=== PATIENT | male | born 1980 | race Caucasian/White ===

== ENCOUNTER → 2020-04-26 09:52 | Outpatient (CLI) | payer OTHER, SELFPAY ==
--- NOTE | 2020-04-26 | DI.CT.S_ITS ---
PROCEDURE: CT ABDOMEN W CON INDICATIONS: ABDOMINAL PAIN,GERD,DYSPEPSIA,NAUSEA TECHNIQUE: After the administration of oral and intravenous contrast, 5 mm thick sections acquired from the diaphragms to the iliac crests. 5 mm thick coronal and sagittal reformats were acquired. For radiation dose reduction, the following was used: automated exposure control, adjustment of mA and/or kV according to patient size. COMPARISON: None. FINDINGS: Image quality: Excellent. Lung bases: Lung bases are clear. Heart size is normal. Solid organs: Liver is normal in size and enhancement. Gallbladder appears partially contracted. Biliary system is non dilated. Pancreas enhances normally. Spleen is normal in size and enhancement. No adrenal nodules. Kidneys are normal in size, without hydronephrosis. Peritoneum and bowel: Contrast enhanced bowel loops appear normal in caliber. No free fluid or air. The transverse colon is relatively poorly seen and there is apposition of multiple small bowel loops and the transverse colon in the upper epigastrium. Nodes and vessels: No retroperitoneal or mesenteric adenopathy by size criteria. Aorta and inferior vena cava are normal in size. Bones: No suspicious bony lesions. No vertebral body compression fractures. Miscellaneous: No ventral hernias. IMPRESSION: The study is limited to the abdomen, without inclusion of the pelvis, and no definite source of current pain is identified. As discussed, the colon is poorly visualized through the area of the transverse colon, due to the apposition of small bowel structures immediately adjacent. Dictated by: Andrey Arndt M.D. on 04/26/2020 at 11:40 Approved by: Andrey Arndt M.D. on 04/26/2020 at 11:43
== END ==
PROVIDERS: PCP Nurse Practitioner; Referring Provider Internal Medicine Gastroenterology; Visit Provider Internal Medicine Gastroenterology
DX: K21.9 Gastro-esophageal reflux disease without esophagitis (principal); R10.13 Epigastric pain; R10.9 Unspecified abdominal pain; R11.0 Nausea
CPT/HCPCS: 74160; Q9967

== ENCOUNTER → 2021-04-02 08:27 | Outpatient (CLI) | payer OTHER, SELFPAY ==
[2021-04-02 10:19] LABS: Follicle Stimulating Hormone 2.48 mIU/mL
[2021-04-06 10:30] LABS: Percent Free Testosterone 2.88 % (1.50-4.20); Testosterone Free 18.67 ng/dL (5.00-21.00); Testosterone Total 648.4 ng/dL (264.0-916.0)
== END ==
PROVIDERS: PCP Family Medicine; Referring Provider Urology; Visit Provider Urology
DX: E29.1 Testicular hypofunction (principal)
CPT/HCPCS: 36415; 83001; 84402; 84403

== ENCOUNTER 2022-02-28 09:45 | Outpatient (RCR) | payer OTHER, SELFPAY ==
--- NOTE | 2022-01-01 14:25 | PT.OIE ---
Current Diagnoses Stiffness of right ankle, not elsewhere classified (01/01/22) Stiffness of left ankle, not elsewhere classified (01/01/22) Achilles tendinitis, right leg (01/01/22) Achilles tendinitis, left leg (01/01/22) Strain of other muscle(s) and tendon(s) of posterior muscle group at lower leg level, right leg, subsequent encounter (01/01/22) Strain of other muscle(s) and tendon(s) of posterior muscle group at lower leg level, left leg, subsequent encounter (01/01/22) Visit Care Team Role Provider Type Beth Lennon MD Attending Provider Non-Staff Family Provider Primary Care Provider Referring Provider Specialty: Family Practice Address: [address] [place] [address], [facility] Email: Physical Therapy Initial Evaluation PT-OP-A Visit Information Start: 01/01/22 13:46 Freq: Status: Active Protocol: Document 01/01/22 09:45 DCW (Rec: 01/01/22 14:13 DCW [id number]) Out-Patient Physical Therapy Visit Information Visit Information Visit Type Initial Evaluation Visit Start Time 09:45 Visit Stop Time 10:30 Total Visit Minutes 45 Visit Number 1 Number of SECOND HAND PAPER MACHINE Visits 0 Evaluation Information Evaluation Date 01/01/22 PT-OP-B Current Condition Start: 01/01/22 13:46 Freq: Status: Active Protocol: Document 01/01/22 09:45 DCW (Rec: 01/01/22 14:13 DCW [id number]) Current Condition History of Current Condition Onset Date s/p three months Current Complaints bilateral calf pain History of Current Condition Pt is a 41 year old male presenting to skilled therapy with a three month history of bilateral calf pain. Pt reports that in September, he completed his first marathon. Notes that following the race, he tried to run a few times, and had to stop due to mid- calf pain. Pt took a four week break from running, and then tried to get back into it. By his second run, he was experiencing fairly severe calf pain again, and has now not run in five weeks. Notes is doesn't hurt constantly, but when it does, there is nothing that he has found to help it. Did try to give himself a hard massage through his calfs, but was too sore the following day, so he stopped. Feels that his right leg is probably twice as bad as the left. 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 Treatment Goals Patient/Caregiver Goals Return to running PT-OP-C Subjective Start: 01/01/22 13:46 Freq: Status: Active Protocol: Document 01/01/22 09:45 DCW (Rec: 01/01/22 14:13 DCW [id number]) OP-PT Subjective Patient Comments Patient Comments I will sometimes still go out [place] for 1-2 miles, but even that seems like it is too much. Patient Questionnaires Foot & Ankle Ability Measure- ADL and Sports FAAM-ADL Score 43/84 = 51.91% FAAM-ADL Impairment 40 to 59% Impaired (Score 33- 49) FAAM-Sport Score 8/28 = 28.57 Lower Extremity Functional Scale LEFS Score 60/80 = 75% LEFS Impairment 20 to 39% Impaired (Score 48- 62) OP-PT Pain Assessment Pain Assessment Grid Paper Pain Assessment Grid Completed Yes Location Bilateral Calf Intensity 6 Scale Used Numeric (0 - 10) PT-OP-D Balance Start: 01/01/22 14:14 Freq: Status: Active Protocol: Document 01/01/22 09:45 DCW (Rec: 01/01/22 14:25 DCW [id number]) Balance Tests Single Limb Standing Single Limb- Right 30+ Single Limb- Left 30+ PT-OP-G Mobility & Gait Start: 01/01/22 13:46 Freq: Status: Active Protocol: Document 01/01/22 09:45 DCW (Rec: 01/01/22 14:13 DCW [id number]) OP Gait Assessment Comments Gait Comments Gait appears to be relatively unaffected. Pt does note his usual wear pattern on his running shoes are much more severely worn on his medial heel, but pt does not have any old shoes at this time, recently bought newer shoes, do not yet have any wear pattern, PT-OP-K Range of Motion Start: 01/01/22 13:46 Freq: Status: Active Protocol: Document 01/01/22 09:45 DCW (Rec: 01/01/22 14:13 DCW [id number]) Ankle and Foot Goniometric Range of Motion Ankle and Foot Right Active Testing Position Sitting Dorsiflexion with Knee Flexed 10 Dorsiflexion with Knee Extended 5 Plantarflexion 30 Inversion 35 Eversion 10 Left Active Testing Position Sitting Dorsiflexion with Knee Flexed 15 Dorsiflexion with Knee Extended 10 Plantarflexion 40 Inversion 40 Eversion 20 Ankle and Foot ROM Limitations ROM Limitations Soft Tissue Tightness PT-OP-L Special Tests Start: 01/01/22 13:46 Freq: Status: Active Protocol: Document 01/01/22 09:45 DCW (Rec: 01/01/22 14:13 DCW [id number]) Special Tests Foot/Ankle Special Tests Talor Tilt Test Results Negative Anterior Draw Test Results Negative PT-OP-M Strength Start: 01/01/22 13:46 Freq: Status: Active Protocol: Document 01/01/22 09:45 DCW (Rec: 01/01/22 14:13 DCW [id number]) Ankle/Foot Strength Ankle and Foot Manual Muscle Testing Bilateral Comments Dorsiflexion, Inversion, and Eversion all test 5/5. Plantar flexion tested with single leg heel raises. Pt able to perform 10 on L and 4 on R before stopping due to pain. PT-OP-T Assessment and Plan Start: 01/01/22 13:46 Freq: Status: Active Protocol: Document 01/01/22 09:45 DCW (Rec: 01/01/22 14:25 DCW [id number]) Physical Therapy Assessment Rehab Potential Rehabilitation Potential Good Evaluation Complexity Number of Personal Factors/Comorbidities 3 or More Number of Body Systems Impaired 3 Clinical Presentation at Evaluation Unstable Impairments Impairments Gait,Pain,Posture,ROM,Soft Tissue Mobility,Strength Other Concerns Barriers to Rehabilitation Long Covid creates multiple barriers, including congnitive confusion and decreased activity tolerance Goals Two Impairment Pt unable to perform normal running activities due to calf pain Certified Endoscopy Technician Goal (LTG) Pt to report ability to run 5K without increased calf pain LTG Duration 03/01/22 One Impairment Pt does not have an appropriate home exercise program Short Term Goal (STG) Pt to be independent and compliant with an appropriate HEP STG Duration 01/29/22 Assessment Summary Assessment Pt presents to skilled therapy with signs and symptoms consistent with bilateral calf strains, likely secondary to running a marathon. Pt's pain appears to be entirely located in his mid-calf muscles bilaterally, does not seem to have any complaints of pain in plantar fascia or Achilles tendon. Pt does appear to have increased pain with stretch into dorsiflexion with knee extension, which suggests possible involvement of his gastroc bilaterally. No notable signs that are suggestive of muscle tears. Pt should benefit from skilled therapy focusing on STM, flexibility, and strengthening in order to improve joint mobility and reduce calf tone, as well as further assessment of running technique to identify any potential deficits and introduce some gait training to limit negative effects. If pt does not progress with therapy, pt may benefit from further imaging. Physical Therapy Plan Frequency and Duration Frequency of Treatment 2x/Week Duration of Treatment Two months Plan of Care Start Date 01/01/22 Plan of Care End Date 03/01/22 Therapeutic Interventions Therapeutic Interventions Aquatic Therapy,Gait Training, Home Exercise Program,Joint Mobilizations,Manual Therapy, Patient/Caregiver Education, Self-Care/Home Management,Soft Tissue Mobilization, Therapeutic Activities, Therapeutic Exercises Modalities Cold Pack/Ice Massage,Electric Stimulation,Hot Packs, Ultrasound Next Visit Focus/Plan Next Note Type Treatment Note Next Visit Plan STM, Flexibility, strengthening of bilateral calf/ankles.
--- NOTE | 2022-01-01 14:26 | PT.OPPOC ---
Physical, Occupational & Speech Therapy At [facility] Current Diagnoses Stiffness of right ankle, not elsewhere classified (01/01/22) Stiffness of left ankle, not elsewhere classified (01/01/22) Achilles tendinitis, right leg (01/01/22) Achilles tendinitis, left leg (01/01/22) Strain of other muscle(s) and tendon(s) of posterior muscle group at lower leg level, right leg, subsequent encounter (01/01/22) Strain of other muscle(s) and tendon(s) of posterior muscle group at lower leg level, left leg, subsequent encounter (01/01/22) Visit Care Team Role Provider Type eBth Lennon MD Attending Provider Non-Staff Family Provider Primary Care Provider Referring Provider Specialty: Family Practice Address: [address] [place] [address], [id number] Email: Plan Of Care PT-OP-T Assessment and Plan Start: 01/01/22 13:46 Freq: Status: Active Protocol: Document 01/01/22 09:45 DCW (Rec: 01/01/22 14:25 DCW [id number]) Physical Therapy Assessment Rehab Potential Rehabilitation Potential Good Evaluation Complexity Number of Personal Factors/Comorbidities 3 or More Number of Body Systems Impaired 3 Clinical Presentation at Evaluation Unstable Impairments Impairments Gait,Pain,Posture,ROM,Soft Tissue Mobility,Strength Other Concerns Barriers to Rehabilitation Long Covid creates multiple barriers, including cognitive confusion and decreased activity tolerance Goals Two Impairment Pt unable to perform normal running activities due to calf pain Intermediate Goal (LTG) Pt to report ability to run 5K without increased calf pain LTG Duration 03/01/22 One Impairment Pt does not have an appropriate home exercise program Short Term Goal (STG) Pt to be independent and compliant with an appropriate HEP STG Duration 01/29/22 Assessment Summary Assessment Pt presents to skilled therapy with signs and symptoms consistent with bilateral calf strains, likely secondary to running a marathon. Pt's pain appears to be entirely located in his mid-calf muscles bilaterally, does not seem to have any complaints of pain in plantar fascia or Achilles tendon. Pt does appear to have increased pain with stretch into dorsiflexion with knee extension, which suggests possible involvement of his gastroc bilaterally. No notable signs that are suggestive of muscle tears. Pt should benefit from skilled therapy focusing on STM, flexibility, and strengthening in order to improve joint mobility and reduce calf tone, as well as further assessment of running technique to identify any potential deficits and introduce some gait training to limit negative effects. If pt does not progress with therapy, pt may benefit from further imaging. Physical Therapy Plan Frequency and Duration Frequency of Treatment 2x/Week Duration of Treatment Two months Plan of Care Start Date 01/01/22 Plan of Care End Date 03/01/22 Therapeutic Interventions Therapeutic Interventions Aquatic Therapy,Gait Training, Home Exercise Program,Joint Mobilizations,Manual Therapy, Patient/Caregiver Education, Self-Care/Home Management,Soft Tissue Mobilization, Therapeutic Activities, Therapeutic Exercises Modalities Cold Pack/Ice Massage,Electric Stimulation,Hot Packs, Ultrasound Next Visit Focus/Plan Next Note Type Treatment Note Next Visit Plan STM, Flexibility, strengthening of bilateral calf/ankles. Plan of Care Dates Plan of Care Start Date 01/01/22 Plan of Care End Date 03/01/22 Electronically Signed by: Des Rosenthal, PT 01/01/22 0180 Please Sign and Return: I have reviewed this Plan of Care and certify that the skilled therapy services above are required to meet the patient?s needs. Physician Signature Date Printed Name and Credentials Clinical Instructor Signature Printed Name and Credentials
--- NOTE | 2022-01-04 12:01 | PT.OTN ---
Current Diagnoses Stiffness of right ankle, not elsewhere classified (01/04/22) Stiffness of left ankle, not elsewhere classified (01/04/22) Achilles tendinitis, right leg (01/04/22) Achilles tendinitis, left leg (01/04/22) Strain of other muscle(s) and tendon(s) of posterior muscle group at lower leg level, right leg, subsequent encounter (01/04/22) Strain of other muscle(s) and tendon(s) of posterior muscle group at lower leg level, left leg, subsequent encounter (01/04/22) Physical Therapy Treatment Note PT-OP-A Visit Information Start: 01/01/22 13:46 Freq: Status: Active Protocol: Document 01/04/22 11:15 DCW (Rec: 01/04/22 12:01 DCW [id number]) Out-Patient Physical Therapy Visit Information Visit Information Visit Type Treatment Note Visit Start Time 11:15 Visit Stop Time 12:00 Total Visit Minutes 45 Visit Number 2 Number of ONCOLOGY RN Visits 0 Evaluation Information Evaluation Date 01/01/22 PT-OP-B Current Condition Start: 01/01/22 13:46 Freq: Status: Active Protocol: Document 01/01/22 09:45 DCW (Rec: 01/01/22 14:13 DCW [id number]) Current Condition History of Current Condition Onset Date s/p three months Current Complaints bilateral calf pain History of Current Condition Pt is a 41 year old male presenting to skilled therapy with a three month history of bilateral calf pain. Pt reports that in September, he completed his first marathon. Notes that following the race, he tried to run a few times, and had to stop due to mid- calf pain. Pt took a four week break from running, and then tried to get back into it. By his second run, he was experiencing fairly severe calf pain again, and has now not run in five weeks. Notes is doesn't hurt constantly, but when it does, there is nothing that he has found to help it. Did try to give himself a hard massage through his calfs, but was too sore the following day, so he stopped. Feels that his right leg is probably twice as bad as the left. 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 Treatment Goals Patient/Caregiver Goals Return to running PT-OP-C Subjective Start: 01/01/22 13:46 Freq: Status: Active Protocol: Document 01/04/22 11:15 DCW (Rec: 01/04/22 12:01 DCW [id number]) OP-PT Subjective Patient Comments Patient Comments Yesterday my right leg was really sore, I was kind of limping around all day, I wasn 't able to do much. It's doing better today. PT-OP-D Balance Start: 01/01/22 14:14 Freq: Status: Active Protocol: Document 01/01/22 09:45 DCW (Rec: 01/01/22 14:25 DCW [id number]) Balance Tests Single Limb Standing Single Limb- Right 30+ Single Limb- Left 30+ PT-OP-G Mobility & Gait Start: 01/01/22 13:46 Freq: Status: Active Protocol: Document 01/01/22 09:45 DCW (Rec: 01/01/22 14:13 DCW [id number]) OP Gait Assessment Comments Gait Comments Gait appears to be relatively unaffected. Pt does note his usual wear pattern on his running shoes are much more severely worn on his medial heel, but pt does not have any old shoes at this time, recently bought newer shoes, do not yet have any wear pattern, PT-OP-K Range of Motion Start: 01/01/22 13:46 Freq: Status: Active Protocol: Document 01/01/22 09:45 DCW (Rec: 01/01/22 14:13 DCW [id number]) Ankle and Foot Goniometric Range of Motion Ankle and Foot Right Active Testing Position Sitting Dorsiflexion with Knee Flexed 10 Dorsiflexion with Knee Extended 5 Plantarflexion 30 Inversion 35 Eversion 10 Left Active Testing Position Sitting Dorsiflexion with Knee Flexed 15 Dorsiflexion with Knee Extended 10 Plantarflexion 40 Inversion 40 Eversion 20 Ankle and Foot ROM Limitations ROM Limitations Soft Tissue Tightness PT-OP-L Special Tests Start: 01/01/22 13:46 Freq: Status: Active Protocol: Document 01/01/22 09:45 DCW (Rec: 01/01/22 14:13 DCW [id number]) Special Tests Foot/Ankle Special Tests Talor Tilt Test Results Negative Anterior Draw Test Results Negative PT-OP-M Strength Start: 01/01/22 13:46 Freq: Status: Active Protocol: Document 01/01/22 09:45 DCW (Rec: 01/01/22 14:13 DCW [id number]) Ankle/Foot Strength Ankle and Foot Manual Muscle Testing Bilateral Comments Dorsiflexion, Inversion, and Eversion all test 5/5. Plantar flexion tested with single leg heel raises. Pt able to perform 10 on L and 4 on R before stopping due to pain. PT-OP-Q Treatments Start: 01/01/22 13:46 Freq: Status: Active Protocol: Document 01/04/22 11:15 DCW (Rec: 01/04/22 12:01 DCW [id number]) Therapeutic Exercises Supine Exercises 1 Supine Exercise Name Calf stretch /c strap Side bilateral Prone Exercises 1 Prone Exercise Name Calf stretch Side bilateral Comments Manual Standing Exercises 1 Standing Exercise Name Single leg eccentric heel raises Side bilateral Manual Therapy Treatment Soft Tissue Mobilization 1 Body Location B Post Tib Mobilization Type Strumming,Sustained Pressure Intensity/Depth Deep Body Position Prone PT-OP-R Modalities Start: 01/01/22 13:46 Freq: Status: Active Protocol: Document 01/04/22 11:15 DCW (Rec: 01/04/22 12:01 DCW [id number]) Ultrasound Therapy Treatment Lower Medial Leg Treatment Duration (minutes) 10 Patient Position Prone Coupling Medium Ultrasound Gel Applicator Size (cm2) 5 Frequency Setting (mHz) 1 Mode Setting Continuous Duty Cycle 100% Intensity Setting (w/cm2) 1.2 PT-OP-T Assessment and Plan Start: 01/01/22 13:46 Freq: Status: Active Protocol: Document 01/04/22 11:15 DCW (Rec: 01/04/22 12:01 DCW [id number]) Physical Therapy Assessment Impairments Impairments Gait,Pain,Posture,ROM,Soft Tissue Mobility,Strength Goals Two Impairment Pt unable to perform normal running activities due to calf pain Mcfp Goal (LTG) Pt to report ability to run 5K without increased calf pain LTG Duration 03/01/22 One Impairment Pt does not have an appropriate home exercise program Short Term Goal (STG) Pt to be independent and compliant with an appropriate HEP STG Duration 01/29/22 Assessment Summary Assessment Noted increased tenderness today along bilateral post tib tendons, trial of US to decrease tone, worked on stretching and strengthening of ankles. Physical Therapy Plan Frequency and Duration Frequency of Treatment 2x/Week Duration of Treatment Two months Plan of Care Start Date 01/01/22 Plan of Care End Date 03/01/22 Therapeutic Interventions Therapeutic Interventions Aquatic Therapy,Gait Training, Home Exercise Program,Joint Mobilizations,Manual Therapy, Patient/Caregiver Education, Self-Care/Home Management,Soft Tissue Mobilization, Therapeutic Activities, Therapeutic Exercises Modalities Cold Pack/Ice Massage,Electric Stimulation,Hot Packs, Ultrasound Next Visit Focus/Plan Next Note Type Treatment Note Next Visit Plan STM, Flexibility, strengthening of bilateral calf/ankles.
--- NOTE | 2022-01-08 10:30 | PT.OTN ---
Current Diagnoses Stiffness of right ankle, not elsewhere classified (01/08/22) Stiffness of left ankle, not elsewhere classified (01/08/22) Achilles tendinitis, right leg (01/08/22) Achilles tendinitis, left leg (01/08/22) Strain of other muscle(s) and tendon(s) of posterior muscle group at lower leg level, right leg, subsequent encounter (01/08/22) Strain of other muscle(s) and tendon(s) of posterior muscle group at lower leg level, left leg, subsequent encounter (01/08/22) Physical Therapy Treatment Note PT-OP-A Visit Information Start: 01/01/22 13:46 Freq: Status: Active Protocol: Document 01/08/22 09:50 SP (Rec: 01/08/22 10:32 SP [id number]) Out-Patient Physical Therapy Visit Information Visit Information Visit Type Treatment Note Visit Start Time 09:50 Visit Stop Time 10:30 Total Visit Minutes 40 Visit Number 3 Number of ASSOCIATE PROFESSOR OF LITERATURE Visits 1 Evaluation Information Evaluation Date 01/01/22 PT-OP-B Current Condition Start: 01/01/22 13:46 Freq: Status: Active Protocol: Document 01/01/22 09:45 DCW (Rec: 01/01/22 14:13 DCW [id number]) Current Condition History of Current Condition Onset Date s/p three months Current Complaints bilateral calf pain History of Current Condition Pt is a 41 year old male presenting to skilled therapy with a three month history of bilateral calf pain. Pt reports that in September, he completed his first marathon. Notes that following the race, he tried to run a few times, and had to stop due to mid- calf pain. Pt took a four week break from running, and then tried to get back into it. By his second run, he was experiencing fairly severe calf pain again, and has now not run in five weeks. Notes is doesn't hurt constantly, but when it does, there is nothing that he has found to help it. Did try to give himself a hard massage through his calfs, but was too sore the following day, so he stopped. Feels that his right leg is probably twice as bad as the left. 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 Treatment Goals Patient/Caregiver Goals Return to running PT-OP-C Subjective Start: 01/01/22 13:46 Freq: Status: Active Protocol: Document 01/08/22 09:50 SP (Rec: 01/08/22 10:32 SP [id number]) OP-PT Subjective Patient Comments Patient Comments Pt states Sat performed eccentric calf raises 1.5 min/ 2min instructed and really painful to walk about 5 hrs spasming LLE, last 2 hrs then RLE started spasming had to stop and ice with good response. PT-OP-D Balance Start: 01/01/22 14:14 Freq: Status: Active Protocol: Document 01/01/22 09:45 DCW (Rec: 01/01/22 14:25 DCW [id number]) Balance Tests Single Limb Standing Single Limb- Right 30+ Single Limb- Left 30+ PT-OP-G Mobility & Gait Start: 01/01/22 13:46 Freq: Status: Active Protocol: Document 01/01/22 09:45 DCW (Rec: 01/01/22 14:13 DCW [id number]) OP Gait Assessment Comments Gait Comments Gait appears to be relatively unaffected. Pt does note his usual wear pattern on his running shoes are much more severely worn on his medial heel, but pt does not have any old shoes at this time, recently bought newer shoes, do not yet have any wear pattern, PT-OP-K Range of Motion Start: 01/01/22 13:46 Freq: Status: Active Protocol: Document 01/01/22 09:45 DCW (Rec: 01/01/22 14:13 DCW [id number]) Ankle and Foot Goniometric Range of Motion Ankle and Foot Right Active Testing Position Sitting Dorsiflexion with Knee Flexed 10 Dorsiflexion with Knee Extended 5 Plantarflexion 30 Inversion 35 Eversion 10 Left Active Testing Position Sitting Dorsiflexion with Knee Flexed 15 Dorsiflexion with Knee Extended 10 Plantarflexion 40 Inversion 40 Eversion 20 Ankle and Foot ROM Limitations ROM Limitations Soft Tissue Tightness PT-OP-L Special Tests Start: 01/01/22 13:46 Freq: Status: Active Protocol: Document 01/01/22 09:45 DCW (Rec: 01/01/22 14:13 DCW [id number]) Special Tests Foot/Ankle Special Tests Talor Tilt Test Results Negative Anterior Draw Test Results Negative PT-OP-M Strength Start: 01/01/22 13:46 Freq: Status: Active Protocol: Document 01/01/22 09:45 DCW (Rec: 01/01/22 14:13 DCW [id number]) Ankle/Foot Strength Ankle and Foot Manual Muscle Testing Bilateral Comments Dorsiflexion, Inversion, and Eversion all test 5/5. Plantar flexion tested with single leg heel raises. Pt able to perform 10 on L and 4 on R before stopping due to pain. PT-OP-Q Treatments Start: 01/01/22 13:46 Freq: Status: Active Protocol: Document 01/08/22 09:50 SP (Rec: 01/08/22 10:32 SP [id number]) Therapeutic Exercises Supine Exercises eccentric DF w/ TB Supine Exercise Name added to HEP Side bilateral Resistance TB #1 Reps/Minutes x10 Comments cued slow eccentric DF- painfree response 1 Supine Exercise Name Calf stretch /c strap Side bilateral Reps/Minutes 30 x2 Comments states little sore but ok to do Sitting Exercises foot instrinsic Sitting Exercise Name added to HEP: arch lift and marble waste picker (towel scrunch at home) Side bilateral Resistance AROM Equipment Used towel vs marble Reps/Minutes 2 min total Comments cued slow movement, tiring but not painful response ankle strengthening Sitting Exercise Name added to HEP- EV, IV Side bilateral Resistance TB #1 Reps/Minutes x10 each direction Comments cued set up/direct/ form, keep knee stable- painfree response self STMs Sitting Exercise Name Reviewed doing self at home vs massage with hands Side bilateral Equipment Used rolling pin (roll/ rock), racquetball vs manual Reps/Minutes 3 min total Comments little tender calf over ball sustain press/ vs AP MWM- sore but ok as sena. Standing Exercises 1 Standing Exercise Name Single leg eccentric heel raises Side bilateral Comments pt request discontinue due to pain experience over weekend. PT-OP-R Modalities Start: 01/01/22 13:46 Freq: Status: Active Protocol: Document 01/04/22 11:15 DCW (Rec: 01/04/22 12:01 DCW [id number]) Ultrasound Therapy Treatment Lower Medial Leg Treatment Duration (minutes) 10 Patient Position Prone Coupling Medium Ultrasound Gel Applicator Size (cm2) 5 Frequency Setting (mHz) 1 Mode Setting Continuous Duty Cycle 100% Intensity Setting (w/cm2) 1.2 PT-OP-T Assessment and Plan Start: 01/01/22 13:46 Freq: Status: Active Protocol: Document 01/08/22 09:50 SP (Rec: 01/08/22 10:32 SP [id number]) Physical Therapy Assessment Goals Two Impairment Pt unable to perform normal running activities due to calf pain Snf Goal (LTG) Pt to report ability to run 5K without increased calf pain LTG Duration 03/01/22 One Impairment Pt does not have an appropriate home exercise program Short Term Goal (STG) Pt to be independent and compliant with an appropriate HEP STG Duration 01/29/22 Assessment Summary Assessment Pt responded well to self manual, stretching review and initiated ankle strengthening including eccentric DF with no adverse affects, muscle tiring. Discussed if having pain at home or easy modify reps more/ less with good understanding. Provided hand outs for recall set up/form, baseline rep. Physical Therapy Plan Frequency and Duration Frequency of Treatment 2x/Week Duration of Treatment Two months Plan of Care Start Date 01/01/22 Plan of Care End Date 03/01/22 Therapeutic Interventions Therapeutic Interventions Aquatic Therapy,Gait Training, Home Exercise Program,Joint Mobilizations,Manual Therapy, Patient/Caregiver Education, Self-Care/Home Management,Soft Tissue Mobilization, Therapeutic Activities, Therapeutic Exercises Modalities Cold Pack/Ice Massage,Electric Stimulation,Hot Packs, Ultrasound Next Visit Focus/Plan Next Note Type Treatment Note Next Visit Plan Recheck ankle TB, foot intrinsic. Next tx: assess add SLS stationary/ dynamic star taps. POC: STM, Flexibility, strengthening of bilateral calf/ankles.
--- NOTE | 2022-01-10 11:16 | PT.OTN ---
Current Diagnoses Stiffness of right ankle, not elsewhere classified (01/10/22) Stiffness of left ankle, not elsewhere classified (01/10/22) Achilles tendinitis, right leg (01/10/22) Achilles tendinitis, left leg (01/10/22) Strain of other muscle(s) and tendon(s) of posterior muscle group at lower leg level, right leg, subsequent encounter (01/10/22) Strain of other muscle(s) and tendon(s) of posterior muscle group at lower leg level, left leg, subsequent encounter (01/10/22) Physical Therapy Treatment Note PT-OP-A Visit Information Start: 01/01/22 13:46 Freq: Status: Active Protocol: Document 01/10/22 10:30 DCW (Rec: 01/10/22 11:16 DCW [id number]) Out-Patient Physical Therapy Visit Information Visit Information Visit Type Treatment Note Visit Start Time 10:30 Visit Stop Time 11:15 Total Visit Minutes 45 Visit Number 4 Number of CHIEF LIFESTYLE OFFICER Visits 0 Evaluation Information Evaluation Date 01/01/22 PT-OP-B Current Condition Start: 01/01/22 13:46 Freq: Status: Active Protocol: Document 01/01/22 09:45 DCW (Rec: 01/01/22 14:13 DCW [id number]) Current Condition History of Current Condition Onset Date s/p three months Current Complaints bilateral calf pain History of Current Condition Pt is a 41 year old male presenting to skilled therapy with a three month history of bilateral calf pain. Pt reports that in September, he completed his first marathon. Notes that following the race, he tried to run a few times, and had to stop due to mid- calf pain. Pt took a four week break from running, and then tried to get back into it. By his second run, he was experiencing fairly severe calf pain again, and has now not run in five weeks. Notes is doesn't hurt constantly, but when it does, there is nothing that he has found to help it. Did try to give himself a hard massage through his calfs, but was too sore the following day, so he stopped. Feels that his right leg is probably twice as bad as the left. 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 Treatment Goals Patient/Caregiver Goals Return to running PT-OP-C Subjective Start: 01/01/22 13:46 Freq: Status: Active Protocol: Document 01/10/22 10:30 DCW (Rec: 01/10/22 11:16 DCW [id number]) OP-PT Subjective Patient Comments Patient Comments Pt notes his legs were pretty sore yesterday just from walking around. PT-OP-D Balance Start: 01/01/22 14:14 Freq: Status: Active Protocol: Document 01/01/22 09:45 DCW (Rec: 01/01/22 14:25 DCW [id number]) Balance Tests Single Limb Standing Single Limb- Right 30+ Single Limb- Left 30+ PT-OP-G Mobility & Gait Start: 01/01/22 13:46 Freq: Status: Active Protocol: Document 01/01/22 09:45 DCW (Rec: 01/01/22 14:13 DCW [id number]) OP Gait Assessment Comments Gait Comments Gait appears to be relatively unaffected. Pt does note his usual wear pattern on his running shoes are much more severely worn on his medial heel, but pt does not have any old shoes at this time, recently bought newer shoes, do not yet have any wear pattern, PT-OP-K Range of Motion Start: 01/01/22 13:46 Freq: Status: Active Protocol: Document 01/01/22 09:45 DCW (Rec: 01/01/22 14:13 DCW [id number]) Ankle and Foot Goniometric Range of Motion Ankle and Foot Right Active Testing Position Sitting Dorsiflexion with Knee Flexed 10 Dorsiflexion with Knee Extended 5 Plantarflexion 30 Inversion 35 Eversion 10 Left Active Testing Position Sitting Dorsiflexion with Knee Flexed 15 Dorsiflexion with Knee Extended 10 Plantarflexion 40 Inversion 40 Eversion 20 Ankle and Foot ROM Limitations ROM Limitations Soft Tissue Tightness PT-OP-L Special Tests Start: 01/01/22 13:46 Freq: Status: Active Protocol: Document 01/01/22 09:45 DCW (Rec: 01/01/22 14:13 DCW [id number]) Special Tests Foot/Ankle Special Tests Talor Tilt Test Results Negative Anterior Draw Test Results Negative PT-OP-M Strength Start: 02/15/22 13:46 Freq: Status: Active Protocol: Document 01/01/22 09:45 DCW (Rec: 01/01/22 14:13 DCW [id number]) Ankle/Foot Strength Ankle and Foot Manual Muscle Testing Bilateral Comments Dorsiflexion, Inversion, and Eversion all test 5/5. Plantar flexion tested with single leg heel raises. Pt able to perform 10 on L and 4 on R before stopping due to pain. PT-OP-Q Treatments Start: 01/01/22 13:46 Freq: Status: Active Protocol: Document 01/10/22 10:30 DCW (Rec: 01/10/22 11:16 DCW [id number]) Manual Therapy Treatment Soft Tissue Mobilization 1 Body Location B Post Tib Mobilization Type Strumming,Sustained Pressure Intensity/Depth Deep Body Position Prone PT-OP-R Modalities Start: 01/01/22 13:46 Freq: Status: Active Protocol: Document 01/10/22 10:30 DCW (Rec: 01/10/22 11:16 DCW [id number]) Ultrasound Therapy Treatment Lower Medial Leg Treatment Duration (minutes) 10 Patient Position Prone Coupling Medium Ultrasound Gel Applicator Size (cm2) 5 Frequency Setting (mHz) 1 Mode Setting Continuous Duty Cycle 100% Intensity Setting (w/cm2) 1.2 Comments 5' each leg PT-OP-T Assessment and Plan Start: 01/01/22 13:46 Freq: Status: Active Protocol: Document 01/10/22 10:30 DCW (Rec: 01/10/22 11:16 DCW [id number]) Physical Therapy Assessment Impairments Impairments Gait,Pain,Posture,ROM,Soft Tissue Mobility,Strength Goals Two Impairment Pt unable to perform normal running activities due to calf pain Usp Goal (LTG) Pt to report ability to run 5K without increased calf pain LTG Duration 03/01/22 One Impairment Pt does not have an appropriate home exercise program Short Term Goal (STG) Pt to be independent and compliant with an appropriate HEP STG Duration 01/29/22 Assessment Summary Assessment Pt performing gentle strengthening at home independently. Focused more today on STM and US, still trying to take it easy to limit flair-ups. If pt continues to show limited progress, may be beneficial to return to PCP. Physical Therapy Plan Frequency and Duration Frequency of Treatment 2x/Week Duration of Treatment Two months Plan of Care Start Date 01/01/22 Plan of Care End Date 03/01/22 Therapeutic Interventions Therapeutic Interventions Aquatic Therapy,Gait Training, Home Exercise Program,Joint Mobilizations,Manual Therapy, Patient/Caregiver Education, Self-Care/Home Management,Soft Tissue Mobilization, Therapeutic Activities, Therapeutic Exercises Modalities Cold Pack/Ice Massage,Electric Stimulation,Hot Packs, Ultrasound Next Visit Focus/Plan Next Note Type Treatment Note Next Visit Plan Next tx: assess add SLS stationary/ dynamic star taps. POC: STM, Flexibility, strengthening of bilateral calf/ankles.
--- NOTE | 2022-01-15 13:48 | PT.OTN ---
Current Diagnoses Stiffness of right ankle, not elsewhere classified (01/15/22) Stiffness of left ankle, not elsewhere classified (01/15/22) Achilles tendinitis, right leg (01/15/22) Achilles tendinitis, left leg (01/15/22) Strain of other muscle(s) and tendon(s) of posterior muscle group at lower leg level, right leg, subsequent encounter (01/15/22) Strain of other muscle(s) and tendon(s) of posterior muscle group at lower leg level, left leg, subsequent encounter (01/15/22) Physical Therapy Treatment Note PT-OP-A Visit Information Start: 01/01/22 13:46 Freq: Status: Active Protocol: Document 01/15/22 13:04 SP (Rec: 01/15/22 13:52 SP [id number]) Out-Patient Physical Therapy Visit Information Visit Information Visit Type Treatment Note Visit Start Time 13:04 Visit Stop Time 13:48 Total Visit Minutes 44 Visit Number 5 Number of JOURNEYMAN TOOL AND DIE MAKER Visits 1 Evaluation Information Evaluation Date 01/01/22 PT-OP-B Current Condition Start: 01/01/22 13:46 Freq: Status: Active Protocol: Document 01/01/22 09:45 DCW (Rec: 01/01/22 14:13 DCW [id number]) Current Condition History of Current Condition Onset Date s/p three months Current Complaints bilateral calf pain History of Current Condition Pt is a 41 year old male presenting to skilled therapy with a three month history of bilateral calf pain. Pt reports that in September, he completed his first marathon. Notes that following the race, he tried to run a few times, and had to stop due to mid- calf pain. Pt took a four week break from running, and then tried to get back into it. By his second run, he was experiencing fairly severe calf pain again, and has now not run in five weeks. Notes is doesn't hurt constantly, but when it does, there is nothing that he has found to help it. Did try to give himself a hard massage through his calfs, but was too sore the following day, so he stopped. Feels that his right leg is probably twice as bad as the left. 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 Treatment Goals Patient/Caregiver Goals Return to running PT-OP-C Subjective Start: 01/01/22 13:46 Freq: Status: Active Protocol: Document 01/15/22 13:04 SP (Rec: 01/15/22 13:52 SP [id number]) OP-PT Subjective Patient Comments Patient Comments Pt stated felt fine after last appt, was able to walk on flat surface outdoors about 30 min approx 1.5 mile and rested after with little stiffness but doing better overall. Pt stated is noticing calves achiness when wakes up and end fo the day. Was able to hike/ walk some [place] trails but not extremely elevated, about 1 hr with just water and lead his dog with friends, no adverse affects. Uses rice warm packs and ice bath for comfort. Noted pt had small bruising over both calves from hard knobbed rolling pin purchased brought in with firm pressure but isn't painful. PT-OP-D Balance Start: 01/01/22 14:14 Freq: Status: Active Protocol: Document 01/01/22 09:45 DCW (Rec: 01/01/22 14:25 DCW [id number]) Balance Tests Single Limb Standing Single Limb- Right 30+ Single Limb- Left 30+ PT-OP-G Mobility & Gait Start: 01/01/22 13:46 Freq: Status: Active Protocol: Document 01/01/22 09:45 DCW (Rec: 01/01/22 14:13 DCW [id number]) OP Gait Assessment Comments Gait Comments Gait appears to be relatively unaffected. Pt does note his usual wear pattern on his running shoes are much more severely worn on his medial heel, but pt does not have any old shoes at this time, recently bought newer shoes, do not yet have any wear pattern, PT-OP-K Range of Motion Start: 01/01/22 13:46 Freq: Status: Active Protocol: Document 01/01/22 09:45 DCW (Rec: 01/01/22 14:13 DCW [id number]) Ankle and Foot Goniometric Range of Motion Ankle and Foot Right Active Testing Position Sitting Dorsiflexion with Knee Flexed 10 Dorsiflexion with Knee Extended 5 Plantarflexion 30 Inversion 35 Eversion 10 Left Active Testing Position Sitting Dorsiflexion with Knee Flexed 15 Dorsiflexion with Knee Extended 10 Plantarflexion 40 Inversion 40 Eversion 20 Ankle and Foot ROM Limitations ROM Limitations Soft Tissue Tightness PT-OP-L Special Tests Start: 01/01/22 13:46 Freq: Status: Active Protocol: Document 01/01/22 09:45 DCW (Rec: 01/01/22 14:13 DCW [id number]) Special Tests Foot/Ankle Special Tests Talor Tilt Test Results Negative Anterior Draw Test Results Negative PT-OP-M Strength Start: 01/01/22 13:46 Freq: Status: Active Protocol: Document 01/01/22 09:45 DCW (Rec: 01/01/22 14:13 DCW [id number]) Ankle/Foot Strength Ankle and Foot Manual Muscle Testing Bilateral Comments Dorsiflexion, Inversion, and Eversion all test 5/5. Plantar flexion tested with single leg heel raises. Pt able to perform 10 on L and 4 on R before stopping due to pain. PT-OP-Q Treatments Start: 01/01/22 13:46 Freq: Status: Active Protocol: Document 01/15/22 13:04 SP (Rec: 01/15/22 13:52 SP [id number]) Therapeutic Exercises Sitting Exercises foot instrinsic Sitting Exercise Name discussed is still performing in sitting arch lifts at home Side bilateral Resistance AROM Equipment Used towel vs marble Reps/Minutes 2 min total Comments cued slow movement, tiring but not painful response ankle strengthening Sitting Exercise Name EV, IV- discussed but not performed is doing at home Side bilateral Resistance TB #1 Reps/Minutes x10 each direction Comments cued set up/direct/ form, keep knee stable- painfree response self STMs Sitting Exercise Name Discussed performed with ne w small knobbed rolling pin. Side bilateral Equipment Used rolling pin (roll/ rock), racquetball vs manual Reps/Minutes 3 min total Comments little tender calf over ball sustain press/ vs AP MWM- sore but ok as sena. Standing Exercises calf stretch Standing Exercise Name self HEP Side bilateral Reps/Minutes 30 x2 Comments good feedback stretch step ups BOSU Standing Exercise Name added to HEP- dome side up Side right Resistance AROM Equipment Used bosu, contact for balance supprt Reps/Minutes 2x5 Comments cued awareness SLS star glides Standing Exercise Name added to HEP (RLE stationary, LLE 12, 10, 8, 6 o'clock) Side right Resistance AROM Equipment Used cones, mirror Reps/Minutes 4 cones x5 reps Comments cued knee with and behind toes , hip hinge Self-Care/Home Management Treatment Education Patient Education Body Mechanics,Pain Management ,Safety Other Education Discussed safety pressure using rolling pin, recommended use of regular rolling pin and hands if needed for tightness, feel over did using new knobbed roller. PT-OP-R Modalities Start: 01/01/22 13:46 Freq: Status: Active Protocol: Document 01/15/22 13:04 SP (Rec: 01/15/22 13:52 SP [id number]) Ultrasound Therapy Treatment Lower Medial Leg Treatment Duration (minutes) 10 Patient Position Prone Coupling Medium Ultrasound Gel Applicator Size (cm2) 5 Frequency Setting (mHz) 1 Mode Setting Continuous Duty Cycle 100% Intensity Setting (w/cm2) 1.2 Comments 5' each leg achilles PT-OP-T Assessment and Plan Start: 01/01/22 13:46 Freq: Status: Active Protocol: Document 01/15/22 13:04 SP (Rec: 01/15/22 13:52 SP [id number]) Physical Therapy Assessment Goals Two Impairment Pt unable to perform normal running activities due to calf pain Half-Way Goal (LTG) Pt to report ability to run 5K without increased calf pain LTG Duration 03/01/22 One Impairment Pt does not have an appropriate home exercise program Short Term Goal (STG) Pt to be independent and compliant with an appropriate HEP STG Duration 01/29/22 Assessment Summary Assessment Pt had good response to last tx. Stated performed some uneven trail walks since last tx, no adverse affects. Initiated SLS star glide and dome BOSU step ups (has one at home) with cues for knee and ankle alignment for stability strengthening with good response and corrections alignment post education. Pt reported no pain, R lower leg feeling weak and noted shakiness but stable. Physical Therapy Plan Frequency and Duration Frequency of Treatment 2x/Week Duration of Treatment Two months Plan of Care Start Date 01/01/22 Plan of Care End Date 03/01/22 Therapeutic Interventions Therapeutic Interventions Aquatic Therapy,Gait Training, Home Exercise Program,Joint Mobilizations,Manual Therapy, Patient/Caregiver Education, Self-Care/Home Management,Soft Tissue Mobilization, Therapeutic Activities, Therapeutic Exercises Modalities Cold Pack/Ice Massage,Electric Stimulation,Hot Packs, Ultrasound Next Visit Focus/Plan Next Note Type Treatment Note Next Visit Plan Next tx: assess new bosu step ups and dynamic star glides. If ok progress dynamic stepping/ ladder stepping next tx. POC: STM, Flexibility, strengthening of bilateral calf/ankles.
--- NOTE | 2022-01-17 11:15 | PT.OTN ---
Current Diagnoses Stiffness of right ankle, not elsewhere classified (01/17/22) Stiffness of left ankle, not elsewhere classified (01/17/22) Achilles tendinitis, right leg (01/17/22) Achilles tendinitis, left leg (01/17/22) Strain of other muscle(s) and tendon(s) of posterior muscle group at lower leg level, right leg, subsequent encounter (01/17/22) Strain of other muscle(s) and tendon(s) of posterior muscle group at lower leg level, left leg, subsequent encounter (01/17/22) Physical Therapy Treatment Note PT-OP-A Visit Information Start: 01/01/22 13:46 Freq: Status: Active Protocol: Document 01/17/22 10:30 DCW (Rec: 01/17/22 11:15 DCW [id number]) Out-Patient Physical Therapy Visit Information Visit Information Visit Type Treatment Note Visit Start Time 10:30 Visit Stop Time 11:15 Total Visit Minutes 45 Visit Number 6 Number of THREAD ROLLER Visits 0 Evaluation Information Evaluation Date 01/01/22 PT-OP-B Current Condition Start: 01/01/22 13:46 Freq: Status: Active Protocol: Document 01/01/22 09:45 DCW (Rec: 01/01/22 14:13 DCW [id number]) Current Condition History of Current Condition Onset Date s/p three months Current Complaints bilateral calf pain History of Current Condition Pt is a 41 year old male presenting to skilled therapy with a three month history of bilateral calf pain. Pt reports that in September, he completed his first marathon. Notes that following the race, he tried to run a few times, and had to stop due to mid- calf pain. Pt took a four week break from running, and then tried to get back into it. By his second run, he was experiencing fairly severe calf pain again, and has now not run in five weeks. Notes is doesn't hurt constantly, but when it does, there is nothing that he has found to help it. Did try to give himself a hard massage through his calfs, but was too sore the following day, so he stopped. Feels that his right leg is probably twice as bad as the left. 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 Treatment Goals Patient/Caregiver Goals Return to running PT-OP-C Subjective Start: 01/01/22 13:46 Freq: Status: Active Protocol: Document 01/17/22 10:30 DCW (Rec: 01/17/22 11:15 DCW [id number]) OP-PT Subjective Patient Comments Patient Comments I had some sciatica, so I took it easy yesterday. PT-OP-D Balance Start: 01/01/22 14:14 Freq: Status: Active Protocol: Document 01/01/22 09:45 DCW (Rec: 01/01/22 14:25 DCW [id number]) Balance Tests Single Limb Standing Single Limb- Right 30+ Single Limb- Left 30+ PT-OP-G Mobility & Gait Start: 01/01/22 13:46 Freq: Status: Active Protocol: Document 01/01/22 09:45 DCW (Rec: 01/01/22 14:13 DCW [id number]) OP Gait Assessment Comments Gait Comments Gait appears to be relatively unaffected. Pt does note his usual wear pattern on his running shoes are much more severely worn on his medial heel, but pt does not have any old shoes at this time, recently bought newer shoes, do not yet have any wear pattern, PT-OP-K Range of Motion Start: 01/01/22 13:46 Freq: Status: Active Protocol: Document 01/01/22 09:45 DCW (Rec: 01/01/22 14:13 DCW [id number]) Ankle and Foot Goniometric Range of Motion Ankle and Foot Right Active Testing Position Sitting Dorsiflexion with Knee Flexed 10 Dorsiflexion with Knee Extended 5 Plantarflexion 30 Inversion 35 Eversion 10 Left Active Testing Position Sitting Dorsiflexion with Knee Flexed 15 Dorsiflexion with Knee Extended 10 Plantarflexion 40 Inversion 40 Eversion 20 Ankle and Foot ROM Limitations ROM Limitations Soft Tissue Tightness PT-OP-L Special Tests Start: 01/01/22 13:46 Freq: Status: Active Protocol: Document 01/01/22 09:45 DCW (Rec: 01/01/22 14:13 DCW [id number]) Special Tests Foot/Ankle Special Tests Talor Tilt Test Results Negative Anterior Draw Test Results Negative PT-OP-M Strength Start: 01/01/22 13:46 Freq: Status: Active Protocol: Document 01/01/22 09:45 DCW (Rec: 01/01/22 14:13 DCW [id number]) Ankle/Foot Strength Ankle and Foot Manual Muscle Testing Bilateral Comments Dorsiflexion, Inversion, and Eversion all test 5/5. Plantar flexion tested with single leg heel raises. Pt able to perform 10 on L and 4 on R before stopping due to pain. PT-OP-Q Treatments Start: 01/01/22 13:46 Freq: Status: Active Protocol: Document 01/17/22 10:30 DCW (Rec: 01/17/22 11:15 DCW [id number]) Therapeutic Exercises Supine Exercises 2 Supine Exercise Name Piriformis stretching Side bilateral Comments Figure-4 Standing Exercises Air pad Stance Standing Exercise Name DL Equipment Used Large blue air pad SLS BOSU Standing Exercise Name SLS Side bilateral Reps/Minutes Blue BOSU step ups BOSU Standing Exercise Name dome side up Side right Resistance AROM Equipment Used bosu, contact for balance supprt Reps/Minutes 2x5 Comments cued awareness Manual Therapy Treatment Soft Tissue Mobilization 1 Body Location B Post Tib Mobilization Type Strumming,Sustained Pressure Intensity/Depth Deep Body Position Prone PT-OP-R Modalities Start: 01/01/22 13:46 Freq: Status: Active Protocol: Document 01/15/22 13:04 SP (Rec: 01/15/22 13:52 SP [id number]) Ultrasound Therapy Treatment Lower Medial Leg Treatment Duration (minutes) 10 Patient Position Prone Coupling Medium Ultrasound Gel Applicator Size (cm2) 5 Frequency Setting (mHz) 1 Mode Setting Continuous Duty Cycle 100% Intensity Setting (w/cm2) 1.2 Comments 5' each leg achilles PT-OP-T Assessment and Plan Start: 01/01/22 13:46 Freq: Status: Active Protocol: Document 01/17/22 10:30 DCW (Rec: 01/17/22 11:15 DCW [id number]) Physical Therapy Assessment Impairments Impairments Gait,Pain,Posture,ROM,Soft Tissue Mobility,Strength Goals Two Impairment Pt unable to perform normal running activities due to calf pain Pack Out Operator Goal (LTG) Pt to report ability to run 5K without increased calf pain LTG Duration 03/01/22 One Impairment Pt does not have an appropriate home exercise program Short Term Goal (STG) Pt to be independent and compliant with an appropriate HEP STG Duration 01/29/22 Assessment Summary Assessment Pt seemed to tolerate balance exercises fairly well with no calf pain, was somewhat limited today by lingering sciatic pain after a flair-up yesterday. Physical Therapy Plan Frequency and Duration Frequency of Treatment 2x/Week Duration of Treatment Two months Plan of Care Start Date 01/01/22 Plan of Care End Date 03/01/22 Therapeutic Interventions Therapeutic Interventions Aquatic Therapy,Gait Training, Home Exercise Program,Joint Mobilizations,Manual Therapy, Patient/Caregiver Education, Self-Care/Home Management,Soft Tissue Mobilization, Therapeutic Activities, Therapeutic Exercises Modalities Cold Pack/Ice Massage,Electric Stimulation,Hot Packs, Ultrasound Next Visit Focus/Plan Next Note Type Treatment Note Next Visit Plan Next tx: assess new bosu step ups and dynamic star glides. If ok progress dynamic stepping/ ladder stepping next tx. POC: STM, Flexibility, strengthening of bilateral calf/ankles.
--- NOTE | 2022-01-21 12:44 | PT.OTN ---
Current Diagnoses Stiffness of right ankle, not elsewhere classified (01/21/22) Stiffness of left ankle, not elsewhere classified (01/21/22) Achilles tendinitis, right leg (01/21/22) Achilles tendinitis, left leg (01/21/22) Strain of other muscle(s) and tendon(s) of posterior muscle group at lower leg level, right leg, subsequent encounter (01/21/22) Strain of other muscle(s) and tendon(s) of posterior muscle group at lower leg level, left leg, subsequent encounter (01/21/22) Physical Therapy Treatment Note PT-OP-A Visit Information Start: 01/01/22 13:46 Freq: Status: Active Protocol: Document 01/21/22 12:00 DCW (Rec: 01/21/22 12:44 DCW [id number]) Out-Patient Physical Therapy Visit Information Visit Information Visit Type Treatment Note Visit Start Time 12:00 Visit Stop Time 12:45 Total Visit Minutes 45 Visit Number 7 Number of PEDIATRICIAN MANAGING PARTNER Visits 0 Evaluation Information Evaluation Date 01/01/22 PT-OP-B Current Condition Start: 01/01/22 13:46 Freq: Status: Active Protocol: Document 01/01/22 09:45 DCW (Rec: 01/01/22 14:13 DCW [id number]) Current Condition History of Current Condition Onset Date s/p three months Current Complaints bilateral calf pain History of Current Condition Pt is a 41 year old male presenting to skilled therapy with a three month history of bilateral calf pain. Pt reports that in September, he completed his first marathon. Notes that following the race, he tried to run a few times, and had to stop due to mid- calf pain. Pt took a four week break from running, and then tried to get back into it. By his second run, he was experiencing fairly severe calf pain again, and has now not run in five weeks. Notes is doesn't hurt constantly, but when it does, there is nothing that he has found to help it. Did try to give himself a hard massage through his calfs, but was too sore the following day, so he stopped. Feels that his right leg is probably twice as bad as the left. 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 Treatment Goals Patient/Caregiver Goals Return to running PT-OP-C Subjective Start: 01/01/22 13:46 Freq: Status: Active Protocol: Document 01/21/22 12:00 DCW (Rec: 01/21/22 12:44 DCW [id number]) OP-PT Subjective Patient Comments Patient Comments I took a 2.8 mile walk on flat ground yesterday, and felt pretty good. Pt does note he spent some time bent over playing with a 2 year old , while flaired up his low back again, but it's probably 80% recovered today. PT-OP-D Balance Start: 01/01/22 14:14 Freq: Status: Active Protocol: Document 01/01/22 09:45 DCW (Rec: 01/01/22 14:25 DCW [id number]) Balance Tests Single Limb Standing Single Limb- Right 30+ Single Limb- Left 30+ PT-OP-G Mobility & Gait Start: 01/01/22 13:46 Freq: Status: Active Protocol: Document 01/01/22 09:45 DCW (Rec: 01/01/22 14:13 DCW [id number]) OP Gait Assessment Comments Gait Comments Gait appears to be relatively unaffected. Pt does note his usual wear pattern on his running shoes are much more severely worn on his medial heel, but pt does not have any old shoes at this time, recently bought newer shoes, do not yet have any wear pattern, PT-OP-K Range of Motion Start: 01/01/22 13:46 Freq: Status: Active Protocol: Document 01/01/22 09:45 DCW (Rec: 01/01/22 14:13 DCW [id number]) Ankle and Foot Goniometric Range of Motion Ankle and Foot Right Active Testing Position Sitting Dorsiflexion with Knee Flexed 10 Dorsiflexion with Knee Extended 5 Plantarflexion 30 Inversion 35 Eversion 10 Left Active Testing Position Sitting Dorsiflexion with Knee Flexed 15 Dorsiflexion with Knee Extended 10 Plantarflexion 40 Inversion 40 Eversion 20 Ankle and Foot ROM Limitations ROM Limitations Soft Tissue Tightness PT-OP-L Special Tests Start: 01/01/22 13:46 Freq: Status: Active Protocol: Document 01/01/22 09:45 DCW (Rec: 01/01/22 14:13 DCW [id number]) Special Tests Foot/Ankle Special Tests Talor Tilt Test Results Negative Anterior Draw Test Results Negative PT-OP-M Strength Start: 01/01/22 13:46 Freq: Status: Active Protocol: Document 01/01/22 09:45 DCW (Rec: 01/01/22 14:13 DCW [id number]) Ankle/Foot Strength Ankle and Foot Manual Muscle Testing Bilateral Comments Dorsiflexion, Inversion, and Eversion all test 5/5. Plantar flexion tested with single leg heel raises. Pt able to perform 10 on L and 4 on R before stopping due to pain. PT-OP-Q Treatments Start: 01/01/22 13:46 Freq: Status: Active Protocol: Document 01/21/22 12:00 DCW (Rec: 01/21/22 12:44 DCW [id number]) Therapeutic Exercises Standing Exercises Air pad Stance Standing Exercise Name DL Equipment Used Large blue air pad SLS BOSU Standing Exercise Name SLS Side bilateral Reps/Minutes Blue BOSU calf stretch Standing Exercise Name RASHEEDA Side bilateral Reps/Minutes 30 x2 step ups BOSU Standing Exercise Name dome side up Side bilateral Equipment Used bosu, contact for balance supprt Reps/Minutes x10 eacg Comments /c opposite leg january 15 Standing Exercise Name PF on RASHEEDA Side bilateral Manual Therapy Treatment Soft Tissue Mobilization 1 Body Location B Post Tib Mobilization Type Strumming,Sustained Pressure Intensity/Depth Deep Body Position Prone Taping 1 Body Location B Calf Type of Tape Kinesio Tape Comments Y-strip Heel->Calf PT-OP-R Modalities Start: 01/01/22 13:46 Freq: Status: Active Protocol: Document 01/15/22 13:04 SP (Rec: 01/15/22 13:52 SP [id number]) Ultrasound Therapy Treatment Lower Medial Leg Treatment Duration (minutes) 10 Patient Position Prone Coupling Medium Ultrasound Gel Applicator Size (cm2) 5 Frequency Setting (mHz) 1 Mode Setting Continuous Duty Cycle 100% Intensity Setting (w/cm2) 1.2 Comments 5' each leg achilles PT-OP-T Assessment and Plan Start: 01/01/22 13:46 Freq: Status: Active Protocol: Document 01/21/22 12:00 DCW (Rec: 01/21/22 12:44 DCW [id number]) Physical Therapy Assessment Impairments Impairments Gait,Pain,Posture,ROM,Soft Tissue Mobility,Strength Goals Two Impairment Pt unable to perform normal running activities due to calf pain Kerfer Machine Operator Goal (LTG) Pt to report ability to run 5K without increased calf pain LTG Duration 03/01/22 One Impairment Pt does not have an appropriate home exercise program Short Term Goal (STG) Pt to be independent and compliant with an appropriate HEP STG Duration 01/29/22 Assessment Summary Assessment After feeling largely unchanged since eval, pt's calves today showing significant improvement. Much less tone throughout gastroc and post tib. Tolerating balance exercises with minimal pain. Trial of K-tape today to assist some with support. Pt participation in PT was still limited today by recent low back flair-up. Physical Therapy Plan Frequency and Duration Frequency of Treatment 2x/Week Duration of Treatment Two months Plan of Care Start Date 01/01/22 Plan of Care End Date 03/01/22 Therapeutic Interventions Therapeutic Interventions Aquatic Therapy,Gait Training, Home Exercise Program,Joint Mobilizations,Manual Therapy, Patient/Caregiver Education, Self-Care/Home Management,Soft Tissue Mobilization, Therapeutic Activities, Therapeutic Exercises Modalities Cold Pack/Ice Massage,Electric Stimulation,Hot Packs, Ultrasound Next Visit Focus/Plan Next Note Type Treatment Note Next Visit Plan Next tx: Progress dynamic stepping/ ladder stepping next tx, if low back pain has subsided. POC: STM, Flexibility, strengthening of bilateral calf/ankles.
--- NOTE | 2022-01-24 10:30 | PT.OTN ---
Current Diagnoses Stiffness of right ankle, not elsewhere classified (01/24/22) Stiffness of left ankle, not elsewhere classified (01/24/22) Achilles tendinitis, right leg (01/24/22) Achilles tendinitis, left leg (01/24/22) Strain of other muscle(s) and tendon(s) of posterior muscle group at lower leg level, right leg, subsequent encounter (01/24/22) Strain of other muscle(s) and tendon(s) of posterior muscle group at lower leg level, left leg, subsequent encounter (01/24/22) Physical Therapy Treatment Note PT-OP-A Visit Information Start: 01/01/22 13:46 Freq: Status: Active Protocol: Document 01/24/22 09:52 SP (Rec: 01/24/22 10:34 SP [id number]) Out-Patient Physical Therapy Visit Information Visit Information Visit Type Treatment Note Visit Start Time 09:52 Visit Stop Time 10:30 Total Visit Minutes 38 Visit Number 8 Number of DOOR INSTALLER Visits 1 Evaluation Information Evaluation Date 01/01/22 PT-OP-B Current Condition Start: 01/01/22 13:46 Freq: Status: Active Protocol: Document 01/01/22 09:45 DCW (Rec: 01/01/22 14:13 DCW [id number]) Current Condition History of Current Condition Onset Date s/p three months Current Complaints bilateral calf pain History of Current Condition Pt is a 41 year old male presenting to skilled therapy with a three month history of bilateral calf pain. Pt reports that in September, he completed his first marathon. Notes that following the race, he tried to run a few times, and had to stop due to mid- calf pain. Pt took a four week break from running, and then tried to get back into it. By his second run, he was experiencing fairly severe calf pain again, and has now not run in five weeks. Notes is doesn't hurt constantly, but when it does, there is nothing that he has found to help it. Did try to give himself a hard massage through his calfs, but was too sore the following day, so he stopped. Feels that his right leg is probably twice as bad as the left. 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 Treatment Goals Patient/Caregiver Goals Return to running PT-OP-C Subjective Start: 01/01/22 13:46 Freq: Status: Active Protocol: Document 01/24/22 09:52 SP (Rec: 01/24/22 10:34 SP [id number]) OP-PT Subjective Patient Comments Patient Comments Pt stated saw Dr Lennon and cleared to return to activity as PT progresses. Pt stated doing ok today. Was ableto walk 4 miles on Tues did fine, Wed 2.5 miles and started to feel B but R>L pain med/ lateral posteroinferior med/ lateral malleolus so stopped, seated rest then did ok. Litte discomfort but better short distance back to home. Woke up little achiness B. Pt stated K taping think helped, wants to retape. PT-OP-D Balance Start: 01/01/22 14:14 Freq: Status: Active Protocol: Document 01/01/22 09:45 DCW (Rec: 01/01/22 14:25 DCW [id number]) Balance Tests Single Limb Standing Single Limb- Right 30+ Single Limb- Left 30+ PT-OP-G Mobility & Gait Start: 01/01/22 13:46 Freq: Status: Active Protocol: Document 01/01/22 09:45 DCW (Rec: 01/01/22 14:13 DCW [id number]) OP Gait Assessment Comments Gait Comments Gait appears to be relatively unaffected. Pt does note his usual wear pattern on his running shoes are much more severely worn on his medial heel, but pt does not have any old shoes at this time, recently bought newer shoes, do not yet have any wear pattern, PT-OP-K Range of Motion Start: 01/01/22 13:46 Freq: Status: Active Protocol: Document 01/01/22 09:45 DCW (Rec: 01/01/22 14:13 DCW [id number]) Ankle and Foot Goniometric Range of Motion Ankle and Foot Right Active Testing Position Sitting Dorsiflexion with Knee Flexed 10 Dorsiflexion with Knee Extended 5 Plantarflexion 30 Inversion 35 Eversion 10 Left Active Testing Position Sitting Dorsiflexion with Knee Flexed 15 Dorsiflexion with Knee Extended 10 Plantarflexion 40 Inversion 40 Eversion 20 Ankle and Foot ROM Limitations ROM Limitations Soft Tissue Tightness PT-OP-L Special Tests Start: 02/15/22 13:46 Freq: Status: Active Protocol: Document 01/01/22 09:45 DCW (Rec: 01/01/22 14:13 DCW [id number]) Special Tests Foot/Ankle Special Tests Talor Tilt Test Results Negative Anterior Draw Test Results Negative PT-OP-M Strength Start: 01/01/22 13:46 Freq: Status: Active Protocol: Document 01/01/22 09:45 DCW (Rec: 01/01/22 14:13 DCW [id number]) Ankle/Foot Strength Ankle and Foot Manual Muscle Testing Bilateral Comments Dorsiflexion, Inversion, and Eversion all test 5/5. Plantar flexion tested with single leg heel raises. Pt able to perform 10 on L and 4 on R before stopping due to pain. PT-OP-Q Treatments Start: 01/01/22 13:46 Freq: Status: Active Protocol: Document 01/24/22 09:52 SP (Rec: 01/24/22 10:34 SP [id number]) Therapeutic Exercises Standing Exercises Air pad Stance Standing Exercise Name DL- last activity. BLE tired more unsteady. Equipment Used Large 10 s and small 4-6 sec blue air pad EC 10s Reps/Minutes //bars PRN contact (w/GB donned), CG- Min A Comments cued alignment, core/ glut fac , ankle alignment SLS BOSU Standing Exercise Name SLS Side bilateral Equipment Used RLE: 30s, 6 s, 17 s; LLE: 16s, didn't write down rest performed Reps/Minutes Blue BOSU dome side up. Comments contact rail as needed: cued trunk alignment, core/ hip fac & ankle align step ups BOSU Standing Exercise Name dome side up Side bilateral Equipment Used bosu, contact for balance supprt Reps/Minutes x25 Comments /c opposite leg january SLS star glides Standing Exercise Name discussed can use folded towel at home for challenge- not performed Side right Resistance AROM Equipment Used cones, mirror Comments cued knee with and behind toes , hip hinge Manual Therapy Treatment Soft Tissue Mobilization 1 Body Location B Post Tib Mobilization Type Strumming,Sustained Pressure Intensity/Depth Deep Body Position Prone Comments manual and sustained pressure MWM ankle pump Taping 1 Body Location B Calf Type of Tape Kinesio Tape Comments Y-strip Heel->Calf: 50% tension PT-OP-R Modalities Start: 01/01/22 13:46 Freq: Status: Active Protocol: Document 01/15/22 13:04 SP (Rec: 01/15/22 13:52 SP [id number]) Ultrasound Therapy Treatment Lower Medial Leg Treatment Duration (minutes) 10 Patient Position Prone Coupling Medium Ultrasound Gel Applicator Size (cm2) 5 Frequency Setting (mHz) 1 Mode Setting Continuous Duty Cycle 100% Intensity Setting (w/cm2) 1.2 Comments 5' each leg achilles PT-OP-T Assessment and Plan Start: 01/01/22 13:46 Freq: Status: Active Protocol: Document 01/24/22 09:52 SP (Rec: 01/24/22 10:34 SP [id number]) Physical Therapy Assessment Goals Two Impairment Pt unable to perform normal running activities due to calf pain Prison Goal (LTG) Pt to report ability to run 5K without increased calf pain LTG Duration 03/01/22 One Impairment Pt does not have an appropriate home exercise program Short Term Goal (STG) Pt to be independent and compliant with an appropriate HEP STG Duration 01/29/22 Assessment Summary Assessment Pt no pain during or post ther ex, improved with cues for trunk alignment, core/ hip abd facilitation and better understandin of COG over B foot alignment LUNA or self over wt shift recoveries. Pt improved ankle stability during SL step up BOSU and increase SLS time. Pt BLe tired, shaky end of tx post air pad activity required increased support for safety EC. No pain reported. Physical Therapy Plan Frequency and Duration Frequency of Treatment 2x/Week Duration of Treatment Two months Plan of Care Start Date 01/01/22 Plan of Care End Date 03/01/22 Therapeutic Interventions Therapeutic Interventions Aquatic Therapy,Gait Training, Home Exercise Program,Joint Mobilizations,Manual Therapy, Patient/Caregiver Education, Self-Care/Home Management,Soft Tissue Mobilization, Therapeutic Activities, Therapeutic Exercises Modalities Cold Pack/Ice Massage,Electric Stimulation,Hot Packs, Ultrasound Next Visit Focus/Plan Next Note Type Treatment Note Next Visit Plan Next tx: Progress dynamic stepping/ ladder stepping next tx, if low back pain has subsided. POC: STM, Flexibility, strengthening of bilateral calf/ankles.
--- NOTE | 2022-01-28 12:46 | PT.OTN ---
Current Diagnoses Stiffness of right ankle, not elsewhere classified (01/28/22) Stiffness of left ankle, not elsewhere classified (01/28/22) Achilles tendinitis, right leg (01/28/22) Achilles tendinitis, left leg (01/28/22) Strain of other muscle(s) and tendon(s) of posterior muscle group at lower leg level, right leg, subsequent encounter (01/28/22) Strain of other muscle(s) and tendon(s) of posterior muscle group at lower leg level, left leg, subsequent encounter (01/28/22) Physical Therapy Treatment Note PT-OP-A Visit Information Start: 01/01/22 13:46 Freq: Status: Active Protocol: Document 01/28/22 12:00 DCW (Rec: 01/28/22 12:46 DCW [id number]) Out-Patient Physical Therapy Visit Information Visit Information Visit Type Treatment Note Visit Start Time 12:00 Visit Stop Time 12:45 Total Visit Minutes 45 Visit Number 9 Number of INSECTICIDE MIXER Visits 0 Evaluation Information Evaluation Date 01/01/22 PT-OP-B Current Condition Start: 01/01/22 13:46 Freq: Status: Active Protocol: Document 01/01/22 09:45 DCW (Rec: 01/01/22 14:13 DCW [id number]) Current Condition History of Current Condition Onset Date s/p three months Current Complaints bilateral calf pain History of Current Condition Pt is a 41 year old male presenting to skilled therapy with a three month history of bilateral calf pain. Pt reports that in September, he completed his first marathon. Notes that following the race, he tried to run a few times, and had to stop due to mid- calf pain. Pt took a four week break from running, and then tried to get back into it. By his second run, he was experiencing fairly severe calf pain again, and has now not run in five weeks. Notes is doesn't hurt constantly, but when it does, there is nothing that he has found to help it. Did try to give himself a hard massage through his calfs, but was too sore the following day, so he stopped. Feels that his right leg is probably twice as bad as the left. 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 Treatment Goals Patient/Caregiver Goals Return to running PT-OP-C Subjective Start: 01/01/22 13:46 Freq: Status: Active Protocol: Document 01/28/22 12:00 DCW (Rec: 01/28/22 12:46 DCW [id number]) OP-PT Subjective Patient Comments Patient Comments A little bit of soreness in my right leg, I was getting more with walking over the weekend, more in the front of my orozco. PT-OP-D Balance Start: 01/01/22 14:14 Freq: Status: Active Protocol: Document 01/01/22 09:45 DCW (Rec: 01/01/22 14:25 DCW [id number]) Balance Tests Single Limb Standing Single Limb- Right 30+ Single Limb- Left 30+ PT-OP-G Mobility & Gait Start: 01/01/22 13:46 Freq: Status: Active Protocol: Document 01/01/22 09:45 DCW (Rec: 01/01/22 14:13 DCW [id number]) OP Gait Assessment Comments Gait Comments Gait appears to be relatively unaffected. Pt does note his usual wear pattern on his running shoes are much more severely worn on his medial heel, but pt does not have any old shoes at this time, recently bought newer shoes, do not yet have any wear pattern, PT-OP-K Range of Motion Start: 01/01/22 13:46 Freq: Status: Active Protocol: Document 01/01/22 09:45 DCW (Rec: 01/01/22 14:13 DCW [id number]) Ankle and Foot Goniometric Range of Motion Ankle and Foot Right Active Testing Position Sitting Dorsiflexion with Knee Flexed 10 Dorsiflexion with Knee Extended 5 Plantarflexion 30 Inversion 35 Eversion 10 Left Active Testing Position Sitting Dorsiflexion with Knee Flexed 15 Dorsiflexion with Knee Extended 10 Plantarflexion 40 Inversion 40 Eversion 20 Ankle and Foot ROM Limitations ROM Limitations Soft Tissue Tightness PT-OP-L Special Tests Start: 01/01/22 13:46 Freq: Status: Active Protocol: Document 01/01/22 09:45 DCW (Rec: 01/01/22 14:13 DCW [id number]) Special Tests Foot/Ankle Special Tests Talor Tilt Test Results Negative Anterior Draw Test Results Negative PT-OP-M Strength Start: 01/01/22 13:46 Freq: Status: Active Protocol: Document 01/01/22 09:45 DCW (Rec: 01/01/22 14:13 DCW [id number]) Ankle/Foot Strength Ankle and Foot Manual Muscle Testing Bilateral Comments Dorsiflexion, Inversion, and Eversion all test 5/5. Plantar flexion tested with single leg heel raises. Pt able to perform 10 on L and 4 on R before stopping due to pain. PT-OP-Q Treatments Start: 01/01/22 13:46 Freq: Status: Active Protocol: Document 01/28/22 12:00 DCW (Rec: 01/28/22 12:46 DCW [id number]) Cardio Equipment Elliptical Duration (Minutes) 2 Resistance 3->5 Treadmill Duration (Minutes) 3 Speed 2.0->4.0 Gym Equipment Shuttle Balance Red Details WBOS, Staggered, Lateral weight-shift Manual Therapy Treatment Soft Tissue Mobilization 1 Body Location B Post Tib Mobilization Type Strumming,Sustained Pressure Intensity/Depth Deep Body Position Sitting Comments manual and sustained pressure MWM ankle pump Taping 1 Body Location B Calf Type of Tape Kinesio Tape Comments Y-strip Heel->Calf: 50% tension PT-OP-R Modalities Start: 01/01/22 13:46 Freq: Status: Active Protocol: Document 01/15/22 13:04 SP (Rec: 01/15/22 13:52 SP [id number]) Ultrasound Therapy Treatment Lower Medial Leg Treatment Duration (minutes) 10 Patient Position Prone Coupling Medium Ultrasound Gel Applicator Size (cm2) 5 Frequency Setting (mHz) 1 Mode Setting Continuous Duty Cycle 100% Intensity Setting (w/cm2) 1.2 Comments 5' each leg achilles PT-OP-T Assessment and Plan Start: 01/01/22 13:46 Freq: Status: Active Protocol: Document 01/28/22 12:00 DCW (Rec: 01/28/22 12:46 DCW [id number]) Physical Therapy Assessment Impairments Impairments Gait,Pain,Posture,ROM,Soft Tissue Mobility,Strength Goals Two Impairment Pt unable to perform normal running activities due to calf pain Recreation Leader Goal (LTG) Pt to report ability to run 5K without increased calf pain LTG Duration 03/01/22 One Impairment Pt does not have an appropriate home exercise program Short Term Goal (STG) Pt to be independent and compliant with an appropriate HEP STG Duration 01/29/22 Assessment Summary Assessment Pt continues recent trend of showing some progress, able to tolerate all activities today without complaints of pain, continues to report generally calf tightness, but notes it is more that they need stretched, not actual pain or spasm. Physical Therapy Plan Frequency and Duration Frequency of Treatment 2x/Week Duration of Treatment Two months Plan of Care Start Date 01/01/22 Plan of Care End Date 03/01/22 Therapeutic Interventions Therapeutic Interventions Aquatic Therapy,Gait Training, Home Exercise Program,Joint Mobilizations,Manual Therapy, Patient/Caregiver Education, Self-Care/Home Management,Soft Tissue Mobilization, Therapeutic Activities, Therapeutic Exercises Modalities Cold Pack/Ice Massage,Electric Stimulation,Hot Packs, Ultrasound Next Visit Focus/Plan Next Note Type Treatment Note Next Visit Plan Next tx: Progress dynamic stepping/ ladder stepping next tx, if low back pain has subsided. POC: STM, Flexibility, strengthening of bilateral calf/ankles.
--- NOTE | 2022-01-31 15:16 | PT.OTN ---
Current Diagnoses Stiffness of right ankle, not elsewhere classified (01/31/22) Stiffness of left ankle, not elsewhere classified (01/31/22) Achilles tendinitis, right leg (01/31/22) Achilles tendinitis, left leg (01/31/22) Strain of other muscle(s) and tendon(s) of posterior muscle group at lower leg level, right leg, subsequent encounter (01/31/22) Strain of other muscle(s) and tendon(s) of posterior muscle group at lower leg level, left leg, subsequent encounter (01/31/22) Physical Therapy Treatment Note PT-OP-A Visit Information Start: 01/01/22 13:46 Freq: Status: Active Protocol: Document 01/31/22 14:33 SP (Rec: 01/31/22 15:41 SP [id number]) Out-Patient Physical Therapy Visit Information Visit Information Visit Type Treatment Note Visit Start Time 14:33 Visit Stop Time 15:16 Total Visit Minutes 43 Visit Number 10 Number of BACTERIOLOGIST DAIRY Visits 1 Evaluation Information Evaluation Date 01/01/22 PT-OP-B Current Condition Start: 01/01/22 13:46 Freq: Status: Active Protocol: Document 01/01/22 09:45 DCW (Rec: 01/01/22 14:13 DCW [id number]) Current Condition History of Current Condition Onset Date s/p three months Current Complaints bilateral calf pain History of Current Condition Pt is a 41 year old male presenting to skilled therapy with a three month history of bilateral calf pain. Pt reports that in September, he completed his first marathon. Notes that following the race, he tried to run a few times, and had to stop due to mid- calf pain. Pt took a four week break from running, and then tried to get back into it. By his second run, he was experiencing fairly severe calf pain again, and has now not run in five weeks. Notes is doesn't hurt constantly, but when it does, there is nothing that he has found to help it. Did try to give himself a hard massage through his calfs, but was too sore the following day, so he stopped. Feels that his right leg is probably twice as bad as the left. 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 Treatment Goals Patient/Caregiver Goals Return to running PT-OP-C Subjective Start: 01/01/22 13:46 Freq: Status: Active Protocol: Document 01/31/22 14:33 SP (Rec: 01/31/22 15:41 SP [id number]) OP-PT Subjective Patient Comments Patient Comments Pt reported went for walk approx 1.5 miles and midposterior R calf started hurting. PT-OP-D Balance Start: 01/01/22 14:14 Freq: Status: Active Protocol: Document 01/01/22 09:45 DCW (Rec: 01/01/22 14:25 DCW [id number]) Balance Tests Single Limb Standing Single Limb- Right 30+ Single Limb- Left 30+ PT-OP-G Mobility & Gait Start: 01/01/22 13:46 Freq: Status: Active Protocol: Document 01/01/22 09:45 DCW (Rec: 01/01/22 14:13 DCW [id number]) OP Gait Assessment Comments Gait Comments Gait appears to be relatively unaffected. Pt does note his usual wear pattern on his running shoes are much more severely worn on his medial heel, but pt does not have any old shoes at this time, recently bought newer shoes, do not yet have any wear pattern, PT-OP-K Range of Motion Start: 01/01/22 13:46 Freq: Status: Active Protocol: Document 01/01/22 09:45 DCW (Rec: 01/01/22 14:13 DCW [id number]) Ankle and Foot Goniometric Range of Motion Ankle and Foot Right Active Testing Position Sitting Dorsiflexion with Knee Flexed 10 Dorsiflexion with Knee Extended 5 Plantarflexion 30 Inversion 35 Eversion 10 Left Active Testing Position Sitting Dorsiflexion with Knee Flexed 15 Dorsiflexion with Knee Extended 10 Plantarflexion 40 Inversion 40 Eversion 20 Ankle and Foot ROM Limitations ROM Limitations Soft Tissue Tightness PT-OP-L Special Tests Start: 01/01/22 13:46 Freq: Status: Active Protocol: Document 01/01/22 09:45 DCW (Rec: 01/01/22 14:13 DCW [id number]) Special Tests Foot/Ankle Special Tests Talor Tilt Test Results Negative Anterior Draw Test Results Negative PT-OP-M Strength Start: 01/01/22 13:46 Freq: Status: Active Protocol: Document 01/01/22 09:45 DCW (Rec: 01/01/22 14:13 DCW [id number]) Ankle/Foot Strength Ankle and Foot Manual Muscle Testing Bilateral Comments Dorsiflexion, Inversion, and Eversion all test 5/5. Plantar flexion tested with single leg heel raises. Pt able to perform 10 on L and 4 on R before stopping due to pain. PT-OP-Q Treatments Start: 01/01/22 13:46 Freq: Status: Active Protocol: Document 01/31/22 14:33 SP (Rec: 01/31/22 15:41 SP [id number]) Cardio Equipment Elliptical Resistance 4> Other 20 sec then sharp pain medial R calf so stopped Gym Equipment Shuttle Balance Red Details WBOS, NBOS, Staggered, Lateral Reps/Duration 8 min ( w/ gait belt) Comments 1. stationary 2. Head turns 3. EC only WBOS up to 7 sec Cued core/ hip abd fac and COG over LUNA, tall chest lift posture. Manual Therapy Treatment Soft Tissue Mobilization 1 Body Location B Post Tib R>L Mobilization Type Strumming,Sustained Pressure Intensity/Depth Deep Body Position Sitting Comments manual and sustained pressure MWM ankle pump Taping 1 Body Location B Calf Treatment Focus assist PF and support eccentric DF Type of Tape Kinesio Tape Skin Inspection still healing bruise mid calf on R w/ scab Comments Y-strip Heel->Calf: 50% tension PT-OP-R Modalities Start: 01/01/22 13:46 Freq: Status: Active Protocol: Document 01/31/22 14:33 SP (Rec: 01/31/22 15:41 SP [id number]) Ultrasound Therapy Treatment Lower Medial Leg Treatment Duration (minutes) 8 Patient Position Prone Coupling Medium Ultrasound Gel Applicator Size (cm2) 5 Frequency Setting (mHz) 1 Mode Setting Continuous Duty Cycle 100% Intensity Setting (w/cm2) 1.2 Comments 4' each leg achilles PT-OP-T Assessment and Plan Start: 01/01/22 13:46 Freq: Status: Active Protocol: Document 01/31/22 14:33 SP (Rec: 01/31/22 15:41 SP [id number]) Physical Therapy Assessment Goals Two Impairment Pt unable to perform normal running activities due to calf pain Care Home Goal (LTG) Pt to report ability to run 5K without increased calf pain LTG Duration 03/01/22 One Impairment Pt does not have an appropriate home exercise program Short Term Goal (STG) Pt to be independent and compliant with an appropriate HEP STG Duration 01/29/22 Assessment Summary Assessment Pt experienced sharp pain in medial R calf within 20sec needed to get off elliptical. Pt stated finds if does stationary activities seems to feel worse. Decreased tightness post manual and US. Provided K taping with good response PF/ eccentric DF support. Pt no reports of pain just remained deeper tightness post shuttle balance with demonstrated shakiness in BLE, cuec core and hip abd fac to improve stability, lateral > forward stance. Physical Therapy Plan Frequency and Duration Frequency of Treatment 2x/Week Duration of Treatment Two months Plan of Care Start Date 01/01/22 Plan of Care End Date 03/01/22 Therapeutic Interventions Therapeutic Interventions Aquatic Therapy,Gait Training, Home Exercise Program,Joint Mobilizations,Manual Therapy, Patient/Caregiver Education, Self-Care/Home Management,Soft Tissue Mobilization, Therapeutic Activities, Therapeutic Exercises Modalities Cold Pack/Ice Massage,Electric Stimulation,Hot Packs, Ultrasound Next Visit Focus/Plan Next Note Type Treatment Note Next Visit Plan Next tx: Progress dynamic stepping/ ladder stepping next tx, if low back pain has subsided. POC: STM, Flexibility, strengthening of bilateral calf/ankles.
--- NOTE | 2022-02-05 10:36 | PT.OTN ---
Current Diagnoses Stiffness of right ankle, not elsewhere classified (02/05/22) Stiffness of left ankle, not elsewhere classified (02/05/22) Achilles tendinitis, right leg (02/05/22) Achilles tendinitis, left leg (02/05/22) Strain of other muscle(s) and tendon(s) of posterior muscle group at lower leg level, right leg, subsequent encounter (02/05/22) Strain of other muscle(s) and tendon(s) of posterior muscle group at lower leg level, left leg, subsequent encounter (02/05/22) Physical Therapy Treatment Note PT-OP-A Visit Information Start: 01/01/22 13:46 Freq: Status: Active Protocol: Document 02/05/22 09:45 DCW (Rec: 02/05/22 10:36 DCW [id number]) Out-Patient Physical Therapy Visit Information Visit Information Visit Type Treatment Note Visit Start Time 09:45 Visit Stop Time 10:30 Total Visit Minutes 45 Visit Number 11 Number of PIPE SMOKER MACHINE OPERATOR Visits 0 Evaluation Information Evaluation Date 01/01/22 PT-OP-B Current Condition Start: 01/01/22 13:46 Freq: Status: Active Protocol: Document 01/01/22 09:45 DCW (Rec: 01/01/22 14:13 DCW [id number]) Current Condition History of Current Condition Onset Date s/p three months Current Complaints bilateral calf pain History of Current Condition Pt is a 41 year old male presenting to skilled therapy with a three month history of bilateral calf pain. Pt reports that in September, he completed his first marathon. Notes that following the race, he tried to run a few times, and had to stop due to mid- calf pain. Pt took a four week break from running, and then tried to get back into it. By his second run, he was experiencing fairly severe calf pain again, and has now not run in five weeks. Notes is doesn't hurt constantly, but when it does, there is nothing that he has found to help it. Did try to give himself a hard massage through his calfs, but was too sore the following day, so he stopped. Feels that his right leg is probably twice as bad as the left. 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 Treatment Goals Patient/Caregiver Goals Return to running PT-OP-C Subjective Start: 01/01/22 13:46 Freq: Status: Active Protocol: Document 02/05/22 09:45 DCW (Rec: 02/05/22 10:36 DCW [id number]) OP-PT Subjective Patient Comments Patient Comments Pt did a two mile walk Friday, but then had sharp pain in his legs when trying to do his exercises yesterday. PT-OP-D Balance Start: 01/01/22 14:14 Freq: Status: Active Protocol: Document 01/01/22 09:45 DCW (Rec: 01/01/22 14:25 DCW [id number]) Balance Tests Single Limb Standing Single Limb- Right 30+ Single Limb- Left 30+ PT-OP-G Mobility & Gait Start: 01/01/22 13:46 Freq: Status: Active Protocol: Document 01/01/22 09:45 DCW (Rec: 01/01/22 14:13 DCW [id number]) OP Gait Assessment Comments Gait Comments Gait appears to be relatively unaffected. Pt does note his usual wear pattern on his running shoes are much more severely worn on his medial heel, but pt does not have any old shoes at this time, recently bought newer shoes, do not yet have any wear pattern, PT-OP-K Range of Motion Start: 01/01/22 13:46 Freq: Status: Active Protocol: Document 01/01/22 09:45 DCW (Rec: 01/01/22 14:13 DCW [id number]) Ankle and Foot Goniometric Range of Motion Ankle and Foot Right Active Testing Position Sitting Dorsiflexion with Knee Flexed 10 Dorsiflexion with Knee Extended 5 Plantarflexion 30 Inversion 35 Eversion 10 Left Active Testing Position Sitting Dorsiflexion with Knee Flexed 15 Dorsiflexion with Knee Extended 10 Plantarflexion 40 Inversion 40 Eversion 20 Ankle and Foot ROM Limitations ROM Limitations Soft Tissue Tightness PT-OP-L Special Tests Start: 01/01/22 13:46 Freq: Status: Active Protocol: Document 01/01/22 09:45 DCW (Rec: 01/01/22 14:13 DCW [id number]) Special Tests Foot/Ankle Special Tests Talor Tilt Test Results Negative Anterior Draw Test Results Negative PT-OP-M Strength Start: 01/01/22 13:46 Freq: Status: Active Protocol: Document 01/01/22 09:45 DCW (Rec: 01/01/22 14:13 DCW [id number]) Ankle/Foot Strength Ankle and Foot Manual Muscle Testing Bilateral Comments Dorsiflexion, Inversion, and Eversion all test 5/5. Plantar flexion tested with single leg heel raises. Pt able to perform 10 on L and 4 on R before stopping due to pain. PT-OP-Q Treatments Start: 01/01/22 13:46 Freq: Status: Active Protocol: Document 02/05/22 09:45 DCW (Rec: 02/05/22 10:36 [facility] [id number]) Manual Therapy Treatment Soft Tissue Mobilization 1 Body Location B Post Tib R>L Mobilization Type Strumming,Sustained Pressure Intensity/Depth Deep Body Position Sitting Comments manual and sustained pressure MWM ankle pump Taping 1 Body Location B Calf Treatment Focus assist PF and support eccentric DF Type of Tape Kinesio Tape Skin Inspection still healing bruise mid calf on R w/ scab Comments Y-strip Heel->Calf: 50% tension PT-OP-R Modalities Start: 01/01/22 13:46 Freq: Status: Active Protocol: Document 02/05/22 09:45 DCW (Rec: 02/05/22 10:36 [facility] [id number]) Ultrasound Therapy Treatment Lower Medial Leg Treatment Duration (minutes) 10 Patient Position Prone Coupling Medium Ultrasound Gel Applicator Size (cm2) 5 Frequency Setting (mHz) 1 Mode Setting Continuous Duty Cycle 100% Intensity Setting (w/cm2) 1.2 Comments 5' each leg PT-OP-T Assessment and Plan Start: 01/01/22 13:46 Freq: Status: Active Protocol: Document 02/05/22 09:45 DCW (Rec: 02/05/22 10:36 [facility] [id number]) Physical Therapy Assessment Assessment Summary Assessment Pt continues to experience random sharp pains in calf after exercise or activity, appears to be making minimal progress with skilled intervention Physical Therapy Plan Next Visit Focus/Plan Next Note Type Treatment Note Next Visit Plan Next tx: Progress dynamic stepping/ ladder stepping next tx, if low back pain has subsided. POC: STM, Flexibility, strengthening of bilateral calf/ankles.
--- NOTE | 2022-02-07 13:01 | PT.OTN ---
Current Diagnoses Stiffness of right ankle, not elsewhere classified (02/07/22) Stiffness of left ankle, not elsewhere classified (02/07/22) Achilles tendinitis, right leg (02/07/22) Achilles tendinitis, left leg (02/07/22) Strain of other muscle(s) and tendon(s) of posterior muscle group at lower leg level, right leg, subsequent encounter (02/07/22) Strain of other muscle(s) and tendon(s) of posterior muscle group at lower leg level, left leg, subsequent encounter (02/07/22) Physical Therapy Treatment Note PT-OP-A Visit Information Start: 01/01/22 13:46 Freq: Status: Active Protocol: Document 02/07/22 12:19 SP (Rec: 02/07/22 13:02 SP [id number]) Out-Patient Physical Therapy Visit Information Visit Information Visit Type Treatment Note Visit Start Time 12:19 Visit Stop Time 13:00 Total Visit Minutes 41 Visit Number 12 Number of REPAIRER WELDING EQUIPMENT Visits 1 Evaluation Information Evaluation Date 01/01/22 PT-OP-B Current Condition Start: 01/01/22 13:46 Freq: Status: Active Protocol: Document 01/01/22 09:45 DCW (Rec: 01/01/22 14:13 DCW [id number]) Current Condition History of Current Condition Onset Date s/p three months Current Complaints bilateral calf pain History of Current Condition Pt is a 41 year old male presenting to skilled therapy with a three month history of bilateral calf pain. Pt reports that in September, he completed his first marathon. Notes that following the race, he tried to run a few times, and had to stop due to mid- calf pain. Pt took a four week break from running, and then tried to get back into it. By his second run, he was experiencing fairly severe calf pain again, and has now not run in five weeks. Notes is doesn't hurt constantly, but when it does, there is nothing that he has found to help it. Did try to give himself a hard massage through his calfs, but was too sore the following day, so he stopped. Feels that his right leg is probably twice as bad as the left. 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 Treatment Goals Patient/Caregiver Goals Return to running PT-OP-C Subjective Start: 01/01/22 13:46 Freq: Status: Active Protocol: Document 02/07/22 12:19 SP (Rec: 02/07/22 13:02 SP [id number]) OP-PT Subjective Patient Comments Patient Comments Pt stated took a 2 mile walk on Friday and achilles hurt so didn't walk on Fri. Upon arrival, stated achilles are ok right now. Pt stated hasn't woken up with pain in past 2 weeks. PT-OP-D Balance Start: 01/01/22 14:14 Freq: Status: Active Protocol: Document 01/01/22 09:45 DCW (Rec: 01/01/22 14:25 DCW [id number]) Balance Tests Single Limb Standing Single Limb- Right 30+ Single Limb- Left 30+ PT-OP-G Mobility & Gait Start: 01/01/22 13:46 Freq: Status: Active Protocol: Document 01/01/22 09:45 DCW (Rec: 01/01/22 14:13 DCW [id number]) OP Gait Assessment Comments Gait Comments Gait appears to be relatively unaffected. Pt does note his usual wear pattern on his running shoes are much more severely worn on his medial heel, but pt does not have any old shoes at this time, recently bought newer shoes, do not yet have any wear pattern, PT-OP-K Range of Motion Start: 01/01/22 13:46 Freq: Status: Active Protocol: Document 01/01/22 09:45 DCW (Rec: 01/01/22 14:13 DCW [id number]) Ankle and Foot Goniometric Range of Motion Ankle and Foot Right Active Testing Position Sitting Dorsiflexion with Knee Flexed 10 Dorsiflexion with Knee Extended 5 Plantarflexion 30 Inversion 35 Eversion 10 Left Active Testing Position Sitting Dorsiflexion with Knee Flexed 15 Dorsiflexion with Knee Extended 10 Plantarflexion 40 Inversion 40 Eversion 20 Ankle and Foot ROM Limitations ROM Limitations Soft Tissue Tightness PT-OP-L Special Tests Start: 01/01/22 13:46 Freq: Status: Active Protocol: Document 01/01/22 09:45 DCW (Rec: 01/01/22 14:13 DCW [id number]) Special Tests Foot/Ankle Special Tests Talor Tilt Test Results Negative Anterior Draw Test Results Negative PT-OP-M Strength Start: 01/01/22 13:46 Freq: Status: Active Protocol: Document 01/01/22 09:45 DCW (Rec: 01/01/22 14:13 DCW [id number]) Ankle/Foot Strength Ankle and Foot Manual Muscle Testing Bilateral Comments Dorsiflexion, Inversion, and Eversion all test 5/5. Plantar flexion tested with single leg heel raises. Pt able to perform 10 on L and 4 on R before stopping due to pain. PT-OP-Q Treatments Start: 01/01/22 13:46 Freq: Status: Active Protocol: Document 02/07/22 12:19 SP (Rec: 02/07/22 13:02 SP [id number]) Cardio Equipment Treadmill Duration (Minutes) 7 Speed 2.0-2.5, 4-4.6mph jog Incline 0-2- painfree walk 6 min,0% jog 1 min before R achilles ache-stopped Other no pain, states is quicker than normal pace outside and past TM walk desk. Gym Equipment Shuttle Recovery dynamic push of jump/ eccentric land Details cued eccentric land. Resistance 25# Shuttle Recovery Platform Stable Reps/Time x10 SL squat Details hip abd/VMO facil, knee w/ behind toes Resistance 50# Shuttle Recovery Platform Stable Reps/Time 2x10, last 2 reps R achilles strain 1st set, soft knee ext cues Shuttle Balance Red Details WBOS, NBOS, Staggered, Lateral Reps/Duration 8 min ( w/ gait belt) Comments 1. stationary 2. Head turns 3. EC only WBOS up to 8s 4. NBOS: head turns held 20s 5. stagger: stationary, added 2 head turns held 10 s Cued core/ hip abd fac and COG over LUNA, tall chest lift posture. Therapeutic Exercises Standing Exercises SLS BOSU Standing Exercise Name SLS Side bilateral Equipment Used BLE: 20s, LLE more challenged Reps/Minutes Blue BOSU dome side up. Comments contact rail as needed: cued trunk alignment, core/ hip fac & ankle align calf stretch Standing Exercise Name angled bottom step Side bilateral Reps/Minutes 30 x2 step ups BOSU Standing Exercise Name dome side up Side bilateral Equipment Used bosu, contact for balance supprt Reps/Minutes x25 Comments /c opposite leg january SLS star glides Standing Exercise Name review HEP Side bilateral Resistance AROM Equipment Used stance LE on folded towel, near rail for safety PRN Reps/Minutes 4 positions x3 reps Comments cued knee with and behind toes , hip hinge PT-OP-R Modalities Start: 01/01/22 13:46 Freq: Status: Active Protocol: Document 02/05/22 09:45 DCW (Rec: 02/05/22 10:36 DCW [id number]) Ultrasound Therapy Treatment Lower Medial Leg Treatment Duration (minutes) 10 Patient Position Prone Coupling Medium Ultrasound Gel Applicator Size (cm2) 5 Frequency Setting (mHz) 1 Mode Setting Continuous Duty Cycle 100% Intensity Setting (w/cm2) 1.2 Comments 5' each leg PT-OP-T Assessment and Plan Start: 01/01/22 13:46 Freq: Status: Active Protocol: Document 02/07/22 12:19 SP (Rec: 02/07/22 13:02 SP [id number]) Physical Therapy Assessment Goals Two Impairment Pt unable to perform normal running activities due to calf pain Senior Living Goal (LTG) Pt to report ability to run 5K without increased calf pain LTG Duration 03/01/22 One Impairment Pt does not have an appropriate home exercise program Short Term Goal (STG) Pt to be independent and compliant with an appropriate HEP STG Duration 01/29/22 Assessment Summary Assessment Pt reported little increased R achilles tightness after 1 min jog 4.6mph so stopped, tolerated with no pain/ tightnesswalking 2.5 mph, faster than used to reported without UE support needed. Pt improved SLS stability with bosu today and at home able do EC w/ counter safe contact when needed as demonstrated in PT. Able to initiated shuttle recovery SL squat for hip abd strengthening assist B hip/ knee with cues for alignment then able to start gentle jump squats with cues and good form eccentric landing, noted little shakiness on B toe off into ankle PF and knee extension but good understanding and performance absorbtion landing into squat. Pt stated had no pain end tx and felt like did some things that are like running to get back to. Physical Therapy Plan Frequency and Duration Frequency of Treatment 2x/Week Duration of Treatment Two months Plan of Care Start Date 01/01/22 Plan of Care End Date 03/01/22 Therapeutic Interventions Therapeutic Interventions Aquatic Therapy,Gait Training, Home Exercise Program,Joint Mobilizations,Manual Therapy, Patient/Caregiver Education, Self-Care/Home Management,Soft Tissue Mobilization, Therapeutic Activities, Therapeutic Exercises Modalities Cold Pack/Ice Massage,Electric Stimulation,Hot Packs, Ultrasound Next Visit Focus/Plan Next Note Type Treatment Note Next Visit Plan Next tx: Progress dynamic stepping/ ladder stepping next tx and continue shuttle recovery, balance. Continue BOSU challenges, has at home. POC: STM, Flexibility, strengthening of bilateral calf/ankles.
--- NOTE | 2022-02-12 10:31 | PT.OTN ---
Current Diagnoses Stiffness of right ankle, not elsewhere classified (02/12/22) Stiffness of left ankle, not elsewhere classified (02/12/22) Achilles tendinitis, right leg (02/12/22) Achilles tendinitis, left leg (02/12/22) Strain of other muscle(s) and tendon(s) of posterior muscle group at lower leg level, right leg, subsequent encounter (02/12/22) Strain of other muscle(s) and tendon(s) of posterior muscle group at lower leg level, left leg, subsequent encounter (02/12/22) Physical Therapy Treatment Note PT-OP-A Visit Information Start: 01/01/22 13:46 Freq: Status: Active Protocol: Document 02/12/22 09:45 DCW (Rec: 02/12/22 10:31 DCW [id number]) Out-Patient Physical Therapy Visit Information Visit Information Visit Type Treatment Note Visit Start Time 09:45 Visit Stop Time 10:30 Total Visit Minutes 45 Visit Number 13 Number of CODING SUPPORT SPECIALIST Visits 0 Evaluation Information Evaluation Date 01/01/22 PT-OP-B Current Condition Start: 01/01/22 13:46 Freq: Status: Active Protocol: Document 01/01/22 09:45 DCW (Rec: 01/01/22 14:13 DCW [id number]) Current Condition History of Current Condition Onset Date s/p three months Current Complaints bilateral calf pain History of Current Condition Pt is a 41 year old male presenting to skilled therapy with a three month history of bilateral calf pain. Pt reports that in September, he completed his first marathon. Notes that following the race, he tried to run a few times, and had to stop due to mid- calf pain. Pt took a four week break from running, and then tried to get back into it. By his second run, he was experiencing fairly severe calf pain again, and has now not run in five weeks. Notes is doesn't hurt constantly, but when it does, there is nothing that he has found to help it. Did try to give himself a hard massage through his calfs, but was too sore the following day, so he stopped. Feels that his right leg is probably twice as bad as the left. 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 Treatment Goals Patient/Caregiver Goals Return to running PT-OP-C Subjective Start: 01/01/22 13:46 Freq: Status: Active Protocol: Document 02/12/22 09:45 DCW (Rec: 02/12/22 10:31 DCW [id number]) OP-PT Subjective Patient Comments Patient Comments Pt notes he has pretty good recently. Able to walk 1.8 miles over the weekend with no pain. PT-OP-D Balance Start: 01/01/22 14:14 Freq: Status: Active Protocol: Document 01/01/22 09:45 DCW (Rec: 01/01/22 14:25 DCW [id number]) Balance Tests Single Limb Standing Single Limb- Right 30+ Single Limb- Left 30+ PT-OP-G Mobility & Gait Start: 01/01/22 13:46 Freq: Status: Active Protocol: Document 01/01/22 09:45 DCW (Rec: 01/01/22 14:13 DCW [id number]) OP Gait Assessment Comments Gait Comments Gait appears to be relatively unaffected. Pt does note his usual wear pattern on his running shoes are much more severely worn on his medial heel, but pt does not have any old shoes at this time, recently bought newer shoes, do not yet have any wear pattern, PT-OP-K Range of Motion Start: 01/01/22 13:46 Freq: Status: Active Protocol: Document 01/01/22 09:45 DCW (Rec: 01/01/22 14:13 DCW [id number]) Ankle and Foot Goniometric Range of Motion Ankle and Foot Right Active Testing Position Sitting Dorsiflexion with Knee Flexed 10 Dorsiflexion with Knee Extended 5 Plantarflexion 30 Inversion 35 Eversion 10 Left Active Testing Position Sitting Dorsiflexion with Knee Flexed 15 Dorsiflexion with Knee Extended 10 Plantarflexion 40 Inversion 40 Eversion 20 Ankle and Foot ROM Limitations ROM Limitations Soft Tissue Tightness PT-OP-L Special Tests Start: 01/01/22 13:46 Freq: Status: Active Protocol: Document 01/01/22 09:45 DCW (Rec: 01/01/22 14:13 DCW [id number]) Special Tests Foot/Ankle Special Tests Talor Tilt Test Results Negative Anterior Draw Test Results Negative PT-OP-M Strength Start: 01/01/22 13:46 Freq: Status: Active Protocol: Document 01/01/22 09:45 DCW (Rec: 01/01/22 14:13 DCW [id number]) Ankle/Foot Strength Ankle and Foot Manual Muscle Testing Bilateral Comments Dorsiflexion, Inversion, and Eversion all test 5/5. Plantar flexion tested with single leg heel raises. Pt able to perform 10 on L and 4 on R before stopping due to pain. PT-OP-Q Treatments Start: 01/01/22 13:46 Freq: Status: Active Protocol: Document 02/12/22 09:45 DCW (Rec: 02/12/22 10:31 DCW [id number]) Cardio Equipment Treadmill Duration (Minutes) 5 Speed 2.5->4.5 Incline 3.0 Gym Equipment Shuttle Balance Red Details WBOS, NBOS, Staggered, Lateral Reps/Duration 8 min ( w/ gait belt) Comments 1. stationary 2. Head turns 3. EC only WBOS up to 8s 4. NBOS: head turns held 20s 5. stagger: stationary, Manual Therapy Treatment Soft Tissue Mobilization 1 Body Location B Post Tib R>L Mobilization Type Strumming,Sustained Pressure Intensity/Depth Deep Body Position Sitting Comments manual and sustained pressure MWM ankle pump Taping 1 Body Location B Calf Treatment Focus assist PF and support eccentric DF Type of Tape Kinesio Tape Comments Y-strip Heel->Calf: 50% tension PT-OP-R Modalities Start: 01/01/22 13:46 Freq: Status: Active Protocol: Document 02/05/22 09:45 DCW (Rec: 02/05/22 10:36 DCW [id number]) Ultrasound Therapy Treatment Lower Medial Leg Treatment Duration (minutes) 10 Patient Position Prone Coupling Medium Ultrasound Gel Applicator Size (cm2) 5 Frequency Setting (mHz) 1 Mode Setting Continuous Duty Cycle 100% Intensity Setting (w/cm2) 1.2 Comments 5' each leg PT-OP-T Assessment and Plan Start: 01/01/22 13:46 Freq: Status: Active Protocol: Document 02/12/22 09:45 DCW (Rec: 02/12/22 10:31 DCW [id number]) Physical Therapy Assessment Goals Two Impairment Pt unable to perform normal running activities due to calf pain Garbage Worker Goal (LTG) Pt to report ability to run 5K without increased calf pain LTG Duration 03/01/22 One Impairment Pt does not have an appropriate home exercise program Short Term Goal (STG) Pt to be independent and compliant with an appropriate HEP STG Duration 01/29/22 Assessment Summary Assessment Pt noted mild feeling of tightness after increasing treadmill speed, however overall appears to be making some good progress recently. Has been out walking more, noted he would try to increase his walks to 3-4 miles, see if pain remained lower. Physical Therapy Plan Frequency and Duration Frequency of Treatment 2x/Week Duration of Treatment Two months Plan of Care Start Date 01/01/22 Plan of Care End Date 03/01/22 Therapeutic Interventions Therapeutic Interventions Aquatic Therapy,Gait Training, Home Exercise Program,Joint Mobilizations,Manual Therapy, Patient/Caregiver Education, Self-Care/Home Management,Soft Tissue Mobilization, Therapeutic Activities, Therapeutic Exercises Modalities Cold Pack/Ice Massage,Electric Stimulation,Hot Packs, Ultrasound Next Visit Focus/Plan Next Note Type Treatment Note Next Visit Plan Next tx: Progress dynamic stepping/ ladder stepping next tx and continue shuttle recovery, balance. Continue BOSU challenges, has at home. POC: STM, Flexibility, strengthening of bilateral calf/ankles.
--- NOTE | 2022-02-18 09:00 | PT.OTN ---
Current Diagnoses Stiffness of right ankle, not elsewhere classified (02/18/22) Stiffness of left ankle, not elsewhere classified (02/18/22) Achilles tendinitis, right leg (02/18/22) Achilles tendinitis, left leg (02/18/22) Strain of other muscle(s) and tendon(s) of posterior muscle group at lower leg level, right leg, subsequent encounter (02/18/22) Strain of other muscle(s) and tendon(s) of posterior muscle group at lower leg level, left leg, subsequent encounter (02/18/22) Physical Therapy Treatment Note PT-OP-A Visit Information Start: 01/01/22 13:46 Freq: Status: Active Protocol: Document 02/18/22 08:17 SP (Rec: 02/18/22 09:10 SP [id number]) Out-Patient Physical Therapy Visit Information Visit Information Visit Type Treatment Note Visit Start Time 08:17 Visit Stop Time 09:00 Total Visit Minutes 43 Visit Number 14 Number of WHOLESALE PARTS SALESPERSON Visits 1 Evaluation Information Evaluation Date 01/01/22 PT-OP-B Current Condition Start: 01/01/22 13:46 Freq: Status: Active Protocol: Document 01/01/22 09:45 DCW (Rec: 01/01/22 14:13 DCW [id number]) Current Condition History of Current Condition Onset Date s/p three months Current Complaints bilateral calf pain History of Current Condition Pt is a 41 year old male presenting to skilled therapy with a three month history of bilateral calf pain. Pt reports that in September, he completed his first marathon. Notes that following the race, he tried to run a few times, and had to stop due to mid- calf pain. Pt took a four week break from running, and then tried to get back into it. By his second run, he was experiencing fairly severe calf pain again, and has now not run in five weeks. Notes is doesn't hurt constantly, but when it does, there is nothing that he has found to help it. Did try to give himself a hard massage through his calfs, but was too sore the following day, so he stopped. Feels that his right leg is probably twice as bad as the left. 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 Treatment Goals Patient/Caregiver Goals Return to running PT-OP-C Subjective Start: 01/01/22 13:46 Freq: Status: Active Protocol: Document 02/18/22 08:17 SP (Rec: 02/18/22 09:10 SP [id number]) OP-PT Subjective Patient Comments Patient Comments Pt reported walked over the weekend 2.5 miles and did fine . Last week walked 2.5 and longer walk 4.5 and only little ache B inferior and posterior medial/ lateral malleolus, not pain. He states does some stretching and feels better. All walks were level and 0% incline surfaces. Took off Ktaping yesterday and does feel helps with stability. Patient Reported Progress Improving PT-OP-D Balance Start: 01/01/22 14:14 Freq: Status: Active Protocol: Document 01/01/22 09:45 DCW (Rec: 01/01/22 14:25 DCW [id number]) Balance Tests Single Limb Standing Single Limb- Right 30+ Single Limb- Left 30+ PT-OP-G Mobility & Gait Start: 01/01/22 13:46 Freq: Status: Active Protocol: Document 01/01/22 09:45 DCW (Rec: 01/01/22 14:13 DCW [id number]) OP Gait Assessment Comments Gait Comments Gait appears to be relatively unaffected. Pt does note his usual wear pattern on his running shoes are much more severely worn on his medial heel, but pt does not have any old shoes at this time, recently bought newer shoes, do not yet have any wear pattern, PT-OP-K Range of Motion Start: 01/01/22 13:46 Freq: Status: Active Protocol: Document 01/01/22 09:45 DCW (Rec: 01/01/22 14:13 DCW [id number]) Ankle and Foot Goniometric Range of Motion Ankle and Foot Right Active Testing Position Sitting Dorsiflexion with Knee Flexed 10 Dorsiflexion with Knee Extended 5 Plantarflexion 30 Inversion 35 Eversion 10 Left Active Testing Position Sitting Dorsiflexion with Knee Flexed 15 Dorsiflexion with Knee Extended 10 Plantarflexion 40 Inversion 40 Eversion 20 Ankle and Foot ROM Limitations ROM Limitations Soft Tissue Tightness PT-OP-L Special Tests Start: 01/01/22 13:46 Freq: Status: Active Protocol: Document 01/01/22 09:45 DCW (Rec: 01/01/22 14:13 DCW [id number]) Special Tests Foot/Ankle Special Tests Talor Tilt Test Results Negative Anterior Draw Test Results Negative PT-OP-M Strength Start: 01/01/22 13:46 Freq: Status: Active Protocol: Document 01/01/22 09:45 DCW (Rec: 01/01/22 14:13 DCW [id number]) Ankle/Foot Strength Ankle and Foot Manual Muscle Testing Bilateral Comments Dorsiflexion, Inversion, and Eversion all test 5/5. Plantar flexion tested with single leg heel raises. Pt able to perform 10 on L and 4 on R before stopping due to pain. PT-OP-Q Treatments Start: 01/01/22 13:46 Freq: Status: Active Protocol: Document 02/18/22 08:17 SP (Rec: 02/18/22 09:10 SP [id number]) Cardio Equipment Treadmill Duration (Minutes) 12 Speed 2.6 walk 0% incline, 4.2-4.6 light jog Incline 0 Other walked 8 min, jogged 4 min- pain/tightness free Gym Equipment Shuttle Recovery dynamic push of jump/ eccentric land Details good eccentric squat landing Resistance 25# Shuttle Recovery Platform Stable Reps/Time x36 SL squat Details hip abd/VMO facil, knee w/ behind toes- improved Resistance 50# Shuttle Recovery Platform Stable Reps/Time 3x12- painfree feels good Therapeutic Exercises Standing Exercises 4 way hip for ankle stability Standing Exercise Name hip add, abd, ext, hip/knee flexion (runner motion) Side bilateral Resistance theratube orange Equipment Used added to HEP (has tubes at home) Reps/Minutes x10 Comments good eccentric control and stability for ankle, occaisional cues dynamic warm up Standing Exercise Name receiprocal hip flexion w/ heel lift (toy soldier), walk lunges, reach hops Reps/Minutes 10 ft x3 laps each Comments good form, pain free calf stretch Standing Exercise Name angled bottom step Side bilateral Reps/Minutes 30 x2 Neuro Re-Education Treatment Balance Activities ladder hops Details DL forward: single block, double block, diagonal every other block Surface firm Reps/Duration 2 laps each, 10 blocks Comments painfree, good ecccentric landing. square hops Details DL/ SL Comments F/B/STS DL x10 SL x5 each painfree but reports RLE doesn 't feel as strong but no pain. PT-OP-R Modalities Start: 01/01/22 13:46 Freq: Status: Active Protocol: Document 02/05/22 09:45 DCW (Rec: 02/05/22 10:36 DCW [id number]) Ultrasound Therapy Treatment Lower Medial Leg Treatment Duration (minutes) 10 Patient Position Prone Coupling Medium Ultrasound Gel Applicator Size (cm2) 5 Frequency Setting (mHz) 1 Mode Setting Continuous Duty Cycle 100% Intensity Setting (w/cm2) 1.2 Comments 5' each leg PT-OP-T Assessment and Plan Start: 01/01/22 13:46 Freq: Status: Active Protocol: Document 02/18/22 08:17 SP (Rec: 02/18/22 09:10 SP [id number]) Physical Therapy Assessment Goals Two Impairment Pt unable to perform normal running activities due to calf pain Special Effects Specialist Goal (LTG) Pt to report ability to run 5K without increased calf pain LTG Duration 03/01/22 One Impairment Pt does not have an appropriate home exercise program Short Term Goal (STG) Pt to be independent and compliant with an appropriate HEP STG Duration 01/29/22 Assessment Summary Assessment Recommended at home: ROM warm up, brisk walk dynamic warm up , jog 4-5 min then walk not over do milage but painfree and response next tx. Pt responded well to dynamic stability strengthening this tx pain free with good eccentric corrections with verbalized understanding to continue to incorporate at home. Physical Therapy Plan Frequency and Duration Frequency of Treatment 2x/Week Duration of Treatment Two months Plan of Care Start Date 01/01/22 Plan of Care End Date 03/01/22 Therapeutic Interventions Therapeutic Interventions Aquatic Therapy,Gait Training, Home Exercise Program,Joint Mobilizations,Manual Therapy, Patient/Caregiver Education, Self-Care/Home Management,Soft Tissue Mobilization, Therapeutic Activities, Therapeutic Exercises Modalities Cold Pack/Ice Massage,Electric Stimulation,Hot Packs, Ultrasound Next Visit Focus/Plan Next Note Type Treatment Note Next Visit Plan Response to last tx dynamic warm up/ hops. Continue dynamic balance, hops. Add BOSU squats flat side. POC: STM, Flexibility, strengthening of bilateral calf/ankles.
--- NOTE | 2022-02-21 10:30 | PT.OTN ---
Current Diagnoses Stiffness of right ankle, not elsewhere classified (02/21/22) Stiffness of left ankle, not elsewhere classified (02/21/22) Achilles tendinitis, right leg (02/21/22) Achilles tendinitis, left leg (02/21/22) Strain of other muscle(s) and tendon(s) of posterior muscle group at lower leg level, right leg, subsequent encounter (02/21/22) Strain of other muscle(s) and tendon(s) of posterior muscle group at lower leg level, left leg, subsequent encounter (02/21/22) Physical Therapy Treatment Note PT-OP-A Visit Information Start: 01/01/22 13:46 Freq: Status: Active Protocol: Document 02/21/22 09:49 SP (Rec: 02/21/22 10:33 SP [id number]) Out-Patient Physical Therapy Visit Information Visit Information Visit Type Treatment Note Visit Note PN due in 2 tx's. Visit Start Time 09:49 Visit Stop Time 10:30 Total Visit Minutes 41 Visit Number 15 Number of UNIT CONTROL CLERK Visits 2 Evaluation Information Evaluation Date 01/01/22 PT-OP-B Current Condition Start: 01/01/22 13:46 Freq: Status: Active Protocol: Document 01/01/22 09:45 DCW (Rec: 01/01/22 14:13 DCW [id number]) Current Condition History of Current Condition Onset Date s/p three months Current Complaints bilateral calf pain History of Current Condition Pt is a 41 year old male presenting to skilled therapy with a three month history of bilateral calf pain. Pt reports that in September, he completed his first marathon. Notes that following the race, he tried to run a few times, and had to stop due to mid- calf pain. Pt took a four week break from running, and then tried to get back into it. By his second run, he was experiencing fairly severe calf pain again, and has now not run in five weeks. Notes is doesn't hurt constantly, but when it does, there is nothing that he has found to help it. Did try to give himself a hard massage through his calfs, but was too sore the following day, so he stopped. Feels that his right leg is probably twice as bad as the left. 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 Treatment Goals Patient/Caregiver Goals Return to running PT-OP-C Subjective Start: 01/01/22 13:46 Freq: Status: Active Protocol: Document 02/21/22 09:49 SP (Rec: 02/21/22 10:33 SP [id number]) OP-PT Subjective Patient Comments Patient Comments Pt reported later in day after last tx felt fine but next day had increase pain and R>L calf tightness, limted DF on R and still recovering. Stated couldn't do any walking since last tx due to pain. Pt stated not seeing significant improvement to getting back to jogging/ running and maybe need to aske for further physician assessment. PT-OP-D Balance Start: 01/01/22 14:14 Freq: Status: Active Protocol: Document 01/01/22 09:45 DCW (Rec: 01/01/22 14:25 DCW [id number]) Balance Tests Single Limb Standing Single Limb- Right 30+ Single Limb- Left 30+ PT-OP-G Mobility & Gait Start: 01/01/22 13:46 Freq: Status: Active Protocol: Document 01/01/22 09:45 DCW (Rec: 01/01/22 14:13 DCW [id number]) OP Gait Assessment Comments Gait Comments Gait appears to be relatively unaffected. Pt does note his usual wear pattern on his running shoes are much more severely worn on his medial heel, but pt does not have any old shoes at this time, recently bought newer shoes, do not yet have any wear pattern, PT-OP-K Range of Motion Start: 01/01/22 13:46 Freq: Status: Active Protocol: Document 01/01/22 09:45 DCW (Rec: 01/01/22 14:13 DCW [id number]) Ankle and Foot Goniometric Range of Motion Ankle and Foot Right Active Testing Position Sitting Dorsiflexion with Knee Flexed 10 Dorsiflexion with Knee Extended 5 Plantarflexion 30 Inversion 35 Eversion 10 Left Active Testing Position Sitting Dorsiflexion with Knee Flexed 15 Dorsiflexion with Knee Extended 10 Plantarflexion 40 Inversion 40 Eversion 20 Ankle and Foot ROM Limitations ROM Limitations Soft Tissue Tightness PT-OP-L Special Tests Start: 01/01/22 13:46 Freq: Status: Active Protocol: Document 01/01/22 09:45 DCW (Rec: 01/01/22 14:13 DCW [id number]) Special Tests Foot/Ankle Special Tests Talor Tilt Test Results Negative Anterior Draw Test Results Negative PT-OP-M Strength Start: 01/01/22 13:46 Freq: Status: Active Protocol: Document 01/01/22 09:45 DCW (Rec: 01/01/22 14:13 DCW [id number]) Ankle/Foot Strength Ankle and Foot Manual Muscle Testing Bilateral Comments Dorsiflexion, Inversion, and Eversion all test 5/5. Plantar flexion tested with single leg heel raises. Pt able to perform 10 on L and 4 on R before stopping due to pain. PT-OP-Q Treatments Start: 01/01/22 13:46 Freq: Status: Active Protocol: Document 02/21/22 09:49 SP (Rec: 02/21/22 10:33 SP [id number]) Gym Equipment Shuttle Recovery dynamic push of jump/ eccentric land Details good eccentric squat landing Resistance 25# Shuttle Recovery Platform Stable Reps/Time x20- painfree SL squat Details hip abd/VMO facil, knee w/ behind toes- improved Resistance 50# unable > 37# R, 50# L Shuttle Recovery Platform Stable Reps/Time 3x12- painfree feels good Shuttle Balance Red Details WBOS, NBOS, Staggered, Lateral Reps/Duration 10 min ( w/ gait belt) Comments -WBOS EO head turns good bal, EC up to 27s -NBOS: head turns good, EC 15s -stagger: stationary, EO CG- 5 %A little shaky able head turns -balloon volley CG- Min A w/ PT Aide, cued wt shift posteriorly to neutral level platform. Therapeutic Exercises Standing Exercises bosu squat Standing Exercise Name dome side down- deeper squat Equipment Used //bars Air pad Stance Standing Exercise Name DL- last activity. BLE tired more unsteady. Equipment Used large disc head turns Reps/Minutes //bars PRN contact (w/GB donned), CG- Min A Comments cued alignment, core/ glut fac , ankle alignment calf stretch Standing Exercise Name Lunge calf stretch Side bilateral Reps/Minutes 30 x2 Comments good feedback response Manual Therapy Treatment Soft Tissue Mobilization 1 Body Location B Post Tib R>L Mobilization Type Strumming,Sustained Pressure Intensity/Depth Deep Body Position Sitting Comments manual and sustained pressure MWM ankle pump PT-OP-R Modalities Start: 01/01/22 13:46 Freq: Status: Active Protocol: Document 02/05/22 09:45 DCW (Rec: 02/05/22 10:36 DCW [id number]) Ultrasound Therapy Treatment Lower Medial Leg Treatment Duration (minutes) 10 Patient Position Prone Coupling Medium Ultrasound Gel Applicator Size (cm2) 5 Frequency Setting (mHz) 1 Mode Setting Continuous Duty Cycle 100% Intensity Setting (w/cm2) 1.2 Comments 5' each leg PT-OP-T Assessment and Plan Start: 01/01/22 13:46 Freq: Status: Active Protocol: Document 02/21/22 09:49 SP (Rec: 02/21/22 10:33 SP [id number]) Physical Therapy Assessment Goals Two Impairment Pt unable to perform normal running activities due to calf pain Group Home Goal (LTG) Pt to report ability to run 5K without increased calf pain 02/21/22: able to complete jogging on TM last tx painfree and cotninued no pain into rest of day but pain and tightess returned next day that still recoverying from. LTG Duration 03/01/22 One Impairment Pt does not have an appropriate home exercise program Short Term Goal (STG) Pt to be independent and compliant with an appropriate HEP STG Duration 01/29/22 Assessment Summary Assessment Pt reported no pain post manual, and ther ex. States less DF ROM on R compared to L today but improved flexibility stretch. Pt no pain during tx but states still R deep calf tightness and not making progress as had hoped of going away. Thinks would like to requrest further assessment, will discuss with PT when sees him next and ask give feedback PN to physician . Physical Therapy Plan Frequency and Duration Frequency of Treatment 2x/Week Duration of Treatment Two months Plan of Care Start Date 01/01/22 Plan of Care End Date 03/01/22 Therapeutic Interventions Therapeutic Interventions Aquatic Therapy,Gait Training, Home Exercise Program,Joint Mobilizations,Manual Therapy, Patient/Caregiver Education, Self-Care/Home Management,Soft Tissue Mobilization, Therapeutic Activities, Therapeutic Exercises Modalities Cold Pack/Ice Massage,Electric Stimulation,Hot Packs, Ultrasound Next Visit Focus/Plan Next Note Type Treatment Note Next Visit Plan Response to manual, stretching , shuttle recovery. Ask if any walking/jogging since last tx . Continue dynamic balance, hops if no pain. POC: STM, Flexibility, strengthening of bilateral calf/ankles.
--- NOTE | 2022-02-25 09:00 | PT.OTN ---
Current Diagnoses Stiffness of right ankle, not elsewhere classified (02/25/22) Stiffness of left ankle, not elsewhere classified (02/25/22) Achilles tendinitis, right leg (02/25/22) Achilles tendinitis, left leg (02/25/22) Strain of other muscle(s) and tendon(s) of posterior muscle group at lower leg level, right leg, subsequent encounter (02/25/22) Strain of other muscle(s) and tendon(s) of posterior muscle group at lower leg level, left leg, subsequent encounter (02/25/22) Physical Therapy Treatment Note PT-OP-A Visit Information Start: 01/01/22 13:46 Freq: Status: Active Protocol: Document 02/25/22 08:17 SP (Rec: 02/25/22 09:04 SP [id number]) Out-Patient Physical Therapy Visit Information Visit Information Visit Type Treatment Note Visit Note PN due next tx. Visit Start Time 08:18 Visit Stop Time 09:00 Total Visit Minutes 42 Visit Number 16 Number of LEARNING PROGRAM MANAGER Visits 3 Evaluation Information Evaluation Date 01/01/22 PT-OP-B Current Condition Start: 01/01/22 13:46 Freq: Status: Active Protocol: Document 01/01/22 09:45 DCW (Rec: 01/01/22 14:13 DCW [id number]) Current Condition History of Current Condition Onset Date s/p three months Current Complaints bilateral calf pain History of Current Condition Pt is a 41 year old male presenting to skilled therapy with a three month history of bilateral calf pain. Pt reports that in September, he completed his first marathon. Notes that following the race, he tried to run a few times, and had to stop due to mid- calf pain. Pt took a four week break from running, and then tried to get back into it. By his second run, he was experiencing fairly severe calf pain again, and has now not run in five weeks. Notes is doesn't hurt constantly, but when it does, there is nothing that he has found to help it. Did try to give himself a hard massage through his calfs, but was too sore the following day, so he stopped. Feels that his right leg is probably twice as bad as the left. 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 Treatment Goals Patient/Caregiver Goals Return to running PT-OP-C Subjective Start: 01/01/22 13:46 Freq: Status: Active Protocol: Document 02/25/22 08:17 SP (Rec: 02/25/22 09:04 SP [id number]) OP-PT Subjective Patient Comments Patient Comments Pt stated felt fine after last tx. He stated has been taking it easy after 2 tx ago ( jogging/box hop) due to was in alot pain and took days to recovery after. Pt reported walked [place] [address] over the weekend about 1.5 no pain/soreness I was fine. Pt stated hasn't needed to K tape his calves. PT-OP-D Balance Start: 01/01/22 14:14 Freq: Status: Active Protocol: Document 01/01/22 09:45 DCW (Rec: 01/01/22 14:25 DCW [id number]) Balance Tests Single Limb Standing Single Limb- Right 30+ Single Limb- Left 30+ PT-OP-G Mobility & Gait Start: 01/01/22 13:46 Freq: Status: Active Protocol: Document 01/01/22 09:45 DCW (Rec: 01/01/22 14:13 DCW [id number]) OP Gait Assessment Comments Gait Comments Gait appears to be relatively unaffected. Pt does note his usual wear pattern on his running shoes are much more severely worn on his medial heel, but pt does not have any old shoes at this time, recently bought newer shoes, do not yet have any wear pattern, PT-OP-K Range of Motion Start: 01/01/22 13:46 Freq: Status: Active Protocol: Document 01/01/22 09:45 DCW (Rec: 01/01/22 14:13 DCW [id number]) Ankle and Foot Goniometric Range of Motion Ankle and Foot Right Active Testing Position Sitting Dorsiflexion with Knee Flexed 10 Dorsiflexion with Knee Extended 5 Plantarflexion 30 Inversion 35 Eversion 10 Left Active Testing Position Sitting Dorsiflexion with Knee Flexed 15 Dorsiflexion with Knee Extended 10 Plantarflexion 40 Inversion 40 Eversion 20 Ankle and Foot ROM Limitations ROM Limitations Soft Tissue Tightness PT-OP-L Special Tests Start: 01/01/22 13:46 Freq: Status: Active Protocol: Document 01/01/22 09:45 DCW (Rec: 01/01/22 14:13 DCW [id number]) Special Tests Foot/Ankle Special Tests Talor Tilt Test Results Negative Anterior Draw Test Results Negative PT-OP-M Strength Start: 01/01/22 13:46 Freq: Status: Active Protocol: Document 01/01/22 09:45 DCW (Rec: 01/01/22 14:13 DCW [id number]) Ankle/Foot Strength Ankle and Foot Manual Muscle Testing Bilateral Comments Dorsiflexion, Inversion, and Eversion all test 5/5. Plantar flexion tested with single leg heel raises. Pt able to perform 10 on L and 4 on R before stopping due to pain. PT-OP-Q Treatments Start: 01/01/22 13:46 Freq: Status: Active Protocol: Document 02/25/22 08:17 SP (Rec: 02/25/22 09:04 SP [id number]) Cardio Equipment Treadmill Duration (Minutes) 8 Speed 2.3mph willing to perform Incline 0<>3% Other walking only Gym Equipment Shuttle Recovery dynamic push of jump/ eccentric land Details good eccentric squat landing Resistance 25#> 37# Shuttle Recovery Platform Stable Reps/Time x10 reps each resistance- painfree SL squat Details hip abd/VMO facil, knee w/ behind toes- improved Resistance 37#>50# Bilateral Shuttle Recovery Platform Stable Reps/Time 3x15- painfree feels fine, good challenge Shuttle Balance Red Details WBOS, NBOS, Staggered, Lateral Reps/Duration 10 min ( w/ gait belt) Comments -NBOS: head turns good and slow -WBOS: lateral wt shift not touch floor then balloon volley 2 min painfree -stagger: stationary, EO CG-A very little shaky able head turns- stagger EC 2 s -balloon volley CG-5%A w/ PT Aide- pain free Sport Cord red Exercise Details f/side step/ up and overs on/ off 6> 8 step> forward only BOSU Reps/Duration 2x10 each direction BLE each surface. Comments good form cued slow pacing control States can add at home to HEP, against sport cord also has at home. Therapeutic Exercises Standing Exercises jump squat Standing Exercise Name added to HEP Resistance AROM Equipment Used front mirror for self feedback Reps/Minutes x10 Comments cued knees with toes and eccentric land BLE = SLS star glides Standing Exercise Name review HEP (neuro) Side bilateral Resistance AROM Equipment Used red pod Reps/Minutes 4 positions x3 reps Comments cued knee with and behind toes , hip hinge PT-OP-R Modalities Start: 01/01/22 13:46 Freq: Status: Active Protocol: Document 02/05/22 09:45 DCW (Rec: 02/05/22 10:36 DCW [id number]) Ultrasound Therapy Treatment Lower Medial Leg Treatment Duration (minutes) 10 Patient Position Prone Coupling Medium Ultrasound Gel Applicator Size (cm2) 5 Frequency Setting (mHz) 1 Mode Setting Continuous Duty Cycle 100% Intensity Setting (w/cm2) 1.2 Comments 5' each leg PT-OP-T Assessment and Plan Start: 01/01/22 13:46 Freq: Status: Active Protocol: Document 02/25/22 08:17 SP (Rec: 02/25/22 09:04 SP [id number]) Physical Therapy Assessment Goals Two Impairment Pt unable to perform normal running activities due to calf pain Jail Goal (LTG) Pt to report ability to run 5K without increased calf pain 02/21/22: able to complete jogging on TM last tx painfree and cotninued no pain into rest of day but pain and tightess returned next day that still recoverying from. 02/25/22: pt reports hasn't been able nor tried to jog since 2 treatments ago after had pain for few days. Was able to walk inclined during tx no adverse affects. LTG Duration 03/01/22 One Impairment Pt does not have an appropriate home exercise program Short Term Goal (STG) Pt to be independent and compliant with an appropriate HEP 02/25/22: HEP: stretch, step up bosu, 2 foot bosu balance, body wt squats. STG Duration 01/29/22 progressing Assessment Summary Assessment Pt reports no pain just muscle tiring during tx. Pt was able to tolerate increased dynamic bosu and step overs with min- mod pacing against resistance with no adverse affects. LEARNING PROGRAM MANAGER suggested try light jog level surface for 1/2 block to start , maybe short time 1 min then walk and progress as tolerated and progress HEP including activities did during tx today before next tx. Pt verbalized understanding and will, didn' t hurt during tx. Physical Therapy Plan Frequency and Duration Frequency of Treatment 2x/Week Duration of Treatment Two months Plan of Care Start Date 01/01/22 Plan of Care End Date 03/01/22 Therapeutic Interventions Therapeutic Interventions Aquatic Therapy,Gait Training, Home Exercise Program,Joint Mobilizations,Manual Therapy, Patient/Caregiver Education, Self-Care/Home Management,Soft Tissue Mobilization, Therapeutic Activities, Therapeutic Exercises Modalities Cold Pack/Ice Massage,Electric Stimulation,Hot Packs, Ultrasound Next Visit Focus/Plan Next Note Type Treatment Note Next Visit Plan PN due next tx, POC expires . *Ask if any walking/jogging or dynamic bosu activities against resistance since last tx. Continue dynamic balance activities, hops if no pain. POC: STM, Flexibility, strengthening of bilateral calf/ankles.
--- NOTE | 2022-02-28 10:19 | PT.OTN ---
Current Diagnoses Stiffness of right ankle, not elsewhere classified (02/28/22) Stiffness of left ankle, not elsewhere classified (02/28/22) Achilles tendinitis, right leg (02/28/22) Achilles tendinitis, left leg (02/28/22) Strain of other muscle(s) and tendon(s) of posterior muscle group at lower leg level, right leg, subsequent encounter (02/28/22) Strain of other muscle(s) and tendon(s) of posterior muscle group at lower leg level, left leg, subsequent encounter (02/28/22) Physical Therapy Treatment Note PT-OP-A Visit Information Start: 01/01/22 13:46 Freq: Status: Active Protocol: Document 02/28/22 09:45 DCW (Rec: 02/28/22 10:19 DCW [id number]) Out-Patient Physical Therapy Visit Information Visit Information Visit Type Discharge Summary Visit Start Time 09:45 Visit Stop Time 10:15 Total Visit Minutes 30 Visit Number 17 Number of SOFTWARE PACKAGER Visits 0 Evaluation Information Evaluation Date 01/01/22 PT-OP-B Current Condition Start: 01/01/22 13:46 Freq: Status: Active Protocol: Document 01/01/22 09:45 DCW (Rec: 01/01/22 14:13 DCW [id number]) Current Condition History of Current Condition Onset Date s/p three months Current Complaints bilateral calf pain History of Current Condition Pt is a 41 year old male presenting to skilled therapy with a three month history of bilateral calf pain. Pt reports that in September, he completed his first marathon. Notes that following the race, he tried to run a few times, and had to stop due to mid- calf pain. Pt took a four week break from running, and then tried to get back into it. By his second run, he was experiencing fairly severe calf pain again, and has now not run in five weeks. Notes is doesn't hurt constantly, but when it does, there is nothing that he has found to help it. Did try to give himself a hard massage through his calfs, but was too sore the following day, so he stopped. Feels that his right leg is probably twice as bad as the left. 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 Treatment Goals Patient/Caregiver Goals Return to running PT-OP-C Subjective Start: 01/01/22 13:46 Freq: Status: Active Protocol: Document 02/28/22 09:45 DCW (Rec: 02/28/22 10:19 DCW [id number]) OP-PT Subjective Patient Comments Patient Comments Pt notes that on Friday, he tried jogging for one minute, and his legs were pretty sore the next day. PT-OP-D Balance Start: 01/01/22 14:14 Freq: Status: Active Protocol: Document 01/01/22 09:45 DCW (Rec: 01/01/22 14:25 DCW [id number]) Balance Tests Single Limb Standing Single Limb- Right 30+ Single Limb- Left 30+ PT-OP-G Mobility & Gait Start: 01/01/22 13:46 Freq: Status: Active Protocol: Document 01/01/22 09:45 DCW (Rec: 01/01/22 14:13 DCW [id number]) OP Gait Assessment Comments Gait Comments Gait appears to be relatively unaffected. Pt does note his usual wear pattern on his running shoes are much more severely worn on his medial heel, but pt does not have any old shoes at this time, recently bought newer shoes, do not yet have any wear pattern, PT-OP-K Range of Motion Start: 01/01/22 13:46 Freq: Status: Active Protocol: Document 02/28/22 09:45 DCW (Rec: 02/28/22 09:55 DCW [id number]) Ankle and Foot Goniometric Range of Motion Ankle and Foot Right Active Testing Position Sitting Dorsiflexion with Knee Flexed 10 Dorsiflexion with Knee Extended 10 Plantarflexion 50 Inversion 30 Eversion 10 Left Active Testing Position Sitting Dorsiflexion with Knee Flexed 15 Dorsiflexion with Knee Extended 10 Plantarflexion 55 Inversion 40 Eversion 23 PT-OP-L Special Tests Start: 01/01/22 13:46 Freq: Status: Active Protocol: Document 01/01/22 09:45 DCW (Rec: 01/01/22 14:13 DCW [id number]) Special Tests Foot/Ankle Special Tests Talor Tilt Test Results Negative Anterior Draw Test Results Negative PT-OP-M Strength Start: 01/01/22 13:46 Freq: Status: Active Protocol: Document 02/28/22 09:45 DCW (Rec: 02/28/22 09:55 DCW [id number]) Ankle/Foot Strength Ankle and Foot Manual Muscle Testing Bilateral Dorsiflexion (L4) 5 Normal Plantarflexion (S1) 5 Normal Inversion 5 Normal Eversion (S1) 5 Normal PT-OP-Q Treatments Start: 01/01/22 13:46 Freq: Status: Active Protocol: Document 02/28/22 09:45 DCW (Rec: 02/28/22 10:19 DCW [id number]) Manual Therapy Treatment Soft Tissue Mobilization 1 Body Location B Post Tib R>L Mobilization Type Strumming,Sustained Pressure Intensity/Depth Deep Body Position Sitting Comments manual and sustained pressure MWM ankle pump Other Other Manual Treatments ROM, MMT PT-OP-R Modalities Start: 01/01/22 13:46 Freq: Status: Active Protocol: Document 02/05/22 09:45 DCW (Rec: 02/05/22 10:36 DCW [id number]) Ultrasound Therapy Treatment Lower Medial Leg Treatment Duration (minutes) 10 Patient Position Prone Coupling Medium Ultrasound Gel Applicator Size (cm2) 5 Frequency Setting (mHz) 1 Mode Setting Continuous Duty Cycle 100% Intensity Setting (w/cm2) 1.2 Comments 5' each leg PT-OP-T Assessment and Plan Start: 01/01/22 13:46 Freq: Status: Active Protocol: Document 02/28/22 09:45 DCW (Rec: 02/28/22 10:19 DCW [id number]) Physical Therapy Assessment Goals Two Impairment Pt unable to perform normal running activities due to calf pain Retirement Goal (LTG) Pt to report ability to run 5K without increased calf pain 02/21/22: able to complete jogging on TM last tx painfree and continued no pain into rest of day but pain and tightness returned next day that still recovering from. 02/25/22: pt reports hasn't been able nor tried to jog since 2 treatments ago after had pain for few days. Was able to walk inclined during tx no adverse affects. LTG Duration 03/01/22 One Impairment Pt does not have an appropriate home exercise program Short Term Goal (STG) Pt to be independent and compliant with an appropriate HEP 02/25/22: HEP: stretch, step up bosu, 2 foot bosu balance, body wt squats. STG Duration 01/29/22 progressing Progress Towards Goals Progress Towards Goals Slow Progress - Other Assessment Summary Assessment Pt shows fairly good progress with both strength and ankle ROM, however has made no real progress toward tolerating increased activity. Pt does not appear to be benefitting from skilled therapy at this time. Pt may benefit from referral to medical laboratory specialist or perhaps further advanced imaging. Pt discharging from skilled PT at this time, will require a new referral in order to return. Physical Therapy Plan Frequency and Duration Frequency of Treatment 2x/Week Duration of Treatment Two months Plan of Care Start Date 01/01/22 Plan of Care End Date 03/01/22 Therapeutic Interventions Therapeutic Interventions Aquatic Therapy,Gait Training, Home Exercise Program,Joint Mobilizations,Manual Therapy, Patient/Caregiver Education, Self-Care/Home Management,Soft Tissue Mobilization, Therapeutic Activities, Therapeutic Exercises Modalities Cold Pack/Ice Massage,Electric Stimulation,Hot Packs, Ultrasound Discharge Physical Therapy Discharge Reasons Plateau in Progress Next Visit Focus/Plan Next Note Type Discharge Summary
== END 2022-03-01 12:38 ==
LOC: PHYS 09:45
PROVIDERS: Family Provider Family Medicine; PCP Family Medicine; Referring Provider Family Medicine; Visit Provider Family Medicine
DX: S86.111D Strain of other muscle(s) and tendon(s) of posterior muscle group at lower leg level, right leg, subsequent encounter (principal); S86.112D Strain of other muscle(s) and tendon(s) of posterior muscle group at lower leg level, left leg, subsequent encounter; M25.671 Stiffness of right ankle, not elsewhere classified; M25.672 Stiffness of left ankle, not elsewhere classified; M76.61 Achilles tendinitis, right leg; M76.62 Achilles tendinitis, left leg
CPT/HCPCS: 97035; 97110; 97112; 97140; 97162

== ENCOUNTER → 2022-06-12 08:02 | Outpatient (CLI) | payer OTHER, SELFPAY ==
[2022-06-12 08:59] LABS: C-Reactive Protein Quant < 0.5 mg/dL (<1.0)
[2022-06-12 09:28] LABS: Cortisol AM (Before 10AM) 10.6 ug/dL (4.46-22.7)
[2022-06-12 10:04] LABS: Folate 19.5 ng/mL (2.76-20.0); Vitamin B12 369 pg/mL (239-931)
== END ==
PROVIDERS: Family Provider Family Medicine; PCP Family Medicine
DX: U09.9 Post COVID-19 condition, unspecified (principal)
CPT/HCPCS: 36415; 82533; 82607; 82746; 84443; 86140

== ENCOUNTER → 2022-06-13 11:46 | Outpatient (CLI) | payer OTHER, SELFPAY ==
[2022-06-17 17:36] LABS: Creatinine, 24 Urine 1189 mg/24 hr (1000-2000); Creatinine,Urine 62.6 mg/dL (Not Estab.); Dopamine, Ur 24hr 247 ug/24 hr (0-510); Epinephrine, U 24hr 10 ug/24 hr (0-20); Norepinephrine Ur 24hr 74 ug/24 hr (0-135)
== END ==
PROVIDERS: Family Provider Family Medicine; PCP Family Medicine; Referring Provider Physical Medicine & Rehabilitation; Visit Provider Physical Medicine & Rehabilitation
DX: U09.9 Post COVID-19 condition, unspecified (principal)
CPT/HCPCS: 82384

== ENCOUNTER 2023-02-28 09:30 | Outpatient (RCR) | payer OTHER, SELFPAY ==
--- NOTE | 2023-02-18 16:04 | PT.OIE ---
Current Diagnoses Pain in right elbow (02/18/23) Low back pain, unspecified (02/18/23) Muscle weakness (generalized) (02/18/23) Pain in unspecified lower leg (02/18/23) Other chest pain (02/18/23) Other abnormalities of gait and mobility (02/18/23) Abnormal posture (02/18/23) Post COVID-19 condition, unspecified (02/18/23) Visit Care Team Role Provider Type Beth Lennon MD Family Provider Non-Staff Primary Care Provider Referring Provider Specialty: Family Practice Address: [address] [place] [address], [id number] Email: Fam Lennon MD Attending Provider Non-Staff Specialty: General Surgery Address: [address] [place] [address], [phone] Fax: Email: Physical Therapy Initial Evaluation PT-OP-A Visit Information Start: 02/17/23 18:03 Freq: Status: Active Protocol: Document 02/18/23 12:59 [facility] (Rec: 02/18/23 13:47 [facility] [id number]) Out-Patient Physical Therapy Visit Information Visit Information Visit Type Initial Evaluation Visit Start Time 13:02 Visit Stop Time 13:48 Total Visit Minutes 46 Visit Number 1 Number of SENIOR NETWORK ENGINEER Visits 0 PT-OP-B Current Condition Start: 02/17/23 18:03 Freq: Status: Active Protocol: Document 02/18/23 12:59 [facility] (Rec: 02/18/23 13:47 [facility] [id number]) Current Condition History of Current Condition History of Current Condition Pt has done PT here for 14 weeks here then 17 weeks at another PT clinic. He was able to work up to 2.5 miles but ends up getting pain in lower calf B and is unable to inc more. He has seen Dr. Trevino . MRI and Vascular flow normal . Awaiting test for compartment syndrome. Back pain started in 2016 and it went down R leg lat and into foot and done lots of PT for that. He has done lots of core exercises. He gets occ back spasms and that happens every 4-5 months. Pt has nausea and chest pain since getting COVID in late Dec 2019 and got a test year late and was tested antibodies. Has been seeing long COVID MD at and has been diagnosed him. He is on pergabalin for leg and back painf ro 1.5 weeks. Is seeing pain doctor at [facility] and another at [facility] and is transfering more to [facility]. DId a stellate gangia n block on L and R last few months but it didn't help symptoms. Has doen lymphatic massage, mult NDs and couple acupuncturists. Nausea and chest pain from 1- 8/10 throughout the day ( making decisions even small decisions makes it worse) and avoids situations that he has to make the decisions. He is managing that by just not doing a lot. 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 Some things like painting a room as long as he doens't have to make decisions is okay but it does make it worse for longer periods of time upright. SOmetimes bending over makes it worse. He has seen mult GI docs and has done lots of tests and tried a lot of meds. DOes not have acid reflux and upper abdomen CT. Has changed his diet. Has had brain MRI, endoscopy, colonoscopy and every thing is clear. MRI on legs WNL. MRI of LB w/small bulge at L4-5. Pt was possibly going to see someone in [facility] for possible steroid shots in neck. Pt reports R elbow pain and that has been for 2 months that when he uses his arm too much then it aches after. It mostly hurts when pushing up/down window. Has been wearing it a pad for a while. Nausea and cehst pain is typically around nipple level mostly centered. Running is the only thing and occ laying down that dec the cehst and nausea pain. Walking doesn't help chest/nausea but doesn't hurt legs. Pt did all sorts of box jumps etc at last PT w/o inc pain. He had no problems w/walking 26 miles in one week. Wears green super feet and changes out shoes as needed. Aug 2021 ran a marathon. Sep 2021 pain in lower calf started. He stasrted that month, doing interval training. He stopped for a month to rest and it started back as soon as starting running. Pt has also seen neurologist and cleared w /nothing found. Since sep 2021 , pt has felt liek all tendons are sore all the time. The most notable is post tib tendon. Resting hR is mid to high 60s. He doens't think it changed after COVID. Treatment Goals Patient/Caregiver Goals Not be nauseaus all the time/ chest pain, be able to run w/o leg pain, be able to go through an entire day w/o laying down; play soccer PT-OP-D Balance Start: 02/17/23 18:03 Freq: Status: Active Protocol: Document 02/18/23 12:59 [facility] (Rec: 02/18/23 13:47 [id number] Balance Tests Single Limb Standing Single Limb- Right >30 sec w/R lat trunk lean; EC >30 sec w/lots deviations Single Limb- Left >30 sec L rot of pelvis; EC > 30 sec w/lots deviations PT-OP-J Posture/Palpation/Skin Start: 02/17/23 18:03 Freq: Status: Active Protocol: Document 02/18/23 12:59 [facility] (Rec: 02/18/23 13:47 [id number]) Posture Evaluation [facility] Postural Classification System [facility] Postural Classifications Posterior/Posterior Vertebral Compression Test 1 Elbow Flexion Test 1 Lumbar Protective Mechanism Left AP 0 Lumbar Protective Mechanism Right AP 0 Lumbar Protective Mechanism Left PA 1 Lumbar Protective Mechanism Right PA 1 Comments Posture Comments L pelvic shear, R SB; greater trochanters equal ; iliac crest R higher PT-OP-K Range of Motion Start: 02/17/23 18:03 Freq: Status: Active Protocol: Document 02/18/23 12:59 [facility] (Rec: 02/18/23 13:47 [id number]) Ankle and Foot Goniometric Range of Motion Ankle and Foot Left Active Comments not measured d/t time Right Active Comments not measured d/t time PT-OP-L Special Tests Start: 02/17/23 18:03 Freq: Status: Active Protocol: Document 02/18/23 12:59 [facility] (Rec: 02/18/23 13:47 [id number]) Special Tests Lumbar Spine Special Tests Ext sit Test Results B dural tensio w/significant limit Straight Leg Raise Test Results B tightness but neural tension R Slump Test Results R dural tension: B mild neural tension Louis Test Results B hip flexor tightness PT-OP-Q Treatments Start: 02/17/23 18:03 Freq: Status: Active Protocol: Document 02/18/23 12:59 [facility] (Rec: 02/18/23 13:47 [facility] [id number]) Self-Care/Home Management Treatment Education Other Education 10 min: neural and dural tension edu- discussed anatomy of dura and results of slump and ext sit indicating these tensions. Edu how this may be affecting his lower leg pain. edu of anatomy and common anchors (cranium, coccyx) , vagus n education and discussed working on pathway and visceral mobilizations to try to dec chest and abdomenal pain PT-OP-T Assessment and Plan Start: 02/17/23 18:03 Freq: Status: Active Protocol: Document 02/18/23 12:59 [facility] (Rec: 02/18/23 13:47 [facility] [id number]) Physical Therapy Assessment Rehab Potential Rehabilitation Potential Good Evaluation Complexity Number of Personal Factors/Comorbidities 3 or More Number of Body Systems Impaired 4 or More Clinical Presentation at Evaluation Evolving Impairments Impairments Activity Tolerance,Balance, Functional Activities, Functional Mobility,Gait,Pain, Posture,ROM,Soft Tissue Mobility,Strength Goals chest pain/nausea Short Term Goal (STG) Pt will report dec chest pain and nausea that does not inc past 4/10 throughout the day. STG Duration 04/08 Residential Goal (LTG) P will report no chest pain or nausea during the day. LTG Duration 05/13 activity Short Term Goal (STG) Pt will report a reduction in how much he requires rest d/t brain fog, nausea and chest pain in the day STG Duration 04/07 Instructor Physical Goal (LTG) Pt will be able to go an entire day w/o having to lay down to rest. LTG Duration 05/13 pain Instructor Physical Goal (LTG) Pt will report no elbow pain in daily life and being able to do all activities including open/closing of windows LTG Duration 05/06/23 running Short Term Goal (STG) Pt will be able to do run/ walks w/o inc calf pressure 5 days a week. STG Duration 03/31/23 Residential Goal (LTG) Pt will be able to run at least 3 miles a day w/o inc calf pain. LTG Duration 05/13 Assessment Summary Assessment Pt presents w/main c/o long COVID symptoms of chest pain and nausea that worsens w/ decision making along w/inc time up and pt has to take mult rest breaks laying down per day mariann thas been a problem since Dec 2019. Pt was finding running to be the only activity that dec his nausea/chest pain, but in Sep, started having lower calf pain that would improve w /rest until he started running again. He has tried PT 2 other times for this w/o any result. He has seen mult different specialists including: NDs, acupuncturists , Massage THerapists, knit goods mender, neurlolgist, clinical trial head and GI MD without any findings even after mult tests and no improvement w/ treatments. He has seen a brewer helper who found nothing on B MRIs, but may do compression syndrome testing. He is unable to run for chest/ nausea relief d/t this calf pain when he resumes running. He is also having R elbow pain recently mariann tlimits UE function. He demonstrates neural and espeically dural tension which may be related to his calf pain based on ext sit, slump and SLR testing. Based on all other medical issues ruled out, it is likely that pt's symptoms w/chest pain and nausea may be related to visceral restrictions and vagal n tension. Pt would bneefit from PT to work on these deficits and improve his ability to function w/daily activities. Physical Therapy Plan Frequency and Duration Frequency of Treatment 2x/Week Duration of treatment (weeks) 12 Plan of Care Start Date 02/18/23 Plan of Care End Date 05/14/23 Therapeutic Interventions Therapeutic Interventions Balance Training,Coordination Training,Gait Training,Home Exercise Program,Joint Mobilizations,Manual Therapy, Neuromuscular Re-education, Patient/Caregiver Education, Self-Care/Home Management,Soft Tissue Mobilization,Taping, Therapeutic Activities, Therapeutic Exercises Modalities Cold Pack/Ice Massage,Electric Stimulation,Hot Packs, Infrared Therapy,Iontophoresis ,Ultrasound Next Visit Focus/Plan Next Note Type Treatment Note Next Visit Plan LE strength & ankle ROM measurements; HEP: wall posture, foam roll exercises, diaphragmatic breathing; manual -cranial and coccyx mobs for dec dural tension
--- NOTE | 2023-02-18 16:04 | PT.OPPOC ---
Physical, Occupational & Speech Therapy At [facility] Current Diagnoses Pain in right elbow (02/18/23) Low back pain, unspecified (02/18/23) Muscle weakness (generalized) (02/18/23) Pain in unspecified lower leg (02/18/23) Other chest pain (02/18/23) Other abnormalities of gait and mobility (02/18/23) Abnormal posture (02/18/23) Post COVID-19 condition, unspecified (02/18/23) Visit Care Team Role Provider Type Beth Lennon MD Family Provider Non-Staff Primary Care Provider Referring Provider Specialty: Family Practice Address: [address] [place] [address], [phone] Email: Fam Lennon MD Attending Provider Non-Staff Specialty: General Surgery Address: [address] [place] [address], [address] Fax: Email: Plan Of Care PT-OP-T Assessment and Plan Start: 02/17/23 18:03 Freq: Status: Active Protocol: Document 02/18/23 12:59 [facility] (Rec: 02/18/23 13:47 [facility] [id number]) Physical Therapy Assessment Rehab Potential Rehabilitation Potential Good Evaluation Complexity Number of Personal Factors/Comorbidities 3 or More Number of Body Systems Impaired 4 or More Clinical Presentation at Evaluation Evolving Impairments Impairments Activity Tolerance,Balance, Functional Activities, Functional Mobility,Gait,Pain, Posture,ROM,Soft Tissue Mobility,Strength Goals chest pain/nausea Short Term Goal (STG) Pt will report dec chest pain and nausea that does not inc past 4/10 throughout the day. STG Duration 04/08 Correction Goal (LTG) P will report no chest pain or nausea during the day. LTG Duration 05/13 activity Short Term Goal (STG) Pt will report a reduction in how much he requires rest d/t brain fog, nausea and chest pain in the day STG Duration 04/07 Teasel Gig Operator Goal (LTG) Pt will be able to go an entire day w/o having to lay down to rest. LTG Duration 05/13 pain Correction Goal (LTG) Pt will report no elbow pain in daily life and being able to do all activities including open/closing of windows LTG Duration 05/06/23 running Short Term Goal (STG) Pt will be able to do run/ walks w/o inc calf pressure 5 days a week. STG Duration 03/31/23 Correction Goal (LTG) Pt will be able to run at least 3 miles a day w/o inc calf pain. LTG Duration 05/13 Assessment Summary Assessment Pt presents w/main c/o long COVID symptoms of chest pain and nausea that worsens w/ decision making along w/inc time up and pt has to take mult rest breaks laying down per day mariann thas been a problem since Dec 2019. Pt was finding running to be the only activity that dec his nausea/chest pain, but in Sep, started having lower calf pain that would improve w /rest until he started running again. He has tried PT 2 other times for this w/o any result. He has seen mult different specialists including: NDs, acupuncturists , Massage THerapists, cutter in, neurlolgist, manager inspection and GI MD without any findings even after mult tests and no improvement w/ treatments. He has seen a bean picker who found nothing on B MRIs, but may do compression syndrome testing. He is unable to run for chest/ nausea relief d/t this calf pain when he resumes running. He is also having R elbow pain recently mariann tlimits UE function. He demonstrates neural and espeically dural tension which may be related to his calf pain based on ext sit, slump and SLR testing. Based on all other medical issues ruled out, it is likely that pt's symptoms w/chest pain and nausea may be related to visceral restrictions and vagal n tension. Pt would bneefit from PT to work on these deficits and improve his ability to function w/daily activities. Physical Therapy Plan Frequency and Duration Frequency of Treatment 2x/Week Duration of treatment (weeks) 12 Plan of Care Start Date 02/18/23 Plan of Care End Date 05/14/23 Therapeutic Interventions Therapeutic Interventions Balance Training,Coordination Training,Gait Training,Home Exercise Program,Joint Mobilizations,Manual Therapy, Neuromuscular Re-education, Patient/Caregiver Education, Self-Care/Home Management,Soft Tissue Mobilization,Taping, Therapeutic Activities, Therapeutic Exercises Modalities Cold Pack/Ice Massage,Electric Stimulation,Hot Packs, Infrared Therapy,Iontophoresis ,Ultrasound Next Visit Focus/Plan Next Note Type Treatment Note Next Visit Plan LE strength & ankle ROM measurements; HEP: wall posture, foam roll exercises, diaphragmatic breathing; manual -cranial and coccyx mobs for dec dural tension Plan of Care Dates Plan of Care Start Date 02/18/23 Plan of Care End Date 05/14/23 Electronically Signed by: Carie Doe, PT 02/19/23 [id number] If you are in agreement with this Plan of Care, please return a signed and dated copy. I have reviewed this Plan of Care and certify that the skilled therapy services above are required to meet the patient?s needs. Physician Signature Date Printed Name and Credentials Clinical Instructor Signature Printed Name and Credentials
--- NOTE | 2023-02-25 14:37 | PT.OTN ---
Current Diagnoses Pain in right elbow (02/25/23) Low back pain, unspecified (02/25/23) Muscle weakness (generalized) (02/25/23) Pain in unspecified lower leg (02/25/23) Other chest pain (02/25/23) Other abnormalities of gait and mobility (02/25/23) Abnormal posture (02/25/23) Post COVID-19 condition, unspecified (02/25/23) Physical Therapy Treatment Note PT-OP-A Visit Information Start: 02/17/23 18:03 Freq: Status: Active Protocol: Document 02/25/23 11:56 [facility] (Rec: 02/25/23 14:37 [facility] [id number]) Out-Patient Physical Therapy Visit Information Visit Information Visit Type Treatment Note Visit Start Time 13:00 Visit Stop Time 13:47 Total Visit Minutes 47 Visit Number 2 Number of BODY PRESS OPERATOR Visits 0 PT-OP-B Current Condition Start: 02/17/23 18:03 Freq: Status: Active Protocol: Document 02/18/23 12:59 [facility] (Rec: 02/18/23 13:47 [facility] [id number]) Current Condition History of Current Condition History of Current Condition Pt has done PT here for 14 weeks here then 17 weeks at another PT clinic. He was able to work up to 2.5 miles but ends up getting pain in lower calf B and is unable to inc more. He has seen Dr. Trevino . MRI and Vascular flow normal . Awaiting test for compartment syndrome. Back pain started in 2016 and it went down R leg lat and into foot and done lots of PT for that. He has done lots of core exercises. He gets occ back spasms and that happens every 4-5 months. Pt has nausea and chest pain since getting COVID in late Dec 2019 and got a test year late and was tested antibodies. Has been seeing heber FRANCOIS MD at and has been diagnosed him. He is on pergabalin for leg and back painf ro 1.5 weeks. Is seeing pain doctor at [facility] and another at [facility] and is transfering more to [facility]. DId a stellate gangia n block on L and R last few months but it didn't help symptoms. Has doen lymphatic massage, mult NDs and couple acupuncturists. Nausea and chest pain from 1- 8/10 throughout the day ( making decisions even small decisions makes it worse) and avoids situations that he has to make the decisions. He is managing that by just not doing a lot. 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 Some things like painting a room as long as he doens't have to make decisions is okay but it does make it worse for longer periods of time upright. SOmetimes bending over makes it worse. He has seen [facility] and has done lots of tests and tried a lot of meds. DOes not have acid reflux and upper abdomen CT. Has changed his diet. Has had brain MRI, endoscopy, colonoscopy and every thing is clear. MRI on legs WNL. MRI of LB w/small bulge at L4-5. Pt was possibly going to see someone in [facility] for possible steroid shots in neck. Pt reports R elbow pain and that has been for 2 months that when he uses his arm too much then it aches after. It mostly hurts when pushing up/down window. Has been wearing it a pad for a while. Nausea and cehst pain is typically around nipple level mostly centered. Running is the only thing and occ laying down that dec the cehst and nausea pain. Walking doesn't help chest/nausea but doesn't hurt legs. Pt did all sorts of box jumps etc at last PT w/o inc pain. He had no problems w/walking 26 miles in one week. Wears green super feet and changes out shoes as needed. Aug 2021 ran a marathon. Sep 2021 pain in lower calf started. He stasrted that month, doing interval training. He stopped for a month to rest and it started back as soon as starting running. Pt has also seen neurologist and cleared w /nothing found. Since sep 2021 , pt has felt liek all tendons are sore all the time. The most notable is post tib tendon. Resting hR is mid to high 60s. He doens't think it changed after COVID. Treatment Goals Patient/Caregiver Goals Not be nauseaus all the time/ chest pain, be able to run w/o leg pain, be able to go through an entire day w/o laying down; play soccer PT-OP-C Subjective Start: 02/17/23 18:03 Freq: Status: Active Protocol: Document 02/25/23 11:56 [facility] (Rec: 02/25/23 14:37 [facility] [id number]) OP-PT Subjective Patient Comments Patient Comments Pt reports he did a lot of ankle strengthening in past PT PT-OP-D Balance Start: 02/17/23 18:03 Freq: Status: Active Protocol: Document 02/18/23 12:59 [facility] (Rec: 02/18/23 13:47 [facility] [id number]) Balance Tests Single Limb Standing Single Limb- Right >30 sec w/R lat trunk lean; EC >30 sec w/lots deviations Single Limb- Left >30 sec L rot of pelvis; EC > 30 sec w/lots deviations PT-OP-J Posture/Palpation/Skin Start: 02/17/23 18:03 Freq: Status: Active Protocol: Document 02/18/23 12:59 [facility] (Rec: 02/18/23 13:47 [facility] [id number]) Posture Evaluation [facility] Postural Classification System [facility] Postural Classifications Posterior/Posterior Vertebral Compression Test 1 Elbow Flexion Test 1 Lumbar Protective Mechanism Left AP 0 Lumbar Protective Mechanism Right AP 0 Lumbar Protective Mechanism Left PA 1 Lumbar Protective Mechanism Right PA 1 Comments Posture Comments L pelvic shear, R SB; greater trochanters equal ; iliac crest R higher PT-OP-K Range of Motion Start: 02/17/23 18:03 Freq: Status: Active Protocol: Document 02/25/23 11:56 [facility] (Rec: 02/25/23 14:37 [facility] [id number]) Ankle and Foot Goniometric Range of Motion Ankle and Foot Left Active Dorsiflexion with Knee Flexed 15 Right Active Dorsiflexion with Knee Flexed 8 Dorsiflexion with Knee Extended 4 PT-OP-L Special Tests Start: 02/17/23 18:03 Freq: Status: Active Protocol: Document 02/18/23 12:59 [facility] (Rec: 02/18/23 13:47 [facility] [id number]) Special Tests Lumbar Spine Special Tests Ext sit Test Results B dural tensio w/significant limit Straight Leg Raise Test Results B tightness but neural tension R Slump Test Results R dural tension: B mild neural tension Louis Test Results B hip flexor tightness PT-OP-M Strength Start: 02/17/23 18:03 Freq: Status: Active Protocol: Document 02/25/23 11:56 [facility] (Rec: 02/25/23 14:37 [facility] [id number]) Hip Strength Hip Manual Muscle Testing Right Flexion (L2) 5 Normal Extension (S1) 5 Normal Abduction 5 Normal Adduction 5 Normal External Rotation 5 Normal Internal Rotation 5 Normal Left Flexion (L2) 5 Normal Extension (S1) 5 Normal Abduction 5 Normal Adduction 5 Normal External Rotation 5 Normal Internal Rotation 5 Normal Knee Strength Knee Manual Muscle Testing Right Flexion (S2) 5 Normal Extension (L3) 5 Normal Left Flexion (S2) 5 Normal Extension (L3) 5 Normal Ankle/Foot Strength Ankle and Foot Manual Muscle Testing Right Dorsiflexion (L4) 5 Normal Plantarflexion (S1) 4- Good- Comments 8 heel raises an dpain lower calf Left Dorsiflexion (L4) 5 Normal Plantarflexion (S1) 5 Normal Comments 20 heel raises PT-OP-Q Treatments Start: 02/17/23 18:03 Freq: Status: Active Protocol: Document 02/25/23 11:56 [facility] (Rec: 02/25/23 14:37 [facility] [id number]) Therapeutic Exercises Supine Exercises breathing Supine Exercise Name focus on R ribcage expansion & abdomenal Reps/Minutes 10 foam roll Supine Exercise Name flex, abd, Habd Side bilateral Reps/Minutes 5 ea Standing Exercises wall posture Standing Exercise Name 90/90 Habd Side bilateral Reps/Minutes 10 Manual Therapy Treatment Soft Tissue Mobilization SO Body Location R>L Mobilization Type Sustained Pressure Intensity/Depth Moderate Body Position Hooklying Joint Mobilizations cranium Reps/Duration FM using LTR, sciatic n glide, RUE abd Comments 1. decompression of occipital bone and zygomatic archR>L 2. pos mob of occipital bone to decompress from sphenoid R> L 3. lmboidoid sutur caudal R>L 4. coronal suture PA FM 5. temporoparietal inf/cuadl R >L 6. madtoid R>L AP 7. sgittal suture lat 8. zygomatic R inf FM 9. sphenoid R to L FM PT-OP-T Assessment and Plan Start: 02/17/23 18:03 Freq: Status: Active Protocol: Document 02/25/23 11:56 [facility] (Rec: 02/25/23 14:37 [facility] [id number]) Physical Therapy Assessment Goals chest pain/nausea Short Term Goal (STG) Pt will report dec chest pain and nausea that does not inc past 4/10 throughout the day. STG Duration 04/08 Intermediate Goal (LTG) P will report no chest pain or nausea during the day. LTG Duration 05/13 activity Short Term Goal (STG) Pt will report a reduction in how much he requires rest d/t brain fog, nausea and chest pain in the day STG Duration 04/07 Intermediate Goal (LTG) Pt will be able to go an entire day w/o having to lay down to rest. LTG Duration 05/13 pain Intermediate Goal (LTG) Pt will report no elbow pain in daily life and being able to do all activities including open/closing of windows LTG Duration 05/06/23 running Short Term Goal (STG) Pt will be able to do run/ walks w/o inc calf pressure 5 days a week. 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 LTG Duration 05/13 Assessment Summary Assessment Pt required max ceus for knee ext during heel raises and was limite din R d/t pain. he significant R>L sided cranial restrictions. Physical Therapy Plan Frequency and Duration Frequency of Treatment 2x/Week Duration of treatment (weeks) 12 Plan of Care Start Date 02/18/23 Plan of Care End Date 05/14/23 Next Visit Focus/Plan Next Note Type Treatment Note Next Visit Plan review HEP: wall posture, foam roll exercises, diaphragmatic breathing; manual -cranial and coccyx mobs for dec dural tension (craniosacral treatment, Soft tissue to diaphram, circumfrential to lower calf)
--- NOTE | 2023-02-28 10:17 | PT.OTN ---
Current Diagnoses Pain in right elbow (02/28/23) Low back pain, unspecified (02/28/23) Muscle weakness (generalized) (02/28/23) Pain in unspecified lower leg (02/28/23) Other chest pain (02/28/23) Other abnormalities of gait and mobility (02/28/23) Abnormal posture (02/28/23) Post COVID-19 condition, unspecified (02/28/23) Physical Therapy Treatment Note PT-OP-A Visit Information Start: 02/17/23 18:03 Freq: Status: Active Protocol: Document 02/28/23 09:34 [facility] (Rec: 02/28/23 10:18 [facility] [id number]) Out-Patient Physical Therapy Visit Information Visit Information Visit Type Treatment Note Visit Start Time 09:34 Visit Stop Time 10:17 Total Visit Minutes 43 Visit Number 3 Number of COLOR RECEIVER Visits 1 PT-OP-B Current Condition Start: 02/17/23 18:03 Freq: Status: Active Protocol: Document 02/18/23 12:59 [facility] (Rec: 02/18/23 13:47 [facility] [id number]) Current Condition History of Current Condition History of Current Condition Pt has done PT here for 14 weeks here then 17 weeks at another PT clinic. He was able to work up to 2.5 miles but ends up getting pain in lower calf B and is unable to inc more. He has seen Dr. Trevino . MRI and Vascular flow normal . Awaiting test for compartment syndrome. Back pain started in 2016 and it went down R leg lat and into foot and done lots of PT for that. He has done lots of core exercises. He gets occ back spasms and that happens every 4-5 months. Pt has nausea and chest pain since getting COVID in late Dec 2019 and got a test year late and was tested antibodies. Has been seeing heber FRANCOIS MD at and has been diagnosed him. He is on pergabalin for leg and back painf ro 1.5 weeks. Is seeing pain doctor at [facility] and another at [facility] and is transfering more to [facility]. DId a stellate gangia n block on L and R last few months but it didn't help symptoms. Has doen lymphatic massage, mult NDs and couple acupuncturists. Nausea and chest pain from 1- 8/10 throughout the day ( making decisions even small decisions makes it worse) and avoids situations that he has to make the decisions. He is managing that by just not doing a lot. 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 Some things like painting a room as long as he doens't have to make decisions is okay but it does make it worse for longer periods of time upright. SOmetimes bending over makes it worse. He has seen [facility] and has done lots of tests and tried a lot of meds. DOes not have acid reflux and upper abdomen CT. Has changed his diet. Has had brain MRI, endoscopy, colonoscopy and every thing is clear. MRI on legs WNL. MRI of LB w/small bulge at L4-5. Pt was possibly going to see someone in [facility] for possible steroid shots in neck. Pt reports R elbow pain and that has been for 2 months that when he uses his arm too much then it aches after. It mostly hurts when pushing up/down window. Has been wearing it a pad for a while. Nausea and cehst pain is typically around nipple level mostly centered. Running is the only thing and occ laying down that dec the cehst and nausea pain. Walking doesn't help chest/nausea but doesn't hurt legs. Pt did all sorts of box jumps etc at last PT w/o inc pain. He had no problems w/walking 26 miles in one week. Wears green super feet and changes out shoes as needed. Aug 2021 ran a marathon. Sep 2021 pain in lower calf started. He stasrted that month, doing interval training. He stopped for a month to rest and it started back as soon as starting running. Pt has also seen neurologist and cleared w /nothing found. Since sep 2021 , pt has felt liek all tendons are sore all the time. The most notable is post tib tendon. Resting hR is mid to high 60s. He doens't think it changed after COVID. Treatment Goals Patient/Caregiver Goals Not be nauseaus all the time/ chest pain, be able to run w/o leg pain, be able to go through an entire day w/o laying down; play soccer PT-OP-C Subjective Start: 02/17/23 18:03 Freq: Status: Active Protocol: Document 02/28/23 09:34 [facility] (Rec: 02/28/23 10:18 SP [id number]) OP-PT Subjective Patient Comments Patient Comments Pt reports no adverse affects, didn't really notice a difference after last tx. PT-OP-D Balance Start: 02/17/23 18:03 Freq: Status: Active Protocol: Document 02/18/23 12:59 [facility] (Rec: 02/18/23 13:47 [facility] [id number]) Balance Tests Single Limb Standing Single Limb- Right >30 sec w/R lat trunk lean; EC >30 sec w/lots deviations Single Limb- Left >30 sec L rot of pelvis; EC > 30 sec w/lots deviations PT-OP-J Posture/Palpation/Skin Start: 02/17/23 18:03 Freq: Status: Active Protocol: Document 02/18/23 12:59 [facility] (Rec: 02/18/23 13:47 [facility] [id number]) Posture Evaluation [facility] Postural Classification System [facility] Postural Classifications Posterior/Posterior Vertebral Compression Test 1 Elbow Flexion Test 1 Lumbar Protective Mechanism Left AP 0 Lumbar Protective Mechanism Right AP 0 Lumbar Protective Mechanism Left PA 1 Lumbar Protective Mechanism Right PA 1 Comments Posture Comments L pelvic shear, R SB; greater trochanters equal ; iliac crest R higher PT-OP-K Range of Motion Start: 02/17/23 18:03 Freq: Status: Active Protocol: Document 02/25/23 11:56 [facility] (Rec: 02/25/23 14:37 [facility] [id number]) Ankle and Foot Goniometric Range of Motion Ankle and Foot Left Active Dorsiflexion with Knee Flexed 15 Right Active Dorsiflexion with Knee Flexed 8 Dorsiflexion with Knee Extended 4 PT-OP-L Special Tests Start: 02/17/23 18:03 Freq: Status: Active Protocol: Document 02/18/23 12:59 [facility] (Rec: 02/18/23 13:47 [facility] [id number]) Special Tests Lumbar Spine Special Tests Ext sit Test Results B dural tensio w/significant limit Straight Leg Raise Test Results B tightness but neural tension R Slump Test Results R dural tension: B mild neural tension Louis Test Results B hip flexor tightness PT-OP-M Strength Start: 02/17/23 18:03 Freq: Status: Active Protocol: Document 02/25/23 11:56 [facility] (Rec: 02/25/23 14:37 [facility] [id number]) Hip Strength Hip Manual Muscle Testing Right Flexion (L2) 5 Normal Extension (S1) 5 Normal Abduction 5 Normal Adduction 5 Normal External Rotation 5 Normal Internal Rotation 5 Normal Left Flexion (L2) 5 Normal Extension (S1) 5 Normal Abduction 5 Normal Adduction 5 Normal External Rotation 5 Normal Internal Rotation 5 Normal Knee Strength Knee Manual Muscle Testing Right Flexion (S2) 5 Normal Extension (L3) 5 Normal Left Flexion (S2) 5 Normal Extension (L3) 5 Normal Ankle/Foot Strength Ankle and Foot Manual Muscle Testing Right Dorsiflexion (L4) 5 Normal Plantarflexion (S1) 4- Good- Comments 8 heel raises an dpain lower calf Left Dorsiflexion (L4) 5 Normal Plantarflexion (S1) 5 Normal Comments 20 heel raises PT-OP-Q Treatments Start: 02/17/23 18:03 Freq: Status: Active Protocol: Document 02/28/23 09:34 [facility] (Rec: 02/28/23 10:18 SP [id number]) Manual Therapy Treatment Soft Tissue Mobilization calf circumferential Body Location B SO Body Location R>L Mobilization Type Sustained Pressure Intensity/Depth Moderate Body Position Hooklying Joint Mobilizations SI Joint B Direction gentle medial compression B iliums, inferior glide sacrum Grade II Body Position Hooklying Comments R more restricted than L cranium Reps/Duration FM using LTR, sciatic n glide, RUE abd Comments 1. decompression of occipital bone and zygomatic archR>L 2. pos mob of occipital bone to decompress from sphenoid R> L 3. lmboidoid sutur caudal R>L- not peformed 02/28 4. coronal suture PA FM 5. temporoparietal inf/cuadl R >L 6. mastoid R>L AP 7. sagittal suture lat 8. zygomatic R inf FM 9. sphenoid R to L FM Manual Techniques unwinding Type BLE Body Position Hooklying Comments -RLE hip/knee flexion/ER -LLE knee flexion/hip IR and extension off table- noted slight SI discomfort end range moved to. PT-OP-T Assessment and Plan Start: 02/17/23 18:03 Freq: Status: Active Protocol: Document 02/28/23 09:34 [facility] (Rec: 02/28/23 10:18 SP [id number]) Physical Therapy Assessment Goals chest pain/nausea Short Term Goal (STG) Pt will report dec chest pain and nausea that does not inc past 4/10 throughout the day. 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 LTG Duration 05/13 activity Short Term Goal (STG) Pt will report a reduction in how much he requires rest d/t brain fog, nausea and chest pain in the day STG Duration 04/07 Electrical Construction Project Manager Goal (LTG) Pt will be able to go an entire day w/o having to lay down to rest. LTG Duration 05/13 pain Electrical Construction Project Manager Goal (LTG) Pt will report no elbow pain in daily life and being able to do all activities including open/closing of windows LTG Duration 05/06/23 running Short Term Goal (STG) Pt will be able to do run/ walks w/o inc calf pressure 5 days a week. STG Duration 03/31/23 Electrical Construction Project Manager Goal (LTG) Pt will be able to run at least 3 miles a day w/o inc calf pain. LTG Duration 05/13 Assessment Summary Assessment Pt no adverse affects to manual tx. R sacrum more resistance to inferior glide. Continue R >L side cranial retrictions. Physical Therapy Plan Frequency and Duration Frequency of Treatment 2x/Week Duration of treatment (weeks) 12 Plan of Care Start Date 02/18/23 Plan of Care End Date 05/14/23 Therapeutic Interventions Therapeutic Interventions Balance Training,Coordination Training,Gait Training,Home Exercise Program,Joint Mobilizations,Manual Therapy, Neuromuscular Re-education, Patient/Caregiver Education, Self-Care/Home Management,Soft Tissue Mobilization,Taping, Therapeutic Activities, Therapeutic Exercises Modalities Cold Pack/Ice Massage,Electric Stimulation,Hot Packs, Infrared Therapy,Iontophoresis ,Ultrasound Next Visit Focus/Plan Next Note Type Treatment Note Next Visit Plan review HEP: wall posture, foam roll exercises, diaphragmatic breathing; manual -cranial and coccyx mobs for dec dural tension (craniosacral treatment, Soft tissue to diaphram, circumfrential to lower calf)
--- NOTE | 2023-03-04 13:06 | PT-OP ANOTE ---
Pt had to cancel today's appt less than 24 hrs due to family emergency.
--- NOTE | 2023-03-11 08:39 | PT.OPDS ---
Current Diagnoses Pain in right elbow (02/28/23) Low back pain, unspecified (02/28/23) Muscle weakness (generalized) (02/28/23) Pain in unspecified lower leg (02/28/23) Other chest pain (02/28/23) Other abnormalities of gait and mobility (02/28/23) Abnormal posture (02/28/23) Post COVID-19 condition, unspecified (02/28/23) Visit Care Team Role Provider Type Beth Lennon MD Attending Provider Non-Staff Family Provider Primary Care Provider Referring Provider Specialty: Family Practice Address: [address] [place] [address], [phone] Email: Visit Number Visit Number 3 Discharge Summary PT-OP-B Current Condition Start: 02/17/23 18:03 Freq: Status: Active Protocol: Document 02/18/23 12:59 [facility] (Rec: 02/18/23 13:47 [facility] [id number]) Current Condition History of Current Condition History of Current Condition Pt has done PT here for 14 weeks here then 17 weeks at another PT clinic. He was able to work up to 2.5 miles but ends up getting pain in lower calf B and is unable to inc more. He has seen Dr. Trevino . MRI and Vascular flow normal . Awaiting test for compartment syndrome. Back pain started in 2016 and it went down R leg lat and into foot and done lots of PT for that. He has done lots of core exercises. He gets occ back spasms and that happens every 4-5 months. Pt has nausea and chest pain since getting COVID in late Dec 2019 and got a test year late and was tested antibodies. Has been seeing heber FRANCOIS MD at and has been diagnosed him. He is on pergabalin for leg and back painf ro 1.5 weeks. Is seeing pain doctor at [facility] and another at [facility] and is transfering more to [facility]. DId a stellate gangia n block on L and R last few months but it didn't help symptoms. Has doen lymphatic massage, mult NDs and couple acupuncturists. Nausea and chest pain from 1- 8/10 throughout the day ( making decisions even small decisions makes it worse) and avoids situations that he has to make the decisions. He is managing that by just not doing a lot. 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 Some things like painting a room as long as he doens't have to make decisions is okay but it does make it worse for longer periods of time upright. SOmetimes bending over makes it worse. He has seen [facility] and has done lots of tests and tried a lot of meds. DOes not have acid reflux and upper abdomen CT. Has changed his diet. Has had brain MRI, endoscopy, colonoscopy and every thing is clear. MRI on legs WNL. MRI of LB w/small bulge at L4-5. Pt was possibly going to see someone in [facility] for possible steroid shots in neck. Pt reports R elbow pain and that has been for 2 months that when he uses his arm too much then it aches after. It mostly hurts when pushing up/down window. Has been wearing it a pad for a while. Nausea and cehst pain is typically around nipple level mostly centered. Running is the only thing and occ laying down that dec the cehst and nausea pain. Walking doesn't help chest/nausea but doesn't hurt legs. Pt did all sorts of box jumps etc at last PT w/o inc pain. He had no problems w/walking 26 miles in one week. Wears green super feet and changes out shoes as needed. Aug 2021 ran a marathon. Sep 2021 pain in lower calf started. He stasrted that month, doing interval training. He stopped for a month to rest and it started back as soon as starting running. Pt has also seen neurologist and cleared w /nothing found. Since sep 2021 , pt has felt liek all tendons are sore all the time. The most notable is post tib tendon. Resting hR is mid to high 60s. He doens't think it changed after COVID. Treatment Goals Patient/Caregiver Goals Not be nauseaus all the time/ chest pain, be able to run w/o leg pain, be able to go through an entire day w/o laying down; play soccer PT-OP-C Subjective Start: 02/17/23 18:03 Freq: Status: Active Protocol: Document 02/28/23 09:34 [facility] (Rec: 02/28/23 10:18 SP [id number]) OP-PT Subjective Patient Comments Patient Comments Pt reports no adverse affects, didn't really notice a difference after last tx. PT-OP-D Balance Start: 02/17/23 18:03 Freq: Status: Active Protocol: Document 02/18/23 12:59 [facility] (Rec: 02/18/23 13:47 [facility] [id number]) Balance Tests Single Limb Standing Single Limb- Right >30 sec w/R lat trunk lean; EC >30 sec w/lots deviations Single Limb- Left >30 sec L rot of pelvis; EC > 30 sec w/lots deviations PT-OP-J Posture/Palpation/Skin Start: 02/17/23 18:03 Freq: Status: Active Protocol: Document 02/18/23 12:59 [facility] (Rec: 02/18/23 13:47 [id number] Posture Evaluation [facility] Postural Classification System [facility] Postural Classifications Posterior/Posterior Vertebral Compression Test 1 Elbow Flexion Test 1 Lumbar Protective Mechanism Left AP 0 Lumbar Protective Mechanism Right AP 0 Lumbar Protective Mechanism Left PA 1 Lumbar Protective Mechanism Right PA 1 Comments Posture Comments L pelvic shear, R SB; greater trochanters equal ; iliac crest R higher PT-OP-K Range of Motion Start: 02/17/23 18:03 Freq: Status: Active Protocol: Document 02/25/23 11:56 [facility] (Rec: 02/25/23 14:37 [facility] [id number]) Ankle and Foot Goniometric Range of Motion Ankle and Foot Left Active Dorsiflexion with Knee Flexed 15 Right Active Dorsiflexion with Knee Flexed 8 Dorsiflexion with Knee Extended 4 PT-OP-L Special Tests Start: 02/17/23 18:03 Freq: Status: Active Protocol: Document 02/18/23 12:59 [facility] (Rec: 02/18/23 13:47 [facility] [id number]) Special Tests Lumbar Spine Special Tests Ext sit Test Results B dural tensio w/significant limit Straight Leg Raise Test Results B tightness but neural tension R Slump Test Results R dural tension: B mild neural tension Louis Test Results B hip flexor tightness PT-OP-M Strength Start: 02/17/23 18:03 Freq: Status: Active Protocol: Document 02/25/23 11:56 [facility] (Rec: 02/25/23 14:37 [facility] [id number]) Hip Strength Hip Manual Muscle Testing Right Flexion (L2) 5 Normal Extension (S1) 5 Normal Abduction 5 Normal Adduction 5 Normal External Rotation 5 Normal Internal Rotation 5 Normal Left Flexion (L2) 5 Normal Extension (S1) 5 Normal Abduction 5 Normal Adduction 5 Normal External Rotation 5 Normal Internal Rotation 5 Normal Knee Strength Knee Manual Muscle Testing Right Flexion (S2) 5 Normal Extension (L3) 5 Normal Left Flexion (S2) 5 Normal Extension (L3) 5 Normal Ankle/Foot Strength Ankle and Foot Manual Muscle Testing Right Dorsiflexion (L4) 5 Normal Plantarflexion (S1) 4- Good- Comments 8 heel raises an dpain lower calf Left Dorsiflexion (L4) 5 Normal Plantarflexion (S1) 5 Normal Comments 20 heel raises PT-OP-T Assessment and Plan Start: 02/17/23 18:03 Freq: Status: Active Protocol: Document 03/11/23 08:37 [facility] (Rec: 03/11/23 08:39 [facility] [id number]) Physical Therapy Assessment Assessment Summary Assessment Pt cancelled appt 1 week ago d /t being rushed to [facility] and called back cancelling allr emaining visits saying he will be unable to attend. he will plan to get a new referral in Jun/ jul when he is available again. Physical Therapy Plan Discharge Physical Therapy Discharge Reasons Patient Request
== END 2023-03-11 15:09 | disposition home or self-care (01) ==
LOC: PHYS 09:30
PROVIDERS: Family Provider Family Medicine; PCP Family Medicine; Referring Provider Family Medicine; Visit Provider Family Medicine
DX: U09.9 Post COVID-19 condition, unspecified (principal); M79.669 Pain in unspecified lower leg; M54.50 Low back pain, unspecified; M25.521 Pain in right elbow; M62.81 Muscle weakness (generalized); R26.89 Other abnormalities of gait and mobility; R29.3 Abnormal posture; R07.89 Other chest pain
CPT/HCPCS: 97110; 97140; 97162; 97535

== ENCOUNTER 2023-09-10 13:07 | Emergency (ER) | payer OTHER, SELFPAY ==
[2023-09-10 13:12] VITALS: BMI 21.2
--- NOTE | 2023-09-10 13:45 | ED_ITS ---
HPI - Epistaxis General Chief complaint: Nasal Problem Stated complaint: Bloody nose for 3 hours Time Seen by Provider: 09/10/23 13:25 Source: patient Mode of arrival: Ambulatory History of Present Illness HPI Narrative: 42yoM presents for epistaxis. Blew his nose this morning and there was a large amount of blood that came from his right nostril. He initially went to the walk-in clinic, but he was referred to the ER. Denies history of nosebleeds, no trauma or other injury to the nose. Denies use of blood thinners. Related Data Allergies Allergy/AdvReac Type Severity Reaction Status Date / Time Penicillins [PENICILLINS] Allergy Unknown Verified 09/10/23 13:16 Review of Systems Review of Systems Narrative: Negative except as noted above Patient History Social History Smoking Status: Never smoker Smoking Status: Never smoker alcohol intake frequency: holidays/special occasions only Substance Use Type: marijuana Exam Initial Vital Signs Initial Vital Signs: Vital Signs Pulse Rate 79 09/10/23 16:20 Respiratory Rate 16 09/10/23 16:20 Blood Pressure 128/87 09/10/23 16:20 Pulse Oximetry 99 09/10/23 16:20 Oxygen Delivery Method Room Air 09/10/23 16:20 Const: Awake, alert, no acute distress, nontoxic appearing Eyes: PERRL, EOMI, conjunctiva normal ENT: Atraumatic, dentition normal, bleeding from R nare Cardiac: regular rate, regular rhythm RESP: unlabored, clear bilaterally, no wheezing GI: Atraumatic, soft, nontender, nondistended, no rebound, no guarding MSK: Atraumatic, full range of motion, pulses equal Skin: Warm, Dry, intact, no rashes Neuro: AO x3, CN II-XII grossly intact, moves all extremities Psych: affect normal, mood normal, not suicidal, not homicidal Procedures Epistaxis Control Nostril: right Nose Prepped With: oxymetazoline Direct Inspection: yes and unable to visualize Clots Removed by: blowing nose Cautery Used: silver nitrate Device Inserted: nasal tampon Device Size: 5 Patient Tolerated Procedure: well and no complications Course Course Course Narrative: Epistaxis. Attempted to control epistaxis conservatively with silver nitrate and oxymetazoline, however despite these measures as well as prolonged compression unable to control epistaxis. Patient agreed to nasal tampon placement. 5.5 rhino rocket with TXA inserted into right nose with cessation of bleeding. Case discussed with Dr. Dennis of ENT, who agreed to see patient in clinic later this week. Recommended against use of antibiotics since the nasal packing would only be in place for a short time. ED return precautions discussed at bedside. Patient expressed understanding of the plan and is in agreement at this time. All questions answered at the time of discharge. Orders Ordered: Discontinued Medications Acetaminophen (Acetaminophen 325 Mg Tablet) 975 mg PO NOW ONE Stop: 09/10/23 16:23 Last Admin: 09/10/23 16:29 Dose: 975 mg Documented By: BS Oxymetazoline HCl (Oxymetazoline Nasal [place] 30 Ml) 2 sprays NASAL NOW ONE Stop: 09/10/23 13:46 Last Admin: 09/10/23 14:38 Dose: 2 sprays Documented By: BS Silver Nitrate/Potassium Nitrate (Silver Nitrate Stick) 2 each TOP NOW ONE Stop: 09/10/23 14:59 Last Admin: 09/10/23 15:05 Dose: 2 each Documented By: BS Tranexamic Acid (Tranexamic Acid 1,000 Mg Vial) 1,000 mg TOP NOW ONE Stop: 09/10/23 13:46 Last Admin: 09/10/23 15:19 Dose: 1,000 mg Documented By: BS Vital Signs Vital signs: Vital Signs - 8 hr 09/10/23 16:20 09/10/23 16:39 Pulse Rate 79 87 Respiratory Rate 16 16 Blood Pressure 128/87 134/92 H Pulse Oximetry 99 100 Oxygen Delivery Method Room Air Room Air MDM - Epistaxis Differential Diagnosis Differential diagnosis: Likely nasal bone fracture, anterior epistaxis and posterior epistaxis Discharge Plan Departure Patient Disposition: Home Clinical Impression: Epistaxis Instructions: DI for Nosebleed Referrals: Juan Ramon Dennis MD [Physician] - Beth Lennon MD [Primary Care Provider] - Stand Alone Forms: Patient Portal/API
[2023-09-10] MEDS: OXYMETAZOLINE NASAL SPRAY 30 ML 2 SPRAYS NASAL (14:38)
[2023-09-10] MEDS: SILVER NITRATE STICK 2 EACH TOP (15:05)
[2023-09-10] MEDS: TRANEXAMIC ACID 1,000 MG VIAL 1000 MG TOP (15:19)
[2023-09-10 16:20] VITALS: BP 128/87; PULSE 79; RESP 16; O2SAT 99
[2023-09-10] MEDS: ACETAMINOPHEN 325 MG TABLET 975 MG PO (16:29)
[2023-09-10 16:39] VITALS: BP 134/92; PULSE 87; RESP 16; O2SAT 100
== END 2023-09-10 16:40 | disposition home or self-care (01) ==
PROVIDERS: Emergency Provider Emergency Medicine; Family Provider Family Medicine; PCP Family Medicine
DX: R04.0 Epistaxis (principal)
CPT/HCPCS: 17250; 99283

== ENCOUNTER → 2024-11-13 14:19 | Outpatient (CLI) | payer OTHER, SELFPAY ==
[2024-11-13 15:27] LABS: Influenza A - CEPHEID Flu A NEGATIVE (NEGATIVE); Influenza B - CEPHEID Flu B NEGATIVE (NEGATIVE); Respiratory Syncytial Virus Negative (Negative)
[2024-11-13 16:06] LABS: COVID-19 CEPHEID 4-PLEX PCR Negative (Negative)
== END ==
PROVIDERS: Family Provider Family Medicine; PCP Family Medicine; Visit Provider Physician Assistant Medical
DX: Z20.828 Contact with and (suspected) exposure to other viral communicable diseases (principal)
CPT/HCPCS: 0241U

== ENCOUNTER → 2024-11-13 14:39 | Outpatient (CLI) | payer OTHER, SELFPAY ==
--- NOTE | 2024-11-13 14:41 | DI.RAD.S_ITS ---
PROCEDURE: XR CHEST 2V INDICATIONS: Cough and shortness of breath TECHNIQUE: 2 views of the chest were acquired. COMPARISON: None. FINDINGS: Surgical changes and devices: None. Lungs and pleura: No dense consolidation or pleural effusions. Mediastinum: Normal heart size Bones and chest wall: Unremarkable IMPRESSION: No acute radiographic abnormality. Dictated by: Vinny Arreola M.D. on 11/13/2024 at 14:31 Approved by: Vinny Arreola M.D. on 11/13/2024 at 14:31
== END ==
PROVIDERS: Family Provider Family Medicine; PCP Family Medicine; Referring Provider Physician Assistant Medical; Visit Provider Physician Assistant Medical
DX: R05.9 Cough, unspecified (principal); Z20.828 Contact with and (suspected) exposure to other viral communicable diseases
CPT/HCPCS: 0241U; 71046

== ENCOUNTER → 2025-01-06 15:12 | Outpatient (CLI) | payer OTHER, SELFPAY ==
--- NOTE | 2025-01-06 15:14 | DI.US.S_ITS ---
PROCEDURE: US SCROTUM INDICATIONS: MASS OF RIGHT TESTICLE TECHNIQUE: Real-time scanning was performed of the scrotum and testicles, with image documentation. Color and pulse Doppler interrogation was performed of both testicles. COMPARISON: None. FINDINGS: Right: Testicle is normal in size at 4.6 x 2.0 x 3.4 cm, and homogenous in echotexture. Single testicular calcification is noted. Epididymis is normal in overall size and morphology. No hydrocele or varicoceles. There is a hypoechoic structure within the right inguinal region measuring 1.3 x 0.8 x 1.1 cm with trace vascularity. This correlates to the palpable abnormality. Overlying scrotal skin is normal in thickness. Left: Testicle is normal in size at 4.0 x 2.1 x 3.4 cm, and homogeneous in echotexture. Epididymis is normal in overall size and morphology. No hydrocele or varicoceles. Scrotal pleural measuring 7 mm is present. Overlying scrotal skin is normal in thickness. Doppler: Color and pulse Doppler demonstrate normal and symmetric arterial flow in both testicles. IMPRESSION: Hypoechoic structure within the right inguinal region measuring up to 1.3 cm with trace vascularity, correlating to the palpable abnormality. This is of uncertain etiology. Recommend correlation with physical exam and follow-up ultrasound to assess stability or resolution. Left scrotal deja measuring 7 mm. Remainder of the exam is within normal limits. Dictated by: Naveen Allen M.D. on 01/06/2025 at 16:28 Approved by: Naveen Allen M.D. on 01/06/2025 at 17:01
== END ==
PROVIDERS: Family Provider Family Medicine; PCP Family Medicine
DX: N50.89 Other specified disorders of the male genital organs (principal)
CPT/HCPCS: 76870; 93975

== ENCOUNTER 2025-01-19 09:45 | Outpatient (RCR) | payer OTHER, SELFPAY ==
--- NOTE | 2024-07-29 13:57 | PT.OIE ---
Current Diagnoses Unspecified injury of unspecified quadriceps muscle, fascia and tendon, initial encounter (07/29/24) Visit Care Team Role Provider Type Beth Lennon MD Attending Provider Non-Staff Family Provider Primary Care Provider Referring Provider Specialty: Family Practice Address: [address] [place] [address], [phone] Email: Physical Therapy Initial Evaluation PT-OP-A Visit Information Start: 07/22/24 17:31 Freq: Status: Active Protocol: Document 07/29/24 07:29 [facility] (Rec: 07/29/24 08:21 [facility] [id number]) Out-Patient Physical Therapy Visit Information Visit Information Visit Type Initial Evaluation Visit Start Time 07:32 Visit Stop Time 08:19 Visit Number 1 Number of [employer] DISPATCHER Visits 0 PT-OP-B Current Condition Start: 07/22/24 17:31 Freq: Status: Active Protocol: Document 07/29/24 07:29 [facility] (Rec: 07/29/24 08:21 [facility] [id number]) Current Condition History of Current Condition Onset Date April 28 Current Complaints R quad and R HS pain History of Current Condition Pt reports was just running one day and R quad started hurting in the middle. Ran for the first time in 4 months last week. it was more sore across more sup mid quad. Tried initally taking 2 weeks off and running and it hurt. was able to hike 4-5 miles w/ hills. Then 3 weeks into this hurting R HS hurting and was hobbling around. Was running 3x/week getting around 25 miles/week. HS has been bothering him more. Saw a sports doc and did US of quad and found no tears. Recommended PT and taking tumeric for inflamation but hasn't gotten it yet. Still having long Covid symptoms w/ nausea, chest pain and brain fog. Currently taking low dose maletrexone (3mg) and it doesn't seem to be working. Has been getting migraines pretty regularly. Currently every other day migraines. 2 brain MRI that were normal. HS tight when tried to run and little sore after. Sometimes does just hurt and feel like spasming and then go away with no specific activity. Pt reports hx of B calf issues and was scheduled for B fasciotomies but got COVID. He was able to gradually inc run and that went away w/o surgery. 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 Has a little bit of back pain but no major back pain. Mostly just when sits, can get achey. Overall back pain has been good recently Treatment Goals Patient/Caregiver Goals Be able to run and be able to work towards running ultra marathon PT-OP-D Balance Start: 07/22/24 17:31 Freq: Status: Active Protocol: Document 07/29/24 07:29 [facility] (Rec: 07/29/24 08:21 [facility] [id number]) Balance Tests Single Limb Standing Single Limb- Right >30 sec EO some deviation; 9 sec EC Single Limb- Left >30 sec EO; 25 sec EC PT-OP-F Manual Assessment Start: 07/22/24 17:31 Freq: Status: Active Protocol: Document 07/29/24 07:29 [facility] (Rec: 07/29/24 09:25 [facility] [id number]) Manual Assessments Soft Tissue Assessment Soft Tissue Mobility Assessment more tension in R add, quad and HS PT-OP-G Mobility & Gait Start: 07/22/24 17:31 Freq: Status: Active Protocol: Document 07/29/24 07:29 [facility] (Rec: 07/29/24 08:21 [facility] [id number]) OP Gait Assessment Comments Gait Comments walking: stiff trunk running: dec push off and hip ext B, IR R>L femur, stiff trunk PT-OP-J Posture/Palpation/Skin Start: 07/22/24 17:31 Freq: Status: Active Protocol: Document 07/29/24 07:29 [facility] (Rec: 07/29/24 08:21 [facility] [id number]) Posture Evaluation [facility] Postural Classification System [facility] Postural Classifications Posterior/Anterior Lumbar Protective Mechanism Left AP 0 Lumbar Protective Mechanism Right AP 0 Lumbar Protective Mechanism Left PA 0 Lumbar Protective Mechanism Right PA 1 Comments Posture Comments in running shoes: IR of femurs and tibia R>L; L Iliac crest higher, equal greater trochanter PT-OP-L Special Tests Start: 07/22/24 17:31 Freq: Status: Active Protocol: Document 07/29/24 07:29 [facility] (Rec: 07/29/24 08:21 [facility] [id number]) Special Tests Knee Special Tests femoral n test Comments more R quad tightness; L does feel some symptoms in back Obers Comments positive R SLUmp Comments R some back tightness SLR Comments L:58 feels in HS R:48 feels mostly HS but some in R hip Louis Comments L hip flexor tightness; R TFL, RF, quad, hip flexor tightness PT-OP-M Strength Start: 07/22/24 17:31 Freq: Status: Active Protocol: Document 07/29/24 07:29 [facility] (Rec: 07/29/24 08:21 [facility] [id number]) Hip Strength Hip Manual Muscle Testing Right Flexion (L2) 4 Good Extension (S1) 4 Good Abduction 4 Good Adduction 3 Fair External Rotation 4+ Good+ Internal Rotation 4 Good Comments pain R hip w/IR & abd; pain in groin w/add Left Flexion (L2) 5 Normal Extension (S1) 5 Normal Adduction 4 Good External Rotation 5 Normal Internal Rotation 5 Normal Comments pain in R groin w/add MMT Knee Strength Knee Manual Muscle Testing Right Flexion (S2) 5 Normal Extension (L3) 5 Normal Left Flexion (S2) 5 Normal Extension (L3) 5 Normal Ankle/Foot Strength Ankle and Foot Manual Muscle Testing Right Dorsiflexion (L4) 5 Normal Plantarflexion (S1) 5 Normal Comments more fatigue in R calf but able to do 20 heel raises- feels in HS Left Dorsiflexion (L4) 5 Normal Plantarflexion (S1) 5 Normal Comments 20 heel raises B PT-OP-Q Treatments Start: 07/22/24 17:31 Freq: Status: Active Protocol: Document 07/29/24 07:29 [facility] (Rec: 07/29/24 09:32 [facility] [id number]) Self-Care/Home Management Treatment Education Other Education 9 min: pt educated on pelvis position and how this can affect LE pain, discussed how add weakness and pain main be related to quad pain by obterator n. Edu some neural tension w/R sciatic also. pictures shown w/anatomy PT-OP-T Assessment and Plan Start: 07/22/24 17:31 Freq: Status: Active Protocol: Document 07/29/24 07:29 [facility] (Rec: 07/29/24 08:21 [facility] [id number]) Physical Therapy Assessment Rehab Potential Rehabilitation Potential Good Evaluation Complexity Number of Personal Factors/Comorbidities 3 or More Number of Body Systems Impaired 3 Clinical Presentation at Evaluation Evolving Impairments Impairments Activity Tolerance,Balance, Functional Activities,Gait, Pain,ROM,Soft Tissue Mobility, Strength Goals activity Intermediate Goal (LTG) Pt will be able to run w/o increased pain in RLE/back on even and uneven terrain for at least 4 miles LTG Duration 10/07 strength Short Term Goal (STG) Pt will be indep w/HEP STG Duration 08/31 Welder Experimental Goal (LTG) Pt will score 5/5 on BLE MMT and at least 3/5 in all planes LPM to show improved stability and allow inc tolerance to running LTG Duration 10/11 Assessment Summary Assessment Pt presents w/3 month ago onset of R quad pain when running w/progression to R HS pain also. He has tried to start returning to running but does feel tighter and sore in R HS and quad when running and after even very short durations. He feels okay w/ hiking and walking and doesn't have inc pain most of the day except random times. He does have IR of femur notable in standing on R>L and when running. He has significant R> L mm tension w/dec hip ext d/t hip flexor and RF tightness which is present and had signficnat pain in add region w/MMT and along lat R hip today which is likely contributing to his pain in thigh. obturator nerve may be affected w/pt having pelvis rotation notable today along w /hx of back pain. Pain appears to be neural in nature. Pt would benefit from skilled PT in order to work on running mechanics, strength, neural mobility, flexibility and balance in order to dec pain. Physical Therapy Plan Frequency and Duration Frequency of Treatment 1-2x/wk Duration of treatment (weeks) 10 Plan of Care Start Date 07/29/24 Plan of Care End Date 10/07/24 Therapeutic Interventions Therapeutic Interventions Balance Training,Gait Training ,Home Exercise Program,Joint Mobilizations,Manual Therapy, Neuromuscular Re-education, Patient/Caregiver Education, Self-Care/Home Management,Soft Tissue Mobilization,Taping, Therapeutic Activities, Therapeutic Exercises Modalities Cold Pack/Ice Massage,Electric Stimulation,Hot Packs, Infrared Therapy,Ultrasound Next Visit Focus/Plan Next Note Type Treatment Note Next Visit Plan STM to add, quad, HS & glutes, hip flexors; hip mobs, consider pelvis alignment HEP: squat, lunges, stretch hip flexors, add strength, sidesteps
--- NOTE | 2024-08-02 12:22 | PT.OTN ---
Current Diagnoses Unspecified injury of unspecified quadriceps muscle, fascia and tendon, initial encounter (08/02/24) Physical Therapy Treatment Note PT-OP-A Visit Information Start: 07/22/24 17:31 Freq: Status: Active Protocol: Document 08/02/24 11:21 [facility] (Rec: 08/02/24 12:22 [facility] [id number]) Out-Patient Physical Therapy Visit Information Visit Information Visit Type Treatment Note Visit Start Time 11:22 Visit Stop Time 12:02 Visit Number 2 Number of HUMAN RESOURCES COMPLIANCE MANAGER Visits 0 PT-OP-B Current Condition Start: 07/22/24 17:31 Freq: Status: Active Protocol: Document 07/29/24 07:29 [facility] (Rec: 07/29/24 08:21 [facility] [id number]) Current Condition History of Current Condition Onset Date April 28 Current Complaints R quad and R HS pain History of Current Condition Pt reports was just running one day and R quad started hurting in the middle. Ran for the first time in 4 months last week. it was more sore across more sup mid quad. Tried initally taking 2 weeks off and running and it hurt. was able to hike 4-5 miles w/ hills. Then 3 weeks into this hurting R HS hurting and was hobbling around. Was running 3x/week getting around 25 miles/week. HS has been bothering him more. Saw a sports doc and did US of quad and found no tears. Recommended PT and taking tumeric for inflamation but hasn't gotten it yet. Still having long Covid symptoms w/ nausea, chest pain and brain fog. Currently taking low dose maletrexone (3mg) and it doesn't seem to be working. Has been getting migraines pretty regularly. Currently every other day migraines. 2 brain MRI that were normal. HS tight when tried to run and little sore after. Sometimes does just hurt and feel like spasming and then go away with no specific activity. Pt reports hx of B calf issues and was scheduled for B fasciotomies but got COVID. He was able to gradually inc run and that went away w/o surgery. Has new shoes from running [employer] and has an insole. Has a little bit of back pain but no major back pain. Mostly just when sits, can get achey. Overall back pain has been good recently Treatment Goals Patient/Caregiver Goals Be able to run and be able to work towards running ultra [employer] PT-OP-C Subjective Start: 07/22/24 17:31 Freq: Status: Active Protocol: Document 08/02/24 11:21 [facility] (Rec: 08/02/24 12:22 [facility] [id number]) OP-PT Subjective Patient Comments Patient Comments pt rpoerts he ran 2.5 miles and felt okay after this weekend. PT-OP-D Balance Start: 07/22/24 17:31 Freq: Status: Active Protocol: Document 07/29/24 07:29 [facility] (Rec: 07/29/24 08:21 [facility] [id number]) Balance Tests Single Limb Standing Single Limb- Right >30 sec EO some deviation; 9 sec EC Single Limb- Left >30 sec EO; 25 sec EC PT-OP-F Manual Assessment Start: 07/22/24 17:31 Freq: Status: Active Protocol: Document 07/29/24 07:29 [facility] (Rec: 07/29/24 09:25 [facility] [id number]) Manual Assessments Soft Tissue Assessment Soft Tissue Mobility Assessment more tension in R add, quad and HS PT-OP-G Mobility & Gait Start: 07/22/24 17:31 Freq: Status: Active Protocol: Document 07/29/24 07:29 [facility] (Rec: 07/29/24 08:21 [facility] [id number]) OP Gait Assessment Comments Gait Comments walking: stiff trunk running: dec push off and hip ext B, IR R>L femur, stiff trunk PT-OP-J Posture/Palpation/Skin Start: 07/22/24 17:31 Freq: Status: Active Protocol: Document 07/29/24 07:29 [facility] (Rec: 07/29/24 08:21 [facility] [id number]) Posture Evaluation Yara Postural Classification System Yara Postural Classifications Posterior/Anterior Lumbar Protective Mechanism Left AP 0 Lumbar Protective Mechanism Right AP 0 Lumbar Protective Mechanism Left PA 0 Lumbar Protective Mechanism Right PA 1 Comments Posture Comments in running shoes: IR of femurs and tibia R>L; L Iliac crest higher, equal greater trochanter PT-OP-L Special Tests Start: 07/22/24 17:31 Freq: Status: Active Protocol: Document 07/29/24 07:29 [facility] (Rec: 07/29/24 08:21 [facility] [id number]) Special Tests Knee Special Tests femoral n test Comments more R quad tightness; L does feel some symptoms in back Obers Comments positive R SLUmp Comments R some back tightness SLR Comments L:58 feels in HS R:48 feels mostly HS but some in R hip Louis Comments L hip flexor tightness; R TFL, RF, quad, hip flexor tightness PT-OP-M Strength Start: 07/22/24 17:31 Freq: Status: Active Protocol: Document 07/29/24 07:29 [facility] (Rec: 07/29/24 08:21 [facility] [id number]) Hip Strength Hip Manual Muscle Testing Right Flexion (L2) 4 Good Extension (S1) 4 Good Abduction 4 Good Adduction 3 Fair External Rotation 4+ Good+ Internal Rotation 4 Good Comments pain R hip w/IR & abd; pain in groin w/add Left Flexion (L2) 5 Normal Extension (S1) 5 Normal Adduction 4 Good External Rotation 5 Normal Internal Rotation 5 Normal Comments pain in R groin w/add MMT Knee Strength Knee Manual Muscle Testing Right Flexion (S2) 5 Normal Extension (L3) 5 Normal Left Flexion (S2) 5 Normal Extension (L3) 5 Normal Ankle/Foot Strength Ankle and Foot Manual Muscle Testing Right Dorsiflexion (L4) 5 Normal Plantarflexion (S1) 5 Normal Comments more fatigue in R calf but able to do 20 heel raises- feels in HS Left Dorsiflexion (L4) 5 Normal Plantarflexion (S1) 5 Normal Comments 20 heel raises B PT-OP-Q Treatments Start: 07/22/24 17:31 Freq: Status: Active Protocol: Document 08/02/24 11:21 [facility] (Rec: 08/02/24 12:22 [facility] [id number]) Therapeutic Exercises Standing Exercises hip add Side bilateral Equipment Used L2 Reps/Minutes 15 ea Comments cues control hip flexors Side bilateral Reps/Minutes 45 sec ea squat Standing Exercise Name 1. squat 2. squat w/band in miror 3. partial range Side bilateral Reps/Minutes 10 ea Comments stopped d/t pain despite adjustments sit to stand Side bilateral Reps/Minutes 10 sidesteps Equipment Used L2 Reps/Minutes 30ft Comments cues no lat lean Manual Therapy Treatment Consent Patient gave verbal consent for manual Yes treatment Soft Tissue Mobilization HS Body Location R med borders Mobilization Type Rolling Intensity/Depth Moderate Body Position Hooklying quad Body Location R lat Mobilization Type Rolling Intensity/Depth Moderate Body Position Hooklying adductors Body Location R Mobilization Type Rolling Intensity/Depth Moderate Body Position Hooklying PT-OP-T Assessment and Plan Start: 07/22/24 17:31 Freq: Status: Active Protocol: Document 08/02/24 11:21 [facility] (Rec: 08/02/24 12:22 [facility] [id number]) Physical Therapy Assessment Goals activity Ramp Agent Goal (LTG) Pt will be able to run w/o increased pain in RLE/back on even and uneven terrain for at least 4 miles LTG Duration 10/07 strength Short Term Goal (STG) Pt will be indep w/HEP STG Duration 08/31 Retirement Goal (LTG) Pt will score 5/5 on BLE MMT and at least 3/5 in all planes LPM to show improved stability and allow inc tolerance to running LTG Duration 10/11 Assessment Summary Assessment pain in back w/mult squat variationsand reuqired a lot of cues fo rknee position and tended to extend back. D/t pt concern re: back flaring up, stopped ocmpletely w/squats today and pt worked on sit to stands which were comfortable. he does have limited soft tissue mobility w/R lat quads and med HS and significant limitation in hip ER. Physical Therapy Plan Next Visit Focus/Plan Next Note Type Treatment Note Next Visit Plan review exercises; work on hip hinging to work towards progression of squats and lunges STM to add, quad, HS, hip flexors and glutes; hip mobs, consider pelvic alignment
--- NOTE | 2024-08-05 10:26 | PT.OTN ---
Current Diagnoses Unspecified injury of unspecified quadriceps muscle, fascia and tendon, initial encounter (08/05/24) Physical Therapy Treatment Note PT-OP-A Visit Information Start: 07/22/24 17:31 Freq: Status: Active Protocol: Document 08/05/24 08:16 [facility] (Rec: 08/05/24 10:26 [facility] [id number]) Out-Patient Physical Therapy Visit Information Visit Information Visit Type Treatment Note Visit Start Time 08:17 Visit Stop Time 09:00 Visit Number 3 Number of INTERN PRODUCT MARKETING MANAGER Visits 0 PT-OP-B Current Condition Start: 07/22/24 17:31 Freq: Status: Active Protocol: Document 07/29/24 07:29 [facility] (Rec: 07/29/24 08:21 [facility] [id number]) Current Condition History of Current Condition Onset Date April 28 Current Complaints R quad and R HS pain History of Current Condition Pt reports was just running one day and R quad started hurting in the middle. Ran for the first time in 4 months last week. it was more sore across more sup mid quad. Tried initally taking 2 weeks off and running and it hurt. was able to hike 4-5 miles w/ hills. Then 3 weeks into this hurting R HS hurting and was hobbling around. Was running 3x/week getting around 25 miles/week. HS has been bothering him more. Saw a sports doc and did US of quad and found no tears. Recommended PT and taking tumeric for inflamation but hasn't gotten it yet. Still having long Covid symptoms w/ nausea, chest pain and brain fog. Currently taking low dose maletrexone (3mg) and it doesn't seem to be working. Has been getting migraines pretty regularly. Currently every other day migraines. 2 brain MRI that were normal. HS tight when tried to run and little sore after. Sometimes does just hurt and feel like spasming and then go away with no specific activity. Pt reports hx of B calf issues and was scheduled for B fasciotomies but got COVID. He was able to gradually inc run and that went away w/o surgery. Has new shoes from running [employer] and has an insole. Has a little bit of back pain but no major back pain. Mostly just when sits, can get achey. Overall back pain has been good recently Treatment Goals Patient/Caregiver Goals Be able to run and be able to work towards running ultra [employer] PT-OP-C Subjective Start: 07/22/24 17:31 Freq: Status: Active Protocol: Document 08/05/24 08:16 [facility] (Rec: 08/05/24 10:26 [facility] [id number]) OP-PT Subjective Patient Comments Patient Comments ran 2 days ago for 3.25 miles and felt fine and had some aching when driving yesterday. PT-OP-D Balance Start: 07/22/24 17:31 Freq: Status: Active Protocol: Document 07/29/24 07:29 [facility] (Rec: 07/29/24 08:21 [facility] [id number]) Balance Tests Single Limb Standing Single Limb- Right >30 sec EO some deviation; 9 sec EC Single Limb- Left >30 sec EO; 25 sec EC PT-OP-F Manual Assessment Start: 07/22/24 17:31 Freq: Status: Active Protocol: Document 07/29/24 07:29 [facility] (Rec: 07/29/24 09:25 [facility] [id number]) Manual Assessments Soft Tissue Assessment Soft Tissue Mobility Assessment more tension in R add, quad and HS PT-OP-G Mobility & Gait Start: 07/22/24 17:31 Freq: Status: Active Protocol: Document 07/29/24 07:29 [facility] (Rec: 07/29/24 08:21 [facility] [id number]) OP Gait Assessment Comments Gait Comments walking: stiff trunk running: dec push off and hip ext B, IR R>L femur, stiff trunk PT-OP-J Posture/Palpation/Skin Start: 07/22/24 17:31 Freq: Status: Active Protocol: Document 07/29/24 07:29 [facility] (Rec: 07/29/24 08:21 [facility] [id number]) Posture Evaluation Yara Postural Classification System Yara Postural Classifications Posterior/Anterior Lumbar Protective Mechanism Left AP 0 Lumbar Protective Mechanism Right AP 0 Lumbar Protective Mechanism Left PA 0 Lumbar Protective Mechanism Right PA 1 Comments Posture Comments in running shoes: IR of femurs and tibia R>L; L Iliac crest higher, equal greater trochanter PT-OP-L Special Tests Start: 07/22/24 17:31 Freq: Status: Active Protocol: Document 07/29/24 07:29 [facility] (Rec: 07/29/24 08:21 [facility] [id number]) Special Tests Knee Special Tests femoral n test Comments more R quad tightness; L does feel some symptoms in back Obers Comments positive R SLUmp Comments R some back tightness SLR Comments L:58 feels in HS R:48 feels mostly HS but some in R hip Louis Comments L hip flexor tightness; R TFL, RF, quad, hip flexor tightness PT-OP-M Strength Start: 07/22/24 17:31 Freq: Status: Active Protocol: Document 07/29/24 07:29 [facility] (Rec: 07/29/24 08:21 [facility] [id number]) Hip Strength Hip Manual Muscle Testing Right Flexion (L2) 4 Good Extension (S1) 4 Good Abduction 4 Good Adduction 3 Fair External Rotation 4+ Good+ Internal Rotation 4 Good Comments pain R hip w/IR & abd; pain in groin w/add Left Flexion (L2) 5 Normal Extension (S1) 5 Normal Adduction 4 Good External Rotation 5 Normal Internal Rotation 5 Normal Comments pain in R groin w/add MMT Knee Strength Knee Manual Muscle Testing Right Flexion (S2) 5 Normal Extension (L3) 5 Normal Left Flexion (S2) 5 Normal Extension (L3) 5 Normal Ankle/Foot Strength Ankle and Foot Manual Muscle Testing Right Dorsiflexion (L4) 5 Normal Plantarflexion (S1) 5 Normal Comments more fatigue in R calf but able to do 20 heel raises- feels in HS Left Dorsiflexion (L4) 5 Normal Plantarflexion (S1) 5 Normal Comments 20 heel raises B PT-OP-Q Treatments Start: 07/22/24 17:31 Freq: Status: Active Protocol: Document 08/05/24 08:16 [facility] (Rec: 08/05/24 10:26 [facility] [id number]) Therapeutic Exercises Sitting Exercises hip hinge Sitting Exercise Name dowel on back Side bilateral Reps/Minutes 10 Standing Exercises stretch Standing Exercise Name bottoms up Side bilateral Reps/Minutes 5 sec x5; [id number] hip hinge Standing Exercise Name dowel on back Side bilateral Reps/Minutes 10 sit to stand Side bilateral Equipment Used L2 around knee Reps/Minutes 15 Comments cues slower decent sidesteps Equipment Used L2 Reps/Minutes 20ft Comments cues no lat lean of trunk min Manual Therapy Treatment Consent Patient gave verbal consent for manual Yes treatment Soft Tissue Mobilization HS Body Location R med borders & circumfrential Mobilization Type Rolling Intensity/Depth Moderate Body Position Hooklying Comments w/active HS stretch and hip flex adductors Body Location R Mobilization Type Rolling Intensity/Depth Moderate Body Position Hooklying PT-OP-T Assessment and Plan Start: 07/22/24 17:31 Freq: Status: Active Protocol: Document 08/05/24 08:16 [facility] (Rec: 08/05/24 10:26 [facility] [id number]) Physical Therapy Assessment Goals activity Fpc Goal (LTG) Pt will be able to run w/o increased pain in RLE/back on even and uneven terrain for at least 4 miles LTG Duration 10/07 strength Short Term Goal (STG) Pt will be indep w/HEP STG Duration 08/31 Rn Radiation Goal (LTG) Pt will score 5/5 on BLE MMT and at least 3/5 in all planes LPM to show improved stability and allow inc tolerance to running LTG Duration 10/11 Assessment Summary Assessment Pt tolerated addition of band for sit to stand and hip hinge training except could not hold dowel on back w/o inc pain. Physical Therapy Plan Frequency and Duration Frequency of Treatment 1-2x/wk Duration of treatment (weeks) 10 Plan of Care Start Date 07/29/24 Plan of Care End Date 10/07/24 Next Visit Focus/Plan Next Note Type Treatment Note Next Visit Plan work on hip hinging to work towards progression of squats and lunges STM to add, quad, HS, hip flexors and glutes; hip mobs, consider pelvic alignment
--- NOTE | 2024-08-10 16:32 | PT.OTN ---
Current Diagnoses Unspecified injury of unspecified quadriceps muscle, fascia and tendon, initial encounter (08/10/24) Physical Therapy Treatment Note PT-OP-A Visit Information Start: 07/22/24 17:31 Freq: Status: Active Protocol: Document 08/10/24 12:50 [facility] (Rec: 08/10/24 13:46 [facility] [id number]) Out-Patient Physical Therapy Visit Information Visit Information Visit Type Treatment Note Visit Start Time 13:02 Visit Stop Time 13:45 Visit Number 4 Number of LINOTYPE MACHINIST APPRENTICE Visits 1 PT-OP-B Current Condition Start: 07/22/24 17:31 Freq: Status: Active Protocol: Document 07/29/24 07:29 [facility] (Rec: 07/29/24 08:21 [facility] [id number]) Current Condition History of Current Condition Onset Date April 28 Current Complaints R quad and R HS pain History of Current Condition Pt reports was just running one day and R quad started hurting in the middle. Ran for the first time in 4 months last week. it was more sore across more sup mid quad. Tried initally taking 2 weeks off and running and it hurt. was able to hike 4-5 miles w/ hills. Then 3 weeks into this hurting R HS hurting and was hobbling around. Was running 3x/week getting around 25 miles/week. HS has been bothering him more. Saw a sports doc and did US of quad and found no tears. Recommended PT and taking tumeric for inflamation but hasn't gotten it yet. Still having long Covid symptoms w/ nausea, chest pain and brain fog. Currently taking low dose maletrexone (3mg) and it doesn't seem to be working. Has been getting migraines pretty regularly. Currently every other day migraines. 2 brain MRI that were normal. HS tight when tried to run and little sore after. Sometimes does just hurt and feel like spasming and then go away with no specific activity. Pt reports hx of B calf issues and was scheduled for B fasciotomies but got COVID. He was able to gradually inc run and that went away w/o surgery. Has new shoes from running [employer] and has an insole. Has a little bit of back pain but no major back pain. Mostly just when sits, can get achey. Overall back pain has been good recently Treatment Goals Patient/Caregiver Goals Be able to run and be able to work towards running ultra [employer] PT-OP-C Subjective Start: 07/22/24 17:31 Freq: Status: Active Protocol: Document 08/10/24 12:50 [facility] (Rec: 08/10/24 13:46 [facility] [id number]) OP-PT Subjective Patient Comments Patient Comments Patient reports ran 3.5 miles yesterday with less soreness compared to previous day. PT-OP-D Balance Start: 07/22/24 17:31 Freq: Status: Active Protocol: Document 07/29/24 07:29 [facility] (Rec: 07/29/24 08:21 [facility] [id number]) Balance Tests Single Limb Standing Single Limb- Right >30 sec EO some deviation; 9 sec EC Single Limb- Left >30 sec EO; 25 sec EC PT-OP-F Manual Assessment Start: 07/22/24 17:31 Freq: Status: Active Protocol: Document 07/29/24 07:29 [facility] (Rec: 07/29/24 09:25 [facility] [id number]) Manual Assessments Soft Tissue Assessment Soft Tissue Mobility Assessment more tension in R add, quad and HS PT-OP-G Mobility & Gait Start: 07/22/24 17:31 Freq: Status: Active Protocol: Document 07/29/24 07:29 [facility] (Rec: 07/29/24 08:21 [facility] [id number]) OP Gait Assessment Comments Gait Comments walking: stiff trunk running: dec push off and hip ext B, IR R>L femur, stiff trunk PT-OP-J Posture/Palpation/Skin Start: 07/22/24 17:31 Freq: Status: Active Protocol: Document 07/29/24 07:29 [facility] (Rec: 07/29/24 08:21 [facility] [id number]) Posture Evaluation Yara Postural Classification System Yara Postural Classifications Posterior/Anterior Lumbar Protective Mechanism Left AP 0 Lumbar Protective Mechanism Right AP 0 Lumbar Protective Mechanism Left PA 0 Lumbar Protective Mechanism Right PA 1 Comments Posture Comments in running shoes: IR of femurs and tibia R>L; L Iliac crest higher, equal greater trochanter PT-OP-L Special Tests Start: 07/22/24 17:31 Freq: Status: Active Protocol: Document 07/29/24 07:29 [facility] (Rec: 07/29/24 08:21 [facility] [id number]) Special Tests Knee Special Tests femoral n test Comments more R quad tightness; L does feel some symptoms in back Obers Comments positive R SLUmp Comments R some back tightness SLR Comments L:58 feels in HS R:48 feels mostly HS but some in R hip Louis Comments L hip flexor tightness; R TFL, RF, quad, hip flexor tightness PT-OP-M Strength Start: 07/22/24 17:31 Freq: Status: Active Protocol: Document 07/29/24 07:29 [facility] (Rec: 07/29/24 08:21 [facility] [id number]) Hip Strength Hip Manual Muscle Testing Right Flexion (L2) 4 Good Extension (S1) 4 Good Abduction 4 Good Adduction 3 Fair External Rotation 4+ Good+ Internal Rotation 4 Good Comments pain R hip w/IR & abd; pain in groin w/add Left Flexion (L2) 5 Normal Extension (S1) 5 Normal Adduction 4 Good External Rotation 5 Normal Internal Rotation 5 Normal Comments pain in R groin w/add MMT Knee Strength Knee Manual Muscle Testing Right Flexion (S2) 5 Normal Extension (L3) 5 Normal Left Flexion (S2) 5 Normal Extension (L3) 5 Normal Ankle/Foot Strength Ankle and Foot Manual Muscle Testing Right Dorsiflexion (L4) 5 Normal Plantarflexion (S1) 5 Normal Comments more fatigue in R calf but able to do 20 heel raises- feels in HS Left Dorsiflexion (L4) 5 Normal Plantarflexion (S1) 5 Normal Comments 20 heel raises B PT-OP-Q Treatments Start: 07/22/24 17:31 Freq: Status: Active Protocol: Document 08/10/24 12:50 [facility] (Rec: 08/10/24 13:46 [id number]) Therapeutic Exercises Supine Exercises Modified Louis stretch Supine Exercise Name Edge of bed opp knee to chest with AROM knee flexin X 10 Reps/Minutes 60 sec each LE X 1 piriformis stretch Side bilateral Reps/Minutes 60 sec X2 each LE Sitting Exercises seated hip abduction with band Side bilateral Resistance level 3 hoh green band Reps/Minutes one one minute hold hip hinge Sitting Exercise Name self tactile cues for hip hinge Side bilateral Reps/Minutes X5 Standing Exercises stretch Standing Exercise Name bottoms up Side bilateral Reps/Minutes X15 hip add Side bilateral Equipment Used L3 Reps/Minutes 15 ea Comments cues control sit to stand Side bilateral Equipment Used L3 around knee Reps/Minutes 15 Comments cues slower decent sidesteps Equipment Used L3 Reps/Minutes 20ft Comments cues no lat lean of trunk min Manual Therapy Treatment Soft Tissue Mobilization right hip Body Location hip flexor/glute/piriformis Mobilization Type Cross-Friction,Rolling Intensity/Depth Moderate Body Position Hooklying Comments and sidelying Manual Techniques MET for right AI left PI Type also pubic shot gun Reps/Duration 6 sec 6 X each PT-OP-T Assessment and Plan Start: 07/22/24 17:31 Freq: Status: Active Protocol: Document 08/10/24 12:50 [facility] (Rec: 08/10/24 13:46 [facility] [id number]) Physical Therapy Assessment Goals activity Flight Coordinator Goal (LTG) Pt will be able to run w/o increased pain in RLE/back on even and uneven terrain for at least 4 miles LTG Duration 10/07 strength Short Term Goal (STG) Pt will be indep w/HEP STG Duration 08/31 Flight Coordinator Goal (LTG) Pt will score 5/5 on BLE MMT and at least 3/5 in all planes LPM to show improved stability and allow inc tolerance to running LTG Duration 10/11 Assessment Summary Assessment Patient reports feeling good end of session, increased tactile/verbal cues for hip hinge required. HS stiffness likely limiting ablity to hold form with squats to lower depths. Physical Therapy Plan Frequency and Duration Frequency of Treatment 1-2x/wk Duration of treatment (weeks) 10 Plan of Care Start Date 07/29/24 Plan of Care End Date 10/07/24 Next Visit Focus/Plan Next Note Type Treatment Note Next Visit Plan work on hip hinging to work towards progression of squats and lunges STM to add, quad, HS, hip flexors and glutes; hip mobs, consider pelvic alignment, possibly bottoms up to HEP.
--- NOTE | 2024-08-13 16:37 | PT.OTN ---
Current Diagnoses Unspecified injury of unspecified quadriceps muscle, fascia and tendon, initial encounter (08/13/24) Physical Therapy Treatment Note PT-OP-A Visit Information Start: 07/22/24 17:31 Freq: Status: Active Protocol: Document 08/13/24 13:01 AB (Rec: 08/13/24 13:47 AB [id number]) Out-Patient Physical Therapy Visit Information Visit Information Visit Type Treatment Note Visit Start Time 13:02 Visit Stop Time 14:46 Visit Number 5 Number of SANITATION SUPERVISOR Visits 2 PT-OP-B Current Condition Start: 07/22/24 17:31 Freq: Status: Active Protocol: Document 07/29/24 07:29 [facility] (Rec: 07/29/24 08:21 [facility] [id number]) Current Condition History of Current Condition Onset Date April 28 Current Complaints R quad and R HS pain History of Current Condition Pt reports was just running one day and R quad started hurting in the middle. Ran for the first time in 4 months last week. it was more sore across more sup mid quad. Tried initally taking 2 weeks off and running and it hurt. was able to hike 4-5 miles w/ hills. Then 3 weeks into this hurting R HS hurting and was hobbling around. Was running 3x/week getting around 25 miles/week. HS has been bothering him more. Saw a sports doc and did US of quad and found no tears. Recommended PT and taking tumeric for inflamation but hasn't gotten it yet. Still having long Covid symptoms w/ nausea, chest pain and brain fog. Currently taking low dose maletrexone (3mg) and it doesn't seem to be working. Has been getting migraines pretty regularly. Currently every other day migraines. 2 brain MRI that were normal. HS tight when tried to run and little sore after. Sometimes does just hurt and feel like spasming and then go away with no specific activity. Pt reports hx of B calf issues and was scheduled for B fasciotomies but got COVID. He was able to gradually inc run and that went away w/o surgery. Has new shoes from running [employer] and has an insole. Has a little bit of back pain but no major back pain. Mostly just when sits, can get achey. Overall back pain has been good recently Treatment Goals Patient/Caregiver Goals Be able to run and be able to work towards running ultra [employer] PT-OP-C Subjective Start: 07/22/24 17:31 Freq: Status: Active Protocol: Document 08/13/24 13:01 AB (Rec: 08/13/24 13:47 AB [id number]) OP-PT Subjective Patient Comments Patient Comments Patient reports pain left glute, right quad when running about 1.5 to to miles in, resolved within 10 minutes of stopping running. Patient reports he ran 4 miles. PT-OP-D Balance Start: 07/22/24 17:31 Freq: Status: Active Protocol: Document 07/29/24 07:29 [facility] (Rec: 07/29/24 08:21 [facility] [id number]) Balance Tests Single Limb Standing Single Limb- Right >30 sec EO some deviation; 9 sec EC Single Limb- Left >30 sec EO; 25 sec EC PT-OP-F Manual Assessment Start: 07/22/24 17:31 Freq: Status: Active Protocol: Document 07/29/24 07:29 [facility] (Rec: 07/29/24 09:25 [facility] [id number]) Manual Assessments Soft Tissue Assessment Soft Tissue Mobility Assessment more tension in R add, quad and HS PT-OP-G Mobility & Gait Start: 07/22/24 17:31 Freq: Status: Active Protocol: Document 07/29/24 07:29 [facility] (Rec: 07/29/24 08:21 [facility] [id number]) OP Gait Assessment Comments Gait Comments walking: stiff trunk running: dec push off and hip ext B, IR R>L femur, stiff trunk PT-OP-J Posture/Palpation/Skin Start: 07/22/24 17:31 Freq: Status: Active Protocol: Document 07/29/24 07:29 [facility] (Rec: 07/29/24 08:21 [facility] [id number]) Posture Evaluation Yara Postural Classification System Yara Postural Classifications Posterior/Anterior Lumbar Protective Mechanism Left AP 0 Lumbar Protective Mechanism Right AP 0 Lumbar Protective Mechanism Left PA 0 Lumbar Protective Mechanism Right PA 1 Comments Posture Comments in running shoes: IR of femurs and tibia R>L; L Iliac crest higher, equal greater trochanter PT-OP-L Special Tests Start: 07/22/24 17:31 Freq: Status: Active Protocol: Document 07/29/24 07:29 [facility] (Rec: 07/29/24 08:21 [facility] [id number]) Special Tests Knee Special Tests femoral n test Comments more R quad tightness; L does feel some symptoms in back Obers Comments positive R SLUmp Comments R some back tightness SLR Comments L:58 feels in HS R:48 feels mostly HS but some in R hip Louis Comments L hip flexor tightness; R TFL, RF, quad, hip flexor tightness PT-OP-M Strength Start: 07/22/24 17:31 Freq: Status: Active Protocol: Document 07/29/24 07:29 [facility] (Rec: 07/29/24 08:21 [facility] [id number]) Hip Strength Hip Manual Muscle Testing Right Flexion (L2) 4 Good Extension (S1) 4 Good Abduction 4 Good Adduction 3 Fair External Rotation 4+ Good+ Internal Rotation 4 Good Comments pain R hip w/IR & abd; pain in groin w/add Left Flexion (L2) 5 Normal Extension (S1) 5 Normal Adduction 4 Good External Rotation 5 Normal Internal Rotation 5 Normal Comments pain in R groin w/add MMT Knee Strength Knee Manual Muscle Testing Right Flexion (S2) 5 Normal Extension (L3) 5 Normal Left Flexion (S2) 5 Normal Extension (L3) 5 Normal Ankle/Foot Strength Ankle and Foot Manual Muscle Testing Right Dorsiflexion (L4) 5 Normal Plantarflexion (S1) 5 Normal Comments more fatigue in R calf but able to do 20 heel raises- feels in HS Left Dorsiflexion (L4) 5 Normal Plantarflexion (S1) 5 Normal Comments 20 heel raises B PT-OP-Q Treatments Start: 07/22/24 17:31 Freq: Status: Active Protocol: Document 08/13/24 13:01 AB (Rec: 08/13/24 13:47 [id number]) Gym Equipment Shuttle Recovery dynamic push of jump/ eccentric land Resistance 25# Shuttle Recovery Platform Stable Reps/Time verbal cues for alignment and to land softly, monitored for pain SL squat Resistance 50# Bilateral Shuttle Recovery Platform Stable Reps/Time X15 Therapeutic Exercises Supine Exercises Modified Louis stretch Supine Exercise Name Edge of bed opp knee to chest with AROM knee flexion X 10 Reps/Minutes 60 sec each LE X 1 Comments with AROM knee flexion piriformis stretch Side bilateral Reps/Minutes 60 sec X1 each LE Standing Exercises Glute med isometric Standing Exercise Name HEP Side bilateral Reps/Minutes one minute X 1 each LE Comments verbal and visual cues single leg squat with band Standing Exercise Name HEP Side bilateral Resistance level one light blue band Reps/Minutes X10 Comments performed facing mirror Manual Therapy Treatment Consent Patient gave verbal consent for manual Yes treatment Soft Tissue Mobilization right hip Body Location hip flexor/glute/piriformis bilateral Mobilization Type Cross-Friction,Rolling Intensity/Depth Moderate Body Position Hooklying Comments and sidelying Manual Techniques MET for right AI left PI Type also pubic shot gun Reps/Duration 6 sec 6 X each PT-OP-T Assessment and Plan Start: 07/22/24 17:31 Freq: Status: Active Protocol: Document 08/13/24 13:01 AB (Rec: 08/13/24 13:47 AB [id number]) Physical Therapy Assessment Goals activity [facility] Goal (LTG) Pt will be able to run w/o increased pain in RLE/back on even and uneven terrain for at least 4 miles LTG Duration 10/07 strength Short Term Goal (STG) Pt will be indep w/HEP STG Duration 08/31 [facility] Goal (LTG) Pt will score 5/5 on BLE MMT and at least 3/5 in all planes LPM to show improved stability and allow inc tolerance to running LTG Duration 10/11 Assessment Summary Assessment Patient reports having no pain . Dynamc valgus with SLS right knee persists. Physical Therapy Plan Frequency and Duration Frequency of Treatment 1-2x/wk Duration of treatment (weeks) 10 Plan of Care Start Date 07/29/24 Plan of Care End Date 10/07/24 Next Visit Focus/Plan Next Note Type Treatment Note Next Visit Plan work on hip hinging to work towards progression of squats and lunges STM to add, quad, HS, hip flexors and glutes; hip mobs, consider pelvic alignment, possibly bottoms up to HEP.
--- NOTE | 2024-08-13 16:38 | PT.OTN ---
Current Diagnoses Unspecified injury of unspecified quadriceps muscle, fascia and tendon, initial encounter (08/13/24) Physical Therapy Treatment Note PT-OP-A Visit Information Start: 07/22/24 17:31 Freq: Status: Active Protocol: Document 08/13/24 13:01 AB (Rec: 08/13/24 13:47 AB [id number]) Out-Patient Physical Therapy Visit Information Visit Information Visit Type Treatment Note Visit Start Time 13:02 Visit Stop Time 14:46 Visit Number 5 Number of HOME HEALTH TRAVEL PT Visits 2 PT-OP-B Current Condition Start: 07/22/24 17:31 Freq: Status: Active Protocol: Document 07/29/24 07:29 [facility] (Rec: 07/29/24 08:21 [facility] [id number]) Current Condition History of Current Condition Onset Date April 28 Current Complaints R quad and R HS pain History of Current Condition Pt reports was just running one day and R quad started hurting in the middle. Ran for the first time in 4 months last week. it was more sore across more sup mid quad. Tried initally taking 2 weeks off and running and it hurt. was able to hike 4-5 miles w/ hills. Then 3 weeks into this hurting R HS hurting and was hobbling around. Was running 3x/week getting around 25 miles/week. HS has been bothering him more. Saw a sports doc and did US of quad and found no tears. Recommended PT and taking tumeric for inflamation but hasn't gotten it yet. Still having long Covid symptoms w/ nausea, chest pain and brain fog. Currently taking low dose maletrexone (3mg) and it doesn't seem to be working. Has been getting migraines pretty regularly. Currently every other day migraines. 2 brain MRI that were normal. HS tight when tried to run and little sore after. Sometimes does just hurt and feel like spasming and then go away with no specific activity. Pt reports hx of B calf issues and was scheduled for B fasciotomies but got COVID. He was able to gradually inc run and that went away w/o surgery. Has new shoes from running [employer] and has an insole. Has a little bit of back pain but no major back pain. Mostly just when sits, can get achey. Overall back pain has been good recently Treatment Goals Patient/Caregiver Goals Be able to run and be able to work towards running ultra [employer] PT-OP-C Subjective Start: 07/22/24 17:31 Freq: Status: Active Protocol: Document 08/13/24 13:01 AB (Rec: 08/13/24 13:47 AB [id number]) OP-PT Subjective Patient Comments Patient Comments Patient reports pain left glute, right quad when running about 1.5 to to miles in, resolved within 10 minutes of stopping running. Patient reports he ran 4 miles. PT-OP-D Balance Start: 07/22/24 17:31 Freq: Status: Active Protocol: Document 07/29/24 07:29 [facility] (Rec: 07/29/24 08:21 [facility] [id number]) Balance Tests Single Limb Standing Single Limb- Right >30 sec EO some deviation; 9 sec EC Single Limb- Left >30 sec EO; 25 sec EC PT-OP-F Manual Assessment Start: 07/22/24 17:31 Freq: Status: Active Protocol: Document 07/29/24 07:29 [facility] (Rec: 07/29/24 09:25 [facility] [id number]) Manual Assessments Soft Tissue Assessment Soft Tissue Mobility Assessment more tension in R add, quad and HS PT-OP-G Mobility & Gait Start: 07/22/24 17:31 Freq: Status: Active Protocol: Document 07/29/24 07:29 [facility] (Rec: 07/29/24 08:21 [facility] [id number]) OP Gait Assessment Comments Gait Comments walking: stiff trunk running: dec push off and hip ext B, IR R>L femur, stiff trunk PT-OP-J Posture/Palpation/Skin Start: 07/22/24 17:31 Freq: Status: Active Protocol: Document 07/29/24 07:29 [facility] (Rec: 07/29/24 08:21 [facility] [id number]) Posture Evaluation Yara Postural Classification System Yara Postural Classifications Posterior/Anterior Lumbar Protective Mechanism Left AP 0 Lumbar Protective Mechanism Right AP 0 Lumbar Protective Mechanism Left PA 0 Lumbar Protective Mechanism Right PA 1 Comments Posture Comments in running shoes: IR of femurs and tibia R>L; L Iliac crest higher, equal greater trochanter PT-OP-L Special Tests Start: 07/22/24 17:31 Freq: Status: Active Protocol: Document 07/29/24 07:29 [facility] (Rec: 07/29/24 08:21 [facility] [id number]) Special Tests Knee Special Tests femoral n test Comments more R quad tightness; L does feel some symptoms in back Obers Comments positive R SLUmp Comments R some back tightness SLR Comments L:58 feels in HS R:48 feels mostly HS but some in R hip Louis Comments L hip flexor tightness; R TFL, RF, quad, hip flexor tightness PT-OP-M Strength Start: 07/22/24 17:31 Freq: Status: Active Protocol: Document 07/29/24 07:29 [facility] (Rec: 07/29/24 08:21 [facility] [id number]) Hip Strength Hip Manual Muscle Testing Right Flexion (L2) 4 Good Extension (S1) 4 Good Abduction 4 Good Adduction 3 Fair External Rotation 4+ Good+ Internal Rotation 4 Good Comments pain R hip w/IR & abd; pain in groin w/add Left Flexion (L2) 5 Normal Extension (S1) 5 Normal Adduction 4 Good External Rotation 5 Normal Internal Rotation 5 Normal Comments pain in R groin w/add MMT Knee Strength Knee Manual Muscle Testing Right Flexion (S2) 5 Normal Extension (L3) 5 Normal Left Flexion (S2) 5 Normal Extension (L3) 5 Normal Ankle/Foot Strength Ankle and Foot Manual Muscle Testing Right Dorsiflexion (L4) 5 Normal Plantarflexion (S1) 5 Normal Comments more fatigue in R calf but able to do 20 heel raises- feels in HS Left Dorsiflexion (L4) 5 Normal Plantarflexion (S1) 5 Normal Comments 20 heel raises B PT-OP-Q Treatments Start: 07/22/24 17:31 Freq: Status: Active Protocol: Document 08/13/24 13:01 AB (Rec: 08/13/24 13:47 [id number]) Gym Equipment Shuttle Recovery dynamic push of jump/ eccentric land Resistance 25# Shuttle Recovery Platform Stable Reps/Time verbal cues for alignment and to land softly, monitored for pain SL squat Resistance 50# Bilateral Shuttle Recovery Platform Stable Reps/Time X15 Therapeutic Exercises Supine Exercises Modified Louis stretch Supine Exercise Name Edge of bed opp knee to chest with AROM knee flexion X 10 Reps/Minutes 60 sec each LE X 1 Comments with AROM knee flexion piriformis stretch Side bilateral Reps/Minutes 60 sec X1 each LE Standing Exercises Glute med isometric Standing Exercise Name HEP Side bilateral Reps/Minutes one minute X 1 each LE Comments verbal and visual cues single leg squat with band Standing Exercise Name HEP Side bilateral Resistance level one light blue band Reps/Minutes X10 Comments performed facing mirror Manual Therapy Treatment Consent Patient gave verbal consent for manual Yes treatment Soft Tissue Mobilization right hip Body Location hip flexor/glute/piriformis bilateral Mobilization Type Cross-Friction,Rolling Intensity/Depth Moderate Body Position Hooklying Comments and sidelying Manual Techniques MET for right AI left PI Type also pubic shot gun Reps/Duration 6 sec 6 X each PT-OP-T Assessment and Plan Start: 07/22/24 17:31 Freq: Status: Active Protocol: Document 08/13/24 13:01 AB (Rec: 08/13/24 13:47 AB [id number]) Physical Therapy Assessment Goals activity [facility] Goal (LTG) Pt will be able to run w/o increased pain in RLE/back on even and uneven terrain for at least 4 miles LTG Duration 10/07 strength Short Term Goal (STG) Pt will be indep w/HEP STG Duration 08/31 [facility] Goal (LTG) Pt will score 5/5 on BLE MMT and at least 3/5 in all planes LPM to show improved stability and allow inc tolerance to running LTG Duration 10/11 Assessment Summary Assessment Patient reports having no pain . Dynamc valgus with SLS right knee persists. Physical Therapy Plan Frequency and Duration Frequency of Treatment 1-2x/wk Duration of treatment (weeks) 10 Plan of Care Start Date 07/29/24 Plan of Care End Date 10/07/24 Next Visit Focus/Plan Next Note Type Treatment Note Next Visit Plan work on hip hinging to work towards progression of squats and lunges STM to add, quad, HS, hip flexors and glutes; hip mobs, consider pelvic alignment, possibly bottoms up to HEP.
--- NOTE | 2024-08-17 16:11 | PT.OTN ---
Current Diagnoses Unspecified injury of unspecified quadriceps muscle, fascia and tendon, initial encounter (08/17/24) Physical Therapy Treatment Note PT-OP-A Visit Information Start: 07/22/24 17:31 Freq: Status: Active Protocol: Document 08/17/24 13:28 AB (Rec: 08/17/24 16:11 AB [id number]) Out-Patient Physical Therapy Visit Information Visit Information Visit Type Treatment Note Visit Start Time 15:17 Visit Stop Time 16:03 Visit Number 6 Number of WASTE OIL PUMPER Visits 3 PT-OP-B Current Condition Start: 07/22/24 17:31 Freq: Status: Active Protocol: Document 07/29/24 07:29 LR (Rec: 07/29/24 08:21 [facility] [id number]) Current Condition History of Current Condition Onset Date April 28 Current Complaints R quad and R HS pain History of Current Condition Pt reports was just running one day and R quad started hurting in the middle. Ran for the first time in 4 months last week. it was more sore across more sup mid quad. Tried initally taking 2 weeks off and running and it hurt. was able to hike 4-5 miles w/ hills. Then 3 weeks into this hurting R HS hurting and was hobbling around. Was running 3x/week getting around 25 miles/week. HS has been bothering him more. Saw a sports doc and did US of quad and found no tears. Recommended PT and taking tumeric for inflamation but hasn't gotten it yet. Still having long Covid symptoms w/ nausea, chest pain and brain fog. Currently taking low dose maletrexone (3mg) and it doesn't seem to be working. Has been getting migraines pretty regularly. Currently every other day migraines. 2 brain MRI that were normal. HS tight when tried to run and little sore after. Sometimes does just hurt and feel like spasming and then go away with no specific activity. Pt reports hx of B calf issues and was scheduled for B fasciotomies but got COVID. He was able to gradually inc run and that went away w/o surgery. Has new shoes from running [employer] and has an insole. Has a little bit of back pain but no major back pain. Mostly just when sits, can get achey. Overall back pain has been good recently Treatment Goals Patient/Caregiver Goals Be able to run and be able to work towards running ultra [employer] PT-OP-C Subjective Start: 07/22/24 17:31 Freq: Status: Active Protocol: Document 08/17/24 13:28 AB (Rec: 08/17/24 16:11 AB [id number]) OP-PT Subjective Patient Comments Patient Comments Patient reports he ran 5 miles Friday, reports having increased right LE morepain 2 days after running, intermittent, feels like nerve pain bilateral HS and right quad. Patient reports increased tightness, HS, quad, calves.. Patient rates HS pain 2/ start of session. PT-OP-D Balance Start: 07/22/24 17:31 Freq: Status: Active Protocol: Document 07/29/24 07:29 [facility] (Rec: 07/29/24 08:21 [facility] [id number]) Balance Tests Single Limb Standing Single Limb- Right >30 sec EO some deviation; 9 sec EC Single Limb- Left >30 sec EO; 25 sec EC PT-OP-F Manual Assessment Start: 07/22/24 17:31 Freq: Status: Active Protocol: Document 07/29/24 07:29 [facility] (Rec: 07/29/24 09:25 [facility] [id number]) Manual Assessments Soft Tissue Assessment Soft Tissue Mobility Assessment more tension in R add, quad and HS PT-OP-G Mobility & Gait Start: 07/22/24 17:31 Freq: Status: Active Protocol: Document 07/29/24 07:29 [facility] (Rec: 07/29/24 08:21 [facility] [id number]) OP Gait Assessment Comments Gait Comments walking: stiff trunk running: dec push off and hip ext B, IR R>L femur, stiff trunk PT-OP-J Posture/Palpation/Skin Start: 07/22/24 17:31 Freq: Status: Active Protocol: Document 07/29/24 07:29 [facility] (Rec: 07/29/24 08:21 [facility] [id number]) Posture Evaluation Yara Postural Classification System Yara Postural Classifications Posterior/Anterior Lumbar Protective Mechanism Left AP 0 Lumbar Protective Mechanism Right AP 0 Lumbar Protective Mechanism Left PA 0 Lumbar Protective Mechanism Right PA 1 Comments Posture Comments in running shoes: IR of femurs and tibia R>L; L Iliac crest higher, equal greater trochanter PT-OP-L Special Tests Start: 07/22/24 17:31 Freq: Status: Active Protocol: Document 07/29/24 07:29 [facility] (Rec: 07/29/24 08:21 [facility] [id number]) Special Tests Knee Special Tests femoral n test Comments more R quad tightness; L does feel some symptoms in back Obers Comments positive R SLUmp Comments R some back tightness SLR Comments L:58 feels in HS R:48 feels mostly HS but some in R hip Louis Comments L hip flexor tightness; R TFL, RF, quad, hip flexor tightness PT-OP-M Strength Start: 07/22/24 17:31 Freq: Status: Active Protocol: Document 07/29/24 07:29 [facility] (Rec: 07/29/24 08:21 [facility] [id number]) Hip Strength Hip Manual Muscle Testing Right Flexion (L2) 4 Good Extension (S1) 4 Good Abduction 4 Good Adduction 3 Fair External Rotation 4+ Good+ Internal Rotation 4 Good Comments pain R hip w/IR & abd; pain in groin w/add Left Flexion (L2) 5 Normal Extension (S1) 5 Normal Adduction 4 Good External Rotation 5 Normal Internal Rotation 5 Normal Comments pain in R groin w/add MMT Knee Strength Knee Manual Muscle Testing Right Flexion (S2) 5 Normal Extension (L3) 5 Normal Left Flexion (S2) 5 Normal Extension (L3) 5 Normal Ankle/Foot Strength Ankle and Foot Manual Muscle Testing Right Dorsiflexion (L4) 5 Normal Plantarflexion (S1) 5 Normal Comments more fatigue in R calf but able to do 20 heel raises- feels in HS Left Dorsiflexion (L4) 5 Normal Plantarflexion (S1) 5 Normal Comments 20 heel raises B PT-OP-Q Treatments Start: 07/22/24 17:31 Freq: Status: Active Protocol: Document 08/17/24 13:28 AB (Rec: 08/17/24 16:11 AB [id number]) Therapeutic Exercises Supine Exercises HS stretch Supine Exercise Name from hooklying Side right Reps/Minutes 60 seconds X 1 Comments verbal cues Modified Louis stretch Supine Exercise Name Edge of bed opp knee to chest with AROM knee flexion X 10 Side right Reps/Minutes 60 sec LE X 1 Comments with AROM knee flexion piriformis stretch Side right Reps/Minutes 60 sec X1 LE Comments Verbal cues Standing Exercises single leg lift Standing Exercise Name hands to mat at chair seat height Side bilateral Reps/Minutes 10 X each LE Comments verbal and visual cues Bottoms up Standing Exercise Name UE's resting on mat at chair height Side bilateral Reps/Minutes X15 Comments verbal cues, monitored for pain Glute med isometric Standing Exercise Name HEP Side bilateral Reps/Minutes one minute X 1 each LE Comments verbal and visual cues squat Standing Exercise Name squat to chair touch, VC to avoid pause post hip hinge Side bilateral Reps/Minutes 15 ea Comments slightly raised seat height post first X 5 Manual Therapy Treatment Soft Tissue Mobilization right hip Body Location hip flexor/glute/piriformis bilateral Mobilization Type Cross-Friction,Rolling Intensity/Depth Moderate Body Position Hooklying Comments and sidelying HS Mobilization Type Cross-Friction,Rolling Intensity/Depth Moderate Body Position Hooklying Comments w/active HS stretch and hip fle quad Body Location distal Mobilization Type Cross-Friction,Rolling Intensity/Depth Moderate Body Position Hooklying Manual Techniques MET for right AI left PI Type also pubic shot gun Reps/Duration 6 sec 6 X each PT-OP-T Assessment and Plan Start: 07/22/24 17:31 Freq: Status: Active Protocol: Document 08/17/24 13:28 AB (Rec: 08/17/24 16:11 AB [id number]) Physical Therapy Assessment Goals activity [facility] Goal (LTG) Pt will be able to run w/o increased pain in RLE/back on even and uneven terrain for at least 4 miles LTG Duration 10/07 strength Short Term Goal (STG) Pt will be indep w/HEP STG Duration 08/31 [facility] Goal (LTG) Pt will score 5/5 on BLE MMT and at least 3/5 in all planes LPM to show improved stability and allow inc tolerance to running LTG Duration 10/11 Assessment Summary Assessment Noted band of decreased muscle mobility decreased muscle density right quad, patient ed to HOLD/ ie temporarily discontinue single leg squat with band. Physical Therapy Plan Frequency and Duration Frequency of Treatment 1-2x/wk Duration of treatment (weeks) 10 Plan of Care Start Date 07/29/24 Plan of Care End Date 10/07/24 Next Visit Focus/Plan Next Note Type Treatment Note Next Visit Plan work on hip hinging to work towards progression of squats and lunges STM to add, quad, HS, hip flexors and glutes; hip mobs, consider pelvic alignment, possibly bottoms up to HEP.
--- NOTE | 2024-08-26 17:40 | PT.OTN ---
Current Diagnoses Unspecified injury of unspecified quadriceps muscle, fascia and tendon, initial encounter (08/26/24) Physical Therapy Treatment Note PT-OP-A Visit Information Start: 07/22/24 17:31 Freq: Status: Active Protocol: Document 08/26/24 14:26 [facility] (Rec: 08/26/24 17:40 [facility] [id number]) Out-Patient Physical Therapy Visit Information Visit Information Visit Type Progress Note Visit Start Time 14:30 Visit Stop Time 15:15 Visit Number 7 Number of PROCUREMENT FORESTER Visits 0 PT-OP-B Current Condition Start: 07/22/24 17:31 Freq: Status: Active Protocol: Document 07/29/24 07:29 [facility] (Rec: 07/29/24 08:21 [facility] [id number]) Current Condition History of Current Condition Onset Date April 28 Current Complaints R quad and R HS pain History of Current Condition Pt reports was just running one day and R quad started hurting in the middle. Ran for the first time in 4 months last week. it was more sore across more sup mid quad. Tried initally taking 2 weeks off and running and it hurt. was able to hike 4-5 miles w/ hills. Then 3 weeks into this hurting R HS hurting and was hobbling around. Was running 3x/week getting around 25 miles/week. HS has been bothering him more. Saw a sports doc and did US of quad and found no tears. Recommended PT and taking tumeric for inflamation but hasn't gotten it yet. Still having long Covid symptoms w/ nausea, chest pain and brain fog. Currently taking low dose maletrexone (3mg) and it doesn't seem to be working. Has been getting migraines pretty regularly. Currently every other day migraines. 2 brain MRI that were normal. HS tight when tried to run and little sore after. Sometimes does just hurt and feel like spasming and then go away with no specific activity. Pt reports hx of B calf issues and was scheduled for B fasciotomies but got COVID. He was able to gradually inc run and that went away w/o surgery. Has new shoes from running [employer] and has an insole. Has a little bit of back pain but no major back pain. Mostly just when sits, can get achey. Overall back pain has been good recently Treatment Goals Patient/Caregiver Goals Be able to run and be able to work towards running ultra [email or web address] PT-OP-C Subjective Start: 07/22/24 17:31 Freq: Status: Active Protocol: Document 08/26/24 14:26 [facility] (Rec: 08/26/24 17:40 [facility] [id number]) OP-PT Subjective Patient Comments Patient Comments Pt reports can run about 4 miles but does get quad pain at 2/10 and has to run slower PT-OP-D Balance Start: 07/22/24 17:31 Freq: Status: Active Protocol: Document 07/29/24 07:29 [facility] (Rec: 07/29/24 08:21 [facility] [id number]) Balance Tests Single Limb Standing Single Limb- Right >30 sec EO some deviation; 9 sec EC Single Limb- Left >30 sec EO; 25 sec EC PT-OP-F Manual Assessment Start: 07/22/24 17:31 Freq: Status: Active Protocol: Document 07/29/24 07:29 [facility] (Rec: 07/29/24 09:25 [facility] [id number]) Manual Assessments Soft Tissue Assessment Soft Tissue Mobility Assessment more tension in R add, quad and HS PT-OP-G Mobility & Gait Start: 07/22/24 17:31 Freq: Status: Active Protocol: Document 07/29/24 07:29 [facility] (Rec: 07/29/24 08:21 [facility] [id number]) OP Gait Assessment Comments Gait Comments walking: stiff trunk running: dec push off and hip ext B, IR R>L femur, stiff trunk PT-OP-J Posture/Palpation/Skin Start: 07/22/24 17:31 Freq: Status: Active Protocol: Document 08/26/24 14:26 [facility] (Rec: 08/26/24 17:40 [facility] [id number]) Posture Evaluation Yara Postural Classification System Yara Postural Classifications Posterior/Anterior Lumbar Protective Mechanism Left AP 0 Lumbar Protective Mechanism Right AP 1 Lumbar Protective Mechanism Left PA 4 Lumbar Protective Mechanism Right PA 1 PT-OP-L Special Tests Start: 07/22/24 17:31 Freq: Status: Active Protocol: Document 07/29/24 07:29 [facility] (Rec: 07/29/24 08:21 [facility] [id number]) Special Tests Knee Special Tests femoral n test Comments more R quad tightness; L does feel some symptoms in back Obers Comments positive R SLUmp Comments R some back tightness SLR Comments L:58 feels in HS R:48 feels mostly HS but some in R hip Louis Comments L hip flexor tightness; R TFL, RF, quad, hip flexor tightness PT-OP-M Strength Start: 07/22/24 17:31 Freq: Status: Active Protocol: Document 08/26/24 14:26 [facility] (Rec: 08/26/24 17:40 [facility] [id number]) Hip Strength Hip Manual Muscle Testing Right Flexion (L2) 4+ Good+ Extension (S1) 5 Normal Abduction 5 Normal Adduction 4+ Good+ External Rotation 5 Normal Internal Rotation 5 Normal Comments pain in R HS w/hip ext; tight in L groin w/add Left Flexion (L2) 5 Normal Extension (S1) 5 Normal Abduction 5 Normal Adduction 5 Normal External Rotation 5 Normal Internal Rotation 5 Normal Knee Strength Knee Manual Muscle Testing Right Flexion (S2) 5 Normal Extension (L3) 5 Normal Left Flexion (S2) 5 Normal Extension (L3) 5 Normal Ankle/Foot Strength Ankle and Foot Manual Muscle Testing Right Dorsiflexion (L4) 5 Normal Plantarflexion (S1) 5 Normal Comments 20 heel raises B Left Dorsiflexion (L4) 5 Normal Plantarflexion (S1) 5 Normal Comments 20 heel raises B PT-OP-Q Treatments Start: 07/22/24 17:31 Freq: Status: Active Protocol: Document 08/26/24 14:26 [facility] (Rec: 08/26/24 17:40 [facility] [id number]) Therapeutic Exercises Supine Exercises piriformis stretch Side bilateral Reps/Minutes 60 sec X1 LE Comments Verbal cues Standing Exercises gait at wall Side bilateral Reps/Minutes 5secx3 ea Comments max cues knee ext lunges Standing Exercise Name in mirror stationary Side bilateral Reps/Minutes 12 ea Comments cues for hip, knee, foot line up single leg lift Standing Exercise Name hands to mat at chair seat height Side bilateral Reps/Minutes 10 X each LE Comments min cues HEP Bottoms up Standing Exercise Name UE's resting on mat at chair height Side bilateral Reps/Minutes 5sec x6 Comments cues to hold at least 5 sec Glute med isometric Standing Exercise Name HEP squat Standing Exercise Name sit to stand w/slow control Side bilateral Equipment Used L3 at knees Reps/Minutes 2x12 ea Comments HEP sidesteps Standing Exercise Name in very mini squat Equipment Used L3 Reps/Minutes 15 ft ea Comments HEP Other Exercises isometrics Other Exercise Name B LE MMT & LPM Manual Therapy Treatment Consent Patient gave verbal consent for manual Yes treatment Soft Tissue Mobilization HS Body Location R proximal Mobilization Type Rolling Intensity/Depth Moderate Body Position Hooklying Comments w/active HS stretch and hip flex quad Body Location proximal RF Mobilization Type Rolling,Strumming Intensity/Depth Moderate Body Position Supine PT-OP-T Assessment and Plan Start: 07/22/24 17:31 Freq: Status: Active Protocol: Document 08/26/24 14:26 [facility] (Rec: 08/26/24 17:40 [facility] [id number]) Physical Therapy Assessment Goals activity Jail Goal (LTG) Pt will be able to run w/o increased pain in RLE/back on even and uneven terrain for at least 4 miles 08/26-2/10 w/slower speed running for 4 miles. Stops to stretch during, HS doing ok, back doing well LTG Duration 10/07 strength Short Term Goal (STG) Pt will be indep w/HEP STG Duration achieved advancing as able Bar Finish Operator Goal (LTG) Pt will score 5/5 on BLE MMT and at least 3/5 in all planes LPM to show improved stability and allow inc tolerance to running 08/26-improving LTG Duration 10/11 Assessment Summary Assessment pt is inc his mileage and able to run more w/less symptoms. Did inc R HS discomfort w/MMT hip ext today though. He cont to have some weakness along w/ dec motor contorl and would benefit from cont PT. Physical Therapy Plan Frequency and Duration Frequency of Treatment 1-2x/wk Duration of treatment (weeks) 10 Plan of Care Start Date 07/29/24 Plan of Care End Date 10/07/24 Therapeutic Interventions Therapeutic Interventions Balance Training,Gait Training ,Home Exercise Program,Joint Mobilizations,Manual Therapy, Neuromuscular Re-education, Patient/Caregiver Education, Self-Care/Home Management,Soft Tissue Mobilization,Taping, Therapeutic Activities, Therapeutic Exercises Modalities Cold Pack/Ice Massage,Electric Stimulation,Hot Packs, Infrared Therapy,Ultrasound Next Visit Focus/Plan Next Note Type Treatment Note Next Visit Plan cont to work on progressive strengthening for running STM to add, quad, HS, hip flexors and glutes; hip mobs, consider pelvic alignment
--- NOTE | 2024-09-02 14:49 | PT.OTN ---
Current Diagnoses Unspecified injury of unspecified quadriceps muscle, fascia and tendon, initial encounter (09/02/24) Physical Therapy Treatment Note PT-OP-A Visit Information Start: 07/22/24 17:31 Freq: Status: Active Protocol: Document 09/02/24 13:38 [facility] (Rec: 09/02/24 14:49 [facility] [id number]) Out-Patient Physical Therapy Visit Information Visit Information Visit Type Treatment Note Visit Start Time 13:46 Visit Stop Time 14:26 Visit Number 8 Number of EDDY CURRENT INSPECTOR Visits 0 PT-OP-B Current Condition Start: 07/22/24 17:31 Freq: Status: Active Protocol: Document 07/29/24 07:29 [facility] (Rec: 07/29/24 08:21 [facility] [id number]) Current Condition History of Current Condition Onset Date April 28 Current Complaints R quad and R HS pain History of Current Condition Pt reports was just running one day and R quad started hurting in the middle. Ran for the first time in 4 months last week. it was more sore across more sup mid quad. Tried initally taking 2 weeks off and running and it hurt. was able to hike 4-5 miles w/ hills. Then 3 weeks into this hurting R HS hurting and was hobbling around. Was running 3x/week getting around 25 miles/week. HS has been bothering him more. Saw a sports doc and did US of quad and found no tears. Recommended PT and taking tumeric for inflamation but hasn't gotten it yet. Still having long Covid symptoms w/ nausea, chest pain and brain fog. Currently taking low dose maletrexone (3mg) and it doesn't seem to be working. Has been getting migraines pretty regularly. Currently every other day migraines. 2 brain MRI that were normal. HS tight when tried to run and little sore after. Sometimes does just hurt and feel like spasming and then go away with no specific activity. Pt reports hx of B calf issues and was scheduled for B fasciotomies but got COVID. He was able to gradually inc run and that went away w/o surgery. Has new shoes from running [employer] and has an insole. Has a little bit of back pain but no major back pain. Mostly just when sits, can get achey. Overall back pain has been good recently Treatment Goals Patient/Caregiver Goals Be able to run and be able to work towards running ultra [employer] PT-OP-C Subjective Start: 07/22/24 17:31 Freq: Status: Active Protocol: Document 09/02/24 13:38 [facility] (Rec: 09/02/24 14:49 [facility] [id number]) OP-PT Subjective Patient Comments Patient Comments Pt reports did a little over 4 miles and R quad felt a little tired . During pain was 1/10 and went away right after. MOre at hip flexor region. Has been doing exercises. PT-OP-D Balance Start: 07/22/24 17:31 Freq: Status: Active Protocol: Document 07/29/24 07:29 [facility] (Rec: 07/29/24 08:21 [facility] [id number]) Balance Tests Single Limb Standing Single Limb- Right >30 sec EO some deviation; 9 sec EC Single Limb- Left >30 sec EO; 25 sec EC PT-OP-F Manual Assessment Start: 07/22/24 17:31 Freq: Status: Active Protocol: Document 07/29/24 07:29 [facility] (Rec: 07/29/24 09:25 [facility] [id number]) Manual Assessments Soft Tissue Assessment Soft Tissue Mobility Assessment more tension in R add, quad and HS PT-OP-G Mobility & Gait Start: 07/22/24 17:31 Freq: Status: Active Protocol: Document 07/29/24 07:29 [facility] (Rec: 07/29/24 08:21 [facility] [id number]) OP Gait Assessment Comments Gait Comments walking: stiff trunk running: dec push off and hip ext B, IR R>L femur, stiff trunk PT-OP-J Posture/Palpation/Skin Start: 07/22/24 17:31 Freq: Status: Active Protocol: Document 08/26/24 14:26 [facility] (Rec: 08/26/24 17:40 [facility] [id number]) Posture Evaluation Yara Postural Classification System Yara Postural Classifications Posterior/Anterior Lumbar Protective Mechanism Left AP 0 Lumbar Protective Mechanism Right AP 1 Lumbar Protective Mechanism Left PA 4 Lumbar Protective Mechanism Right PA 1 PT-OP-L Special Tests Start: 07/22/24 17:31 Freq: Status: Active Protocol: Document 07/29/24 07:29 [facility] (Rec: 07/29/24 08:21 [facility] [id number]) Special Tests Knee Special Tests femoral n test Comments more R quad tightness; L does feel some symptoms in back Obers Comments positive R SLUmp Comments R some back tightness SLR Comments L:58 feels in HS R:48 feels mostly HS but some in R hip Louis Comments L hip flexor tightness; R TFL, RF, quad, hip flexor tightness PT-OP-M Strength Start: 07/22/24 17:31 Freq: Status: Active Protocol: Document 08/26/24 14:26 [facility] (Rec: 08/26/24 17:40 [facility] [id number]) Hip Strength Hip Manual Muscle Testing Right Flexion (L2) 4+ Good+ Extension (S1) 5 Normal Abduction 5 Normal Adduction 4+ Good+ External Rotation 5 Normal Internal Rotation 5 Normal Comments pain in R HS w/hip ext; tight in L groin w/add Left Flexion (L2) 5 Normal Extension (S1) 5 Normal Abduction 5 Normal Adduction 5 Normal External Rotation 5 Normal Internal Rotation 5 Normal Knee Strength Knee Manual Muscle Testing Right Flexion (S2) 5 Normal Extension (L3) 5 Normal Left Flexion (S2) 5 Normal Extension (L3) 5 Normal Ankle/Foot Strength Ankle and Foot Manual Muscle Testing Right Dorsiflexion (L4) 5 Normal Plantarflexion (S1) 5 Normal Comments 20 heel raises B Left Dorsiflexion (L4) 5 Normal Plantarflexion (S1) 5 Normal Comments 20 heel raises B PT-OP-Q Treatments Start: 07/22/24 17:31 Freq: Status: Active Protocol: Document 09/02/24 13:38 [facility] (Rec: 09/02/24 14:49 [facility] [id number]) Therapeutic Exercises Standing Exercises hip hike Side bilateral Reps/Minutes 15 ea Comments mirror SL Standing Exercise Name 3 pt tap Side bilateral Reps/Minutes 15 lunges Standing Exercise Name 1.fwd 2. lat Side bilateral Reps/Minutes 10 ea Comments cues for hip, knee, foot line up Manual Therapy Treatment Consent Patient gave verbal consent for manual Yes treatment Soft Tissue Mobilization hip flexor Body Location R iliopsoas and TFL Mobilization Type Strumming,Sustained Pressure Intensity/Depth Moderate Body Position Supine Comments w/flex and ER adductors Body Location R Mobilization Type Rolling Intensity/Depth Moderate Body Position Hooklying Comments w/flex & ER Joint Mobilizations innominate Comments flex and ER hooklying c/r hip Comments R inf and med glide c/r; free the ball ER c/r PT-OP-T Assessment and Plan Start: 07/22/24 17:31 Freq: Status: Active Protocol: Document 09/02/24 13:38 [facility] (Rec: 09/02/24 14:49 [facility] [id number]) Physical Therapy Assessment Goals activity Usp Goal (LTG) Pt will be able to run w/o increased pain in RLE/back on even and uneven terrain for at least 4 miles 08/26-2/10 w/slower speed running for 4 miles. Stops to stretch during, HS doing ok, back doing well LTG Duration 10/07 strength Short Term Goal (STG) Pt will be indep w/HEP STG Duration achieved advancing as able Usp Goal (LTG) Pt will score 5/5 on BLE MMT and at least 3/5 in all planes LPM to show improved stability and allow inc tolerance to running 08/26-improving LTG Duration 10/11 Assessment Summary Assessment Elicited pt hip flexor discomfort w/fwd lunge RLE fwd when cued for alignment. Pt had lack of ER and flex ROM at hip especiallyw hen combined. Improved w/manul Physical Therapy Plan Frequency and Duration Frequency of Treatment 1-2x/wk Duration of treatment (weeks) 10 Plan of Care Start Date 07/29/24 Plan of Care End Date 10/07/24 Next Visit Focus/Plan Next Note Type Treatment Note Next Visit Plan Try to return to return to SL squat, cont to work on progressive strengthening for running work on hip flexor and R hip mobility especially for R hip flex and ER along w/abd
--- NOTE | 2024-09-08 15:40 | PT.OTN ---
Current Diagnoses Unspecified injury of unspecified quadriceps muscle, fascia and tendon, initial encounter (09/08/24) Physical Therapy Treatment Note PT-OP-A Visit Information Start: 07/22/24 17:31 Freq: Status: Active Protocol: Document 09/08/24 10:49 [facility] (Rec: 09/08/24 15:40 [facility] [id number]) Out-Patient Physical Therapy Visit Information Visit Information Visit Type Treatment Note Visit Start Time 10:49 Visit Stop Time 11:29 Visit Number 9 Number of BUSINESS STRATEGY MANAGER Visits 0 PT-OP-B Current Condition Start: 07/22/24 17:31 Freq: Status: Active Protocol: Document 07/29/24 07:29 [facility] (Rec: 07/29/24 08:21 [facility] [id number]) Current Condition History of Current Condition Onset Date April 28 Current Complaints R quad and R HS pain History of Current Condition Pt reports was just running one day and R quad started hurting in the middle. Ran for the first time in 4 months last week. it was more sore across more sup mid quad. Tried initally taking 2 weeks off and running and it hurt. was able to hike 4-5 miles w/ hills. Then 3 weeks into this hurting R HS hurting and was hobbling around. Was running 3x/week getting around 25 miles/week. HS has been bothering him more. Saw a sports doc and did US of quad and found no tears. Recommended PT and taking tumeric for inflamation but hasn't gotten it yet. Still having long Covid symptoms w/ nausea, chest pain and brain fog. Currently taking low dose maletrexone (3mg) and it doesn't seem to be working. Has been getting migraines pretty regularly. Currently every other day migraines. 2 brain MRI that were normal. HS tight when tried to run and little sore after. Sometimes does just hurt and feel like spasming and then go away with no specific activity. Pt reports hx of B calf issues and was scheduled for B fasciotomies but got COVID. He was able to gradually inc run and that went away w/o surgery. Has new shoes from running [employer] and has an insole. Has a little bit of back pain but no major back pain. Mostly just when sits, can get achey. Overall back pain has been good recently Treatment Goals Patient/Caregiver Goals Be able to run and be able to work towards running ultra [employer] PT-OP-C Subjective Start: 07/22/24 17:31 Freq: Status: Active Protocol: Document 09/08/24 10:49 [facility] (Rec: 09/08/24 15:40 [facility] [id number]) OP-PT Subjective Patient Comments Patient Comments Pt reports at about 2 miles in , notes some discomfort in R ant hip. Goes away when finished after 4.5 miles. having trouble w/hip flexor stretch PT-OP-D Balance Start: 07/22/24 17:31 Freq: Status: Active Protocol: Document 07/29/24 07:29 [facility] (Rec: 07/29/24 08:21 [facility] [id number]) Balance Tests Single Limb Standing Single Limb- Right >30 sec EO some deviation; 9 sec EC Single Limb- Left >30 sec EO; 25 sec EC PT-OP-F Manual Assessment Start: 07/22/24 17:31 Freq: Status: Active Protocol: Document 07/29/24 07:29 [facility] (Rec: 07/29/24 09:25 [facility] [id number]) Manual Assessments Soft Tissue Assessment Soft Tissue Mobility Assessment more tension in R add, quad and HS PT-OP-G Mobility & Gait Start: 07/22/24 17:31 Freq: Status: Active Protocol: Document 07/29/24 07:29 [facility] (Rec: 07/29/24 08:21 [facility] [id number]) OP Gait Assessment Comments Gait Comments walking: stiff trunk running: dec push off and hip ext B, IR R>L femur, stiff trunk PT-OP-J Posture/Palpation/Skin Start: 07/22/24 17:31 Freq: Status: Active Protocol: Document 08/26/24 14:26 [facility] (Rec: 08/26/24 17:40 [facility] [id number]) Posture Evaluation Yara Postural Classification System Yara Postural Classifications Posterior/Anterior Lumbar Protective Mechanism Left AP 0 Lumbar Protective Mechanism Right AP 1 Lumbar Protective Mechanism Left PA 4 Lumbar Protective Mechanism Right PA 1 PT-OP-L Special Tests Start: 07/22/24 17:31 Freq: Status: Active Protocol: Document 07/29/24 07:29 [facility] (Rec: 07/29/24 08:21 [facility] [id number]) Special Tests Knee Special Tests femoral n test Comments more R quad tightness; L does feel some symptoms in back Obers Comments positive R SLUmp Comments R some back tightness SLR Comments L:58 feels in HS R:48 feels mostly HS but some in R hip Louis Comments L hip flexor tightness; R TFL, RF, quad, hip flexor tightness PT-OP-M Strength Start: 07/22/24 17:31 Freq: Status: Active Protocol: Document 08/26/24 14:26 [facility] (Rec: 08/26/24 17:40 [facility] [id number]) Hip Strength Hip Manual Muscle Testing Right Flexion (L2) 4+ Good+ Extension (S1) 5 Normal Abduction 5 Normal Adduction 4+ Good+ External Rotation 5 Normal Internal Rotation 5 Normal Comments pain in R HS w/hip ext; tight in L groin w/add Left Flexion (L2) 5 Normal Extension (S1) 5 Normal Abduction 5 Normal Adduction 5 Normal External Rotation 5 Normal Internal Rotation 5 Normal Knee Strength Knee Manual Muscle Testing Right Flexion (S2) 5 Normal Extension (L3) 5 Normal Left Flexion (S2) 5 Normal Extension (L3) 5 Normal Ankle/Foot Strength Ankle and Foot Manual Muscle Testing Right Dorsiflexion (L4) 5 Normal Plantarflexion (S1) 5 Normal Comments 20 heel raises B Left Dorsiflexion (L4) 5 Normal Plantarflexion (S1) 5 Normal Comments 20 heel raises B PT-OP-Q Treatments Start: 07/22/24 17:31 Freq: Status: Active Protocol: Document 09/08/24 10:49 [facility] (Rec: 09/08/24 15:40 [facility] [id number]) Therapeutic Exercises Standing Exercises hip hike Side bilateral Reps/Minutes 10 ea Comments cues more like a crunch in abdomen to biase obliques vs QL SL Standing Exercise Name 3 pt tap Side bilateral Reps/Minutes 3 ea gait at wall Side bilateral Reps/Minutes 5secx5 ea Comments max cues knee ext single leg squat with band Standing Exercise Name sit to stand to mat Side bilateral Reps/Minutes 10 ea Comments cues control and R knee stretch Standing Exercise Name hip flexor in standingand 1/2 kneel Side right Reps/Minutes 4 min total Manual Therapy Treatment Consent Patient gave verbal consent for manual Yes treatment Soft Tissue Mobilization abdomen Comments lat paretocecal ligament w/hip ER hip flexor Body Location R iliacus and psoas and TFL & RF Mobilization Type Strumming,Sustained Pressure Intensity/Depth Moderate Body Position Supine Comments w/flex and ER PT-OP-T Assessment and Plan Start: 07/22/24 17:31 Freq: Status: Active Protocol: Document 09/08/24 10:49 [facility] (Rec: 09/08/24 15:40 [facility] [id number]) Physical Therapy Assessment Goals activity Retirement Goal (LTG) Pt will be able to run w/o increased pain in RLE/back on even and uneven terrain for at least 4 miles 08/26-2/10 w/slower speed running for 4 miles. Stops to stretch during, HS doing ok, back doing well LTG Duration 10/07 strength Short Term Goal (STG) Pt will be indep w/HEP STG Duration achieved advancing as able Retirement Goal (LTG) Pt will score 5/5 on BLE MMT and at least 3/5 in all planes LPM to show improved stability and allow inc tolerance to running 08/26-improving LTG Duration 10/11 Assessment Summary Assessment Pt had more difficulty w/SL sit to stand on R than L w/ more difficulty keeping LE neutral. Physical Therapy Plan Frequency and Duration Frequency of Treatment 1-2x/wk Duration of treatment (weeks) 10 Plan of Care Start Date 07/29/24 Plan of Care End Date 10/07/24 Next Visit Focus/Plan Next Note Type Treatment Note Next Visit Plan check in on return to return to SL squat, cont to work on progressive strengthening for running work on hip flexor and R hip mobility especially for R hip flex and ER along w/abd
--- NOTE | 2024-09-10 12:22 | PT.OTN ---
Current Diagnoses Unspecified injury of unspecified quadriceps muscle, fascia and tendon, initial encounter (09/10/24) Physical Therapy Treatment Note PT-OP-A Visit Information Start: 07/22/24 17:31 Freq: Status: Active Protocol: Document 09/10/24 09:32 AB (Rec: 09/10/24 12:22 AB [id number]) Out-Patient Physical Therapy Visit Information Visit Information Visit Type Treatment Note Visit Start Time 11:34 Visit Stop Time 12:20 Visit Number 10 Number of REVERBERATORY FURNACE SUPERVISOR Visits 1 PT-OP-B Current Condition Start: 07/22/24 17:31 Freq: Status: Active Protocol: Document 07/29/24 07:29 LR (Rec: 07/29/24 08:21 [facility] [id number]) Current Condition History of Current Condition Onset Date April 28 Current Complaints R quad and R HS pain History of Current Condition Pt reports was just running one day and R quad started hurting in the middle. Ran for the first time in 4 months last week. it was more sore across more sup mid quad. Tried initally taking 2 weeks off and running and it hurt. was able to hike 4-5 miles w/ hills. Then 3 weeks into this hurting R HS hurting and was hobbling around. Was running 3x/week getting around 25 miles/week. HS has been bothering him more. Saw a sports doc and did US of quad and found no tears. Recommended PT and taking tumeric for inflamation but hasn't gotten it yet. Still having long Covid symptoms w/ nausea, chest pain and brain fog. Currently taking low dose maletrexone (3mg) and it doesn't seem to be working. Has been getting migraines pretty regularly. Currently every other day migraines. 2 brain MRI that were normal. HS tight when tried to run and little sore after. Sometimes does just hurt and feel like spasming and then go away with no specific activity. Pt reports hx of B calf issues and was scheduled for B fasciotomies but got COVID. He was able to gradually inc run and that went away w/o surgery. Has new shoes from running [employer] and has an insole. Has a little bit of back pain but no major back pain. Mostly just when sits, can get achey. Overall back pain has been good recently Treatment Goals Patient/Caregiver Goals Be able to run and be able to work towards running ultra [employer] PT-OP-C Subjective Start: 07/22/24 17:31 Freq: Status: Active Protocol: Document 09/10/24 09:32 AB (Rec: 09/10/24 12:22 AB [id number]) OP-PT Subjective Patient Comments Patient Comments Patient reports he ran 5 miles a few days ago but has lateral groin pain that goes away after running. Patient reports it feels like muscle soreness vs pain. PT-OP-D Balance Start: 07/22/24 17:31 Freq: Status: Active Protocol: Document 07/29/24 07:29 [facility] (Rec: 07/29/24 08:21 [facility] [id number]) Balance Tests Single Limb Standing Single Limb- Right >30 sec EO some deviation; 9 sec EC Single Limb- Left >30 sec EO; 25 sec EC PT-OP-F Manual Assessment Start: 07/22/24 17:31 Freq: Status: Active Protocol: Document 07/29/24 07:29 [facility] (Rec: 07/29/24 09:25 [facility] [id number]) Manual Assessments Soft Tissue Assessment Soft Tissue Mobility Assessment more tension in R add, quad and HS PT-OP-G Mobility & Gait Start: 07/22/24 17:31 Freq: Status: Active Protocol: Document 07/29/24 07:29 [facility] (Rec: 07/29/24 08:21 [facility] [id number]) OP Gait Assessment Comments Gait Comments walking: stiff trunk running: dec push off and hip ext B, IR R>L femur, stiff trunk PT-OP-J Posture/Palpation/Skin Start: 07/22/24 17:31 Freq: Status: Active Protocol: Document 08/26/24 14:26 [facility] (Rec: 08/26/24 17:40 [facility] [id number]) Posture Evaluation Yara Postural Classification System Yara Postural Classifications Posterior/Anterior Lumbar Protective Mechanism Left AP 0 Lumbar Protective Mechanism Right AP 1 Lumbar Protective Mechanism Left PA 4 Lumbar Protective Mechanism Right PA 1 PT-OP-L Special Tests Start: 07/22/24 17:31 Freq: Status: Active Protocol: Document 07/29/24 07:29 [facility] (Rec: 07/29/24 08:21 [facility] [id number]) Special Tests Knee Special Tests femoral n test Comments more R quad tightness; L does feel some symptoms in back Obers Comments positive R SLUmp Comments R some back tightness SLR Comments L:58 feels in HS R:48 feels mostly HS but some in R hip Louis Comments L hip flexor tightness; R TFL, RF, quad, hip flexor tightness PT-OP-M Strength Start: 07/22/24 17:31 Freq: Status: Active Protocol: Document 08/26/24 14:26 [facility] (Rec: 08/26/24 17:40 [facility] [id number]) Hip Strength Hip Manual Muscle Testing Right Flexion (L2) 4+ Good+ Extension (S1) 5 Normal Abduction 5 Normal Adduction 4+ Good+ External Rotation 5 Normal Internal Rotation 5 Normal Comments pain in R HS w/hip ext; tight in L groin w/add Left Flexion (L2) 5 Normal Extension (S1) 5 Normal Abduction 5 Normal Adduction 5 Normal External Rotation 5 Normal Internal Rotation 5 Normal Knee Strength Knee Manual Muscle Testing Right Flexion (S2) 5 Normal Extension (L3) 5 Normal Left Flexion (S2) 5 Normal Extension (L3) 5 Normal Ankle/Foot Strength Ankle and Foot Manual Muscle Testing Right Dorsiflexion (L4) 5 Normal Plantarflexion (S1) 5 Normal Comments 20 heel raises B Left Dorsiflexion (L4) 5 Normal Plantarflexion (S1) 5 Normal Comments 20 heel raises B PT-OP-Q Treatments Start: 07/22/24 17:31 Freq: Status: Active Protocol: Document 09/10/24 09:32 AB (Rec: 09/10/24 12:22 AB [id number]) Therapeutic Exercises Supine Exercises HS stretch Supine Exercise Name from hooklying Side right Reps/Minutes 60 seconds X 1 Comments verbal cues Modified Louis stretch Supine Exercise Name Edge of bed opp knee to chest with AROM knee flexion X 10 Side right Reps/Minutes 60 sec LE X 1 Comments with AROM knee flexion piriformis stretch Side bilateral Reps/Minutes 60 sec X1 LE Comments Verbal cues Standing Exercises SL Standing Exercise Name 3 pt tap Side bilateral Reps/Minutes 5 ea Glute med isometric Standing Exercise Name HEP Side bilateral Reps/Minutes X10 single leg squat with band Standing Exercise Name sit to stand to mat Side bilateral Reps/Minutes 10 ea Comments cues control and R knee Manual Therapy Treatment Consent Patient gave verbal consent for manual Yes treatment Soft Tissue Mobilization right hip Body Location hip flexor/glute/piriformis bilateral Mobilization Type Cross-Friction,Rolling Intensity/Depth Moderate Body Position Hooklying Comments and sidelying Joint Mobilizations hip Grade IV Body Position Hooklying Reps/Duration 3X10 each Comments R inf and inf med glide Manual Techniques contract relax Type hip flexion Body Location right hip Reps/Duration X1 right hip PNF Type active DF resistance illiac crest, traction at quad Body Location right LE Body Position Sidelying Reps/Duration ~2 min PT-OP-T Assessment and Plan Start: 07/22/24 17:31 Freq: Status: Active Protocol: Document 09/10/24 09:32 AB (Rec: 09/10/24 12:22 AB [id number]) Physical Therapy Assessment Goals activity [employer]ges [employer] Buildings Supervisor Goal (LTG) Pt will be able to run w/o increased pain in RLE/back on even and uneven terrain for at least 4 miles 08/26-2/10 w/slower speed running for 4 miles. Stops to stretch during, HS doing ok, back doing well LTG Duration 10/07 strength Short Term Goal (STG) Pt will be indep w/HEP STG Duration achieved advancing as able Bridges And Buildings Supervisor Goal (LTG) Pt will score 5/5 on BLE MMT and at least 3/5 in all planes LPM to show improved stability and allow inc tolerance to running 08/26-improving LTG Duration 10/11 Assessment Summary Assessment Right same to slightly better with single leg squat, decreased control at greater depth on both LE's,73 deg knee flexion left and 70 deg knee flexion on right. Patient reports having no pain end of session. Physical Therapy Plan Frequency and Duration Frequency of Treatment 1-2x/wk Duration of treatment (weeks) 10 Plan of Care Start Date 07/29/24 Plan of Care End Date 10/07/24 Next Visit Focus/Plan Next Note Type Treatment Note Next Visit Plan check in on return to return to SL squat, cont to work on progressive strengthening for running work on hip flexor and R hip mobility especially for R hip flex and ER along w/abd
--- NOTE | 2024-09-15 10:47 | PT.OTN ---
Current Diagnoses Unspecified injury of unspecified quadriceps muscle, fascia and tendon, initial encounter (09/15/24) Physical Therapy Treatment Note PT-OP-A Visit Information Start: 07/22/24 17:31 Freq: Status: Active Protocol: Document 09/15/24 09:02 AB (Rec: 09/15/24 10:46 AB [id number]) Out-Patient Physical Therapy Visit Information Visit Information Visit Type Treatment Note Visit Start Time 09:04 Visit Stop Time 09:47 Visit Number 11 Number of PLASTICS SCIENTIST Visits 2 PT-OP-B Current Condition Start: 07/22/24 17:31 Freq: Status: Active Protocol: Document 07/29/24 07:29 LR (Rec: 07/29/24 08:21 [facility] [id number]) Current Condition History of Current Condition Onset Date April 28 Current Complaints R quad and R HS pain History of Current Condition Pt reports was just running one day and R quad started hurting in the middle. Ran for the first time in 4 months last week. it was more sore across more sup mid quad. Tried initally taking 2 weeks off and running and it hurt. was able to hike 4-5 miles w/ hills. Then 3 weeks into this hurting R HS hurting and was hobbling around. Was running 3x/week getting around 25 miles/week. HS has been bothering him more. Saw a sports doc and did US of quad and found no tears. Recommended PT and taking tumeric for inflamation but hasn't gotten it yet. Still having long Covid symptoms w/ nausea, chest pain and brain fog. Currently taking low dose maletrexone (3mg) and it doesn't seem to be working. Has been getting migraines pretty regularly. Currently every other day migraines. 2 brain MRI that were normal. HS tight when tried to run and little sore after. Sometimes does just hurt and feel like spasming and then go away with no specific activity. Pt reports hx of B calf issues and was scheduled for B fasciotomies but got COVID. He was able to gradually inc run and that went away w/o surgery. Has new shoes from running [employer] and has an insole. Has a little bit of back pain but no major back pain. Mostly just when sits, can get achey. Overall back pain has been good recently Treatment Goals Patient/Caregiver Goals Be able to run and be able to work towards running ultra [employer] PT-OP-C Subjective Start: 07/22/24 17:31 Freq: Status: Active Protocol: Document 09/15/24 09:02 AB (Rec: 09/15/24 10:46 AB [id number]) OP-PT Subjective Patient Comments Patient Comments Patient reports groin soreness 2 miles into run which decreases at about 4 miles yesterday, ran 5.5 miles with some inclines. Patient rates pain 0/10 start of session. PT-OP-D Balance Start: 07/22/24 17:31 Freq: Status: Active Protocol: Document 07/29/24 07:29 [facility] (Rec: 07/29/24 08:21 [facility] [id number]) Balance Tests Single Limb Standing Single Limb- Right >30 sec EO some deviation; 9 sec EC Single Limb- Left >30 sec EO; 25 sec EC PT-OP-F Manual Assessment Start: 07/22/24 17:31 Freq: Status: Active Protocol: Document 07/29/24 07:29 [facility] (Rec: 07/29/24 09:25 [facility] [id number]) Manual Assessments Soft Tissue Assessment Soft Tissue Mobility Assessment more tension in R add, quad and HS PT-OP-G Mobility & Gait Start: 07/22/24 17:31 Freq: Status: Active Protocol: Document 07/29/24 07:29 [facility] (Rec: 07/29/24 08:21 [facility] [id number]) OP Gait Assessment Comments Gait Comments walking: stiff trunk running: dec push off and hip ext B, IR R>L femur, stiff trunk PT-OP-J Posture/Palpation/Skin Start: 07/22/24 17:31 Freq: Status: Active Protocol: Document 08/26/24 14:26 [facility] (Rec: 08/26/24 17:40 [facility] [id number]) Posture Evaluation Yara Postural Classification System Yara Postural Classifications Posterior/Anterior Lumbar Protective Mechanism Left AP 0 Lumbar Protective Mechanism Right AP 1 Lumbar Protective Mechanism Left PA 4 Lumbar Protective Mechanism Right PA 1 PT-OP-L Special Tests Start: 07/22/24 17:31 Freq: Status: Active Protocol: Document 07/29/24 07:29 [facility] (Rec: 07/29/24 08:21 [facility] [id number]) Special Tests Knee Special Tests femoral n test Comments more R quad tightness; L does feel some symptoms in back Obers Comments positive R SLUmp Comments R some back tightness SLR Comments L:58 feels in HS R:48 feels mostly HS but some in R hip Louis Comments L hip flexor tightness; R TFL, RF, quad, hip flexor tightness PT-OP-M Strength Start: 07/22/24 17:31 Freq: Status: Active Protocol: Document 08/26/24 14:26 [facility] (Rec: 08/26/24 17:40 [facility] [id number]) Hip Strength Hip Manual Muscle Testing Right Flexion (L2) 4+ Good+ Extension (S1) 5 Normal Abduction 5 Normal Adduction 4+ Good+ External Rotation 5 Normal Internal Rotation 5 Normal Comments pain in R HS w/hip ext; tight in L groin w/add Left Flexion (L2) 5 Normal Extension (S1) 5 Normal Abduction 5 Normal Adduction 5 Normal External Rotation 5 Normal Internal Rotation 5 Normal Knee Strength Knee Manual Muscle Testing Right Flexion (S2) 5 Normal Extension (L3) 5 Normal Left Flexion (S2) 5 Normal Extension (L3) 5 Normal Ankle/Foot Strength Ankle and Foot Manual Muscle Testing Right Dorsiflexion (L4) 5 Normal Plantarflexion (S1) 5 Normal Comments 20 heel raises B Left Dorsiflexion (L4) 5 Normal Plantarflexion (S1) 5 Normal Comments 20 heel raises B PT-OP-Q Treatments Start: 07/22/24 17:31 Freq: Status: Active Protocol: Document 09/15/24 09:02 AB (Rec: 09/15/24 10:46 [id number]) Therapeutic Exercises Supine Exercises HS stretch Supine Exercise Name from hooklying Side bilateral Reps/Minutes 60 seconds X 1 Comments verbal cues Modified Louis stretch Supine Exercise Name Edge of bed opp knee to chest with AROM knee flexion X 10 Side bilateral Reps/Minutes 60 sec LE X 1 Comments with AROM knee flexion piriformis stretch Side bilateral Reps/Minutes 60 sec X1 LE Comments towel roll at groin on right Standing Exercises gait at wall Side bilateral Reps/Minutes 10 L 5 R pre manual X10 each post manual Comments right limited by lat groin pain Manual Therapy Treatment Soft Tissue Mobilization right hip Body Location hip flexor/glute/piriformis bilateral Mobilization Type Cross-Friction,Rolling Intensity/Depth Moderate Body Position Hooklying Comments and sidelying Joint Mobilizations hip Grade IV Body Position Hooklying Reps/Duration 3X10 each Comments R inf and inf med glide Manual Techniques MET for right AI left PI Type also pubic shot gun Reps/Duration 6 sec 6 X each PT-OP-T Assessment and Plan Start: 07/22/24 17:31 Freq: Status: Active Protocol: Document 09/15/24 09:02 AB (Rec: 09/15/24 10:46 AB [id number]) Physical Therapy Assessment Goals activity Long-Term Goal (LTG) Pt will be able to run w/o increased pain in RLE/back on even and uneven terrain for at least 4 miles 08/26-2/10 w/slower speed running for 4 miles. Stops to stretch during, HS doing ok, back doing well LTG Duration 10/07 strength Short Term Goal (STG) Pt will be indep w/HEP STG Duration achieved advancing as able Information Technology Director Goal (LTG) Pt will score 5/5 on BLE MMT and at least 3/5 in all planes LPM to show improved stability and allow inc tolerance to running 08/26-improving LTG Duration 10/11 Assessment Summary Assessment Cherise able to perform gait at wall X 10 right LE without pain post manual therapy. LE muscle stiffness and weakness continues to impact functional mobility. Physical Therapy Plan Frequency and Duration Frequency of Treatment 1-2x/wk Duration of treatment (weeks) 10 Plan of Care Start Date 07/29/24 Plan of Care End Date 10/07/24 Next Visit Focus/Plan Next Note Type Treatment Note Next Visit Plan check in on return to return to SL squat, cont to work on progressive strengthening for running work on hip flexor and R hip mobility especially for R hip flex and ER along w/abd
--- NOTE | 2024-09-17 16:27 | PT.OTN ---
Current Diagnoses Unspecified injury of unspecified quadriceps muscle, fascia and tendon, initial encounter (09/17/24) Physical Therapy Treatment Note PT-OP-A Visit Information Start: 07/22/24 17:31 Freq: Status: Active Protocol: Document 09/17/24 13:39 AB (Rec: 09/17/24 16:26 AB [id number]) Out-Patient Physical Therapy Visit Information Visit Information Visit Type Treatment Note Visit Start Time 14:33 Visit Stop Time 03:16 Visit Number 12 Number of LAB ANALYST Visits 3 PT-OP-B Current Condition Start: 07/22/24 17:31 Freq: Status: Active Protocol: Document 07/29/24 07:29 LR (Rec: 07/29/24 08:21 [facility] [id number]) Current Condition History of Current Condition Onset Date April 28 Current Complaints R quad and R HS pain History of Current Condition Pt reports was just running one day and R quad started hurting in the middle. Ran for the first time in 4 months last week. it was more sore across more sup mid quad. Tried initally taking 2 weeks off and running and it hurt. was able to hike 4-5 miles w/ hills. Then 3 weeks into this hurting R HS hurting and was hobbling around. Was running 3x/week getting around 25 miles/week. HS has been bothering him more. Saw a sports doc and did US of quad and found no tears. Recommended PT and taking tumeric for inflamation but hasn't gotten it yet. Still having long Covid symptoms w/ nausea, chest pain and brain fog. Currently taking low dose maletrexone (3mg) and it doesn't seem to be working. Has been getting migraines pretty regularly. Currently every other day migraines. 2 brain MRI that were normal. HS tight when tried to run and little sore after. Sometimes does just hurt and feel like spasming and then go away with no specific activity. Pt reports hx of B calf issues and was scheduled for B fasciotomies but got COVID. He was able to gradually inc run and that went away w/o surgery. Has new shoes from running [employer] and has an insole. Has a little bit of back pain but no major back pain. Mostly just when sits, can get achey. Overall back pain has been good recently Treatment Goals Patient/Caregiver Goals Be able to run and be able to work towards running ultra marathon PT-OP-C Subjective Start: 07/22/24 17:31 Freq: Status: Active Protocol: Document 09/17/24 13:39 AB (Rec: 09/17/24 16:26 AB [id number]) OP-PT Subjective Patient Comments Patient Comments Patient reports running 6 miles today, with quad soreness at 4 miles. Patient report groin pain with palpation 4-5/10 right 2/10 left. Patient reports ambulation into session right groin paing 2/10. great toe 6 cm from wall with knee to wall PROM right ankle DF. Start of session dynamic valgus with SLS 65 deg knee flex left 80 deg knee flex right PT-OP-D Balance Start: 07/22/24 17:31 Freq: Status: Active Protocol: Document 07/29/24 07:29 [facility] (Rec: 07/29/24 08:21 [facility] [id number]) Balance Tests Single Limb Standing Single Limb- Right >30 sec EO some deviation; 9 sec EC Single Limb- Left >30 sec EO; 25 sec EC PT-OP-F Manual Assessment Start: 07/22/24 17:31 Freq: Status: Active Protocol: Document 07/29/24 07:29 [facility] (Rec: 07/29/24 09:25 [facility] [id number]) Manual Assessments Soft Tissue Assessment Soft Tissue Mobility Assessment more tension in R add, quad and HS PT-OP-G Mobility & Gait Start: 07/22/24 17:31 Freq: Status: Active Protocol: Document 07/29/24 07:29 [facility] (Rec: 07/29/24 08:21 [facility] [id number]) OP Gait Assessment Comments Gait Comments walking: stiff trunk running: dec push off and hip ext B, IR R>L femur, stiff trunk PT-OP-J Posture/Palpation/Skin Start: 07/22/24 17:31 Freq: Status: Active Protocol: Document 08/26/24 14:26 [facility] (Rec: 08/26/24 17:40 [facility] [id number]) Posture Evaluation Yara Postural Classification System Yara Postural Classifications Posterior/Anterior Lumbar Protective Mechanism Left AP 0 Lumbar Protective Mechanism Right AP 1 Lumbar Protective Mechanism Left PA 4 Lumbar Protective Mechanism Right PA 1 PT-OP-L Special Tests Start: 07/22/24 17:31 Freq: Status: Active Protocol: Document 07/29/24 07:29 [facility] (Rec: 07/29/24 08:21 [facility] [id number]) Special Tests Knee Special Tests femoral n test Comments more R quad tightness; L does feel some symptoms in back Obers Comments positive R SLUmp Comments R some back tightness SLR Comments L:58 feels in HS R:48 feels mostly HS but some in R hip Louis Comments L hip flexor tightness; R TFL, RF, quad, hip flexor tightness PT-OP-M Strength Start: 07/22/24 17:31 Freq: Status: Active Protocol: Document 08/26/24 14:26 [facility] (Rec: 08/26/24 17:40 [facility] [id number]) Hip Strength Hip Manual Muscle Testing Right Flexion (L2) 4+ Good+ Extension (S1) 5 Normal Abduction 5 Normal Adduction 4+ Good+ External Rotation 5 Normal Internal Rotation 5 Normal Comments pain in R HS w/hip ext; tight in L groin w/add Left Flexion (L2) 5 Normal Extension (S1) 5 Normal Abduction 5 Normal Adduction 5 Normal External Rotation 5 Normal Internal Rotation 5 Normal Knee Strength Knee Manual Muscle Testing Right Flexion (S2) 5 Normal Extension (L3) 5 Normal Left Flexion (S2) 5 Normal Extension (L3) 5 Normal Ankle/Foot Strength Ankle and Foot Manual Muscle Testing Right Dorsiflexion (L4) 5 Normal Plantarflexion (S1) 5 Normal Comments 20 heel raises B Left Dorsiflexion (L4) 5 Normal Plantarflexion (S1) 5 Normal Comments 20 heel raises B PT-OP-Q Treatments Start: 07/22/24 17:31 Freq: Status: Active Protocol: Document 09/17/24 13:39 AB (Rec: 09/17/24 16:26 AB [id number]) Therapeutic Exercises Supine Exercises HS stretch Supine Exercise Name from hooklying Side bilateral Reps/Minutes 60 seconds X 1 Comments verbal cues Modified Louis stretch Supine Exercise Name Edge of bed opp knee to chest with AROM knee flexion X 10 Side bilateral Reps/Minutes 60 sec LE X 1 Comments with AROM knee flexion piriformis stretch Side bilateral Reps/Minutes 60 sec X1 LE L X2 RLE Comments towel roll at groin on right Standing Exercises Soleus stretch Side right Equipment Used HEP without hand out Reps/Minutes X20 sec X 1 Comments Verbal cues, hip hike Side bilateral Reps/Minutes 10 ea gait at wall Side bilateral Reps/Minutes X10 each LE start of session Comments reports having no increased pain single leg squat with band Standing Exercise Name without band in mirror Side bilateral Reps/Minutes 10 ea Comments intermitent UE use Manual Therapy Treatment Consent Patient gave verbal consent for manual Yes treatment Soft Tissue Mobilization right hip Body Location hip flexor/glute/piriformis bilateral Mobilization Type Cross-Friction,Rolling Intensity/Depth Moderate Body Position Hooklying Comments and sidelying Joint Mobilizations hip Grade IV Body Position Hooklying Reps/Duration 3X10 each Comments R inf and inf med glide Manual Techniques MET for right AI left PI Type also pubic shot gun Reps/Duration 6 sec 6 X each PT-OP-T Assessment and Plan Start: 07/22/24 17:31 Freq: Status: Active Protocol: Document 09/17/24 13:39 AB (Rec: 09/17/24 16:26 AB [id number]) Physical Therapy Assessment Goals activity Shelter Goal (LTG) Pt will be able to run w/o increased pain in RLE/back on even and uneven terrain for at least 4 miles 08/26-2/10 w/slower speed running for 4 miles. Stops to stretch during, HS doing ok, back doing well LTG Duration 10/07 strength Short Term Goal (STG) Pt will be indep w/HEP STG Duration achieved advancing as able Shelter Goal (LTG) Pt will score 5/5 on BLE MMT and at least 3/5 in all planes LPM to show improved stability and allow inc tolerance to running 08/26-improving LTG Duration 10/11 Assessment Summary Assessment Cherise into session with improved sena to gait at wall exercise as was able to perform on right without pain prior to manual therapy. Increased muscle stiffness and pain with running persists. Physical Therapy Plan Frequency and Duration Frequency of Treatment 1-2x/wk Duration of treatment (weeks) 10 Plan of Care Start Date 07/29/24 Plan of Care End Date 10/07/24 Next Visit Focus/Plan Next Note Type Treatment Note Next Visit Plan check in on return to return to SL squat(revisit band next session) review 3 way, cont to work on progressive strengthening for running work on hip flexor and R hip mobility especially for R hip flex and ER along w/abd( pigeon pose )
--- NOTE | 2024-09-22 09:01 | PT.OTN ---
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 Ran for the first time in 4 months last week. it was more sore across more sup mid quad. Tried initally taking 2 weeks off and running and it hurt. was able to hike 4-5 miles w/ hills. Then 3 weeks into this hurting R HS hurting and was hobbling around. Was running 3x/week getting around 25 miles/week. HS has been bothering him more. Saw a sports doc and did US of quad and found no tears. Recommended PT and taking tumeric for inflamation but hasn't gotten it yet. Still having long Covid symptoms w/ nausea, chest pain and brain fog. Currently taking low dose maletrexone (3mg) and it doesn't seem to be working. Has been getting migraines pretty regularly. Currently every other day migraines. 2 brain MRI that were normal. HS tight when tried to run and little sore after. Sometimes does just hurt and feel like spasming and then go away with no specific activity. Pt reports hx of B calf issues and was scheduled for B fasciotomies but got COVID. He was able to gradually inc run and that went away w/o surgery. Has new shoes from running [employer] and has an insole. Has a little bit of back pain but no major back pain. Mostly just when sits, can get achey. Overall back pain has been good recently Treatment Goals Patient/Caregiver Goals Be able to run and be able to work towards running ultra [employer] PT-OP-C Subjective Start: 07/22/24 17:31 Freq: Status: Active Protocol: Document 09/22/24 08:05 AB (Rec: 09/22/24 09:01 AB [id number]) OP-PT Subjective Patient Comments Patient Comments Patient reports he ran 5 miles yesterday had some stiffness right groin which went away by stretching during the run. Patient rates pain 0/10 start of session. Dyanmic vaglus right LE with SLS with UE support withing grossly 20 deg knee flexion start of session . PT-OP-D Balance Start: 07/22/24 17:31 Freq: Status: Active Protocol: Document 07/29/24 07:29 [facility] (Rec: 07/29/24 08:21 [facility] [id number]) Balance Tests Single Limb Standing Single Limb- Right >30 sec EO some deviation; 9 sec EC Single Limb- Left >30 sec EO; 25 sec EC PT-OP-F Manual Assessment Start: 07/22/24 17:31 Freq: Status: Active Protocol: Document 07/29/24 07:29 [facility] (Rec: 07/29/24 09:25 [facility] [id number]) Manual Assessments Soft Tissue Assessment Soft Tissue Mobility Assessment more tension in R add, quad and HS PT-OP-G Mobility & Gait Start: 07/22/24 17:31 Freq: Status: Active Protocol: Document 07/29/24 07:29 [facility] (Rec: 07/29/24 08:21 [facility] [id number]) OP Gait Assessment Comments Gait Comments walking: stiff trunk running: dec push off and hip ext B, IR R>L femur, stiff trunk PT-OP-J Posture/Palpation/Skin Start: 07/22/24 17:31 Freq: Status: Active Protocol: Document 08/26/24 14:26 [facility] (Rec: 08/26/24 17:40 [facility] [id number]) Posture Evaluation Yara Postural Classification System Yara Postural Classifications Posterior/Anterior Lumbar Protective Mechanism Left AP 0 Lumbar Protective Mechanism Right AP 1 Lumbar Protective Mechanism Left PA 4 Lumbar Protective Mechanism Right PA 1 PT-OP-L Special Tests Start: 07/22/24 17:31 Freq: Status: Active Protocol: Document 07/29/24 07:29 [facility] (Rec: 07/29/24 08:21 [facility] [id number]) Special Tests Knee Special Tests femoral n test Comments more R quad tightness; L does feel some symptoms in back Obers Comments positive R SLUmp Comments R some back tightness SLR Comments L:58 feels in HS R:48 feels mostly HS but some in R hip Louis Comments L hip flexor tightness; R TFL, RF, quad, hip flexor tightness PT-OP-M Strength Start: 07/22/24 17:31 Freq: Status: Active Protocol: Document 08/26/24 14:26 [facility] (Rec: 08/26/24 17:40 [facility] [id number]) Hip Strength Hip Manual Muscle Testing Right Flexion (L2) 4+ Good+ Extension (S1) 5 Normal Abduction 5 Normal Adduction 4+ Good+ External Rotation 5 Normal Internal Rotation 5 Normal Comments pain in R HS w/hip ext; tight in L groin w/add Left Flexion (L2) 5 Normal Extension (S1) 5 Normal Abduction 5 Normal Adduction 5 Normal External Rotation 5 Normal Internal Rotation 5 Normal Knee Strength Knee Manual Muscle Testing Right Flexion (S2) 5 Normal Extension (L3) 5 Normal Left Flexion (S2) 5 Normal Extension (L3) 5 Normal Ankle/Foot Strength Ankle and Foot Manual Muscle Testing Right Dorsiflexion (L4) 5 Normal Plantarflexion (S1) 5 Normal Comments 20 heel raises B Left Dorsiflexion (L4) 5 Normal Plantarflexion (S1) 5 Normal Comments 20 heel raises B PT-OP-Q Treatments Start: 07/22/24 17:31 Freq: Status: Active Protocol: Document 09/22/24 08:05 AB (Rec: 09/22/24 09:01 [id number]) Gym Equipment Shuttle Recovery dynamic push of jump/ eccentric land Details good eccentric squat landing Resistance 25# Shuttle Recovery Platform Stable Reps/Time [id number] cues to land softly, monitored for pain Therapeutic Exercises Supine Exercises HS stretch Supine Exercise Name from hooklying Side right Reps/Minutes 60 seconds X 1 Comments verbal cues Modified Louis stretch Supine Exercise Name Edge of bed opp knee to chest with AROM knee flexion X 10 Side bilateral Reps/Minutes 60 sec LE X 1 Comments with AROM knee flexion piriformis stretch Side right Reps/Minutes 60 sec Standing Exercises Soleus stretch Standing Exercise Name on step Side bilateral Reps/Minutes 60 sec followed by AROM HR X 10 Comments verbal and visual cues SL Standing Exercise Name 3 pt tap Side bilateral Reps/Minutes 5 ea gait at wall Side bilateral Reps/Minutes X10 each LE Comments reports having no increased pain Glute med isometric Standing Exercise Name HEP at wall Side bilateral Reps/Minutes one minute each LE Comments pret SLS right LE then post single leg squat with band Standing Exercise Name with UE use Side bilateral Resistance Level one band Reps/Minutes X15 Comments reports no increased pain Other Exercises pigeon pose Side bilateral Reps/Minutes 60 sec each LE Comments verbal and visual cues Manual Therapy Treatment Consent Patient gave verbal consent for manual Yes treatment Soft Tissue Mobilization right hip Body Location hip flexor/glute/piriformis bilateral Mobilization Type Cross-Friction,Rolling Intensity/Depth Moderate Body Position Hooklying Comments and sidelying Joint Mobilizations hip Grade IV Body Position Hooklying Reps/Duration 3X10 each Comments R inf and inf med glide PT-OP-T Assessment and Plan Start: 07/22/24 17:31 Freq: Status: Active Protocol: Document 09/22/24 08:05 AB (Rec: 09/22/24 09:01 AB [id number]) Physical Therapy Assessment Goals activity [facility] Goal (LTG) Pt will be able to run w/o increased pain in RLE/back on even and uneven terrain for at least 4 miles 08/26-2/10 w/slower speed running for 4 miles. Stops to stretch during, HS doing ok, back doing well LTG Duration 10/07 strength Short Term Goal (STG) Pt will be indep w/HEP STG Duration achieved advancing as able [facility] Goal (LTG) Pt will score 5/5 on BLE MMT and at least 3/5 in all planes LPM to show improved stability and allow inc tolerance to running 08/26-improving LTG Duration 10/11 Assessment Summary Assessment Dynamic valgus persists as well as LE muscles stiffness right LE, decreased dynamic valgus end of session with 3 way exercise, but not eliminated. Physical Therapy Plan Frequency and Duration Frequency of Treatment 1-2x/wk Duration of treatment (weeks) 10 Plan of Care Start Date 07/29/24 Plan of Care End Date 10/07/24 Next Visit Focus/Plan Next Note Type Treatment Note Next Visit Plan check in on return to return to SL squat(revisit band next session) review 3 way, cont to work on progressive strengthening for running work on hip flexor and R hip mobility especially for R hip flex and ER along w/abd Assess sena to pigeon pose previous session
--- NOTE | 2024-09-29 17:59 | PT.OTN ---
Current Diagnoses Unspecified injury of unspecified quadriceps muscle, fascia and tendon, initial encounter (09/29/24) Physical Therapy Treatment Note PT-OP-A Visit Information Start: 07/22/24 17:31 Freq: Status: Active Protocol: Document 09/29/24 17:04 [facility] (Rec: 09/29/24 17:59 [facility] [id number]) Out-Patient Physical Therapy Visit Information Visit Information Visit Type Progress Note Visit Start Time 17:04 Visit Stop Time 17:46 Visit Number 14 Number of DISASSEMBLER Visits 0 PT-OP-B Current Condition Start: 07/22/24 17:31 Freq: Status: Active Protocol: Document 07/29/24 07:29 [facility] (Rec: 07/29/24 08:21 [facility] [id number]) Current Condition History of Current Condition Onset Date April 28 Current Complaints R quad and R HS pain History of Current Condition Pt reports was just running one day and R quad started hurting in the middle. Ran for the first time in 4 months last week. it was more sore across more sup mid quad. Tried initally taking 2 weeks off and running and it hurt. was able to hike 4-5 miles w/ hills. Then 3 weeks into this hurting R HS hurting and was hobbling around. Was running 3x/week getting around 25 miles/week. HS has been bothering him more. Saw a sports doc and did US of quad and found no tears. Recommended PT and taking tumeric for inflamation but hasn't gotten it yet. Still having long Covid symptoms w/ nausea, chest pain and brain fog. Currently taking low dose maletrexone (3mg) and it doesn't seem to be working. Has been getting migraines pretty regularly. Currently every other day migraines. 2 brain MRI that were normal. HS tight when tried to run and little sore after. Sometimes does just hurt and feel like spasming and then go away with no specific activity. Pt reports hx of B calf issues and was scheduled for B fasciotomies but got COVID. He was able to gradually inc run and that went away w/o surgery. Has new shoes from running [employer] and has an insole. Has a little bit of back pain but no major back pain. Mostly just when sits, can get achey. Overall back pain has been good recently Treatment Goals Patient/Caregiver Goals Be able to run and be able to work towards running ultra [employer] PT-OP-C Subjective Start: 07/22/24 17:31 Freq: Status: Active Protocol: Document 09/29/24 17:04 [facility] (Rec: 09/29/24 17:59 [facility] [id number]) OP-PT Subjective Patient Comments Patient Comments Pt reports last time did pigeon and RLB hurt. Pt reports did 3.5 mile run Friday and was having pain sitting on ground d/t hip flexor pain after. Slowly getting better. 2.8 mile friday and that felt fine. prior that to that pain was present and limiting from long distance run but not lingering PT-OP-D Balance Start: 07/22/24 17:31 Freq: Status: Active Protocol: Document 07/29/24 07:29 [facility] (Rec: 07/29/24 08:21 [facility] [id number]) Balance Tests Single Limb Standing Single Limb- Right >30 sec EO some deviation; 9 sec EC Single Limb- Left >30 sec EO; 25 sec EC PT-OP-F Manual Assessment Start: 07/22/24 17:31 Freq: Status: Active Protocol: Document 07/29/24 07:29 [facility] (Rec: 07/29/24 09:25 [facility] [id number]) Manual Assessments Soft Tissue Assessment Soft Tissue Mobility Assessment more tension in R add, quad and HS PT-OP-G Mobility & Gait Start: 07/22/24 17:31 Freq: Status: Active Protocol: Document 07/29/24 07:29 [facility] (Rec: 07/29/24 08:21 [facility] [id number]) OP Gait Assessment Comments Gait Comments walking: stiff trunk running: dec push off and hip ext B, IR R>L femur, stiff trunk PT-OP-J Posture/Palpation/Skin Start: 07/22/24 17:31 Freq: Status: Active Protocol: Document 09/29/24 17:04 [facility] (Rec: 09/29/24 17:59 [facility] [id number]) Posture Evaluation Yara Postural Classification System Lumbar Protective Mechanism Left AP 2 Lumbar Protective Mechanism Right AP 1 Lumbar Protective Mechanism Left PA 2 Lumbar Protective Mechanism Right PA 2 PT-OP-L Special Tests Start: 07/22/24 17:31 Freq: Status: Active Protocol: Document 07/29/24 07:29 [facility] (Rec: 07/29/24 08:21 [facility] [id number]) Special Tests Knee Special Tests femoral n test Comments more R quad tightness; L does feel some symptoms in back Obers Comments positive R SLUmp Comments R some back tightness SLR Comments L:58 feels in HS R:48 feels mostly HS but some in R hip Louis Comments L hip flexor tightness; R TFL, RF, quad, hip flexor tightness PT-OP-M Strength Start: 07/22/24 17:31 Freq: Status: Active Protocol: Document 09/29/24 17:04 [facility] (Rec: 09/29/24 17:59 [facility] [id number]) Hip Strength Hip Manual Muscle Testing Right Flexion (L2) 5 Normal Extension (S1) 5 Normal Abduction 5 Normal Adduction 5 Normal External Rotation 5 Normal Internal Rotation 5 Normal Comments pain in buttocks w/hip flex Left Flexion (L2) 5 Normal Extension (S1) 5 Normal Abduction 5 Normal Adduction 5 Normal External Rotation 5 Normal Internal Rotation 5 Normal Comments pain in R groin w/L hip ext Knee Strength Knee Manual Muscle Testing Right Flexion (S2) 5 Normal Extension (L3) 5 Normal Left Flexion (S2) 5 Normal Extension (L3) 5 Normal PT-OP-Q Treatments Start: 07/22/24 17:31 Freq: Status: Active Protocol: Document 09/29/24 17:04 [facility] (Rec: 09/29/24 17:59 [facility] [id number]) Therapeutic Exercises Standing Exercises hip flexors Standing Exercise Name R stretch Reps/Minutes 2x30 sec Other Exercises isometrics Other Exercise Name B LE MMT & LPM Manual Therapy Treatment Consent Patient gave verbal consent for manual Yes treatment Joint Mobilizations sacrum Comments caudal R and R UPA c/r w/LTR innominate Comments caudal prone L, ER L prone, IR R prone, s/l ext R c/r Self-Care/Home Management Treatment Education Other Education 7 min: edu re: anatomy of spine and pelvis and how likely relates to cont ant hip pain. 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 Stops to stretch during, HS doing ok, back doing well 09/29-now in 9min/mile vs 10 min.mile now and was feeling okay until 2 miles in where feels hip pain and has gotten up to 6 miles, but felt sore by end of this. recent worsening after this weekend LTG Duration 12/02 strength Short Term Goal (STG) Pt will be indep w/HEP STG Duration achieved advancing as able Mcc Goal (LTG) Pt will score 5/5 on BLE MMT and at least 3/5 in all planes LPM to show improved stability and allow inc tolerance to running 08/26-improving LTG Duration 12/02 Assessment Summary Assessment pt making slow but steady progress towards goals. much iproved strength but mmt does inc pain w/hip flex and ext. At this time, pain limiting running that goes into ant thigh/groin is likely mostly related to innominate and lumbar dysfunction. pt does demonstrate cont core weakness and would benefit from cont skilled PT to address this. Physical Therapy Plan Frequency and Duration Frequency of Treatment 1-2x/wk Duration of treatment (weeks) 8 Plan of Care Start Date 09/29/24 Plan of Care End Date 12/02/24 Therapeutic Interventions Therapeutic Interventions Balance Training,Gait Training ,Home Exercise Program,Joint Mobilizations,Manual Therapy, Neuromuscular Re-education, Patient/Caregiver Education, Self-Care/Home Management,Soft Tissue Mobilization,Taping, Therapeutic Activities, Therapeutic Exercises Modalities Cold Pack/Ice Massage,Electric Stimulation,Hot Packs, Infrared Therapy,Ultrasound Next Visit Focus/Plan Next Note Type Treatment Note Next Visit Plan cont to work on SL squat, work on progressive strength of core and focus on running strength, PNF, innominate mobility
--- NOTE | 2024-09-29 17:59 | PT.OPPOC ---
Physical, Occupational & Speech Therapy At [facility] Current Diagnoses Unspecified injury of unspecified quadriceps muscle, fascia and tendon, initial encounter (09/29/24) Visit Care Team Role Provider Type Beth Lennon MD Attending Provider Non-Staff Family Provider Primary Care Provider Referring Provider Specialty: Family Practice Address: [address] [place] [address], [place], [address] Email: Plan Of Care PT-OP-B Current Condition Start: 07/22/24 17:31 Freq: Status: Active Protocol: Document 07/29/24 07:29 [facility] (Rec: 07/29/24 08:21 [facility] [id number]) Current Condition History of Current Condition Onset Date April 28 Current Complaints R quad and R HS pain History of Current Condition Pt reports was just running one day and R quad started hurting in the middle. Ran for the first time in 4 months last week. it was more sore across more sup mid quad. Tried initally taking 2 weeks off and running and it hurt. was able to hike 4-5 miles w/ hills. Then 3 weeks into this hurting R HS hurting and was hobbling around. Was running 3x/week getting around 25 miles/week. HS has been bothering him more. Saw a sports doc and did US of quad and found no tears. Recommended PT and taking tumeric for inflamation but hasn't gotten it yet. Still having long Covid symptoms w/ nausea, chest pain and brain fog. Currently taking low dose maletrexone (3mg) and it doesn't seem to be working. Has been getting migraines pretty regularly. Currently every other day migraines. 2 brain MRI that were normal. HS tight when tried to run and little sore after. Sometimes does just hurt and feel like spasming and then go away with no specific activity. Pt reports hx of B calf issues and was scheduled for B fasciotomies but got COVID. He was able to gradually inc run and that went away w/o surgery. 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 Has a little bit of back pain but no major back pain. Mostly just when sits, can get achey. Overall back pain has been good recently Treatment Goals Patient/Caregiver Goals Be able to run and be able to work towards running ultra [employer] PT-OP-T Assessment and Plan Start: 07/22/24 17:31 Freq: Status: Active Protocol: Document 09/29/24 17:04 [facility] (Rec: 09/29/24 17:59 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 Stops to stretch during, HS doing ok, back doing well 09/29-now in 9min/mile vs 10 min.mile now and was feeling okay until 2 miles in where feels hip pain and has gotten up to 6 miles, but felt sore by end of this. recent worsening after this weekend LTG Duration 12/02 strength Short Term Goal (STG) Pt will be indep w/HEP STG Duration achieved advancing as able Senior Living Goal (LTG) Pt will score 5/5 on BLE MMT and at least 3/5 in all planes LPM to show improved stability and allow inc tolerance to running 08/26-improving LTG Duration 12/02 Assessment Summary Assessment pt making slow but steady progress towards goals. much iproved strength but mmt does inc pain w/hip flex and ext. At this time, pain limiting running that goes into ant thigh/groin is likely mostly related to innominate and lumbar dysfunction. pt does demonstrate cont core weakness and would benefit from cont skilled PT to address this. Physical Therapy Plan Frequency and Duration Frequency of Treatment 1-2x/wk Duration of treatment (weeks) 8 Plan of Care Start Date 09/29/24 Plan of Care End Date 12/02/24 Therapeutic Interventions Therapeutic Interventions Balance Training,Gait Training ,Home Exercise Program,Joint Mobilizations,Manual Therapy, Neuromuscular Re-education, Patient/Caregiver Education, Self-Care/Home Management,Soft Tissue Mobilization,Taping, Therapeutic Activities, Therapeutic Exercises Modalities Cold Pack/Ice Massage,Electric Stimulation,Hot Packs, Infrared Therapy,Ultrasound Next Visit Focus/Plan Next Note Type Treatment Note Next Visit Plan cont to work on SL squat, work on progressive strength of core and focus on running strength, PNF, innominate mobility Plan of Care Dates Plan of Care Start Date 09/29/24 Plan of Care End Date 12/02/24 Electronically Signed by: Carie Doe, PT 09/29/24 [id number] If you are in agreement with this Plan of Care, please return a signed and dated copy. I have reviewed this Plan of Care and certify that the skilled therapy services above are required to meet the patient?s needs. Physician Signature Date Printed Name and Credentials Clinical Instructor Signature Printed Name and Credentials
--- NOTE | 2024-10-06 16:15 | PT.OTN ---
Current Diagnoses Unspecified injury of unspecified quadriceps muscle, fascia and tendon, initial encounter (10/06/24) Physical Therapy Treatment Note PT-OP-A Visit Information Start: 07/22/24 17:31 Freq: Status: Active Protocol: Document 10/06/24 13:51 [facility] (Rec: 10/06/24 16:15 [facility] [id number]) Out-Patient Physical Therapy Visit Information Visit Information Visit Type Treatment Note Visit Start Time 13:50 Visit Stop Time 14:30 Visit Number 15 Number of APPLICATIONS SUPPORT ANALYST Visits 0 PT-OP-B Current Condition Start: 07/22/24 17:31 Freq: Status: Active Protocol: Document 07/29/24 07:29 [facility] (Rec: 07/29/24 08:21 [facility] [id number]) Current Condition History of Current Condition Onset Date April 28 Current Complaints R quad and R HS pain History of Current Condition Pt reports was just running one day and R quad started hurting in the middle. Ran for the first time in 4 months last week. it was more sore across more sup mid quad. Tried initally taking 2 weeks off and running and it hurt. was able to hike 4-5 miles w/ hills. Then 3 weeks into this hurting R HS hurting and was hobbling around. Was running 3x/week getting around 25 miles/week. HS has been bothering him more. Saw a sports doc and did US of quad and found no tears. Recommended PT and taking tumeric for inflamation but hasn't gotten it yet. Still having long Covid symptoms w/ nausea, chest pain and brain fog. Currently taking low dose maletrexone (3mg) and it doesn't seem to be working. Has been getting migraines pretty regularly. Currently every other day migraines. 2 brain MRI that were normal. HS tight when tried to run and little sore after. Sometimes does just hurt and feel like spasming and then go away with no specific activity. Pt reports hx of B calf issues and was scheduled for B fasciotomies but got COVID. He was able to gradually inc run and that went away w/o surgery. Has new shoes from running [employer] and has an insole. Has a little bit of back pain but no major back pain. Mostly just when sits, can get achey. Overall back pain has been good recently Treatment Goals Patient/Caregiver Goals Be able to run and be able to work towards running [facility] PT-OP-C Subjective Start: 07/22/24 17:31 Freq: Status: Active Protocol: Document 10/06/24 13:51 [facility] (Rec: 10/06/24 16:15 [facility] [id number]) OP-PT Subjective Patient Comments Patient Comments soreness in lat quad and hip flexor after 2.5 miles that just stays. did 4.5 miles. Went away after. this was friday. [place] okay after last time. Has been doing exercises . PT-OP-D Balance Start: 07/22/24 17:31 Freq: Status: Active Protocol: Document 07/29/24 07:29 [facility] (Rec: 07/29/24 08:21 [facility] [id number]) Balance Tests Single Limb Standing Single Limb- Right >30 sec EO some deviation; 9 sec EC Single Limb- Left >30 sec EO; 25 sec EC PT-OP-F Manual Assessment Start: 07/22/24 17:31 Freq: Status: Active Protocol: Document 07/29/24 07:29 [facility] (Rec: 07/29/24 09:25 [facility] [id number]) Manual Assessments Soft Tissue Assessment Soft Tissue Mobility Assessment more tension in R add, quad and HS PT-OP-G Mobility & Gait Start: 07/22/24 17:31 Freq: Status: Active Protocol: Document 07/29/24 07:29 [facility] (Rec: 07/29/24 08:21 [facility] [id number]) OP Gait Assessment Comments Gait Comments walking: stiff trunk running: dec push off and hip ext B, IR R>L femur, stiff trunk PT-OP-J Posture/Palpation/Skin Start: 07/22/24 17:31 Freq: Status: Active Protocol: Document 09/29/24 17:04 [facility] (Rec: 09/29/24 17:59 [facility] [id number]) Posture Evaluation Yara Postural Classification System Lumbar Protective Mechanism Left AP 2 Lumbar Protective Mechanism Right AP 1 Lumbar Protective Mechanism Left PA 2 Lumbar Protective Mechanism Right PA 2 PT-OP-L Special Tests Start: 07/22/24 17:31 Freq: Status: Active Protocol: Document 07/29/24 07:29 [facility] (Rec: 07/29/24 08:21 [facility] [id number]) Special Tests Knee Special Tests femoral n test Comments more R quad tightness; L does feel some symptoms in back Obers Comments positive R SLUmp Comments R some back tightness SLR Comments L:58 feels in HS R:48 feels mostly HS but some in R hip Louis Comments L hip flexor tightness; R TFL, RF, quad, hip flexor tightness PT-OP-M Strength Start: 07/22/24 17:31 Freq: Status: Active Protocol: Document 09/29/24 17:04 [facility] (Rec: 09/29/24 17:59 [facility] [id number]) Hip Strength Hip Manual Muscle Testing Right Flexion (L2) 5 Normal Extension (S1) 5 Normal Abduction 5 Normal Adduction 5 Normal External Rotation 5 Normal Internal Rotation 5 Normal Comments pain in buttocks w/hip flex Left Flexion (L2) 5 Normal Extension (S1) 5 Normal Abduction 5 Normal Adduction 5 Normal External Rotation 5 Normal Internal Rotation 5 Normal Comments pain in R groin w/L hip ext Knee Strength Knee Manual Muscle Testing Right Flexion (S2) 5 Normal Extension (L3) 5 Normal Left Flexion (S2) 5 Normal Extension (L3) 5 Normal PT-OP-Q Treatments Start: 07/22/24 17:31 Freq: Status: Active Protocol: Document 10/06/24 13:51 [facility] (Rec: 10/06/24 16:15 [facility] [id number]) Therapeutic Exercises Supine Exercises march Supine Exercise Name alt leg drop progress from from 90/90 bent knee drop to alt SL drop Side bilateral Reps/Minutes 3 min core Supine Exercise Name 1. leg hold up (right above ground and and slightly bent knee and 1.5 ft up Side bilateral Reps/Minutes 30 sec ea Comments cues to only do mod version as L3 lifts-cues at spine Sidelying Exercises sideplank Side bilateral Reps/Minutes 20 sec Comments cues alignment Manual Therapy Treatment Consent Patient gave verbal consent for manual Yes treatment Soft Tissue Mobilization hip flexor Body Location R iliacus and psoas and TFL & RF Mobilization Type Strumming,Sustained Pressure Intensity/Depth Moderate Body Position Supine Comments w/flex and ER Joint Mobilizations innominate Comments R flex c/r and ER c/r hip Comments R inf and lat glide PT-OP-T Assessment and Plan Start: 07/22/24 17:31 Freq: Status: Active Protocol: Document 10/06/24 13:51 [facility] (Rec: 10/06/24 16:15 [facility] [id number]) Physical Therapy Assessment Goals activity Academic Vice President Goal (LTG) Pt will be able to run w/o increased pain in RLE/back on even and uneven terrain for at least 4 miles 10/10-2/10 w/slower speed running for 4 miles. Stops to stretch during, HS doing ok, back doing well 09/29-now in 9min/mile vs 10 min.mile now and was feeling okay until 2 miles in where feels hip pain and has gotten up to 6 miles, but felt sore by end of this. recent worsening after this weekend LTG Duration 12/02 strength Short Term Goal (STG) Pt will be indep w/HEP STG Duration achieved advancing as able Skilled Nursing Goal (LTG) Pt will score 5/5 on BLE MMT and at least 3/5 in all planes LPM to show improved stability and allow inc tolerance to running 08/26-improving LTG Duration 12/02 Assessment Summary Assessment Pt had less groin pinching w/ piriformis stretch after manual today. Had to dec level of core exercises d/t level of L3 ant shearing Physical Therapy Plan Frequency and Duration Frequency of Treatment 1-2x/wk Duration of treatment (weeks) 8 Plan of Care Start Date 09/29/24 Plan of Care End Date 12/02/24 Next Visit Focus/Plan Next Note Type Treatment Note Next Visit Plan cont to work on SL squat, work on progressive strength of core and focus on running strength, PNF, innominate mobility and work on pelvis and spine to dec R hip flexor pain and quad pain
--- NOTE | 2024-10-13 11:43 | PT.OTN ---
Current Diagnoses Unspecified injury of unspecified quadriceps muscle, fascia and tendon, initial encounter (10/13/24) Physical Therapy Treatment Note PT-OP-A Visit Information Start: 07/22/24 17:31 Freq: Status: Active Protocol: Document 10/13/24 08:10 AB (Rec: 10/13/24 11:42 AB [id number]) Out-Patient Physical Therapy Visit Information Visit Information Visit Type Treatment Note Visit Start Time 09:04 Visit Stop Time 09:47 Visit Number 16 Number of CORE CUTTER AND REAMER Visits 1 PT-OP-B Current Condition Start: 07/22/24 17:31 Freq: Status: Active Protocol: Document 07/29/24 07:29 LR (Rec: 07/29/24 08:21 [facility] [id number]) Current Condition History of Current Condition Onset Date April 28 Current Complaints R quad and R HS pain History of Current Condition Pt reports was just running one day and R quad started hurting in the middle. Ran for the first time in 4 months last week. it was more sore across more sup mid quad. Tried initally taking 2 weeks off and running and it hurt. was able to hike 4-5 miles w/ hills. Then 3 weeks into this hurting R HS hurting and was hobbling around. Was running 3x/week getting around 25 miles/week. HS has been bothering him more. Saw a sports doc and did US of quad and found no tears. Recommended PT and taking tumeric for inflamation but hasn't gotten it yet. Still having long Covid symptoms w/ nausea, chest pain and brain fog. Currently taking low dose maletrexone (3mg) and it doesn't seem to be working. Has been getting migraines pretty regularly. Currently every other day migraines. 2 brain MRI that were normal. HS tight when tried to run and little sore after. Sometimes does just hurt and feel like spasming and then go away with no specific activity. Pt reports hx of B calf issues and was scheduled for B fasciotomies but got COVID. He was able to gradually inc run and that went away w/o surgery. Has new shoes from running [employer] and has an insole. Has a little bit of back pain but no major back pain. Mostly just when sits, can get achey. Overall back pain has been good recently Treatment Goals Patient/Caregiver Goals Be able to run and be able to work towards running ultra [employer] PT-OP-C Subjective Start: 07/22/24 17:31 Freq: Status: Active Protocol: Document 10/13/24 08:10 AB (Rec: 10/13/24 11:42 AB [id number]) OP-PT Subjective Patient Comments Patient Comments Patient reports he hasn't been running past 2 weeks. due to groin upper quad pain. Patient reports having quad pain post walking post working out which is not ususal for hip. Patient reports right hip stiffness ascending 6 inch steps without UE use. Patient reports he was sore post manual to groin previous session, and was able to stretch much more after that session. PT-OP-D Balance Start: 07/22/24 17:31 Freq: Status: Active Protocol: Document 07/29/24 07:29 [facility] (Rec: 07/29/24 08:21 [facility] [id number]) Balance Tests Single Limb Standing Single Limb- Right >30 sec EO some deviation; 9 sec EC Single Limb- Left >30 sec EO; 25 sec EC PT-OP-F Manual Assessment Start: 07/22/24 17:31 Freq: Status: Active Protocol: Document 07/29/24 07:29 [facility] (Rec: 07/29/24 09:25 [facility] [id number]) Manual Assessments Soft Tissue Assessment Soft Tissue Mobility Assessment more tension in R add, quad and HS PT-OP-G Mobility & Gait Start: 07/22/24 17:31 Freq: Status: Active Protocol: Document 07/29/24 07:29 [facility] (Rec: 07/29/24 08:21 [facility] [id number]) OP Gait Assessment Comments Gait Comments walking: stiff trunk running: dec push off and hip ext B, IR R>L femur, stiff trunk PT-OP-J Posture/Palpation/Skin Start: 07/22/24 17:31 Freq: Status: Active Protocol: Document 09/29/24 17:04 [facility] (Rec: 09/29/24 17:59 [facility] [id number]) Posture Evaluation [facility] Postural Classification System Lumbar Protective Mechanism Left AP 2 Lumbar Protective Mechanism Right AP 1 Lumbar Protective Mechanism Left PA 2 Lumbar Protective Mechanism Right PA 2 PT-OP-L Special Tests Start: 07/22/24 17:31 Freq: Status: Active Protocol: Document 07/29/24 07:29 [facility] (Rec: 07/29/24 08:21 [facility] [id number]) Special Tests Knee Special Tests femoral n test Comments more R quad tightness; L does feel some symptoms in back Obers Comments positive R SLUmp Comments R some back tightness SLR Comments L:58 feels in HS R:48 feels mostly HS but some in R hip Louis Comments L hip flexor tightness; R TFL, RF, quad, hip flexor tightness PT-OP-M Strength Start: 07/22/24 17:31 Freq: Status: Active Protocol: Document 09/29/24 17:04 [facility] (Rec: 09/29/24 17:59 [facility] [id number]) Hip Strength Hip Manual Muscle Testing Right Flexion (L2) 5 Normal Extension (S1) 5 Normal Abduction 5 Normal Adduction 5 Normal External Rotation 5 Normal Internal Rotation 5 Normal Comments pain in buttocks w/hip flex Left Flexion (L2) 5 Normal Extension (S1) 5 Normal Abduction 5 Normal Adduction 5 Normal External Rotation 5 Normal Internal Rotation 5 Normal Comments pain in R groin w/L hip ext Knee Strength Knee Manual Muscle Testing Right Flexion (S2) 5 Normal Extension (L3) 5 Normal Left Flexion (S2) 5 Normal Extension (L3) 5 Normal PT-OP-Q Treatments Start: 07/22/24 17:31 Freq: Status: Active Protocol: Document 10/13/24 08:10 AB (Rec: 10/13/24 11:42 AB [id number]) Therapeutic Exercises Supine Exercises core Supine Exercise Name 1.abd bracing with LE extension 2 bent knee fall out Side bilateral Equipment Used HEP Reps/Minutes X10 LE ext 17 x bent knee fallout Comments verba cues Modified Louis stretch Supine Exercise Name Edge of bed opp knee to chest with AROM knee flexion X 10 Side bilateral Reps/Minutes 60 sec LE X 1 Comments with AROM knee flexion piriformis stretch Side bilateral Reps/Minutes 60 sec Standing Exercises Glute med isometric Standing Exercise Name HEP at wall Side bilateral Reps/Minutes one minute each LE Manual Therapy Treatment Consent Patient gave verbal consent for manual Yes treatment Soft Tissue Mobilization hip flexor Body Location R iliacus and psoas Mobilization Type Strumming,Sustained Pressure Intensity/Depth Superficial Body Position Hooklying right hip Body Location glute/piriformis bilateral Mobilization Type Cross-Friction,Rolling Intensity/Depth Moderate Body Position Sidelying quad Body Location RF Mobilization Type Cross-Friction,Rolling, Strumming Intensity/Depth Moderate Body Position Hooklying Joint Mobilizations hip Grade IV Reps/Duration X10 X 4 Comments R inf glide Manual Techniques contract relax Type hip flexion Body Location right hip Reps/Duration X1 MET for right AI left PI Type also pubic shot gun Reps/Duration 6 sec 6 X each PT-OP-T Assessment and Plan Start: 07/22/24 17:31 Freq: Status: Active Protocol: Document 10/13/24 08:10 AB (Rec: 10/13/24 11:42 AB [id number]) Physical Therapy Assessment Goals activity Sugar Cane Planter Goal (LTG) Pt will be able to run w/o increased pain in RLE/back on even and uneven terrain for at least 4 miles 08/26-2/10 w/slower speed running for 4 miles. Stops to stretch during, HS doing ok, back doing well 09/29-now in 9min/mile vs 10 min.mile now and was feeling okay until 2 miles in where feels hip pain and has gotten up to 6 miles, but felt sore by end of this. recent worsening after this weekend LTG Duration 12/02 strength Short Term Goal (STG) Pt will be indep w/HEP STG Duration achieved advancing as able Custodial Goal (LTG) Pt will score 5/5 on BLE MMT and at least 3/5 in all planes LPM to show improved stability and allow inc tolerance to running 08/26-improving LTG Duration 12/02 Assessment Summary Assessment Patient reports less groin pinching post joint mobilizations, but reported increased soreness right illiopsoas area ascending stairs end of session compared to stiffnessascending start of session. Physical Therapy Plan Frequency and Duration Frequency of Treatment 1-2x/wk Duration of treatment (weeks) 8 Plan of Care Start Date 09/29/24 Plan of Care End Date 12/02/24 Next Visit Focus/Plan Next Note Type Treatment Note Next Visit Plan cont to work on SL squat, work on progressive strength of core and focus on running strength, PNF, innominate mobility and work on pelvis and spine to dec R hip flexor pain and quad pain
--- NOTE | 2024-10-21 08:19 | PT.OTN ---
Current Diagnoses Unspecified injury of unspecified quadriceps muscle, fascia and tendon, initial encounter (10/21/24) Physical Therapy Treatment Note PT-OP-A Visit Information Start: 07/22/24 17:31 Freq: Status: Active Protocol: Document 10/21/24 07:32 [facility] (Rec: 10/21/24 08:19 [facility] [id number]) Out-Patient Physical Therapy Visit Information Visit Information Visit Type Treatment Note Visit Start Time 07:33 Visit Stop Time 08:13 Visit Number 17 Number of MANAGER FINANCIAL SYSTEMS Visits 0 PT-OP-B Current Condition Start: 07/22/24 17:31 Freq: Status: Active Protocol: Document 07/29/24 07:29 [facility] (Rec: 07/29/24 08:21 [facility] [id number]) Current Condition History of Current Condition Onset Date April 28 Current Complaints R quad and R HS pain History of Current Condition Pt reports was just running one day and R quad started hurting in the middle. Ran for the first time in 4 months last week. it was more sore across more sup mid quad. Tried initally taking 2 weeks off and running and it hurt. was able to hike 4-5 miles w/ hills. Then 3 weeks into this hurting R HS hurting and was hobbling around. Was running 3x/week getting around 25 miles/week. HS has been bothering him more. Saw a sports doc and did US of quad and found no tears. Recommended PT and taking tumeric for inflamation but hasn't gotten it yet. Still having long Covid symptoms w/ nausea, chest pain and brain fog. Currently taking low dose maletrexone (3mg) and it doesn't seem to be working. Has been getting migraines pretty regularly. Currently every other day migraines. 2 brain MRI that were normal. HS tight when tried to run and little sore after. Sometimes does just hurt and feel like spasming and then go away with no specific activity. Pt reports hx of B calf issues and was scheduled for B fasciotomies but got COVID. He was able to gradually inc run and that went away w/o surgery. Has new shoes from running [employer] and has an insole. Has a little bit of back pain but no major back pain. Mostly just when sits, can get achey. Overall back pain has been good recently Treatment Goals Patient/Caregiver Goals Be able to run and be able to work towards running ultra [employer] PT-OP-C Subjective Start: 07/22/24 17:31 Freq: Status: Active Protocol: Document 10/21/24 07:32 [facility] (Rec: 10/21/24 08:19 [facility] [id number]) OP-PT Subjective Patient Comments Patient Comments Pt did some hill work and it didn't make it worse. Sitting on the ground putting shoes on , felt the pain. Running just over 4 miles and what is stopping him is R hip flexor region and in quad. Was able to stretch way more after session on and felt like had more hip mobility despite being sore for 2 days. Was sore after last time but did feel looser. Feels like he could possibly run 6 miles but hasn't so he doens't overdo. He notes he has been able to improve pace to 9 min miles now Patient Reported Progress Improving PT-OP-D Balance Start: 07/22/24 17:31 Freq: Status: Active Protocol: Document 07/29/24 07:29 [facility] (Rec: 07/29/24 08:21 [facility] [id number]) Balance Tests Single Limb Standing Single Limb- Right >30 sec EO some deviation; 9 sec EC Single Limb- Left >30 sec EO; 25 sec EC PT-OP-F Manual Assessment Start: 07/22/24 17:31 Freq: Status: Active Protocol: Document 07/29/24 07:29 [facility] (Rec: 07/29/24 09:25 [facility] [id number]) Manual Assessments Soft Tissue Assessment Soft Tissue Mobility Assessment more tension in R add, quad and HS PT-OP-G Mobility & Gait Start: 07/22/24 17:31 Freq: Status: Active Protocol: Document 07/29/24 07:29 [facility] (Rec: 07/29/24 08:21 [facility] [id number]) OP Gait Assessment Comments Gait Comments walking: stiff trunk running: dec push off and hip ext B, IR R>L femur, stiff trunk PT-OP-J Posture/Palpation/Skin Start: 07/22/24 17:31 Freq: Status: Active Protocol: Document 09/29/24 17:04 [facility] (Rec: 09/29/24 17:59 [facility] [id number]) Posture Evaluation [facility] Postural Classification System Lumbar Protective Mechanism Left AP 2 Lumbar Protective Mechanism Right AP 1 Lumbar Protective Mechanism Left PA 2 Lumbar Protective Mechanism Right PA 2 PT-OP-L Special Tests Start: 07/22/24 17:31 Freq: Status: Active Protocol: Document 07/29/24 07:29 [facility] (Rec: 07/29/24 08:21 [facility] [id number]) Special Tests Knee Special Tests femoral n test Comments more R quad tightness; L does feel some symptoms in back Obers Comments positive R SLUmp Comments R some back tightness SLR Comments L:58 feels in HS R:48 feels mostly HS but some in R hip Louis Comments L hip flexor tightness; R TFL, RF, quad, hip flexor tightness PT-OP-M Strength Start: 07/22/24 17:31 Freq: Status: Active Protocol: Document 09/29/24 17:04 [facility] (Rec: 09/29/24 17:59 [facility] [id number]) Hip Strength Hip Manual Muscle Testing Right Flexion (L2) 5 Normal Extension (S1) 5 Normal Abduction 5 Normal Adduction 5 Normal External Rotation 5 Normal Internal Rotation 5 Normal Comments pain in buttocks w/hip flex Left Flexion (L2) 5 Normal Extension (S1) 5 Normal Abduction 5 Normal Adduction 5 Normal External Rotation 5 Normal Internal Rotation 5 Normal Comments pain in R groin w/L hip ext Knee Strength Knee Manual Muscle Testing Right Flexion (S2) 5 Normal Extension (L3) 5 Normal Left Flexion (S2) 5 Normal Extension (L3) 5 Normal PT-OP-Q Treatments Start: 07/22/24 17:31 Freq: Status: Active Protocol: Document 10/21/24 07:32 [facility] (Rec: 10/21/24 08:19 [facility] [id number]) Manual Therapy Treatment Consent Patient gave verbal consent for manual Yes treatment Soft Tissue Mobilization hip flexor Body Location R iliacus and psoas proximal focus Mobilization Type Sustained Pressure Intensity/Depth Superficial Body Position Hooklying Comments w/hip flex right hip Body Location R TFL Mobilization Type Cross-Friction,Rolling quad Body Location RF proximal Mobilization Type Cross-Friction,Rolling, Strumming Intensity/Depth Moderate Body Position Hooklying Joint Mobilizations innominate Comments R flex c/r hip Comments R inf c/r PT-OP-T Assessment and Plan Start: 07/22/24 17:31 Freq: Status: Active Protocol: Document 10/21/24 07:32 [facility] (Rec: 10/21/24 08:19 [facility] [id number]) Physical Therapy Assessment Goals activity Hogshead Packer Goal (LTG) Pt will be able to run w/o increased pain in RLE/back on even and uneven terrain for at least 4 miles 08/26-2/10 w/slower speed running for 4 miles. Stops to stretch during, HS doing ok, back doing well 09/29-now in 9min/mile vs 10 min.mile now and was feeling okay until 2 miles in where feels hip pain and has gotten up to 6 miles, but felt sore by end of this. recent worsening after this weekend LTG Duration 12/02 strength Short Term Goal (STG) Pt will be indep w/HEP STG Duration achieved advancing as able Hogshead Packer Goal (LTG) Pt will score 5/5 on BLE MMT and at least 3/5 in all planes LPM to show improved stability and allow inc tolerance to running 08/26-improving LTG Duration 12/02 Assessment Summary Assessment Pt did have improvements in hip flexor soreness after mobizliation to L3. Pt appears to have femoral n entrapment likely at inguinal ligament w/ also lumbar dysfunction causing possible irritation. Physical Therapy Plan Frequency and Duration Frequency of Treatment 1-2x/wk Duration of treatment (weeks) 8 Plan of Care Start Date 09/29/24 Plan of Care End Date 12/02/24 Next Visit Focus/Plan Next Note Type Treatment Note Next Visit Plan SL work, work at iliopsoas, TFL, along inguinal ligament, lumbr spine mobility; R sacral nutation
--- NOTE | 2024-10-26 13:51 | PT.OTN ---
Current Diagnoses Unspecified injury of unspecified quadriceps muscle, fascia and tendon, initial encounter (10/26/24) Physical Therapy Treatment Note PT-OP-A Visit Information Start: 07/22/24 17:31 Freq: Status: Active Protocol: Document 10/26/24 13:07 [facility] (Rec: 10/26/24 13:51 [facility] [id number]) Out-Patient Physical Therapy Visit Information Visit Information Visit Type Treatment Note Visit Start Time 13:03 Visit Stop Time 13:43 Visit Number 18 Number of JOY OPERATOR HELPER Visits 0 PT-OP-B Current Condition Start: 07/22/24 17:31 Freq: Status: Active Protocol: Document 07/29/24 07:29 [facility] (Rec: 07/29/24 08:21 [facility] [id number]) Current Condition History of Current Condition Onset Date April 28 Current Complaints R quad and R HS pain History of Current Condition Pt reports was just running one day and R quad started hurting in the middle. Ran for the first time in 4 months last week. it was more sore across more sup mid quad. Tried initally taking 2 weeks off and running and it hurt. was able to hike 4-5 miles w/ hills. Then 3 weeks into this hurting R HS hurting and was hobbling around. Was running 3x/week getting around 25 miles/week. HS has been bothering him more. Saw a sports doc and did US of quad and found no tears. Recommended PT and taking tumeric for inflamation but hasn't gotten it yet. Still having long Covid symptoms w/ nausea, chest pain and brain fog. Currently taking low dose maletrexone (3mg) and it doesn't seem to be working. Has been getting migraines pretty regularly. Currently every other day migraines. 2 brain MRI that were normal. HS tight when tried to run and little sore after. Sometimes does just hurt and feel like spasming and then go away with no specific activity. Pt reports hx of B calf issues and was scheduled for B fasciotomies but got COVID. He was able to gradually inc run and that went away w/o surgery. Has new shoes from running [employer] and has an insole. Has a little bit of back pain but no major back pain. Mostly just when sits, can get achey. Overall back pain has been good recently Treatment Goals Patient/Caregiver Goals Be able to run and be able to work towards running ultra marathon PT-OP-C Subjective Start: 07/22/24 17:31 Freq: Status: Active Protocol: Document 10/26/24 13:07 [facility] (Rec: 10/26/24 13:51 [facility] [id number]) OP-PT Subjective Patient Comments Patient Comments pt did sofie 5k and felt fine and was able to run a 8:03 mile and felt fine w/ a run w/ hills w/stroller and the wheels were flat so very high intensity 2.5 miles and felt fine. Still feel it in hip flexor is tighter on that side . Notices R side feels weak w/ quad work PT-OP-D Balance Start: 07/22/24 17:31 Freq: Status: Active Protocol: Document 07/29/24 07:29 [facility] (Rec: 07/29/24 08:21 [facility] [id number]) Balance Tests Single Limb Standing Single Limb- Right >30 sec EO some deviation; 9 sec EC Single Limb- Left >30 sec EO; 25 sec EC PT-OP-F Manual Assessment Start: 07/22/24 17:31 Freq: Status: Active Protocol: Document 07/29/24 07:29 [facility] (Rec: 07/29/24 09:25 [facility] [id number]) Manual Assessments Soft Tissue Assessment Soft Tissue Mobility Assessment more tension in R add, quad and HS PT-OP-G Mobility & Gait Start: 07/22/24 17:31 Freq: Status: Active Protocol: Document 07/29/24 07:29 [facility] (Rec: 07/29/24 08:21 [facility] [id number]) OP Gait Assessment Comments Gait Comments walking: stiff trunk running: dec push off and hip ext B, IR R>L femur, stiff trunk PT-OP-J Posture/Palpation/Skin Start: 07/22/24 17:31 Freq: Status: Active Protocol: Document 09/29/24 17:04 [facility] (Rec: 09/29/24 17:59 [facility] [id number]) Posture Evaluation [facility] Postural Classification System Lumbar Protective Mechanism Left AP 2 Lumbar Protective Mechanism Right AP 1 Lumbar Protective Mechanism Left PA 2 Lumbar Protective Mechanism Right PA 2 PT-OP-L Special Tests Start: 07/22/24 17:31 Freq: Status: Active Protocol: Document 07/29/24 07:29 [facility] (Rec: 07/29/24 08:21 [facility] [id number]) Special Tests Knee Special Tests femoral n test Comments more R quad tightness; L does feel some symptoms in back Obers Comments positive R SLUmp Comments R some back tightness SLR Comments L:58 feels in HS R:48 feels mostly HS but some in R hip Louis Comments L hip flexor tightness; R TFL, RF, quad, hip flexor tightness PT-OP-M Strength Start: 07/22/24 17:31 Freq: Status: Active Protocol: Document 09/29/24 17:04 [facility] (Rec: 09/29/24 17:59 [facility] [id number]) Hip Strength Hip Manual Muscle Testing Right Flexion (L2) 5 Normal Extension (S1) 5 Normal Abduction 5 Normal Adduction 5 Normal External Rotation 5 Normal Internal Rotation 5 Normal Comments pain in buttocks w/hip flex Left Flexion (L2) 5 Normal Extension (S1) 5 Normal Abduction 5 Normal Adduction 5 Normal External Rotation 5 Normal Internal Rotation 5 Normal Comments pain in R groin w/L hip ext Knee Strength Knee Manual Muscle Testing Right Flexion (S2) 5 Normal Extension (L3) 5 Normal Left Flexion (S2) 5 Normal Extension (L3) 5 Normal PT-OP-Q Treatments Start: 07/22/24 17:31 Freq: Status: Active Protocol: Document 10/26/24 13:07 [facility] (Rec: 10/26/24 13:51 [facility] [id number]) Therapeutic Exercises Standing Exercises SL Standing Exercise Name cues for knee and hip position for SL squat Side bilateral Reps/Minutes 12 Comments mirror lunges Standing Exercise Name w/alt march -cues knee ext in SLS Side bilateral Equipment Used 5# wt L hand 1st 20ft then 2nd R hand Reps/Minutes 20ft ea hand Comments inc time for form Manual Therapy Treatment Consent Patient gave verbal consent for manual Yes treatment Soft Tissue Mobilization hip flexor Body Location R iliacus and psoas proximal& distal Mobilization Type Sustained Pressure Intensity/Depth Superficial Body Position Hooklying Comments w/hip flex right hip Body Location R TFL Mobilization Type Cross-Friction,Rolling Intensity/Depth Moderate HS Body Location R proximal Mobilization Type Rolling Intensity/Depth Moderate Body Position Hooklying Comments w/active HS stretch and hip flex Joint Mobilizations hip Comments R inf and lat c/r PT-OP-T Assessment and Plan Start: 07/22/24 17:31 Freq: Status: Active Protocol: Document 10/26/24 13:07 [facility] (Rec: 10/26/24 13:51 [facility] [id number]) Physical Therapy Assessment Goals activity Biomedical Engineering Technologist Goal (LTG) Pt will be able to run w/o increased pain in RLE/back on even and uneven terrain for at least 4 miles 08/26-2/10 w/slower speed running for 4 miles. Stops to stretch during, HS doing ok, back doing well 09/29-now in 9min/mile vs 10 min.mile now and was feeling okay until 2 miles in where feels hip pain and has gotten up to 6 miles, but felt sore by end of this. recent worsening after this weekend LTG Duration 12/02 strength Short Term Goal (STG) Pt will be indep w/HEP STG Duration achieved advancing as able Long-Term Goal (LTG) Pt will score 5/5 on BLE MMT and at least 3/5 in all planes LPM to show improved stability and allow inc tolerance to running 08/26-improving LTG Duration 12/02 Assessment Summary Assessment Pt had improved hip ER after manual today and improved hip flex w/add w/less pain/ pinching. Cues needed durng all exercises for neutral spine and keeping knee alignment Physical Therapy Plan Frequency and Duration Frequency of Treatment 1-2x/wk Duration of treatment (weeks) 8 Plan of Care Start Date 09/29/24 Plan of Care End Date 12/02/24 Next Visit Focus/Plan Next Note Type Treatment Note Next Visit Plan SL strength work for end range glute, work at iliopsoas, TFL , rectus femorus, along inguinal ligament, lumbr spine mobility; R sacral nutation
--- NOTE | 2024-10-27 08:58 | PT.OTN ---
Current Diagnoses Unspecified injury of unspecified quadriceps muscle, fascia and tendon, initial encounter (10/27/24) Physical Therapy Treatment Note PT-OP-A Visit Information Start: 07/22/24 17:31 Freq: Status: Active Protocol: Document 10/27/24 08:18 MB (Rec: 10/27/24 08:56 MB [id number]) Out-Patient Physical Therapy Visit Information Visit Information Visit Type Treatment Note Visit Start Time 08:18 Visit Stop Time 08:58 Visit Number 19 Number of PARADI OPERATOR Visits 0 PT-OP-B Current Condition Start: 07/22/24 17:31 Freq: Status: Active Protocol: Document 07/29/24 07:29 [facility] (Rec: 07/29/24 08:21 [facility] [id number]) Current Condition History of Current Condition Onset Date April 28 Current Complaints R quad and R HS pain History of Current Condition Pt reports was just running one day and R quad started hurting in the middle. Ran for the first time in 4 months last week. it was more sore across more sup mid quad. Tried initally taking 2 weeks off and running and it hurt. was able to hike 4-5 miles w/ hills. Then 3 weeks into this hurting R HS hurting and was hobbling around. Was running 3x/week getting around 25 miles/week. HS has been bothering him more. Saw a sports doc and did US of quad and found no tears. Recommended PT and taking tumeric for inflamation but hasn't gotten it yet. Still having long Covid symptoms w/ nausea, chest pain and brain fog. Currently taking low dose maletrexone (3mg) and it doesn't seem to be working. Has been getting migraines pretty regularly. Currently every other day migraines. 2 brain MRI that were normal. HS tight when tried to run and little sore after. Sometimes does just hurt and feel like spasming and then go away with no specific activity. Pt reports hx of B calf issues and was scheduled for B fasciotomies but got COVID. He was able to gradually inc run and that went away w/o surgery. Has new shoes from running [employer] and has an insole. Has a little bit of back pain but no major back pain. Mostly just when sits, can get achey. Overall back pain has been good recently Treatment Goals Patient/Caregiver Goals Be able to run and be able to work towards running ultra [employer] PT-OP-C Subjective Start: 07/22/24 17:31 Freq: Status: Active Protocol: Document 10/27/24 08:18 MB (Rec: 10/27/24 08:56 MB [id number]) OP-PT Subjective Patient Comments Patient Comments Pt reports pain in right anterior hip area with running and sitting in flexion. PT-OP-D Balance Start: 07/22/24 17:31 Freq: Status: Active Protocol: Document 07/29/24 07:29 [facility] (Rec: 07/29/24 08:21 [facility] [id number]) Balance Tests Single Limb Standing Single Limb- Right >30 sec EO some deviation; 9 sec EC Single Limb- Left >30 sec EO; 25 sec EC PT-OP-F Manual Assessment Start: 07/22/24 17:31 Freq: Status: Active Protocol: Document 07/29/24 07:29 [facility] (Rec: 07/29/24 09:25 [facility] [id number]) Manual Assessments Soft Tissue Assessment Soft Tissue Mobility Assessment more tension in R add, quad and HS PT-OP-G Mobility & Gait Start: 07/22/24 17:31 Freq: Status: Active Protocol: Document 07/29/24 07:29 [facility] (Rec: 07/29/24 08:21 [facility] [id number]) OP Gait Assessment Comments Gait Comments walking: stiff trunk running: dec push off and hip ext B, IR R>L femur, stiff trunk PT-OP-J Posture/Palpation/Skin Start: 07/22/24 17:31 Freq: Status: Active Protocol: Document 09/29/24 17:04 [facility] (Rec: 09/29/24 17:59 [facility] [id number]) Posture Evaluation Yara Postural Classification System Lumbar Protective Mechanism Left AP 2 Lumbar Protective Mechanism Right AP 1 Lumbar Protective Mechanism Left PA 2 Lumbar Protective Mechanism Right PA 2 PT-OP-L Special Tests Start: 07/22/24 17:31 Freq: Status: Active Protocol: Document 07/29/24 07:29 [facility] (Rec: 07/29/24 08:21 [facility] [id number]) Special Tests Knee Special Tests femoral n test Comments more R quad tightness; L does feel some symptoms in back Obers Comments positive R SLUmp Comments R some back tightness SLR Comments L:58 feels in HS R:48 feels mostly HS but some in R hip Louis Comments L hip flexor tightness; R TFL, RF, quad, hip flexor tightness PT-OP-M Strength Start: 07/22/24 17:31 Freq: Status: Active Protocol: Document 09/29/24 17:04 [facility] (Rec: 09/29/24 17:59 [facility] [id number]) Hip Strength Hip Manual Muscle Testing Right Flexion (L2) 5 Normal Extension (S1) 5 Normal Abduction 5 Normal Adduction 5 Normal External Rotation 5 Normal Internal Rotation 5 Normal Comments pain in buttocks w/hip flex Left Flexion (L2) 5 Normal Extension (S1) 5 Normal Abduction 5 Normal Adduction 5 Normal External Rotation 5 Normal Internal Rotation 5 Normal Comments pain in R groin w/L hip ext Knee Strength Knee Manual Muscle Testing Right Flexion (S2) 5 Normal Extension (L3) 5 Normal Left Flexion (S2) 5 Normal Extension (L3) 5 Normal PT-OP-Q Treatments Start: 07/22/24 17:31 Freq: Status: Active Protocol: Document 10/27/24 08:18 MB (Rec: 10/27/24 08:56 [id number]) Manual Therapy Treatment Consent Patient gave verbal consent for manual Yes treatment Other Other Manual Treatments Pt B side lying: B rib recoil and STM for B paraspinals, QL, hip rotators, hip flexors, TFL. TrP right QL and iliopsoas. STM right iliacus and rectus femoris attachment in side lying and pt responds well. Pt supine: hip flexor positional release and glute, TFL, rectus STM, STM right adductors, hamstrings. PT-OP-T Assessment and Plan Start: 07/22/24 17:31 Freq: Status: Active Protocol: Document 10/27/24 08:18 [facility] (Rec: 10/27/24 08:56 [facility] [id number]) Physical Therapy Assessment Goals activity Binder Cutter Hand Goal (LTG) Pt will be able to run w/o increased pain in RLE/back on even and uneven terrain for at least 4 miles 08/26-2/10 w/slower speed running for 4 miles. Stops to stretch during, HS doing ok, back doing well 09/29-now in 9min/mile vs 10 min.mile now and was feeling okay until 2 miles in where feels hip pain and has gotten up to 6 miles, but felt sore by end of this. recent worsening after this weekend LTG Duration 12/02 strength Short Term Goal (STG) Pt will be indep w/HEP STG Duration achieved advancing as able [facility] Goal (LTG) Pt will score 5/5 on BLE MMT and at least 3/5 in all planes LPM to show improved stability and allow inc tolerance to running 08/26-improving LTG Duration 12/02 Assessment Summary Assessment In standing, left iliac crest higher than right today and increased tension right ribs, QL, paraspinals. Pt tolerates one TrP treatment only. STM mostly today and rib recoil, recommend more thoracic work as far as exercises and manual work. Physical Therapy Plan Frequency and Duration Frequency of Treatment 1-2x/wk Duration of treatment (weeks) 8 Plan of Care Start Date 09/29/24 Plan of Care End Date 12/02/24 Next Visit Focus/Plan Next Note Type Treatment Note Next Visit Plan Consider thoracic mobility work and stretches suchs as open book, child's pose and walk hands to the side, therapy ball sitting and exercises. SL strength work for end range glute, work at iliopsoas, TFL , rectus femorus, along inguinal ligament, lumbr spine mobility; R sacral nutation
--- NOTE | 2024-11-03 13:23 | PT.OTN ---
Current Diagnoses Unspecified injury of unspecified quadriceps muscle, fascia and tendon, initial encounter (11/03/24) Physical Therapy Treatment Note PT-OP-A Visit Information Start: 07/22/24 17:31 Freq: Status: Active Protocol: Document 11/03/24 08:19 [facility] (Rec: 11/03/24 13:23 [facility] [id number]) Out-Patient Physical Therapy Visit Information Visit Information Visit Type Progress Note Visit Start Time 08:19 Visit Stop Time 08:59 Visit Number 20 Number of ICE CREAM MIXER Visits 0 PT-OP-B Current Condition Start: 07/22/24 17:31 Freq: Status: Active Protocol: Document 07/29/24 07:29 [facility] (Rec: 07/29/24 08:21 [facility] [id number]) Current Condition History of Current Condition Onset Date April 28 Current Complaints R quad and R HS pain History of Current Condition Pt reports was just running one day and R quad started hurting in the middle. Ran for the first time in 4 months last week. it was more sore across more sup mid quad. Tried initally taking 2 weeks off and running and it hurt. was able to hike 4-5 miles w/ hills. Then 3 weeks into this hurting R HS hurting and was hobbling around. Was running 3x/week getting around 25 miles/week. HS has been bothering him more. Saw a sports doc and did US of quad and found no tears. Recommended PT and taking tumeric for inflamation but hasn't gotten it yet. Still having long Covid symptoms w/ nausea, chest pain and brain fog. Currently taking low dose maletrexone (3mg) and it doesn't seem to be working. Has been getting migraines pretty regularly. Currently every other day migraines. 2 brain MRI that were normal. HS tight when tried to run and little sore after. Sometimes does just hurt and feel like spasming and then go away with no specific activity. Pt reports hx of B calf issues and was scheduled for B fasciotomies but got COVID. He was able to gradually inc run and that went away w/o surgery. Has new shoes from running [employer] and has an insole. Has a little bit of back pain but no major back pain. Mostly just when sits, can get achey. Overall back pain has been good recently Treatment Goals Patient/Caregiver Goals Be able to run and be able to work towards running ultra [employer] PT-OP-C Subjective Start: 07/22/24 17:31 Freq: Status: Active Protocol: Document 11/03/24 08:19 [facility] (Rec: 11/03/24 13:23 [facility] [id number]) OP-PT Subjective Patient Comments Patient Comments R LB and lat hip and groin were sore and had to ice and alieve the day after last session. Had n soreness from top of big toe outside of leg then all the way up to neck on R w/soreness. Biggest thing was ribs were soreness. 3-10 when standing up. back to normal, but hasn't worked out because this lasted about 3 days. ribs still hurting a little on R. has not felt groin since 2 days after. has done walks ok PT-OP-D Balance Start: 07/22/24 17:31 Freq: Status: Active Protocol: Document 07/29/24 07:29 [facility] (Rec: 07/29/24 08:21 [facility] [id number]) Balance Tests Single Limb Standing Single Limb- Right >30 sec EO some deviation; 9 sec EC Single Limb- Left >30 sec EO; 25 sec EC PT-OP-F Manual Assessment Start: 07/22/24 17:31 Freq: Status: Active Protocol: Document 07/29/24 07:29 [facility] (Rec: 07/29/24 09:25 [facility] [id number]) Manual Assessments Soft Tissue Assessment Soft Tissue Mobility Assessment more tension in R add, quad and HS PT-OP-G Mobility & Gait Start: 07/22/24 17:31 Freq: Status: Active Protocol: Document 07/29/24 07:29 [facility] (Rec: 07/29/24 08:21 [facility] [id number]) OP Gait Assessment Comments Gait Comments walking: stiff trunk running: dec push off and hip ext B, IR R>L femur, stiff trunk PT-OP-J Posture/Palpation/Skin Start: 07/22/24 17:31 Freq: Status: Active Protocol: Document 11/03/24 08:19 [facility] (Rec: 11/03/24 13:23 [facility] [id number]) Posture Evaluation Yara Postural Classification System Lumbar Protective Mechanism Left AP 2 Lumbar Protective Mechanism Right AP 0 Lumbar Protective Mechanism Left PA 1 Lumbar Protective Mechanism Right PA 2 PT-OP-L Special Tests Start: 07/22/24 17:31 Freq: Status: Active Protocol: Document 07/29/24 07:29 [facility] (Rec: 07/29/24 08:21 [facility] [id number]) Special Tests Knee Special Tests femoral n test Comments more R quad tightness; L does feel some symptoms in back Obers Comments positive R SLUmp Comments R some back tightness SLR Comments L:58 feels in HS R:48 feels mostly HS but some in R hip Louis Comments L hip flexor tightness; R TFL, RF, quad, hip flexor tightness PT-OP-M Strength Start: 07/22/24 17:31 Freq: Status: Active Protocol: Document 11/03/24 08:19 [facility] (Rec: 11/03/24 13:23 [facility] [id number]) Hip Strength Hip Manual Muscle Testing Right Flexion (L2) 5 Normal Extension (S1) 5 Normal Abduction 5 Normal Adduction 5 Normal External Rotation 5 Normal Internal Rotation 5 Normal Comments some pain lat hip w/abd Left Flexion (L2) 5 Normal Extension (S1) 5 Normal Abduction 5 Normal Adduction 5 Normal External Rotation 5 Normal Internal Rotation 5 Normal PT-OP-Q Treatments Start: 07/22/24 17:31 Freq: Status: Active Protocol: Document 11/03/24 08:19 [facility] (Rec: 11/03/24 13:23 [facility] [id number]) Therapeutic Exercises Supine Exercises ITB Supine Exercise Name ITB/lat HS stretch Side right Reps/Minutes 1 min Comments strap use HS stretch Supine Exercise Name from hooklying Side right Reps/Minutes 60 seconds X 1 Comments verbal cues piriformis stretch Supine Exercise Name R figure 4 w/pullt ochest Side right Reps/Minutes 30 sec Other Exercises isometrics Other Exercise Name B LE MMT & LPM Manual Therapy Treatment Soft Tissue Mobilization hip flexor Body Location R distal iliopsoas Mobilization Type Sustained Pressure Comments w.hip flex right hip Body Location R TFL & lat glute Mobilization Type Rolling,Sustained Pressure Intensity/Depth Moderate Comments w/hip flex Joint Mobilizations hip Comments Rinf and infmed c/r supine PT-OP-T Assessment and Plan Start: 07/22/24 17:31 Freq: Status: Active Protocol: Document 11/03/24 08:19 [facility] (Rec: 11/03/24 13:23 [facility] [id number]) Physical Therapy Assessment Goals activity Keycase Assembler Goal (LTG) Pt will be able to run w/o increased pain in RLE/back on even and uneven terrain for at least 4 miles 10-2/10 w/slower speed running for 4 miles. Stops to stretch during, HS doing ok, back doing well 09/29-now in 9min/mile vs 10 min.mile now and was feeling okay until 2 miles in where feels hip pain and has gotten up to 6 miles, but felt sore by end of this. recent worsening after this weekend 11/03-not running recently d/t pain after last session, possibly starting to get sick LTG Duration 12/02 strength Short Term Goal (STG) Pt will be indep w/HEP STG Duration achieved advancing as able [facility] Goal (LTG) Pt will score 5/5 on BLE MMT and at least 3/5 in all planes LPM to show improved stability and allow inc tolerance to running 08/26-improving 11/03-dec core slightly today w/rib pain; 5/5 LE strength LTG Duration 12/15 Assessment Summary Assessment Pt was flared up w/trigger point and manual work from last session w/notable inc pain for 3 days to follow w/ mostly resolved. concerned is getting sick so may not be able to run between now and next session. Does overall have improved strength but some dec core likely d/t pain in ribs after last treatment. He has improved overall w/PT w /inc running pain and inc distance able. Cont PT to return to full running Physical Therapy Plan Frequency and Duration Frequency of Treatment 1-2x/wk Duration of treatment (weeks) 6 Plan of Care Start Date 11/03/24 Plan of Care End Date 12/15/24 Therapeutic Interventions Therapeutic Interventions Balance Training,Gait Training ,Home Exercise Program,Joint Mobilizations,Manual Therapy, Neuromuscular Re-education, Patient/Caregiver Education, Self-Care/Home Management,Soft Tissue Mobilization,Taping, Therapeutic Activities, Therapeutic Exercises Modalities Cold Pack/Ice Massage,Electric Stimulation,Hot Packs, Infrared Therapy,Ultrasound Next Visit Focus/Plan Next Note Type Treatment Note Next Visit Plan Gentle trunk mobility stretching like open book work at iliopsoas, TFL, rectus femorus, along inguinal ligament, lumbr spine mobility
--- NOTE | 2024-11-03 13:23 | PT.OPPOC ---
Physical, Occupational & Speech Therapy At [facility] Current Diagnoses Unspecified injury of unspecified quadriceps muscle, fascia and tendon, initial encounter (11/03/24) Visit Care Team Role Provider Type Beth Lennon MD Attending Provider Non-Staff Family Provider Primary Care Provider Referring Provider Specialty: Family Practice Address: [address] [place] [address], [place], [address] Email: Plan Of Care PT-OP-B Current Condition Start: 07/22/24 17:31 Freq: Status: Active Protocol: Document 07/29/24 07:29 [facility] (Rec: 07/29/24 08:21 [facility] [id number]) Current Condition History of Current Condition Onset Date April 28 Current Complaints R quad and R HS pain History of Current Condition Pt reports was just running one day and R quad started hurting in the middle. Ran for the first time in 4 months last week. it was more sore across more sup mid quad. Tried initally taking 2 weeks off and running and it hurt. was able to hike 4-5 miles w/ hills. Then 3 weeks into this hurting R HS hurting and was hobbling around. Was running 3x/week getting around 25 miles/week. HS has been bothering him more. Saw a sports doc and did US of quad and found no tears. Recommended PT and taking tumeric for inflamation but hasn't gotten it yet. Still having long Covid symptoms w/ nausea, chest pain and brain fog. Currently taking low dose maletrexone (3mg) and it doesn't seem to be working. Has been getting migraines pretty regularly. Currently every other day migraines. 2 brain MRI that were normal. HS tight when tried to run and little sore after. Sometimes does just hurt and feel like spasming and then go away with no specific activity. Pt reports hx of B calf issues and was scheduled for B fasciotomies but got COVID. He was able to gradually inc run and that went away w/o surgery. 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 Has a little bit of back pain but no major back pain. Mostly just when sits, can get achey. Overall back pain has been good recently Treatment Goals Patient/Caregiver Goals Be able to run and be able to work towards running ultra [employer] PT-OP-T Assessment and Plan Start: 07/22/24 17:31 Freq: Status: Active Protocol: Document 11/03/24 08:19 [facility] (Rec: 11/03/24 13:23 [facility] [id number]) Physical Therapy Assessment Goals activity [employer] Goal (LTG) Pt will be able to run w/o increased pain in RLE/back on even and uneven terrain for at least 4 miles 08/26-2/10 w/slower speed running for 4 miles. Stops to stretch during, HS doing ok, back doing well 09/29-now in 9min/mile vs 10 min.mile now and was feeling okay until 2 miles in where feels hip pain and has gotten up to 6 miles, but felt sore by end of this. recent worsening after this weekend 11/03-not running recently d/t pain after last session, possibly starting to get sick LTG Duration 12/02 strength Short Term Goal (STG) Pt will be indep w/HEP STG Duration achieved advancing as able [facility] Goal (LTG) Pt will score 5/5 on BLE MMT and at least 3/5 in all planes LPM to show improved stability and allow inc tolerance to running 08/26-improving 11/03-dec core slightly today w/rib pain; 5/5 LE strength LTG Duration 12/15 Assessment Summary Assessment Pt was flared up w/trigger point and manual work from last session w/notable inc pain for 3 days to follow w/ mostly resolved. concerned is getting sick so may not be able to run between now and next session. Does overall have improved strength but some dec core likely d/t pain in ribs after last treatment. He has improved overall w/PT w /inc running pain and inc distance able. Cont PT to return to full running Physical Therapy Plan Frequency and Duration Frequency of Treatment 1-2x/wk Duration of treatment (weeks) 6 Plan of Care Start Date 11/03/24 Plan of Care End Date 12/15/24 Therapeutic Interventions Therapeutic Interventions Balance Training,Gait Training ,Home Exercise Program,Joint Mobilizations,Manual Therapy, Neuromuscular Re-education, Patient/Caregiver Education, Self-Care/Home Management,Soft Tissue Mobilization,Taping, Therapeutic Activities, Therapeutic Exercises Modalities Cold Pack/Ice Massage,Electric Stimulation,Hot Packs, Infrared Therapy,Ultrasound Next Visit Focus/Plan Next Note Type Treatment Note Next Visit Plan Gentle trunk mobility stretching like open book work at iliopsoas, TFL, rectus femorus, along inguinal ligament, lumbr spine mobility Plan of Care Dates Plan of Care Start Date 11/03/24 Plan of Care End Date 12/15/24 Electronically Signed by: Carie Doe, PT 11/03/24 [id number] If you are in agreement with this Plan of Care, please return a signed and dated copy. I have reviewed this Plan of Care and certify that the skilled therapy services above are required to meet the patient?s needs. Physician Signature Date Printed Name and Credentials Clinical Instructor Signature Printed Name and Credentials
--- NOTE | 2024-11-08 09:51 | PT.OTN ---
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 Ran for the first time in 4 months last week. it was more sore across more sup mid quad. Tried initally taking 2 weeks off and running and it hurt. was able to hike 4-5 miles w/ hills. Then 3 weeks into this hurting R HS hurting and was hobbling around. Was running 3x/week getting around 25 miles/week. HS has been bothering him more. Saw a sports doc and did US of quad and found no tears. Recommended PT and taking tumeric for inflamation but hasn't gotten it yet. Still having long Covid symptoms w/ nausea, chest pain and brain fog. Currently taking low dose maletrexone (3mg) and it doesn't seem to be working. Has been getting migraines pretty regularly. Currently every other day migraines. 2 brain MRI that were normal. HS tight when tried to run and little sore after. Sometimes does just hurt and feel like spasming and then go away with no specific activity. Pt reports hx of B calf issues and was scheduled for B fasciotomies but got COVID. He was able to gradually inc run and that went away w/o surgery. Has new shoes from running [employer] and has an insole. Has a little bit of back pain but no major back pain. Mostly just when sits, can get achey. Overall back pain has been good recently Treatment Goals Patient/Caregiver Goals Be able to run and be able to work towards running ultra [employer] PT-OP-C Subjective Start: 07/22/24 17:31 Freq: Status: Active Protocol: Document 11/08/24 09:04 [facility] (Rec: 11/08/24 09:51 [facility] [id number]) OP-PT Subjective Patient Comments Patient Comments hasn't run d/t getting sick and kid is sick. PT-OP-D Balance Start: 07/22/24 17:31 Freq: Status: Active Protocol: Document 07/29/24 07:29 [facility] (Rec: 07/29/24 08:21 [facility] [id number]) Balance Tests Single Limb Standing Single Limb- Right >30 sec EO some deviation; 9 sec EC Single Limb- Left >30 sec EO; 25 sec EC PT-OP-F Manual Assessment Start: 07/22/24 17:31 Freq: Status: Active Protocol: Document 07/29/24 07:29 [facility] (Rec: 07/29/24 09:25 [facility] [id number]) Manual Assessments Soft Tissue Assessment Soft Tissue Mobility Assessment more tension in R add, quad and HS PT-OP-G Mobility & Gait Start: 07/22/24 17:31 Freq: Status: Active Protocol: Document 07/29/24 07:29 [facility] (Rec: 07/29/24 08:21 [facility] [id number]) OP Gait Assessment Comments Gait Comments walking: stiff trunk running: dec push off and hip ext B, IR R>L femur, stiff trunk PT-OP-J Posture/Palpation/Skin Start: 07/22/24 17:31 Freq: Status: Active Protocol: Document 11/03/24 08:19 [facility] (Rec: 11/03/24 13:23 [facility] [id number]) Posture Evaluation Yara Postural Classification System Lumbar Protective Mechanism Left AP 2 Lumbar Protective Mechanism Right AP 0 Lumbar Protective Mechanism Left PA 1 Lumbar Protective Mechanism Right PA 2 PT-OP-L Special Tests Start: 07/22/24 17:31 Freq: Status: Active Protocol: Document 07/29/24 07:29 [facility] (Rec: 07/29/24 08:21 [facility] [id number]) Special Tests Knee Special Tests femoral n test Comments more R quad tightness; L does feel some symptoms in back Obers Comments positive R SLUmp Comments R some back tightness SLR Comments L:58 feels in HS R:48 feels mostly HS but some in R hip Louis Comments L hip flexor tightness; R TFL, RF, quad, hip flexor tightness PT-OP-M Strength Start: 07/22/24 17:31 Freq: Status: Active Protocol: Document 11/03/24 08:19 [facility] (Rec: 11/03/24 13:23 [facility] [id number]) Hip Strength Hip Manual Muscle Testing Right Flexion (L2) 5 Normal Extension (S1) 5 Normal Abduction 5 Normal Adduction 5 Normal External Rotation 5 Normal Internal Rotation 5 Normal Comments some pain lat hip w/abd Left Flexion (L2) 5 Normal Extension (S1) 5 Normal Abduction 5 Normal Adduction 5 Normal External Rotation 5 Normal Internal Rotation 5 Normal PT-OP-Q Treatments Start: 07/22/24 17:31 Freq: Status: Active Protocol: Document 11/08/24 09:04 [facility] (Rec: 11/08/24 09:51 [facility] [id number]) Therapeutic Exercises Sidelying Exercises open book Side bilateral Reps/Minutes 8 Comments min cues sideplank Sidelying Exercise Name forearm and knees R, forearm and feet L Side bilateral Reps/Minutes 20 sec Comments cues alignment Standing Exercises SL Standing Exercise Name cues for knee and hip position for SL squat Side bilateral Reps/Minutes 6 Comments mirror lunges Standing Exercise Name cues TKE w/january Side bilateral Equipment Used 5# Reps/Minutes 2x20ft (2x but in opp hand) Other Exercises quadruped Other Exercise Name alt hip ext Side bilateral Reps/Minutes 10 Comments cues no trunk movement cat/cow Reps/Minutes 10 Manual Therapy Treatment Soft Tissue Mobilization ribcage Comments MFR t lats, fascia, QL & paraspinals TL spine w/dep pelvis right hip Comments circumfrential release w/ER Joint Mobilizations ribcage Comments general lower R up and back w/ and dep c/r PT-OP-T Assessment and Plan Start: 07/22/24 17:31 Freq: Status: Active Protocol: Document 11/08/24 09:04 [facility] (Rec: 11/08/24 09:51 [facility] [id number]) Physical Therapy Assessment Goals activity Detention Goal (LTG) Pt will be able to run w/o increased pain in RLE/back on even and uneven terrain for at least 4 miles 08/26-2/10 w/slower speed running for 4 miles. Stops to stretch during, HS doing ok, back doing well 09/29-now in 9min/mile vs 10 min.mile now and was feeling okay until 2 miles in where feels hip pain and has gotten up to 6 miles, but felt sore by end of this. recent worsening after this weekend 11/03-not running recently d/t pain after last session, possibly starting to get sick LTG Duration 12/02 strength Short Term Goal (STG) Pt will be indep w/HEP STG Duration achieved advancing as able Communicable Disease Specialist Goal (LTG) Pt will score 5/5 on BLE MMT and at least 3/5 in all planes LPM to show improved stability and allow inc tolerance to running 08/26-improving 11/03-dec core slightly today w/rib pain; 5/5 LE strength LTG Duration 12/15 Assessment Summary Assessment w/work in ribs, pt felt referral to R hip/leg. iMproved after manual along w/ improved B rot, and L SB w/o pain. cues w/trunk exercises needed Physical Therapy Plan Frequency and Duration Frequency of Treatment 1-2x/wk Duration of treatment (weeks) 6 Plan of Care Start Date 11/03/24 Plan of Care End Date 12/15/24 Next Visit Focus/Plan Next Note Type Treatment Note Next Visit Plan review exercises since last session; work back towards running progression
--- NOTE | 2024-11-24 10:47 | PT.OTN ---
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 Ran for the first time in 4 months last week. it was more sore across more sup mid quad. Tried initally taking 2 weeks off and running and it hurt. was able to hike 4-5 miles w/ hills. Then 3 weeks into this hurting R HS hurting and was hobbling around. Was running 3x/week getting around 25 miles/week. HS has been bothering him more. Saw a sports doc and did US of quad and found no tears. Recommended PT and taking tumeric for inflamation but hasn't gotten it yet. Still having long Covid symptoms w/ nausea, chest pain and brain fog. Currently taking low dose maletrexone (3mg) and it doesn't seem to be working. Has been getting migraines pretty regularly. Currently every other day migraines. 2 brain MRI that were normal. HS tight when tried to run and little sore after. Sometimes does just hurt and feel like spasming and then go away with no specific activity. Pt reports hx of B calf issues and was scheduled for B fasciotomies but got COVID. He was able to gradually inc run and that went away w/o surgery. Has new shoes from running [employer] and has an insole. Has a little bit of back pain but no major back pain. Mostly just when sits, can get achey. Overall back pain has been good recently Treatment Goals Patient/Caregiver Goals Be able to run and be able to work towards running ultra [employer] PT-OP-C Subjective Start: 07/22/24 17:31 Freq: Status: Active Protocol: Document 11/24/24 08:07 [facility] (Rec: 11/24/24 10:46 [facility] [id number]) OP-PT Subjective Patient Comments Patient Comments Patient reports he is on antibiotics, and has been having coughing fits. Patient reports he has not run due to illness. Patient reports he hopes to get back into running this week. Patient reports hip and quad R have not been sore this week. Cherise reports dry needling made him feel like thrown down a flight of stairs the next day. Patient reports couldn't do ex for 2 days, had to take pain killers . PT-OP-D Balance Start: 07/22/24 17:31 Freq: Status: Active Protocol: Document 07/29/24 07:29 [facility] (Rec: 07/29/24 08:21 [facility] [id number]) Balance Tests Single Limb Standing Single Limb- Right >30 sec EO some deviation; 9 sec EC Single Limb- Left >30 sec EO; 25 sec EC PT-OP-F Manual Assessment Start: 07/22/24 17:31 Freq: Status: Active Protocol: Document 07/29/24 07:29 [facility] (Rec: 07/29/24 09:25 [facility] [id number]) Manual Assessments Soft Tissue Assessment Soft Tissue Mobility Assessment more tension in R add, quad and HS PT-OP-G Mobility & Gait Start: 07/22/24 17:31 Freq: Status: Active Protocol: Document 07/29/24 07:29 [facility] (Rec: 07/29/24 08:21 [facility] [id number]) OP Gait Assessment Comments Gait Comments walking: stiff trunk running: dec push off and hip ext B, IR R>L femur, stiff trunk PT-OP-J Posture/Palpation/Skin Start: 07/22/24 17:31 Freq: Status: Active Protocol: Document 11/03/24 08:19 [facility] (Rec: 11/03/24 13:23 [facility] [id number]) Posture Evaluation Yara Postural Classification System Lumbar Protective Mechanism Left AP 2 Lumbar Protective Mechanism Right AP 0 Lumbar Protective Mechanism Left PA 1 Lumbar Protective Mechanism Right PA 2 PT-OP-L Special Tests Start: 07/22/24 17:31 Freq: Status: Active Protocol: Document 07/29/24 07:29 [facility] (Rec: 07/29/24 08:21 [facility] [id number]) Special Tests Knee Special Tests femoral n test Comments more R quad tightness; L does feel some symptoms in back Obers Comments positive R SLUmp Comments R some back tightness SLR Comments L:58 feels in HS R:48 feels mostly HS but some in R hip Louis Comments L hip flexor tightness; R TFL, RF, quad, hip flexor tightness PT-OP-M Strength Start: 07/22/24 17:31 Freq: Status: Active Protocol: Document 11/03/24 08:19 [facility] (Rec: 11/03/24 13:23 [facility] [id number]) Hip Strength Hip Manual Muscle Testing Right Flexion (L2) 5 Normal Extension (S1) 5 Normal Abduction 5 Normal Adduction 5 Normal External Rotation 5 Normal Internal Rotation 5 Normal Comments some pain lat hip w/abd Left Flexion (L2) 5 Normal Extension (S1) 5 Normal Abduction 5 Normal Adduction 5 Normal External Rotation 5 Normal Internal Rotation 5 Normal PT-OP-Q Treatments Start: 07/22/24 17:31 Freq: Status: Active Protocol: Document 11/24/24 08:07 [facility] (Rec: 11/24/24 10:46 [facility] [id number]) Therapeutic Exercises Supine Exercises piriformis stretch Supine Exercise Name R figure 4 w/pullt [place] Side bilateral Reps/Minutes 60 sec Sidelying Exercises open book Side bilateral Reps/Minutes 6 for 3 breaths Comments verbal cues for breathing. Standing Exercises SL Standing Exercise Name pistol squat Side bilateral Reps/Minutes 5 Comments Mirror, verbal cues for alignment trunk and knee lunges Side bilateral Equipment Used 5# Reps/Minutes 15 feet X 2 weight right X 2 weight left Comments verbal cues for alignment Manual Therapy Treatment Consent Patient gave verbal consent for manual Yes treatment Soft Tissue Mobilization ribcage Body Location Lat, intercostal Thoracic and lumbar paraspinals, int roselia tissue Mobilization Type Cross-Friction,Rolling, Sustained Pressure Intensity/Depth Moderate Body Position Sidelying Comments bilateral right hip Body Location glute/piriformis bilateral Mobilization Type Cross-Friction,Rolling Intensity/Depth Moderate Joint Mobilizations hip Comments Rinf and infmed c/r supine Manual Techniques MET for right AI left PI Type also pubic shot gun Reps/Duration 6 sec 6 X each PT-OP-T Assessment and Plan Start: 07/22/24 17:31 Freq: Status: Active Protocol: Document 11/24/24 08:07 [facility] (Rec: 11/24/24 10:46 [facility] [id number]) Physical Therapy Assessment Goals activity Long-Term Goal (LTG) Pt will be able to run w/o increased pain in RLE/back on even and uneven terrain for at least 4 miles 08/26-2/10 w/slower speed running for 4 miles. Stops to stretch during, HS doing ok, back doing well 09/29-now in 9min/mile vs 10 min.mile now and was feeling okay until 2 miles in where feels hip pain and has gotten up to 6 miles, but felt sore by end of this. recent worsening after this weekend 11/03-not running recently d/t pain after last session, possibly starting to get sick LTG Duration 12/02 strength Short Term Goal (STG) Pt will be indep w/HEP STG Duration achieved advancing as able Sprayer Machine Goal (LTG) Pt will score 5/5 on BLE MMT and at least 3/5 in all planes LPM to show improved stability and allow inc tolerance to running 08/26-improving 11/03-dec core slightly today w/rib pain; 5/5 LE strength LTG Duration 12/15 Assessment Summary Assessment Cherise reports feeling Looser with seated trunk rotation end of session, noted/observed improved quality of movement throughout. Physical Therapy Plan Frequency and Duration Frequency of Treatment 1-2x/wk Duration of treatment (weeks) 6 Plan of Care Start Date 11/03/24 Plan of Care End Date 12/15/24 Next Visit Focus/Plan Next Note Type Treatment Note Next Visit Plan review exercises since last session; work back towards running progression
--- NOTE | 2024-12-01 09:09 | PT.OTN ---
Current Diagnoses Unspecified injury of unspecified quadriceps muscle, fascia and tendon, initial encounter (12/01/24) Physical Therapy Treatment Note PT-OP-A Visit Information Start: 07/22/24 17:31 Freq: Status: Active Protocol: Document 12/01/24 08:17 [facility] (Rec: 12/01/24 09:06 [facility] [id number]) Out-Patient Physical Therapy Visit Information Visit Information Visit Type Progress Note Visit Start Time 08:20 Visit Stop Time 09:00 Visit Number 23 Number of SERVER Visits 0 PT-OP-B Current Condition Start: 07/22/24 17:31 Freq: Status: Active Protocol: Document 07/29/24 07:29 [facility] (Rec: 07/29/24 08:21 [facility] [id number]) Current Condition History of Current Condition Onset Date April 28 Current Complaints R quad and R HS pain History of Current Condition Pt reports was just running one day and R quad started hurting in the middle. Ran for the first time in 4 months last week. it was more sore across more sup mid quad. Tried initally taking 2 weeks off and running and it hurt. was able to hike 4-5 miles w/ hills. Then 3 weeks into this hurting R HS hurting and was hobbling around. Was running 3x/week getting around 25 miles/week. HS has been bothering him more. Saw a sports doc and did US of quad and found no tears. Recommended PT and taking tumeric for inflamation but hasn't gotten it yet. Still having long Covid symptoms w/ nausea, chest pain and brain fog. Currently taking low dose maletrexone (3mg) and it doesn't seem to be working. Has been getting migraines pretty regularly. Currently every other day migraines. 2 brain MRI that were normal. HS tight when tried to run and little sore after. Sometimes does just hurt and feel like spasming and then go away with no specific activity. Pt reports hx of B calf issues and was scheduled for B fasciotomies but got COVID. He was able to gradually inc run and that went away w/o surgery. Has new shoes from running [employer] and has an insole. Has a little bit of back pain but no major back pain. Mostly just when sits, can get achey. Overall back pain has been good recently Treatment Goals Patient/Caregiver Goals Be able to run and be able to work towards running ultra [place] PT-OP-C Subjective Start: 07/22/24 17:31 Freq: Status: Active Protocol: Document 12/01/24 08:17 [facility] (Rec: 12/01/24 09:06 [facility] [id number]) OP-PT Subjective Patient Comments Patient Comments Pt reports ran a few min ago for 10 min to warm up and did 3.5 miles the other day and legs felt tired and got the pain across thigh about 2 miles in a nd stretched and it went away. PT-OP-D Balance Start: 07/22/24 17:31 Freq: Status: Active Protocol: Document 07/29/24 07:29 [facility] (Rec: 07/29/24 08:21 [facility] [id number]) Balance Tests Single Limb Standing Single Limb- Right >30 sec EO some deviation; 9 sec EC Single Limb- Left >30 sec EO; 25 sec EC PT-OP-F Manual Assessment Start: 07/22/24 17:31 Freq: Status: Active Protocol: Document 07/29/24 07:29 [facility] (Rec: 07/29/24 09:25 [facility] [id number]) Manual Assessments Soft Tissue Assessment Soft Tissue Mobility Assessment more tension in R add, quad and HS PT-OP-G Mobility & Gait Start: 07/22/24 17:31 Freq: Status: Active Protocol: Document 07/29/24 07:29 [facility] (Rec: 07/29/24 08:21 [facility] [id number]) OP Gait Assessment Comments Gait Comments walking: stiff trunk running: dec push off and hip ext B, IR R>L femur, stiff trunk PT-OP-J Posture/Palpation/Skin Start: 07/22/24 17:31 Freq: Status: Active Protocol: Document 12/01/24 08:17 [facility] (Rec: 12/01/24 09:06 [facility] [id number]) Posture Evaluation Yara Postural Classification System Lumbar Protective Mechanism Left AP 2 Lumbar Protective Mechanism Right AP 2 Lumbar Protective Mechanism Left PA 3 Lumbar Protective Mechanism Right PA 2 PT-OP-L Special Tests Start: 07/22/24 17:31 Freq: Status: Active Protocol: Document 07/29/24 07:29 [facility] (Rec: 07/29/24 08:21 [facility] [id number]) Special Tests Knee Special Tests femoral n test Comments more R quad tightness; L does feel some symptoms in back Obers Comments positive R SLUmp Comments R some back tightness SLR Comments L:58 feels in HS R:48 feels mostly HS but some in R hip Louis Comments L hip flexor tightness; R TFL, RF, quad, hip flexor tightness PT-OP-M Strength Start: 07/22/24 17:31 Freq: Status: Active Protocol: Document 12/01/24 08:17 [facility] (Rec: 12/01/24 09:06 [facility] [id number]) Hip Strength Hip Manual Muscle Testing Right Flexion (L2) 5 Normal Extension (S1) 5 Normal Abduction 4+ Good+ Adduction 5 Normal External Rotation 5 Normal Internal Rotation 5 Normal Left Flexion (L2) 5 Normal Extension (S1) 5 Normal Abduction 5 Normal Adduction 5 Normal External Rotation 5 Normal Internal Rotation 5 Normal Knee Strength Knee Manual Muscle Testing Right Flexion (S2) 5 Normal Extension (L3) 5 Normal Left Flexion (S2) 5 Normal Extension (L3) 5 Normal PT-OP-Q Treatments Start: 07/22/24 17:31 Freq: Status: Active Protocol: Document 12/01/24 08:17 [facility] (Rec: 12/01/24 09:06 [facility] [id number]) Therapeutic Exercises Prone Exercises plank Prone Exercise Name 1. hands and feet 2. forearm and feet w/alt hip ext Side bilateral Reps/Minutes 1.30 sec 2. 10 B Sidelying Exercises open book Side bilateral Reps/Minutes 8 for 2 breaths Comments verbal cues for no hip lift sideplank Sidelying Exercise Name forearm and knees w/clamshell Side bilateral Reps/Minutes 15 ea Comments min cues alignment Standing Exercises lunges Standing Exercise Name cues TKE w/march Side bilateral Reps/Minutes 20ft x5 Comments cue s for no back ext stretch Standing Exercise Name quad Side bilateral Reps/Minutes 45 sec Other Exercises isometrics Other Exercise Name B LE MMT & LPM Manual Therapy Treatment Consent Patient gave verbal consent for manual Yes treatment Soft Tissue Mobilization spine Body Location R QL and ES TS &LS Mobilization Type Rolling Body Position Sidelying quad Body Location RF proximal Mobilization Type Cross-Friction,Rolling, Strumming Intensity/Depth Moderate Body Position Hooklying Joint Mobilizations ribcage Comments general inhalation and exhalation c/r PT-OP-T Assessment and Plan Start: 07/22/24 17:31 Freq: Status: Active Protocol: Document 12/01/24 08:17 [facility] (Rec: 12/01/24 09:06 [facility] [id number]) Physical Therapy Assessment Goals activity Tamale Maker Goal (LTG) Pt will be able to run w/o increased pain in RLE/back on even and uneven terrain for at least 4 miles 10/10-2/10 w/slower speed running for 4 miles. Stops to stretch during, HS doing ok, back doing well 09/29-now in 9min/mile vs 10 min.mile now and was feeling okay until 2 miles in where feels hip pain and has gotten up to 6 miles, but felt sore by end of this. recent worsening after this weekend 11/03-not running recently d/t pain after last session, possibly starting to get sick 12/01-returning to run since getting sick 12/01-3.5 miles w/1 stretch break to dec pain LTG Duration 01/06 strength Short Term Goal (STG) Pt will be indep w/HEP STG Duration achieved advancing as able Fdc Goal (LTG) Pt will score 5/5 on BLE MMT and at least 3/5 in all planes LPM to show improved stability and allow inc tolerance to running 08/26-improving 11/03-dec core slightly today w/rib pain; 5/5 LE strength 12/01-improving LTG Duration 01/06 Assessment Summary Assessment Pt improving overall and has had less groin pain during activities. Only slowly returning to running now after being sick. Cont PT for strength and running progression Limited progress d /t sickness Physical Therapy Plan Frequency and Duration Frequency of Treatment 1-2x/wk Duration of treatment (weeks) 6 Plan of Care Start Date 12/01/24 Plan of Care End Date 01/12/25 Therapeutic Interventions Therapeutic Interventions Balance Training,Gait Training ,Home Exercise Program,Joint Mobilizations,Manual Therapy, Neuromuscular Re-education, Patient/Caregiver Education, Self-Care/Home Management,Soft Tissue Mobilization,Taping, Therapeutic Activities, Therapeutic Exercises Modalities Cold Pack/Ice Massage,Electric Stimulation,Hot Packs, Infrared Therapy,Ultrasound Next Visit Focus/Plan Next Note Type Treatment Note Next Visit Plan review exercises since last session; work back towards running progression
--- NOTE | 2024-12-01 09:10 | PT.OPPOC ---
Physical, Occupational & Speech Therapy At [facility] Current Diagnoses Unspecified injury of unspecified quadriceps muscle, fascia and tendon, initial encounter (12/01/24) Visit Care Team Role Provider Type Beth Lennon MD Attending Provider Non-Staff Family Provider Primary Care Provider Referring Provider Specialty: Family Practice Address: [address] [place] [address], [place], [address] Email: Plan Of Care PT-OP-B Current Condition Start: 07/22/24 17:31 Freq: Status: Active Protocol: Document 07/29/24 07:29 [facility] (Rec: 07/29/24 08:21 [facility] [id number]) Current Condition History of Current Condition Onset Date April 28 Current Complaints R quad and R HS pain History of Current Condition Pt reports was just running one day and R quad started hurting in the middle. Ran for the first time in 4 months last week. it was more sore across more sup mid quad. Tried initally taking 2 weeks off and running and it hurt. was able to hike 4-5 miles w/ hills. Then 3 weeks into this hurting R HS hurting and was hobbling around. Was running 3x/week getting around 25 miles/week. HS has been bothering him more. Saw a sports doc and did US of quad and found no tears. Recommended PT and taking tumeric for inflamation but hasn't gotten it yet. Still having long Covid symptoms w/ nausea, chest pain and brain fog. Currently taking low dose maletrexone (3mg) and it doesn't seem to be working. Has been getting migraines pretty regularly. Currently every other day migraines. 2 brain MRI that were normal. HS tight when tried to run and little sore after. Sometimes does just hurt and feel like spasming and then go away with no specific activity. Pt reports hx of B calf issues and was scheduled for B fasciotomies but got COVID. He was able to gradually inc run and that went away w/o surgery. 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 Has a little bit of back pain but no major back pain. Mostly just when sits, can get achey. Overall back pain has been good recently Treatment Goals Patient/Caregiver Goals Be able to run and be able to work towards running ultra [employer] PT-OP-T Assessment and Plan Start: 07/22/24 17:31 Freq: Status: Active Protocol: Document 12/01/24 08:17 [facility] (Rec: 12/01/24 09:06 [facility] [id number]) Physical Therapy Assessment Goals activity Pl[employer] Plater Goal (LTG) Pt will be able to run w/o increased pain in RLE/back on even and uneven terrain for at least 4 miles 08/26-2/10 w/slower speed running for 4 miles. Stops to stretch during, HS doing ok, back doing well 09/29-now in 9min/mile vs 10 min.mile now and was feeling okay until 2 miles in where feels hip pain and has gotten up to 6 miles, but felt sore by end of this. recent worsening after this weekend 11/03-not running recently d/t pain after last session, possibly starting to get sick 12/01-returning to run since getting sick 12/01-3.5 miles w/1 stretch break to dec pain LTG Duration 01/06 strength Short Term Goal (STG) Pt will be indep w/HEP STG Duration achieved advancing as able Custodial Goal (LTG) Pt will score 5/5 on BLE MMT and at least 3/5 in all planes LPM to show improved stability and allow inc tolerance to running 08/26-improving 11/03-dec core slightly today w/rib pain; 5/5 LE strength 12/01-improving LTG Duration 01/06 Assessment Summary Assessment Pt improving overall and has had less groin pain during activities. Only slowly returning to running now after being sick. Cont PT for strength and running progression Limited progress d /t sickness Physical Therapy Plan Frequency and Duration Frequency of Treatment 1-2x/wk Duration of treatment (weeks) 6 Plan of Care Start Date 12/01/24 Plan of Care End Date 01/12/25 Therapeutic Interventions Therapeutic Interventions Balance Training,Gait Training ,Home Exercise Program,Joint Mobilizations,Manual Therapy, Neuromuscular Re-education, Patient/Caregiver Education, Self-Care/Home Management,Soft Tissue Mobilization,Taping, Therapeutic Activities, Therapeutic Exercises Modalities Cold Pack/Ice Massage,Electric Stimulation,Hot Packs, Infrared Therapy,Ultrasound Next Visit Focus/Plan Next Note Type Treatment Note Next Visit Plan review exercises since last session; work back towards running progression Plan of Care Dates Plan of Care Start Date 12/01/24 Plan of Care End Date 01/12/25 Electronically Signed by: Carie Doe, PT 12/01/24 0910 If you are in agreement with this Plan of Care, please return a signed and dated copy. I have reviewed this Plan of Care and certify that the skilled therapy services above are required to meet the patient?s needs. Physician Signature Date Printed Name and Credentials Clinical Instructor Signature Printed Name and Credentials
--- NOTE | 2024-12-08 16:38 | PT.OTN ---
Current Diagnoses Unspecified injury of unspecified quadriceps muscle, fascia and tendon, initial encounter (12/08/24) Physical Therapy Treatment Note PT-OP-A Visit Information Start: 07/22/24 17:31 Freq: Status: Active Protocol: Document 12/08/24 12:27 [facility] (Rec: 12/08/24 16:38 [facility] [id number]) Out-Patient Physical Therapy Visit Information Visit Information Visit Type Treatment Note Visit Start Time 13:48 Visit Stop Time 14:31 Visit Number 24 Number of RETORT OR CONDENSER PRESS OPERATOR Visits 1 PT-OP-B Current Condition Start: 07/22/24 17:31 Freq: Status: Active Protocol: Document 07/29/24 07:29 [facility] (Rec: 07/29/24 08:21 [facility] [id number]) Current Condition History of Current Condition Onset Date April 28 Current Complaints R quad and R HS pain History of Current Condition Pt reports was just running one day and R quad started hurting in the middle. Ran for the first time in 4 months last week. it was more sore across more sup mid quad. Tried initally taking 2 weeks off and running and it hurt. was able to hike 4-5 miles w/ hills. Then 3 weeks into this hurting R HS hurting and was hobbling around. Was running 3x/week getting around 25 miles/week. HS has been bothering him more. Saw a sports doc and did US of quad and found no tears. Recommended PT and taking tumeric for inflamation but hasn't gotten it yet. Still having long Covid symptoms w/ nausea, chest pain and brain fog. Currently taking low dose maletrexone (3mg) and it doesn't seem to be working. Has been getting migraines pretty regularly. Currently every other day migraines. 2 brain MRI that were normal. HS tight when tried to run and little sore after. Sometimes does just hurt and feel like spasming and then go away with no specific activity. Pt reports hx of B calf issues and was scheduled for B fasciotomies but got COVID. He was able to gradually inc run and that went away w/o surgery. Has new shoes from running [employer] and has an insole. Has a little bit of back pain but no major back pain. Mostly just when sits, can get achey. Overall back pain has been good recently Treatment Goals Patient/Caregiver Goals Be able to run and be able to work towards running ultra [employer] PT-OP-C Subjective Start: 07/22/24 17:31 Freq: Status: Active Protocol: Document 12/08/24 12:27 [facility] (Rec: 12/08/24 16:38 [facility] [id number]) OP-PT Subjective Patient Comments Patient Comments Patient reports right upper quad was tired and sore post 4 .5 miles left LE was fine. Cherise rates groin pain ambulating into session 11/26 ambulating into session without device PT-OP-D Balance Start: 07/22/24 17:31 Freq: Status: Active Protocol: Document 07/29/24 07:29 [facility] (Rec: 07/29/24 08:21 [facility] [id number]) Balance Tests Single Limb Standing Single Limb- Right >30 sec EO some deviation; 9 sec EC Single Limb- Left >30 sec EO; 25 sec EC PT-OP-F Manual Assessment Start: 07/22/24 17:31 Freq: Status: Active Protocol: Document 07/29/24 07:29 [facility] (Rec: 07/29/24 09:25 [facility] [id number]) Manual Assessments Soft Tissue Assessment Soft Tissue Mobility Assessment more tension in R add, quad and HS PT-OP-G Mobility & Gait Start: 07/22/24 17:31 Freq: Status: Active Protocol: Document 07/29/24 07:29 [facility] (Rec: 07/29/24 08:21 [facility] [id number]) OP Gait Assessment Comments Gait Comments walking: stiff trunk running: dec push off and hip ext B, IR R>L femur, stiff trunk PT-OP-J Posture/Palpation/Skin Start: 07/22/24 17:31 Freq: Status: Active Protocol: Document 12/01/24 08:17 [facility] (Rec: 12/01/24 09:06 [facility] [id number]) Posture Evaluation Yara Postural Classification System Lumbar Protective Mechanism Left AP 2 Lumbar Protective Mechanism Right AP 2 Lumbar Protective Mechanism Left PA 3 Lumbar Protective Mechanism Right PA 2 PT-OP-L Special Tests Start: 07/22/24 17:31 Freq: Status: Active Protocol: Document 07/29/24 07:29 [facility] (Rec: 07/29/24 08:21 [facility] [id number]) Special Tests Knee Special Tests femoral n test Comments more R quad tightness; L does feel some symptoms in back Obers Comments positive R SLUmp Comments R some back tightness SLR Comments L:58 feels in HS R:48 feels mostly HS but some in R hip Louis Comments L hip flexor tightness; R TFL, RF, quad, hip flexor tightness PT-OP-M Strength Start: 07/22/24 17:31 Freq: Status: Active Protocol: Document 12/01/24 08:17 [facility] (Rec: 12/01/24 09:06 [facility] [id number]) Hip Strength Hip Manual Muscle Testing Right Flexion (L2) 5 Normal Extension (S1) 5 Normal Abduction 4+ Good+ Adduction 5 Normal External Rotation 5 Normal Internal Rotation 5 Normal Left Flexion (L2) 5 Normal Extension (S1) 5 Normal Abduction 5 Normal Adduction 5 Normal External Rotation 5 Normal Internal Rotation 5 Normal Knee Strength Knee Manual Muscle Testing Right Flexion (S2) 5 Normal Extension (L3) 5 Normal Left Flexion (S2) 5 Normal Extension (L3) 5 Normal PT-OP-Q Treatments Start: 07/22/24 17:31 Freq: Status: Active Protocol: Document 12/08/24 12:27 [facility] (Rec: 12/08/24 16:38 [facility] [id number]) Therapeutic Exercises Supine Exercises Modified Louis stretch Supine Exercise Name Edge of bed opp knee to chest with AROM knee flexion X 10 Side bilateral Reps/Minutes 60 sec each LE X 2 Comments with AROM knee flexion piriformis stretch Supine Exercise Name piriformis Side bilateral Reps/Minutes 60 sec Comments post manual Prone Exercises hip flexor stretch Prone Exercise Name one LE on mat one on floor Reps/Minutes 30-60 sec Comments reports sensation at quad not hip flexor plank Prone Exercise Name 1. hands and feet 2. forearm and feet w/alt hip ext Side bilateral Reps/Minutes 1.30 sec 2. 10 B Standing Exercises lunges Side bilateral Reps/Minutes 10 ft then X10 right X 7 left w/o ambulation Glute med isometric Standing Exercise Name HEP at wall Side bilateral Reps/Minutes one minute each LE Manual Therapy Treatment Consent Patient gave verbal consent for manual Yes treatment Soft Tissue Mobilization hip flexor Body Location illiopsoals Mobilization Type Sustained Pressure quad Body Location right Mobilization Type Cross-Friction,Rolling, Strumming Intensity/Depth Moderate Body Position Hooklying Manual Techniques MET for right AI left PI Type also pubic shot gun Reps/Duration 6 sec 6 X each PT-OP-T Assessment and Plan Start: 07/22/24 17:31 Freq: Status: Active Protocol: Document 12/08/24 12:27 [facility] (Rec: 12/08/24 16:38 [facility] [id number]) Physical Therapy Assessment Assessment Summary Assessment Patient reports feeling better post manual and MET right quad/hip flexor area. Improved pattern with Lunge with opp LE january repeated on one side vs alternating, but limited to X 7 due to increased right quad lateral/distal pain. Physical Therapy Plan Frequency and Duration Frequency of Treatment 1-2x/wk Duration of treatment (weeks) 6 Plan of Care Start Date 12/01/24 Plan of Care End Date 01/12/25
--- NOTE | 2024-12-15 12:05 | PT.OTN ---
Current Diagnoses Unspecified injury of unspecified quadriceps muscle, fascia and tendon, initial encounter (12/15/24) Physical Therapy Treatment Note PT-OP-A Visit Information Start: 07/22/24 17:31 Freq: Status: Active Protocol: Document 12/15/24 10:54 [facility] (Rec: 12/15/24 12:05 [facility] [id number]) Out-Patient Physical Therapy Visit Information Visit Information Visit Type Treatment Note Visit Start Time 10:52 Visit Stop Time 11:30 Visit Number 25 Number of MANAGER LAN Visits 0 PT-OP-B Current Condition Start: 07/22/24 17:31 Freq: Status: Active Protocol: Document 07/29/24 07:29 [facility] (Rec: 07/29/24 08:21 [facility] [id number]) Current Condition History of Current Condition Onset Date April 28 Current Complaints R quad and R HS pain History of Current Condition Pt reports was just running one day and R quad started hurting in the middle. Ran for the first time in 4 months last week. it was more sore across more sup mid quad. Tried initally taking 2 weeks off and running and it hurt. was able to hike 4-5 miles w/ hills. Then 3 weeks into this hurting R HS hurting and was hobbling around. Was running 3x/week getting around 25 miles/week. HS has been bothering him more. Saw a sports doc and did US of quad and found no tears. Recommended PT and taking tumeric for inflamation but hasn't gotten it yet. Still having long Covid symptoms w/ nausea, chest pain and brain fog. Currently taking low dose maletrexone (3mg) and it doesn't seem to be working. Has been getting migraines pretty regularly. Currently every other day migraines. 2 brain MRI that were normal. HS tight when tried to run and little sore after. Sometimes does just hurt and feel like spasming and then go away with no specific activity. Pt reports hx of B calf issues and was scheduled for B fasciotomies but got COVID. He was able to gradually inc run and that went away w/o surgery. Has new shoes from running [employer] and has an insole. Has a little bit of back pain but no major back pain. Mostly just when sits, can get achey. Overall back pain has been good recently Treatment Goals Patient/Caregiver Goals Be able to run and be able to work towards running ultra marathon PT-OP-C Subjective Start: 07/22/24 17:31 Freq: Status: Active Protocol: Document 12/15/24 10:54 [facility] (Rec: 12/15/24 12:05 [facility] [id number]) OP-PT Subjective Patient Comments Patient Comments Pt training for 11/18 marathon in February. 6.5 miles on sat - notes a little soreness in R quad but not enough to slow him down. Started aching at mile 4 and was able stretch and self massage then felt fine for rest of the run. icing once a day and doing heat. hip flexor still gets sore. up and down. PT-OP-D Balance Start: 07/22/24 17:31 Freq: Status: Active Protocol: Document 07/29/24 07:29 [facility] (Rec: 07/29/24 08:21 [facility] [id number]) Balance Tests Single Limb Standing Single Limb- Right >30 sec EO some deviation; 9 sec EC Single Limb- Left >30 sec EO; 25 sec EC PT-OP-F Manual Assessment Start: 07/22/24 17:31 Freq: Status: Active Protocol: Document 07/29/24 07:29 [facility] (Rec: 07/29/24 09:25 [facility] [id number]) Manual Assessments Soft Tissue Assessment Soft Tissue Mobility Assessment more tension in R add, quad and HS PT-OP-G Mobility & Gait Start: 07/22/24 17:31 Freq: Status: Active Protocol: Document 07/29/24 07:29 [facility] (Rec: 07/29/24 08:21 [facility] [id number]) OP Gait Assessment Comments Gait Comments walking: stiff trunk running: dec push off and hip ext B, IR R>L femur, stiff trunk PT-OP-J Posture/Palpation/Skin Start: 07/22/24 17:31 Freq: Status: Active Protocol: Document 12/01/24 08:17 [facility] (Rec: 12/01/24 09:06 [facility] [id number]) Posture Evaluation Yara Postural Classification System Lumbar Protective Mechanism Left AP 2 Lumbar Protective Mechanism Right AP 2 Lumbar Protective Mechanism Left PA 3 Lumbar Protective Mechanism Right PA 2 PT-OP-L Special Tests Start: 07/22/24 17:31 Freq: Status: Active Protocol: Document 07/29/24 07:29 [facility] (Rec: 07/29/24 08:21 [facility] [id number]) Special Tests Knee Special Tests femoral n test Comments more R quad tightness; L does feel some symptoms in back Obers Comments positive R SLUmp Comments R some back tightness SLR Comments L:58 feels in HS R:48 feels mostly HS but some in R hip Louis Comments L hip flexor tightness; R TFL, RF, quad, hip flexor tightness PT-OP-M Strength Start: 07/22/24 17:31 Freq: Status: Active Protocol: Document 12/01/24 08:17 [facility] (Rec: 12/01/24 09:06 [facility] [id number]) Hip Strength Hip Manual Muscle Testing Right Flexion (L2) 5 Normal Extension (S1) 5 Normal Abduction 4+ Good+ Adduction 5 Normal External Rotation 5 Normal Internal Rotation 5 Normal Left Flexion (L2) 5 Normal Extension (S1) 5 Normal Abduction 5 Normal Adduction 5 Normal External Rotation 5 Normal Internal Rotation 5 Normal Knee Strength Knee Manual Muscle Testing Right Flexion (S2) 5 Normal Extension (L3) 5 Normal Left Flexion (S2) 5 Normal Extension (L3) 5 Normal PT-OP-Q Treatments Start: 07/22/24 17:31 Freq: Status: Active Protocol: Document 12/15/24 10:54 [facility] (Rec: 12/15/24 12:05 [facility] [id number]) Therapeutic Exercises Standing Exercises SL Standing Exercise Name SL RDL w/opp foot on wall w/ hip rot Side bilateral Reps/Minutes 8 ea Comments inc time for form squat Standing Exercise Name SL w/opp toe down behind Side bilateral Reps/Minutes 10 ea Comments mirror for focus on form Gait Training Gait Activity running Comments cues to work on more towards forefoot from back of midfoot w/his stride Manual Therapy Treatment Consent Patient gave verbal consent for manual Yes treatment Soft Tissue Mobilization spine Body Location R QL thoracolumbar fascia Mobilization Type Rolling Comments STM and cupping w/SB and rot hip flexor Body Location illiopsoals insertion Mobilization Type Sustained Pressure quad Body Location right Mobilization Type Rolling,Strumming Intensity/Depth Moderate Comments seated and louis w/STM and cupping w/knee flex/ext Joint Mobilizations ribcage Comments R internal torsion rib 9 PT-OP-T Assessment and Plan Start: 07/22/24 17:31 Freq: Status: Active Protocol: Document 12/15/24 10:54 [facility] (Rec: 12/15/24 12:05 [facility] [id number]) Physical Therapy Assessment Goals activity Fdc Goal (LTG) Pt will be able to run w/o increased pain in RLE/back on even and uneven terrain for at least 4 miles 10/10-2/10 w/slower speed running for 4 miles. Stops to stretch during, HS doing ok, back doing well 09/29-now in 9min/mile vs 10 min.mile now and was feeling okay until 2 miles in where feels hip pain and has gotten up to 6 miles, but felt sore by end of this. recent worsening after this weekend 11/03-not running recently d/t pain after last session, possibly starting to get sick 12/01-returning to run since getting sick 12/01-3.5 miles w/1 stretch break to dec pain LTG Duration 01/06 strength Short Term Goal (STG) Pt will be indep w/HEP STG Duration achieved advancing as able Fdc Goal (LTG) Pt will score 5/5 on BLE MMT and at least 3/5 in all planes LPM to show improved stability and allow inc tolerance to running 08/26-improving 11/03-dec core slightly today w/rib pain; 5/5 LE strength 12/01-improving LTG Duration 01/06 Assessment Summary Assessment Pt had improved rotat R and SB L w/o pain after manual and had improved louis test mobility after manual. Improved gait push off w/more forefoot/midfoot stride. Physical Therapy Plan Frequency and Duration Frequency of Treatment 1-2x/wk Duration of treatment (weeks) 6 Plan of Care Start Date 12/01/24 Plan of Care End Date 01/12/25 Next Visit Focus/Plan Next Note Type Treatment Note Next Visit Plan cont to work on trunk and LE mobility to dec pain w/running and sitting on ground
--- NOTE | 2024-12-29 11:48 | PT.OTN ---
Current Diagnoses Unspecified injury of unspecified quadriceps muscle, fascia and tendon, initial encounter (12/29/24) Physical Therapy Treatment Note PT-OP-A Visit Information Start: 07/22/24 17:31 Freq: Status: Active Protocol: Document 12/29/24 09:07 [facility] (Rec: 12/29/24 09:54 [facility] [id number]) Out-Patient Physical Therapy Visit Information Visit Information Visit Type Treatment Note Visit Start Time 09:06 Visit Stop Time 09:46 Visit Number 26 Number of SENIOR EXECUTIVE ASSISTANT Visits 0 PT-OP-B Current Condition Start: 07/22/24 17:31 Freq: Status: Active Protocol: Document 07/29/24 07:29 [facility] (Rec: 07/29/24 08:21 [facility] [id number]) Current Condition History of Current Condition Onset Date April 28 Current Complaints R quad and R HS pain History of Current Condition Pt reports was just running one day and R quad started hurting in the middle. Ran for the first time in 4 months last week. it was more sore across more sup mid quad. Tried initally taking 2 weeks off and running and it hurt. was able to hike 4-5 miles w/ hills. Then 3 weeks into this hurting R HS hurting and was hobbling around. Was running 3x/week getting around 25 miles/week. HS has been bothering him more. Saw a sports doc and did US of quad and found no tears. Recommended PT and taking tumeric for inflamation but hasn't gotten it yet. Still having long Covid symptoms w/ nausea, chest pain and brain fog. Currently taking low dose maletrexone (3mg) and it doesn't seem to be working. Has been getting migraines pretty regularly. Currently every other day migraines. 2 brain MRI that were normal. HS tight when tried to run and little sore after. Sometimes does just hurt and feel like spasming and then go away with no specific activity. Pt reports hx of B calf issues and was scheduled for B fasciotomies but got COVID. He was able to gradually inc run and that went away w/o surgery. Has new shoes from running [employer] and has an insole. Has a little bit of back pain but no major back pain. Mostly just when sits, can get achey. Overall back pain has been good recently Treatment Goals Patient/Caregiver Goals Be able to run and be able to work towards running ultra [employer] PT-OP-C Subjective Start: 07/22/24 17:31 Freq: Status: Active Protocol: Document 12/29/24 09:07 [facility] (Rec: 12/29/24 09:54 [facility] [id number]) OP-PT Subjective Patient Comments Patient Comments Pt reports running going well and has done up to 8 miles. Leg is doing well. R back/ ribage cont to be stiff and slight pain when doing stretch . Doesn't notice it much during the day. PT-OP-D Balance Start: 07/22/24 17:31 Freq: Status: Active Protocol: Document 07/29/24 07:29 [facility] (Rec: 07/29/24 08:21 [facility] [id number]) Balance Tests Single Limb Standing Single Limb- Right >30 sec EO some deviation; 9 sec EC Single Limb- Left >30 sec EO; 25 sec EC PT-OP-F Manual Assessment Start: 07/22/24 17:31 Freq: Status: Active Protocol: Document 07/29/24 07:29 [facility] (Rec: 07/29/24 09:25 [facility] [id number]) Manual Assessments Soft Tissue Assessment Soft Tissue Mobility Assessment more tension in R add, quad and HS PT-OP-G Mobility & Gait Start: 07/22/24 17:31 Freq: Status: Active Protocol: Document 07/29/24 07:29 [facility] (Rec: 07/29/24 08:21 [facility] [id number]) OP Gait Assessment Comments Gait Comments walking: stiff trunk running: dec push off and hip ext B, IR R>L femur, stiff trunk PT-OP-J Posture/Palpation/Skin Start: 07/22/24 17:31 Freq: Status: Active Protocol: Document 12/01/24 08:17 [facility] (Rec: 12/01/24 09:06 [facility] [id number]) Posture Evaluation Yara Postural Classification System Lumbar Protective Mechanism Left AP 2 Lumbar Protective Mechanism Right AP 2 Lumbar Protective Mechanism Left PA 3 Lumbar Protective Mechanism Right PA 2 PT-OP-L Special Tests Start: 07/22/24 17:31 Freq: Status: Active Protocol: Document 07/29/24 07:29 [facility] (Rec: 07/29/24 08:21 [facility] [id number]) Special Tests Knee Special Tests femoral n test Comments more R quad tightness; L does feel some symptoms in back Obers Comments positive R SLUmp Comments R some back tightness SLR Comments L:58 feels in HS R:48 feels mostly HS but some in R hip Louis Comments L hip flexor tightness; R TFL, RF, quad, hip flexor tightness PT-OP-M Strength Start: 07/22/24 17:31 Freq: Status: Active Protocol: Document 12/01/24 08:17 [facility] (Rec: 12/01/24 09:06 [facility] [id number]) Hip Strength Hip Manual Muscle Testing Right Flexion (L2) 5 Normal Extension (S1) 5 Normal Abduction 4+ Good+ Adduction 5 Normal External Rotation 5 Normal Internal Rotation 5 Normal Left Flexion (L2) 5 Normal Extension (S1) 5 Normal Abduction 5 Normal Adduction 5 Normal External Rotation 5 Normal Internal Rotation 5 Normal Knee Strength Knee Manual Muscle Testing Right Flexion (S2) 5 Normal Extension (L3) 5 Normal Left Flexion (S2) 5 Normal Extension (L3) 5 Normal PT-OP-Q Treatments Start: 07/22/24 17:31 Freq: Status: Active Protocol: Document 12/29/24 09:07 [facility] (Rec: 12/29/24 11:48 [facility] [id number]) Therapeutic Exercises Supine Exercises foam roll Supine Exercise Name 1. Habd 2. flex 3. abd 4. tspine ext over Side bilateral Reps/Minutes 8 ea Sidelying Exercises open book Side bilateral Reps/Minutes 6 ea Comments good performance-improved ROM R after manual Manual Therapy Treatment Consent Patient gave verbal consent for manual Yes treatment Soft Tissue Mobilization spine Body Location R QL Body Position Sidelying Comments w/ post dep pelvis abdomen Comments 1. fascia along R aspect of transverse colon and ascending colon w/LTR 2. OSFM L triangular ligament Joint Mobilizations thoracic Body Position Sidelying Comments transverse T7 w/rot R PT-OP-T Assessment and Plan Start: 07/22/24 17:31 Freq: Status: Active Protocol: Document 12/29/24 09:07 [facility] (Rec: 12/29/24 09:54 [facility] [id number]) Physical Therapy Assessment Goals mobility Skilled Nursing Goal (LTG) Pt will have full thoracolumbar ROM w/o inc pain in order to allow typical activity w/o pain. LTG Duration 02/09 activity Skilled Nursing Goal (LTG) Pt will be able to run w/o increased pain in RLE/back on even and uneven terrain for at least 4 miles 08/26-2/10 w/slower speed running for 4 miles. Stops to stretch during, HS doing ok, back doing well 09/29-now in 9min/mile vs 10 min.mile now and was feeling okay until 2 miles in where feels hip pain and has gotten up to 6 miles, but felt sore by end of this. recent worsening after this weekend 11/03-not running recently d/t pain after last session, possibly starting to get sick 12/01-returning to run since getting sick 12/01-3.5 miles w/1 stretch break to dec pain 12/29-ran up to 8 miles w/LE feeling good, back occ painful w/rot LTG Duration 01/24 strength Short Term Goal (STG) Pt will be indep w/HEP STG Duration achieved advancing as able [employer] Goal (LTG) Pt will score 5/5 on BLE MMT and at least 3/5 in all planes LPM to show improved stability and allow inc tolerance to running 08/26-improving 11/03-dec core slightly today w/rib pain; 5/5 LE strength 12/01-improving 12/29-n/t but inc tolerance per pt w/exercises LTG Duration 01/24 Assessment Summary Assessment Pt making good progress w/PT with overall improved tolerance to his exercises and ability to run more. Still limited by his back w/pain in lower thoracic/R ribs w/rot and/or SB motions most of the time. Cont PT to improve this mobility. Pt had improved mobility w/o pain after manual and exercises Physical Therapy Plan Frequency and Duration Frequency of Treatment 1x/Week Duration of treatment (weeks) 6 Plan of Care Start Date 12/29/24 Plan of Care End Date 02/09/25 Therapeutic Interventions Therapeutic Interventions Balance Training,Gait Training ,Home Exercise Program,Joint Mobilizations,Manual Therapy, Neuromuscular Re-education, Patient/Caregiver Education, Self-Care/Home Management,Soft Tissue Mobilization,Taping, Therapeutic Activities, Therapeutic Exercises Modalities Cold Pack/Ice Massage,Electric Stimulation,Hot Packs, Infrared Therapy,Ultrasound Next Visit Focus/Plan Next Note Type Treatment Note Next Visit Plan cont to work on trunk and LE mobility to dec pain w/running and sitting on ground
--- NOTE | 2024-12-29 11:48 | PT.OPPOC ---
Physical, Occupational & Speech Therapy At [facility] Current Diagnoses Unspecified injury of unspecified quadriceps muscle, fascia and tendon, initial encounter (12/29/24) Visit Care Team Role Provider Type Beth Lennon MD Attending Provider Non-Staff Family Provider Primary Care Provider Referring Provider Specialty: Family Practice Address: [address] [place] [address], [place], [address] Email: Plan Of Care PT-OP-B Current Condition Start: 07/22/24 17:31 Freq: Status: Active Protocol: Document 07/29/24 07:29 [facility] (Rec: 07/29/24 08:21 [facility] [id number]) Current Condition History of Current Condition Onset Date April 28 Current Complaints R quad and R HS pain History of Current Condition Pt reports was just running one day and R quad started hurting in the middle. Ran for the first time in 4 months last week. it was more sore across more sup mid quad. Tried initally taking 2 weeks off and running and it hurt. was able to hike 4-5 miles w/ hills. Then 3 weeks into this hurting R HS hurting and was hobbling around. Was running 3x/week getting around 25 miles/week. HS has been bothering him more. Saw a sports doc and did US of quad and found no tears. Recommended PT and taking tumeric for inflamation but hasn't gotten it yet. Still having long Covid symptoms w/ nausea, chest pain and brain fog. Currently taking low dose maletrexone (3mg) and it doesn't seem to be working. Has been getting migraines pretty regularly. Currently every other day migraines. 2 brain MRI that were normal. HS tight when tried to run and little sore after. Sometimes does just hurt and feel like spasming and then go away with no specific activity. Pt reports hx of B calf issues and was scheduled for B fasciotomies but got COVID. He was able to gradually inc run and that went away w/o surgery. 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 Has a little bit of back pain but no major back pain. Mostly just when sits, can get achey. Overall back pain has been good recently Treatment Goals Patient/Caregiver Goals Be able to run and be able to work towards running ultra [employer] PT-OP-T Assessment and Plan Start: 07/22/24 17:31 Freq: Status: Active Protocol: Document 12/29/24 09:07 [facility] (Rec: 12/29/24 09:54 [facility] [id number]) Physical Therapy Assessment Goals mobility Iap Displays Analyst Goal (LTG) Pt will have full thoracolumbar ROM w/o inc pain in order to allow typical activity w/o pain. LTG Duration 02/09 activity Iap Displays Analyst Goal (LTG) Pt will be able to run w/o increased pain in RLE/back on even and uneven terrain for at least 4 miles 08/26-10 w/slower speed running for 4 miles. Stops to stretch during, HS doing ok, back doing well 09/29-now in 9min/mile vs 10 min.mile now and was feeling okay until 2 miles in where feels hip pain and has gotten up to 6 miles, but felt sore by end of this. recent worsening after this weekend 11/03-not running recently d/t pain after last session, possibly starting to get sick 12/01-returning to run since getting sick 12/01-3.5 miles w/1 stretch break to dec pain 12/29-ran up to 8 miles w/LE feeling good, back occ painful w/rot LTG Duration 01/24 strength Short Term Goal (STG) Pt will be indep w/HEP STG Duration achieved advancing as able [facility] Goal (LTG) Pt will score 5/5 on BLE MMT and at least 3/5 in all planes LPM to show improved stability and allow inc tolerance to running 08/26-improving 11/03-dec core slightly today w/rib pain; 5/5 LE strength 12/01-improving 12/29-n/t but inc tolerance per pt w/exercises LTG Duration 01/24 Assessment Summary Assessment Pt making good progress w/PT with overall improved tolerance to his exercises and ability to run more. Still limited by his back w/pain in lower thoracic/R ribs w/rot and/or SB motions most of the time. Cont PT to improve this mobility. Pt had improved mobility w/o pain after manual and exercises Physical Therapy Plan Frequency and Duration Frequency of Treatment 1x/Week Duration of treatment (weeks) 6 Plan of Care Start Date 12/29/24 Plan of Care End Date 02/09/25 Therapeutic Interventions Therapeutic Interventions Balance Training,Gait Training ,Home Exercise Program,Joint Mobilizations,Manual Therapy, Neuromuscular Re-education, Patient/Caregiver Education, Self-Care/Home Management,Soft Tissue Mobilization,Taping, Therapeutic Activities, Therapeutic Exercises Modalities Cold Pack/Ice Massage,Electric Stimulation,Hot Packs, Infrared Therapy,Ultrasound Next Visit Focus/Plan Next Note Type Treatment Note Next Visit Plan cont to work on trunk and LE mobility to dec pain w/running and sitting on ground Plan of Care Dates Plan of Care Start Date 12/29/24 Plan of Care End Date 02/09/25 Electronically Signed by: Craie Doe, PT 12/29/24 [id number] If you are in agreement with this Plan of Care, please return a signed and dated copy. I have reviewed this Plan of Care and certify that the skilled therapy services above are required to meet the patient?s needs. Physician Signature Date Printed Name and Credentials Clinical Instructor Signature Printed Name and Credentials
--- NOTE | 2025-01-04 10:33 | PT.OTN ---
Current Diagnoses Unspecified injury of unspecified quadriceps muscle, fascia and tendon, initial encounter (01/04/25) Physical Therapy Treatment Note PT-OP-A Visit Information Start: 07/22/24 17:31 Freq: Status: Active Protocol: Document 01/04/25 08:18 [facility] (Rec: 01/04/25 10:33 [facility] [id number]) Out-Patient Physical Therapy Visit Information Visit Information Visit Type Treatment Note Visit Start Time 08:18 Visit Stop Time 09:00 Visit Number 27 Number of BLOCK CLEANER Visits 0 PT-OP-B Current Condition Start: 07/22/24 17:31 Freq: Status: Active Protocol: Document 07/29/24 07:29 [facility] (Rec: 07/29/24 08:21 [facility] [id number]) Current Condition History of Current Condition Onset Date April 28 Current Complaints R quad and R HS pain History of Current Condition Pt reports was just running one day and R quad started hurting in the middle. Ran for the first time in 4 months last week. it was more sore across more sup mid quad. Tried initally taking 2 weeks off and running and it hurt. was able to hike 4-5 miles w/ hills. Then 3 weeks into this hurting R HS hurting and was hobbling around. Was running 3x/week getting around 25 miles/week. HS has been bothering him more. Saw a sports doc and did US of quad and found no tears. Recommended PT and taking tumeric for inflamation but hasn't gotten it yet. Still having long Covid symptoms w/ nausea, chest pain and brain fog. Currently taking low dose maletrexone (3mg) and it doesn't seem to be working. Has been getting migraines pretty regularly. Currently every other day migraines. 2 brain MRI that were normal. HS tight when tried to run and little sore after. Sometimes does just hurt and feel like spasming and then go away with no specific activity. Pt reports hx of B calf issues and was scheduled for B fasciotomies but got COVID. He was able to gradually inc run and that went away w/o surgery. Has new shoes from running [employer] and has an insole. Has a little bit of back pain but no major back pain. Mostly just when sits, can get achey. Overall back pain has been good recently Treatment Goals Patient/Caregiver Goals Be able to run and be able to work towards running [employer] PT-OP-C Subjective Start: 07/22/24 17:31 Freq: Status: Active Protocol: Document 01/04/25 08:18 [facility] (Rec: 01/04/25 10:33 [facility] [id number]) OP-PT Subjective Patient Comments Patient Comments Pt reports soreness since last session. Said yesterday was the worst. Today feels normal again. RUnning going well. Did 9.2 miles at one of his fastest paces. Still some R quad soreness and it is minor and goes away right after. Doing strength and stretches. PT-OP-D Balance Start: 07/22/24 17:31 Freq: Status: Active Protocol: Document 07/29/24 07:29 [facility] (Rec: 07/29/24 08:21 [facility] [id number]) Balance Tests Single Limb Standing Single Limb- Right >30 sec EO some deviation; 9 sec EC Single Limb- Left >30 sec EO; 25 sec EC PT-OP-F Manual Assessment Start: 07/22/24 17:31 Freq: Status: Active Protocol: Document 07/29/24 07:29 [facility] (Rec: 07/29/24 09:25 [facility] [id number]) Manual Assessments Soft Tissue Assessment Soft Tissue Mobility Assessment more tension in R add, quad and HS PT-OP-G Mobility & Gait Start: 07/22/24 17:31 Freq: Status: Active Protocol: Document 07/29/24 07:29 [facility] (Rec: 07/29/24 08:21 [facility] [id number]) OP Gait Assessment Comments Gait Comments walking: stiff trunk running: dec push off and hip ext B, IR R>L femur, stiff trunk PT-OP-J Posture/Palpation/Skin Start: 07/22/24 17:31 Freq: Status: Active Protocol: Document 12/01/24 08:17 [facility] (Rec: 12/01/24 09:06 [facility] [id number]) Posture Evaluation Yara Postural Classification System Lumbar Protective Mechanism Left AP 2 Lumbar Protective Mechanism Right AP 2 Lumbar Protective Mechanism Left PA 3 Lumbar Protective Mechanism Right PA 2 PT-OP-L Special Tests Start: 07/22/24 17:31 Freq: Status: Active Protocol: Document 07/29/24 07:29 [facility] (Rec: 07/29/24 08:21 [facility] [id number]) Special Tests Knee Special Tests femoral n test Comments more R quad tightness; L does feel some symptoms in back Obers Comments positive R SLUmp Comments R some back tightness SLR Comments L:58 feels in HS R:48 feels mostly HS but some in R hip Louis Comments L hip flexor tightness; R TFL, RF, quad, hip flexor tightness PT-OP-M Strength Start: 07/22/24 17:31 Freq: Status: Active Protocol: Document 12/01/24 08:17 [facility] (Rec: 12/01/24 09:06 [facility] [id number]) Hip Strength Hip Manual Muscle Testing Right Flexion (L2) 5 Normal Extension (S1) 5 Normal Abduction 4+ Good+ Adduction 5 Normal External Rotation 5 Normal Internal Rotation 5 Normal Left Flexion (L2) 5 Normal Extension (S1) 5 Normal Abduction 5 Normal Adduction 5 Normal External Rotation 5 Normal Internal Rotation 5 Normal Knee Strength Knee Manual Muscle Testing Right Flexion (S2) 5 Normal Extension (L3) 5 Normal Left Flexion (S2) 5 Normal Extension (L3) 5 Normal PT-OP-Q Treatments Start: 07/22/24 17:31 Freq: Status: Active Protocol: Document 01/04/25 08:18 [facility] (Rec: 01/04/25 10:33 [facility] [id number]) Manual Therapy Treatment Consent Patient gave verbal consent for manual Yes treatment Soft Tissue Mobilization ribcage Comments gentle MFR and rolling btwn ribs R 7 -9 MFR post ribcage R in maite pose abdomen Comments 1. fascia around R diaphram and R ant lower ribs and costal cartilages 2. OSFM coronary ligament w/ UE abd and MFR along R vagus n Self-Care/Home Management Treatment Education Other Education 8 mn: edu w/pics of anatomy re : vagus n and how organs also have ligaments that can be affected w/thoracic mobility. edu re: comofrtable range w/ mobility PT-OP-T Assessment and Plan Start: 07/22/24 17:31 Freq: Status: Active Protocol: Document 01/04/25 08:18 [facility] (Rec: 01/04/25 10:33 [facility] [id number]) Physical Therapy Assessment Goals mobility Clarifying Plant Operator Goal (LTG) Pt will have full thoracolumbar ROM w/o inc pain in order to allow typical activity w/o pain. LTG Duration 02/09 activity Senior Living Goal (LTG) Pt will be able to run w/o increased pain in RLE/back on even and uneven terrain for at least 4 miles 08/26-2/10 w/slower speed running for 4 miles. Stops to stretch during, HS doing ok, back doing well 09/29-now in 9min/mile vs 10 min.mile now and was feeling okay until 2 miles in where feels hip pain and has gotten up to 6 miles, but felt sore by end of this. recent worsening after this weekend 11/03-not running recently d/t pain after last session, possibly starting to get sick 12/01-returning to run since getting sick 12/01-3.5 miles w/1 stretch break to dec pain 12/29-ran up to 8 miles w/LE feeling good, back occ painful w/rot LTG Duration 01/24 strength Short Term Goal (STG) Pt will be indep w/HEP STG Duration achieved advancing as able Senior Living Goal (LTG) Pt will score 5/5 on BLE MMT and at least 3/5 in all planes LPM to show improved stability and allow inc tolerance to running 08/26-improving 11/03-dec core slightly today w/rib pain; 5/5 LE strength 12/01-improving 12/29-n/t but inc tolerance per pt w/exercises LTG Duration 01/24 Assessment Summary Assessment Pt presented w/best mobility of tspine and lumbar spine today as he has in past but did improve further w/manual today also. Physical Therapy Plan Frequency and Duration Frequency of Treatment 1x/Week Duration of treatment (weeks) 6 Plan of Care Start Date 12/29/24 Plan of Care End Date 02/09/25 Next Visit Focus/Plan Next Note Type Treatment Note Next Visit Plan cont to work on trunk and LE mobility to dec pain w/running and sitting on ground
--- NOTE | 2025-01-10 18:16 | PT.OTN ---
Current Diagnoses Unspecified injury of unspecified quadriceps muscle, fascia and tendon, initial encounter (01/10/25) Physical Therapy Treatment Note PT-OP-A Visit Information Start: 07/22/24 17:31 Freq: Status: Active Protocol: Document 01/10/25 09:04 [facility] (Rec: 01/10/25 18:16 [facility] [id number]) Out-Patient Physical Therapy Visit Information Visit Information Visit Type Treatment Note Visit Start Time 09:05 Visit Stop Time 09:45 Visit Number 28 Number of TREAD CUTTER Visits 0 PT-OP-B Current Condition Start: 07/22/24 17:31 Freq: Status: Active Protocol: Document 07/29/24 07:29 [facility] (Rec: 07/29/24 08:21 [facility] [id number]) Current Condition History of Current Condition Onset Date April 28 Current Complaints R quad and R HS pain History of Current Condition Pt reports was just running one day and R quad started hurting in the middle. Ran for the first time in 4 months last week. it was more sore across more sup mid quad. Tried initally taking 2 weeks off and running and it hurt. was able to hike 4-5 miles w/ hills. Then 3 weeks into this hurting R HS hurting and was hobbling around. Was running 3x/week getting around 25 miles/week. HS has been bothering him more. Saw a sports doc and did US of quad and found no tears. Recommended PT and taking tumeric for inflamation but hasn't gotten it yet. Still having long Covid symptoms w/ nausea, chest pain and brain fog. Currently taking low dose maletrexone (3mg) and it doesn't seem to be working. Has been getting migraines pretty regularly. Currently every other day migraines. 2 brain MRI that were normal. HS tight when tried to run and little sore after. Sometimes does just hurt and feel like spasming and then go away with no specific activity. Pt reports hx of B calf issues and was scheduled for B fasciotomies but got COVID. He was able to gradually inc run and that went away w/o surgery. Has new shoes from running [employer] and has an insole. Has a little bit of back pain but no major back pain. Mostly just when sits, can get achey. Overall back pain has been good recently Treatment Goals Patient/Caregiver Goals Be able to run and be able to work towards running ultra [employer] PT-OP-C Subjective Start: 07/22/24 17:31 Freq: Status: Active Protocol: Document 01/10/25 09:04 [facility] (Rec: 01/10/25 18:16 [facility] [id number]) OP-PT Subjective Patient Comments Patient Comments Pt reports mid day friday, side hurt really bad. It got worse but took ibuprofen and it was better. He doesn't remember what he he had been doing. Yesterday was pretty loose and was able to get good mobility w/open book. He is having a migraine today and is light sensitive. It started last Friday in the middle of the night/ Am. He has seen a migraine specialist and it started in 2022.He has some neck and turnk pain PT-OP-D Balance Start: 07/22/24 17:31 Freq: Status: Active Protocol: Document 07/29/24 07:29 [facility] (Rec: 07/29/24 08:21 [facility] [id number]) Balance Tests Single Limb Standing Single Limb- Right >30 sec EO some deviation; 9 sec EC Single Limb- Left >30 sec EO; 25 sec EC PT-OP-F Manual Assessment Start: 07/22/24 17:31 Freq: Status: Active Protocol: Document 07/29/24 07:29 [facility] (Rec: 07/29/24 09:25 [facility] [id number]) Manual Assessments Soft Tissue Assessment Soft Tissue Mobility Assessment more tension in R add, quad and HS PT-OP-G Mobility & Gait Start: 07/22/24 17:31 Freq: Status: Active Protocol: Document 07/29/24 07:29 [facility] (Rec: 07/29/24 08:21 [facility] [id number]) OP Gait Assessment Comments Gait Comments walking: stiff trunk running: dec push off and hip ext B, IR R>L femur, stiff trunk PT-OP-J Posture/Palpation/Skin Start: 07/22/24 17:31 Freq: Status: Active Protocol: Document 12/01/24 08:17 [facility] (Rec: 12/01/24 09:06 [facility] [id number]) Posture Evaluation Yara Postural Classification System Lumbar Protective Mechanism Left AP 2 Lumbar Protective Mechanism Right AP 2 Lumbar Protective Mechanism Left PA 3 Lumbar Protective Mechanism Right PA 2 PT-OP-L Special Tests Start: 07/22/24 17:31 Freq: Status: Active Protocol: Document 07/29/24 07:29 [facility] (Rec: 07/29/24 08:21 [facility] [id number]) Special Tests Knee Special Tests femoral n test Comments more R quad tightness; L does feel some symptoms in back Obers Comments positive R SLUmp Comments R some back tightness SLR Comments L:58 feels in HS R:48 feels mostly HS but some in R hip Louis Comments L hip flexor tightness; R TFL, RF, quad, hip flexor tightness PT-OP-M Strength Start: 07/22/24 17:31 Freq: Status: Active Protocol: Document 12/01/24 08:17 [facility] (Rec: 12/01/24 09:06 [facility] [id number]) Hip Strength Hip Manual Muscle Testing Right Flexion (L2) 5 Normal Extension (S1) 5 Normal Abduction 4+ Good+ Adduction 5 Normal External Rotation 5 Normal Internal Rotation 5 Normal Left Flexion (L2) 5 Normal Extension (S1) 5 Normal Abduction 5 Normal Adduction 5 Normal External Rotation 5 Normal Internal Rotation 5 Normal Knee Strength Knee Manual Muscle Testing Right Flexion (S2) 5 Normal Extension (L3) 5 Normal Left Flexion (S2) 5 Normal Extension (L3) 5 Normal PT-OP-Q Treatments Start: 07/22/24 17:31 Freq: Status: Active Protocol: Document 01/10/25 09:04 [facility] (Rec: 01/10/25 18:16 [facility] [id number]) Manual Therapy Treatment Consent Patient gave verbal consent for manual Yes treatment Soft Tissue Mobilization spine Body Location R QL Body Position Sidelying Comments w/ post dep pelvis ribcage Comments MFR post ribcage R in s/l and cat/cow Joint Mobilizations thoracic Comments gapping T8-9, 9/10 w/cat pose Neuro Re-Education Treatment Other Activities PNF Details R Reps/Duration 8 min Comments 1. ant elevation rhythmic initiation progressed to prolonged holds pelvis progressed to COI 2.post dep rhythmici initiation progressed to prolonged holds pelvis progressed to COI 3. mass flex prolonged holds progressed to COI 4. mass ext prolonged holds progressed to COI PT-OP-T Assessment and Plan Start: 07/22/24 17:31 Freq: Status: Active Protocol: Document 01/10/25 09:04 [facility] (Rec: 01/10/25 18:16 [facility] [id number]) Physical Therapy Assessment Goals mobility Senior Care Goal (LTG) Pt will have full thoracolumbar ROM w/o inc pain in order to allow typical activity w/o pain. LTG Duration 02/09 activity Dumper Bailer Operator Goal (LTG) Pt will be able to run w/o increased pain in RLE/back on even and uneven terrain for at least 4 miles 08/26-2/10 w/slower speed running for 4 miles. Stops to stretch during, HS doing ok, back doing well 09/29-now in 9min/mile vs 10 min.mile now and was feeling okay until 2 miles in where feels hip pain and has gotten up to 6 miles, but felt sore by end of this. recent worsening after this weekend 11/03-not running recently d/t pain after last session, possibly starting to get sick 12/01-returning to run since getting sick 12/01-3.5 miles w/1 stretch break to dec pain 12/29-ran up to 8 miles w/LE feeling good, back occ painful w/rot LTG Duration 01/24 strength Short Term Goal (STG) Pt will be indep w/HEP STG Duration achieved advancing as able Dumper Bailer Operator Goal (LTG) Pt will score 5/5 on BLE MMT and at least 3/5 in all planes LPM to show improved stability and allow inc tolerance to running 08/26-improving 11/03-dec core slightly today w/rib pain; 5/5 LE strength 12/01-improving 12/29-n/t but inc tolerance per pt w/exercises LTG Duration 01/24 Assessment Summary Assessment pt had improved ROM in spine w /dec pain after manual and had improved core engagement after PNF work with improved pelvic motions Physical Therapy Plan Frequency and Duration Frequency of Treatment 1x/Week Duration of treatment (weeks) 6 Plan of Care Start Date 12/29/24 Plan of Care End Date 02/09/25 Next Visit Focus/Plan Next Note Type Treatment Note Next Visit Plan cont to work on trunk and LE mobility to dec pain w/running and sitting on ground
--- NOTE | 2025-01-19 13:28 | PT.OTN ---
Current Diagnoses Unspecified injury of unspecified quadriceps muscle, fascia and tendon, initial encounter (01/19/25) Physical Therapy Treatment Note PT-OP-A Visit Information Start: 07/22/24 17:31 Freq: Status: Active Protocol: Document 01/19/25 09:53 [facility] (Rec: 01/19/25 13:27 [facility] [id number]) Out-Patient Physical Therapy Visit Information Visit Information Visit Type Discharge Summary Visit Start Time 09:50 Visit Stop Time 10:30 Visit Number 29 Number of ENGINEERING SPECIALIST TECHNICIAN Visits 0 PT-OP-B Current Condition Start: 07/22/24 17:31 Freq: Status: Active Protocol: Document 07/29/24 07:29 [facility] (Rec: 07/29/24 08:21 [facility] [id number]) Current Condition History of Current Condition Onset Date April 28 Current Complaints R quad and R HS pain History of Current Condition Pt reports was just running one day and R quad started hurting in the middle. Ran for the first time in 4 months last week. it was more sore across more sup mid quad. Tried initally taking 2 weeks off and running and it hurt. was able to hike 4-5 miles w/ hills. Then 3 weeks into this hurting R HS hurting and was hobbling around. Was running 3x/week getting around 25 miles/week. HS has been bothering him more. Saw a sports doc and did US of quad and found no tears. Recommended PT and taking tumeric for inflamation but hasn't gotten it yet. Still having long Covid symptoms w/ nausea, chest pain and brain fog. Currently taking low dose maletrexone (3mg) and it doesn't seem to be working. Has been getting migraines pretty regularly. Currently every other day migraines. 2 brain MRI that were normal. HS tight when tried to run and little sore after. Sometimes does just hurt and feel like spasming and then go away with no specific activity. Pt reports hx of B calf issues and was scheduled for B fasciotomies but got COVID. He was able to gradually inc run and that went away w/o surgery. Has new shoes from running [employer] and has an insole. Has a little bit of back pain but no major back pain. Mostly just when sits, can get achey. Overall back pain has been good recently Treatment Goals Patient/Caregiver Goals Be able to run and be able to work towards running ultra [employer] PT-OP-C Subjective Start: 07/22/24 17:31 Freq: Status: Active Protocol: Document 01/19/25 09:53 [facility] (Rec: 01/19/25 13:27 [id number]-PT Subjective Patient Comments Patient Comments HEP: standing quad stretch, louis stretch, walking lunges w/wt 1 hand, pistol squats, RDL w/rot, planks w/alt ext, sideplanks, open book, foam roll PT-OP-D Balance Start: 07/22/24 17:31 Freq: Status: Active Protocol: Document 07/29/24 07:29 [facility] (Rec: 07/29/24 08:21 [id number] Balance Tests Single Limb Standing Single Limb- Right >30 sec EO some deviation; 9 sec EC Single Limb- Left >30 sec EO; 25 sec EC PT-OP-F Manual Assessment Start: 07/22/24 17:31 Freq: Status: Active Protocol: Document 07/29/24 07:29 [facility] (Rec: 07/29/24 09:25 [facility] [id number]) Manual Assessments Soft Tissue Assessment Soft Tissue Mobility Assessment more tension in R add, quad and HS PT-OP-G Mobility & Gait Start: 07/22/24 17:31 Freq: Status: Active Protocol: Document 07/29/24 07:29 [facility] (Rec: 07/29/24 08:21 [facility] [id number]) OP Gait Assessment Comments Gait Comments walking: stiff trunk running: dec push off and hip ext B, IR R>L femur, stiff trunk PT-OP-J Posture/Palpation/Skin Start: 07/22/24 17:31 Freq: Status: Active Protocol: Document 01/19/25 09:53 [facility] (Rec: 01/19/25 13:27 [facility] [id number]) Posture Evaluation Yara Postural Classification System Lumbar Protective Mechanism Left AP 3 Lumbar Protective Mechanism Right AP 3 Lumbar Protective Mechanism Left PA 3 Lumbar Protective Mechanism Right PA 3 PT-OP-L Special Tests Start: 07/22/24 17:31 Freq: Status: Active Protocol: Document 07/29/24 07:29 [facility] (Rec: 07/29/24 08:21 [facility] [id number]) Special Tests Knee Special Tests femoral n test Comments more R quad tightness; L does feel some symptoms in back Obers Comments positive R SLUmp Comments R some back tightness SLR Comments L:58 feels in HS R:48 feels mostly HS but some in R hip Louis Comments L hip flexor tightness; R TFL, RF, quad, hip flexor tightness PT-OP-M Strength Start: 07/22/24 17:31 Freq: Status: Active Protocol: Document 01/19/25 09:53 [facility] (Rec: 01/19/25 13:27 [id number]) Hip Strength Hip Manual Muscle Testing Right Extension (S1) 5 Normal Left Extension (S1) 5 Normal PT-OP-Q Treatments Start: 07/22/24 17:31 Freq: Status: Active Protocol: Document 01/19/25 09:53 [facility] (Rec: 01/19/25 13:27 [id number]) Therapeutic Exercises Supine Exercises foam roll Supine Exercise Name 1. Habd 2. flex 3. abd 4. tspine ext over Side bilateral Reps/Minutes 8 ea Prone Exercises plank Prone Exercise Name forearm and feet w/alt hip ext Side bilateral Reps/Minutes 8 ea Sidelying Exercises sideplank Sidelying Exercise Name forearm andfeet Side bilateral Reps/Minutes 15 ea0 sec Comments min cues alignment Standing Exercises SL Standing Exercise Name SL RDL w/opp foot on wall w/ hip rot Side bilateral Reps/Minutes 6 ea Comments inc time for form lunges Side bilateral Equipment Used 5# B UE Reps/Minutes 10ft x2 w/o rot ;10ft w/rot squat Standing Exercise Name SL w/opp toe down behind prn Side bilateral Reps/Minutes 10 ea Comments mirror for focus on form Other Exercises isometrics Other Exercise Name B LE MMT & LPM Manual Therapy Treatment Consent Patient gave verbal consent for manual Yes treatment Soft Tissue Mobilization ribcage Comments MFR post ribcage R and intercostals in s/l and sit PT-OP-T Assessment and Plan Start: 07/22/24 17:31 Freq: Status: Active Protocol: Document 01/19/25 09:53 [facility] (Rec: 01/19/25 13:27 [facility] [id number]) Physical Therapy Assessment Goals mobility Fulfillment Specialist Goal (LTG) Pt will have full thoracolumbar ROM w/o inc pain in order to allow typical activity w/o pain. 3/5- pain only when stretching LTG Duration 02/09 activity Fulfillment Specialist Goal (LTG) Pt will be able to run w/o increased pain in RLE/back on even and uneven terrain for at least 4 miles 08/26-2/10 w/slower speed running for 4 miles. Stops to stretch during, HS doing ok, back doing well 09/29-now in 9min/mile vs 10 min.mile now and was feeling okay until 2 miles in where feels hip pain and has gotten up to 6 miles, but felt sore by end of this. recent worsening after this weekend 11/03-not running recently d/t pain after last session, possibly starting to get sick 12/01-returning to run since getting sick 12/01-3.5 miles w/1 stretch break to dec pain 12/29-ran up to 8 miles w/LE feeling good, back occ painful w/rot LTG Duration achieved 3/5 11 miles strength Short Term Goal (STG) Pt will be indep w/HEP STG Duration achieved advancing as able Long-Term Goal (LTG) Pt will score 5/5 on BLE MMT and at least 3/5 in all planes LPM to show improved stability and allow inc tolerance to running 08/26-improving 11/03-dec core slightly today w/rib pain; 5/5 LE strength 12/01-improving 12/29-n/t but inc tolerance per pt w/exercises LTG Duration achieved 3/5 Assessment Summary Assessment Pt dc to HEP as most goals are met. Still noted lower thoracic pain w/open book R but cannot elicit other ways except w/that R rot. Pt encouraged to rest from stretching for 2 weeks then gradually try to inc it again and be gentle. No pain noted recently except when stretching. R rot will improve w/PT session but does not last. Pt DC to HEP at this time. He is back to running up to 11 miles and no R LE pain Physical Therapy Plan Discharge Physical Therapy Discharge Reasons Goals Met
== END 2025-01-20 13:11 | disposition home or self-care (01) ==
LOC: PHYS 09:45
PROVIDERS: Family Provider Family Medicine; PCP Family Medicine; Referring Provider Family Medicine; Visit Provider Family Medicine
DX: S76.109A Unspecified injury of unspecified quadriceps muscle, fascia and tendon, initial encounter (principal)
CPT/HCPCS: 97110; 97112; 97140; 97162; 97535

== ENCOUNTER 2025-05-21 10:43 | Emergency (ER) | payer OTHER, SELFPAY ==
[2025-05-21] VITALS (15 sets, daily range): BP systolic 132–162; BP diastolic 72–92; PULSE 67–92; RESP 15–26; TEMP 36.6–37.1; O2SAT 96–100; BMI 21.2
[2025-05-21 11:14] LABS: Add Manual Diff / Slide Review NO; Hematocrit 43.6 % (41-53); Hemoglobin 14.6 g/dL (13.5-17.5); Lymphocytes Absolute Auto 900 /uL (1100-4500); Mean Corpuscular HGB Conc 33.6 % (30-36); Mean Corpuscular Hemoglobin 29.6 PG (26-34); Mean Corpuscular Volume 88.2 fL (80-100); Platelet Count 295 X10^3/uL (150-400)
--- NOTE | 2025-05-21 11:14 | EKG_ITS ---
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
[2025-05-21 11:32] LABS: Alanine Aminotransferase 32 IU/L (<50); Albumin 5.4 g/dL (3.5-5.0); Albumin Globulin Ratio 1.4 (1.0-2.8); Alkaline Phosphatase 96 U/L (38-126); Blood Urea Nitrogen 11 mg/dL (9-20); Calcium 10.6 mg/dL (8.4-10.2); Carbon Dioxide 23 mmol/L (22-32); Chloride 97 mmol/L (98-107); Estimated Glomerular Filt Rate > 60 mL/min (>60); Globulin 3.9 g/dL (1.7-4.1); Glucose 162 mg/dL (70-99); HEMOLYSIS < 15 (0-50); Lipase 66 U/L (23-300); Potassium 4.2 mmol/L (3.4-5.1); Sodium 134 mmol/L (137-145); Total Protein 9.3 g/dL (6.3-8.2)
[2025-05-21 12:45] LABS: Culture Indicated Urine Cult Not Indicated
[2025-05-21] MEDS: ONDANSETRON 4 MG/2 ML INJ IV (13:15)
--- NOTE | 2025-05-21 13:42 | ED.NAVMDI ---
HPI - Nausea/Vomiting/Diarrhea General Chief complaint: Nausea/Vomiting/Diarrhea Stated complaint: Vomiting(3days); Dx prostate infection(14days) Time Seen by Provider: 05/21/25 10:50 History of Present Illness HPI Narrative: 44-year-old gentleman being currently treated for prostatitis on Levaquin presents with numerous bouts of nausea vomiting and watery loose stool feeling dehydrated and weak unable to hold anything down. Patient also reports using marijuana to help with nausea with no success. Patient denies fever, chills, body aches, penile discharge, testicular pain, abdominal pain, and back pain. Other than what is stated 14 point review of system is negative. Related Data Home Medications ?Medication ?Instructions ?Recorded ?Confirmed quetiapine 200 mg tablet 200 mg PO BEDTIME 11/13/24 11/21/24 Previous Rx's ?Medication ?Instructions ?Recorded benzonatate 200 mg capsule 200 mg PO BID PRN cough #28 caps 11/21/24 cefdinir 300 mg capsule 300 mg PO BID #14 caps 11/21/24 metoclopramide HCl 10 mg tablet 10 mg PO Q6H PRN nausea and 05/21/25 (Reglan) vomiting #30 tabs Allergies Allergy/AdvReac Type Severity Reaction Status Date / Time Penicillins (PENICILLINS) Allergy Unknown Verified 05/21/25 10:54 Review of Systems Review of Systems ROS Unobtainable: All systems reviewed & are unremarkable except as noted in HPI and below Patient History alcohol intake frequency: holidays/special occasions only Exam Narrative Exam Narrative: GENERAL: [44] year old patient appears stated age. Well-developed patient, in mild distress. HEAD: Atraumatic. Normocephalic. EYES: Pupils equal round and reactive. Extraocular motions intact. No scleral icterus. No injection or drainage. ENT: Nose without bleeding, purulent drainage. Throat without erythema, tonsillar hypertrophy or exudate. Airway patent. NECK: Trachea midline. Non tender CARDIOVASCULAR: Regular rate and rhythm without murmurs, gallops, or rubs. RESPIRATORY: Clear to auscultation. Breath sounds equal bilaterally. No wheezes, rales, or rhonchi. GASTROINTESTINAL: Abdomen soft, non-tender, nondistended. EXTREMITIES: No edema or joint tenderness. BACK: Nontender without deformity or crepitance. No flank tenderness. NEURO: AOx3. SKIN: No rash or erythema of visible areas Initial Vital Signs Initial Vital Signs: Vital Signs Temperature 97.9 F 05/21/25 10:54 Pulse Rate 92 H 05/21/25 10:54 Respiratory Rate 26 H 05/21/25 10:54 Blood Pressure 162/86 H 05/21/25 10:54 Pulse Oximetry 100 05/21/25 10:54 Oxygen Delivery Method Room Air 05/21/25 10:54 Course Orders Ordered: ED Orders 05/21/25 11:01 EKG-12 Lead Stat 05/21/25 11:09 Complete Blood Count AUTO DIFF Stat Comprehensive Metabolic Panel Stat Lipase Stat 05/21/25 11:49 Urine Microscopic Stat Ondansetron HCl (Ondansetron 4 Mg/2 Ml Inj) 4 mg IV NOW PRN PRN Reason: Nausea And Vomiting Last Admin: 05/21/25 13:15 Dose: 4 mg Documented By: NOLBERTO Ondansetron HCl (Ondansetron 4 Mg Odt) 4 mg PO NOW PRN PRN Reason: Nausea And Vomiting Discontinued Medications Diphenhydramine HCl (Diphenhydramine 50 Mg/Ml Vial) 50 mg IV NOW ONE Stop: 05/21/25 13:50 Last Admin: 05/21/25 14:07 Dose: 50 mg Documented By: NOLBERTO Droperidol (Droperidol 2.5 Mg/Ml Vial) 2.5 mg IV NOW ONE Stop: 05/21/25 13:50 Last Admin: 05/21/25 14:07 Dose: 2.5 mg Documented By: NOLBERTO Lactated Ringer's (Lactated Ringers) 1,000 mls @ 1,000 mls/hr IV BOLUS ONE Stop: 05/21/25 14:48 Last Infusion: 05/21/25 15:06 Dose: Infused Documented By: Admin: 05/21/25 14:05 Dose: 1,000 mls/hr Documented By: NOLBERTO Lactated Ringer's (Lactated Ringers) 1,000 mls @ 1,000 mls/hr IV BOLUS ONE Stop: 05/21/25 15:42 Last Admin: 05/21/25 14:48 Dose: 1,000 mls/hr Documented By: NOLBERTO Metoclopramide HCl (Metoclopramide 10 Mg/2 Ml Inj) 10 mg IV NOW ONE Stop: 05/21/25 14:44 Last Admin: 05/21/25 14:47 Dose: 10 mg Documented By: ES Vital Signs Vital signs: Vital Signs - 8 hr 05/21/25 10:54 Temperature 97.9 F Pulse Rate 92 H Respiratory Rate 26 H Blood Pressure 162/86 H Pulse Oximetry 100 Oxygen Delivery Method Room Air MDM - Nausea/Vomiting/Diarrhea Lab Data 05/21/25 11:09 05/21/25 11:09 Labs: Lab Results 05/21/25 05/21/25 Range/Units 11:09 11:49 WBC 9.2 (4.5-11.0) X10^3/uL RBC 4.94 (4.5-5.9) X10^6/uL Hgb 14.6 (13.5-17.5) g/dL Hct 43.6 (41-53) % MCV 88.2 (80-100) fL MCH 29.6 (26-34) PG MCHC 33.6 (30-36) % RDW 15.5 H (11.6-14.8) % Plt Count 295 (150-400) X10^3/uL Neut % (Auto) 80.2 H (50-75) % Lymph % (Auto) 9.8 L (25-40) % Castro % (Auto) 9.8 (3-14) % Eos % (Auto) 0.1 L (2-4) % Baso % (Auto) 0.1 (0-2) % Neut # (Auto) 7400 H (9572-9213) /uL Lymph # (Auto) 900 L (4363-3087) /uL Castro # (Auto) 900 (0-900) /uL Eos # (Auto) 0 (0-450) /uL Baso # (Auto) 0 (0-100) /uL Sodium 134 L (137-145) mmol/L Potassium 4.2 (3.4-5.1) mmol/L Chloride 97 L (98-107) mmol/L Carbon Dioxide 23 (22-32) mmol/L BUN 11 (9-20) mg/dL Creatinine 0.86 (0.66-1.25) mg/dL Estimated GFR > 60 (>60) mL/min BUN/Creatinine Ratio 12.8 (6-22) Glucose 162 H (70-99) mg/dL Calcium 10.6 H (8.4-10.2) mg/dL Total Bilirubin 0.9 (0.2-1.3) mg/dL AST 37 (17-59) IU/L ALT 32 (<50) IU/L Alkaline Phosphatase 96 (38-126) U/L Total Protein 9.3 H (6.3-8.2) g/dL Albumin 5.4 H (3.5-5.0) g/dL Globulin 3.9 (1.7-4.1) g/dL Albumin/Globulin Ratio 1.4 (1.0-2.8) Lipase 66 (23-300) U/L Urine RBC 0-1/hpf (0-5/HPF) Urine WBC None seen (0-5/HPF) Ur Squamous Epith Cells None seen (0-5/HPF) Urine Bacteria Few (2-10) H (None) Ur Culture Indicated? Cult not indicated Vol Urine Centrifuged 10ml (spun) Urine Dip Bedside Urine Glucose Negative Bedside Urine Bilirubin - Negative Bedside Urine Ketone ++ 40 Urine Specific [place] 1.015 Bedside Urine Occult Blood +/- Bedside Urine pH 6.0 Bedside Urine Protein +/- 15 Bedside Urine Urobilinogen - Negative Bedside Urine Nitrite - Negative Bedside Urine Leukocytes - Negative Esterase MDM Narrative Medical decision making narrative: Vital signs, nurse triage note, medication list, previous ER visits, and all imaging modalities reviewed. WBC 9.2 sodium 134 potassium 4.2 BUN 11 creatinine 0.86 glucose 162 urine shows 2-10 bacteria otherwise normal. Differential diagnosis includes prostatitis, viral gastroenteritis, dehydration, marijuana side effect of hyperemesis cannabinoid syndrome. DC home on Reglan rx and to keep hydrated and follow up with Urology upcoming appointment. Discharge Plan Departure Patient Disposition: Home Clinical Impression: Nausea vomiting and diarrhea Instructions: DI for Dehydration -- Adult Activity Restrictions/Additional Instructions: Return with new or worsening symptoms. Take your medicines as directed. Follow up with Urology at your upcoming appointment. Keep hydrated. Prescriptions: New metoclopramide HCl [Reglan] 10 mg tablet 10 mg PO Q6H PRN (Reason: nausea and vomiting) Qty: 30 0RF No Action quetiapine 200 mg tablet 200 mg PO BEDTIME benzonatate 200 mg capsule 200 mg PO BID PRN (Reason: cough) Qty: 28 0RF cefdinir 300 mg capsule 300 mg PO BID Qty: 14 0RF Referrals: Beth Lennon MD [Primary Care Provider, [facility]] Stand Alone Forms: Patient Portal/API
[2025-05-21] MEDS: LACTATED RINGERS 1,000 ML 1000 ML IV ×3 (14:05→16:29)
[2025-05-21] MEDS: diphenhydrAMINE 50 MG/ML VIAL IV (14:07)
[2025-05-21] MEDS: droPERidol 2.5 MG/ML VIAL IV (14:07)
[2025-05-21] MEDS: METOCLOPRAMIDE 10 MG/2 ML INJ IV (14:47)
[2025-05-21] MEDS: PROCHLORPERAZINE 10 MG/2 ML VIAL IV (16:24)
== END 2025-05-21 19:05 | disposition home or self-care (01) ==
PROVIDERS: Emergency Provider Family Medicine; Family Provider Family Medicine; PCP Family Medicine; Referring Provider Family Medicine
DX: R11.2 Nausea with vomiting, unspecified (principal); R19.7 Diarrhea, unspecified
CPT/HCPCS: 36415; 80053; 81003; 81015; 83690; 85025; 93005; 93010; 96361; 96374; 96375; 99284; J0780; J1200; J1790; J2405; J2765

== ENCOUNTER 2025-05-22 08:27 | Emergency (ER) | payer OTHER, SELFPAY ==
[2025-05-22] VITALS (8 sets, daily range): BP systolic 132–158; BP diastolic 71–89; PULSE 41–88; RESP 16–37; TEMP 36.6; O2SAT 95–99; BMI 21.2
[2025-05-22 08:59] LABS: Add Manual Diff / Slide Review NO; Hematocrit 40.0 % (41-53); Hemoglobin 13.3 g/dL (13.5-17.5); Lymphocytes Absolute Auto 900 /uL (1100-4500); Mean Corpuscular HGB Conc 33.2 % (30-36); Mean Corpuscular Hemoglobin 29.3 PG (26-34); Mean Corpuscular Volume 88.3 fL (80-100); Platelet Count 294 X10^3/uL (150-400)
[2025-05-22] MEDS: SODIUM CHLORIDE 0.9% 1,000 ML 1000 ML IV (09:06)
[2025-05-22] MEDS: droPERidol 2.5 MG/ML VIAL IV (09:06)
[2025-05-22 09:13] LABS: Alanine Aminotransferase 28 IU/L (<50); Albumin 5.0 g/dL (3.5-5.0); Albumin Globulin Ratio 1.4 (1.0-2.8); Alkaline Phosphatase 80 U/L (38-126); Blood Urea Nitrogen 10 mg/dL (9-20); Calcium 9.7 mg/dL (8.4-10.2); Carbon Dioxide 29 mmol/L (22-32); Chloride 98 mmol/L (98-107); Estimated Glomerular Filt Rate > 60 mL/min (>60); Globulin 3.5 g/dL (1.7-4.1); Glucose 158 mg/dL (70-99); HEMOLYSIS < 15 (0-50); Lipase 47 U/L (23-300); Potassium 4.1 mmol/L (3.4-5.1); Sodium 137 mmol/L (137-145); Total Protein 8.5 g/dL (6.3-8.2)
--- NOTE | 2025-05-22 09:55 | EKG_ITS ---
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
--- NOTE | 2025-05-22 09:59 | ED.RECABL ---
HPI - Recheck/Abnormal Lab/Rx General Chief Complaint: Recheck/Abnormal Lab/Rx Stated Complaint: ER return: Muscle tension in RT arm and face Time Seen by Provider: 05/22/25 09:25 Source: patient Mode of arrival: Ambulatory History of Present Illness HPI narrative: 44 years old male with history of current prostatitis on levofloxacin 70 came today complaining of for persistent nausea vomiting for the last 4 days, generalized weakness, muscle cramps without any chest pain, shortness of breath, abdominal pain, diarrhea, dysuria, urgency, frequency urination, blood in the urine, headache, dizziness, loss of consciousness, fever. He was in our ER yesterday for the same complaints. Related Data Home Medications ?Medication ?Instructions ?Recorded ?Confirmed quetiapine 200 mg tablet 200 mg PO BEDTIME 11/13/24 11/21/24 Previous Rx's ?Medication ?Instructions ?Recorded benzonatate 200 mg capsule 200 mg PO BID PRN cough #28 caps 11/21/24 cefdinir 300 mg capsule 300 mg PO BID #14 caps 11/21/24 metoclopramide HCl 10 mg tablet 10 mg PO Q6H PRN nausea and 05/21/25 (Reglan) vomiting #30 tabs Allergies Allergy/AdvReac Type Severity Reaction Status Date / Time Penicillins (PENICILLINS) Allergy Unknown Verified 05/22/25 08:35 Review of Systems Review of Systems Narrative: Positive for nausea vomiting, generalized weakness, muscle cramps. Negative for chest pain, shortness of breath, abdominal pain, diarrhea, dysuria, urgency, frequency urination, blood in the urine, headache, dizziness, loss of consciousness, fever. Patient History Social History Smoking Status: Never smoker Smoking Status: Never smoker alcohol intake frequency: holidays/special occasions only Exam Initial Vital Signs Initial Vital Signs: Vital Signs Temperature 97.8 F 05/22/25 08:31 Pulse Rate 88 05/22/25 08:31 Respiratory Rate 18 05/22/25 08:31 Blood Pressure 158/89 H 05/22/25 08:31 Pulse Oximetry 97 05/22/25 08:31 Oxygen Delivery Method Room Air 05/22/25 08:31 Const General: cooperative, No acute distress, anxious, frail appearing and ill appearing Neck Neck: normal visual inspection and supple Resp Other: Clear to auscultation bilaterally. No rales, wheezing or respiratory distress. Cardio Other: Normal S1-S2 without murmur. Normal rate and rhythm. GI Other: Soft, nontender, nondistention. No guarding or rebound tenderness. Skin General: no rashes or lesions noted Neuro Other: Alert oriented x4, moving all extremities. Course Orders Ordered: ED Orders 05/22/25 08:41 EKG-12 Lead Stat 05/22/25 08:45 Complete Blood Count AUTO DIFF Stat Comprehensive Metabolic Panel Stat Lipase Stat Magnesium Stat Trop I [Troponin I] Stat 05/22/25 09:58 CT abdomen pelvis w con Stat Discontinued Medications Diphenhydramine HCl (Diphenhydramine 50 Mg/Ml Vial) 50 mg IV NOW ONE Stop: 05/22/25 11:01 Last Admin: 05/22/25 11:07 Dose: 50 mg Documented By: Droperidol (Droperidol 2.5 Mg/Ml Vial) 2.5 mg IV NOW ONE Stop: 05/22/25 08:43 Last Admin: 05/22/25 09:06 Dose: 2.5 mg Documented By: TC Hydromorphone HCl (Hydromorphone Hcl 0.5 Mg/0.5 Ml Syringe) 0.5 mg IV NOW ONE Stop: 05/22/25 09:59 Last Admin: 05/22/25 10:06 Dose: 0.5 mg Documented By: Sodium Chloride (Normal Saline 0.9%) 1,000 mls @ 1,000 mls/hr IV BOLUS ONE Stop: 05/22/25 09:41 Last Infusion: 05/22/25 10:11 Dose: Infused Documented By: Admin: 05/22/25 09:06 Dose: 1,000 mls/hr Documented By: TC Lactated Ringer's (Lactated Ringers) 1,000 mls @ 1,000 mls/hr IV BOLUS ONE Stop: 05/22/25 10:49 Last Infusion: 05/22/25 10:57 Dose: Infused Documented By: Admin: 05/22/25 10:06 Dose: 1,000 mls/hr Documented By: Magnesium Sulfate (Magnesium Sulfate) 2 gm in 50 mls @ 25 mls/hr IV NOW ONE Stop: 05/22/25 12:58 Last Admin: 05/22/25 11:05 Dose: 25 mls/hr Documented By: Co-signed By: RB Magnesium Oxide (Magnesium Oxide 400 Mg Tablet) 400 mg PO NOW ONE Stop: 05/22/25 13:23 Last Admin: 05/22/25 13:37 Dose: 400 mg Documented By: TC Ondansetron HCl (Ondansetron 4 Mg/2 Ml Inj) 4 mg IV NOW PRN PRN Reason: Nausea And Vomiting Ondansetron HCl (Ondansetron 4 Mg Odt) 4 mg PO NOW PRN PRN Reason: Nausea And Vomiting Vital Signs Vital signs: Vital Signs - 8 hr 05/22/25 08:31 05/22/25 10:55 05/22/25 12:51 Temperature 97.8 F Pulse Rate 88 87 41 L Respiratory Rate 18 16 Blood Pressure 158/89 H 150/78 H 140/85 Pulse Oximetry 97 97 95 Oxygen Delivery Method Room Air Room Air 05/22/25 12:52 05/22/25 12:52 05/22/25 13:00 Temperature Pulse Rate 72 77 Respiratory Rate 33 H 23 Blood Pressure 140/85 Pulse Oximetry 99 98 Oxygen Delivery Method 05/22/25 13:00 05/22/25 13:30 05/22/25 13:30 Temperature Pulse Rate 65 Respiratory Rate 37 H Blood Pressure 132/79 144/71 H Pulse Oximetry 97 Oxygen Delivery Method MDM - Recheck/Abnormal Lab/Rx Lab Data 05/22/25 08:45 05/22/25 08:45 Labs: Lab Results 05/22/25 Range/Units 08:45 WBC 8.6 (4.5-11.0) X10^3/uL RBC 4.54 (4.5-5.9) X10^6/uL Hgb 13.3 L (13.5-17.5) g/dL Hct 40.0 L (41-53) % MCV 88.3 (80-100) fL MCH 29.3 (26-34) PG MCHC 33.2 (30-36) % RDW 15.7 H (11.6-14.8) % Plt Count 294 (150-400) X10^3/uL Neut % (Auto) 74.8 (50-75) % Lymph % (Auto) 10.6 L (25-40) % [place] % (Auto) 13.9 (3-14) % Eos % (Auto) 0.1 L (2-4) % Baso % (Auto) 0.6 (0-2) % Neut # (Auto) 6400 (8944-9080) /uL Lymph # (Auto) 900 L (3714-3971) /uL [place] # (Auto) 1200 H (0-900) /uL Eos # (Auto) 0 (0-450) /uL Baso # (Auto) 100 (0-100) /uL Sodium 137 (137-145) mmol/L Potassium 4.1 (3.4-5.1) mmol/L Chloride 98 (98-107) mmol/L Carbon Dioxide 29 (22-32) mmol/L BUN 10 (9-20) mg/dL Creatinine 0.71 (0.66-1.25) mg/dL Estimated GFR > 60 (>60) mL/min BUN/Creatinine Ratio 14.1 (6-22) Glucose 158 H (70-99) mg/dL Calcium 9.7 (8.4-10.2) mg/dL Magnesium 1.4 L (1.6-2.3) mg/dL Total Bilirubin 0.9 (0.2-1.3) mg/dL AST 33 (17-59) IU/L ALT 28 (<50) IU/L Alkaline Phosphatase 80 (38-126) U/L Troponin I < 0.012 (0.01-0.034) ng/mL Total Protein 8.5 H (6.3-8.2) g/dL Albumin 5.0 (3.5-5.0) g/dL Globulin 3.5 (1.7-4.1) g/dL Albumin/Globulin Ratio 1.4 (1.0-2.8) Lipase 47 (23-300) U/L Urine Dip Bedside Urine Glucose Negative Bedside Urine Bilirubin - Negative Bedside Urine Ketone - Negative Urine Specific [place] 1.010 Bedside Urine Occult Blood - Negative Bedside Urine pH 6.0 Bedside Urine Protein - Negative Bedside Urine Urobilinogen - Negative Bedside Urine Nitrite - Negative Bedside Urine Leukocytes - Negative Esterase Imaging Data CT scan - abdomen/pelvis: Radiologist's Impression: PROCEDURE: CT ABDOMEN PELVIS W CON INDICATIONS: Refractory nausea vomiting TECHNIQUE: After the administration of intravenous contrast, axial sections acquired from the lung bases to the pubic symphysis. Coronal and sagittal reformats were performed. For radiation dose reduction, the following was used: automated exposure control, adjustment of mA and/or kV according to patient size. COMPARISON: None. FINDINGS: Image quality: Diagnostic Lower chest: Unremarkable lung bases Heart size is within normal limits Liver: Unremarkable Gallbladder and biliary system: Unremarkable, nondilated Pancreas: No ductal dilation Spleen: Nonenlarged Adrenals: No discrete nodules Kidneys: No solid renal mass. No hydronephrosis. Vessels and lymph nodes: The main portal vein appears patent. There is no abdominal aortic aneurysm. No pathologic lymphadenopathy by size criteria. Bowel and peritoneum: No evidence of small bowel obstruction. Nondilated appendix. No drainable abscess or ascites. In the right lower quadrant, there is a focally ectatic loop of distal ileum with mild surrounding edema and lower enhancement than expected (2/89). Body wall: Tiny fat containing umbilical hernia Pelvis: Unremarkable urinary bladder. Pelvis is not well assessed on this study, overall unremarkable Bones: No aggressive appearing osseous abnormality. IMPRESSION: No acute small bowel obstruction. No ascites or abscess. There is mild focal edema and lower than expected enhancement of a right lower quadrant distal ileum loop (see image 2/89). Differential includes focal enteritis, hypoperfusion, or artifact. Correlate with any focal right lower quadrant symptoms. Nondilated appendix. Other findings above. Dictated by: Vinny Arreola M.D. on 05/22/2025 at 9:54 Approved by: Vinny Arreola M.D. on 05/22/2025 at 10:00 ECG Data Interpretation: EKG showed normal sinus rhythm at rate 100 beats per minute without ischemic ST-T changes. [facility] Narrative Medical decision making narrative: 44 years old male with history of prostatitis on levofloxacin came in today complaining of nausea vomiting, muscle cramp for the last 4 days. He was here in our ER yesterday for the same complaint. He denied any abdominal pain, chest pain, shortness of breath, loss of consciousness, diarrhea. His CV exam, lung exam, abdominal exam was benign. A CBC show normal white cell count and hemoglobin was 13.3. His chemistry showed normal electrolyte, kidney function and LFT. His magnesium was 1.4. He was given IV magnesium in the ED 2 g and oral magnesium oxide [address] scan abdomen and pelvis came back showed area of my focal edema with mild lower enhancement of the right lower abdomen could be enteritis but his abdominal exam was benign and he denied any abdominal pain. His appendix was normal on the CT. He was feeling better after was given Zofran, normal saline, droperidol, wrinkled lactate, Dilaudid, Benadryl. Discharge Plan Departure Patient Disposition: Home Clinical Impression: Nausea & vomiting, Hypomagnesemia, Cramp in muscle Instructions: Nausea and Vomiting-Adult, DI for Hypomagnesemia Activity Restrictions/Additional Instructions: Please continue your nausea medicine. Please follow-up with your primary care doctor next week. Please drink plenty of fluid. Please come back to the emergency room if any worsening symptoms including but not limited to abdominal pain, chest pain, shortness of breath, dehydration, nausea vomiting, dizziness. Prescriptions: No Action quetiapine 200 mg tablet 200 mg PO BEDTIME benzonatate 200 mg capsule 200 mg PO BID PRN (Reason: cough) Qty: 28 0RF cefdinir 300 mg capsule 300 mg PO BID Qty: 14 0RF metoclopramide HCl [Reglan] 10 mg tablet 10 mg PO Q6H PRN (Reason: nausea and vomiting) Qty: 30 0RF Referrals: Beth Lennon MD [Primary Care Provider, Family Practice] Stand Alone Forms: Patient Portal/API
[2025-05-22] MEDS: LACTATED RINGERS 1,000 ML 1000 ML IV (10:06)
[2025-05-22 10:21] LABS: Magnesium 1.4 mg/dL (1.6-2.3)
[2025-05-22 10:34] LABS: Troponin I < 0.012 ng/mL (0.01-0.034)
[2025-05-22] MEDS: MAGNESIUM SULFATE 2 GM/50 ML PIGGYBACK IV (11:05)
[2025-05-22] MEDS: diphenhydrAMINE 50 MG/ML VIAL IV (11:07)
[2025-05-22] MEDS: MAGNESIUM OXIDE 400 MG TABLET PO (13:37)
--- NOTE | 2025-05-31 15:42 | PC.NURSE ---
late entry per RN Magnesium drip completed and DC'd at 1300
== END 2025-05-22 14:25 | disposition home or self-care (01) ==
PROVIDERS: Emergency Provider Emergency Medicine; Family Provider Family Medicine; PCP Family Medicine
DX: R11.2 Nausea with vomiting, unspecified (principal); E83.42 Hypomagnesemia; R25.2 Cramp and spasm; R53.1 Weakness
CPT/HCPCS: 36415; 74177; 80053; 81003; 83690; 83735; 84484; 85025; 93005; 93010; 96361; 96365; 96366; 96375; 99284; J1171; J1200; J1790; J3475; Q9967

== ENCOUNTER → 2025-06-27 08:12 | Outpatient (CLI) | payer OTHER, SELFPAY ==
--- NOTE | 2025-06-27 08:16 | DI.US.S_ITS ---
PROCEDURE: US RENAL COMPLETE INDICATIONS: nausea TECHNIQUE: Real-time scanning was performed of the kidneys and bladder, with image documentation. COMPARISON: None. FINDINGS: Kidneys: Kidneys are normal in size. Right kidney measures 11 cm long; left kidney measures 10.8 cm long. Right renal cortical thickness is 1.2 cm; left renal cortical thickness is 1.5 cm. Renal cortical echotexture is normal. No hydronephrosis or nephrolithiasis. No suspicious solid mass lesions. Bladder: Pre-void bladder volume is 221 mL. Post-void residual is 1 mL. Pre- void images demonstrate no intraluminal masses or stones. On pre-void images, both ureteral jets are noted with color Doppler interrogation. (Of note, ureteral jets may not be detectable in up to 25% of cases due to insufficient differences in specific gravity between ureteral and bladder urine). Miscellaneous: No free pelvic fluid. IMPRESSION: Unremarkable renal ultrasound. Dictated by: Sam Posada M.D. on 06/27/2025 at 9:30 Approved by: Sam Posada M.D. on 06/27/2025 at 9:31
== END ==
PROVIDERS: Referring Provider Student in an Organized Health Care Education/Training Program; Visit Provider Student in an Organized Health Care Education/Training Program
DX: R11.0 Nausea (principal)
CPT/HCPCS: 76770

== ENCOUNTER 2025-07-28 14:11 | Outpatient (RCR) | payer OTHER, SELFPAY ==
--- NOTE | 2025-07-28 16:36 | PT.OPPOC ---
Physical, Occupational & Speech Therapy At [facility] Current Diagnoses Pelvic and perineal pain (07/28/25) Visit Care Team Role Provider Type NICK Nails Primary Care Provider Non-Staff Specialty: Family Practice Address: [address] [place], [address] Email: Doctor Octavia MD Family Provider Non-Staff Specialty: Medical Address: Phone: Fax: Email: Alfonso Valera MD Attending Provider Non-Staff Referring Provider Specialty: Urology Address: [address] [place], [address] Email: Plan Of Care PT OP: Pelvic Health Start: 07/28/25 09:24 Freq: Status: Active Protocol: Document 07/28/25 14:35 [facility] (Rec: 07/28/25 15:16 [facility] [id number]) Out-Patient Physical Therapy Visit Information Visit Information Visit Type Initial Evaluation Visit Start Time 14:30 Visit Stop Time 14:45 Current Condition History of Current Condition Onset Date Nov 2024 History of Current pt has a history of prostatitis diagnosed in November and was experiencing diffuse pelvic pain during that time. His pain increased with sitting and with holding his 2 year old on the left side of his lap. He does have a history of LBP but has not been experiencing pain in the past 9 months. Once he was diagnosed with prostatitis he was put on antibiotics and NSAIDS. After the antibiotics his pelvic pain went away. He reports he is no longer having pelvic pain symptoms. He is now experiencing bowel irregularities and daily nausea and constipation. Three weeks ago he tested positive for C-diff and now he is on day two of vancomycin. 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 He reports he is having nausea and bouts of diarrhea and constipation episodes and was recently diagnosed with C-diff. He is on day 2 of Vancomycin. At this point in time as his pelvic pain has been resolved we will hold off on physical therapy and he can focus on healing from the bacteria infection. Physical Therapy Plan Discharge Physical Therapy Discharge Comments Pt is no longer experiencing the pelvic pain symptoms he was referred for therefore we will DC PT. Electronically Signed by: Marcia Holcomb, PT 07/28/25 [id number] If you are in agreement with this Plan of Care, please return a signed and dated copy. I have reviewed this Plan of Care and certify that the skilled therapy services above are required to meet the patient?s needs. Physician Signature Date Printed Name and Credentials Clinical Instructor Signature Printed Name and Credentials
== END 2025-08-02 09:27 | disposition home or self-care (01) ==
LOC: PHYS 14:11
PROVIDERS: Referring Provider Urology; Visit Provider Urology
DX: R10.2 Pelvic and perineal pain (principal)
CPT/HCPCS: 97161; 97535

== ENCOUNTER → 2025-09-22 18:01 | Outpatient (ROUT) | payer OTHER, SELFPAY | PROVIDERS: Visit Provider Registered Nurse | DX: L73.8 Other specified follicular disorders (principal); L73.9 Follicular disorder, unspecified; Z79.899 Other long term (current) drug therapy | CPT/HCPCS: 87070; 87075; 87102; 87205 ==

== ENCOUNTER → 2025-10-19 17:40 | Outpatient (ROUT) | payer OTHER, SELFPAY | PROVIDERS: Visit Provider Registered Nurse | DX: L03.90 Cellulitis, unspecified (principal); L73.8 Other specified follicular disorders; Z79.899 Other long term (current) drug therapy | CPT/HCPCS: 87070; 87075; 87102; 87205 ==